=== PATIENT | male | born 1950 | race Two or more races ===

== ENCOUNTER 2017-07-17 19:09 | Inpatient (IN) | payer MEDICARE, OTHER ==
[~2017-07-17] VITALS: Ht 165.1 cm; Wt 68.0 kg
[2017-07-17 19:09] VITALS: BP 195/68
--- NOTE | 2017-07-17 21:09 | Emergency Room Report ---
History of Present Illness General Chief Complaint: Headache Source: Patient, EMS Present Illness HPI Is a 67-year-old homeless patient with a history hypertension. He also uses a walker. Someone called 911. Patient is a poor historian complaint of headache. No focal deficit. He denies any symptom when I spoke with him. He shakes his head yes and now. Denies any pain to me. Allergies: Coded Allergies: No Known Allergies (Unverified , 07/17/17) Patient History Past Medical History: see triage record, old chart reviewed, HTN Past Surgical History: other Pertinent Family History: none Social History: Denies: smoking Immunizations: other Reviewed Nursing Documentation: PMH: Agreed, PSxH: Agreed Nursing Documentation-PMH Hx Hypertension: Yes Review of Systems Eye: Denies: eye pain, blurred vision ENT: Denies: ear pain, nose congestion, throat swelling Respiratory: Denies: cough, shortness of breath Cardiovascular: Denies: chest pain, palpitations Gastrointestinal: Denies: abdominal pain, diarrhea, nausea, vomiting Musculoskeletal: Denies: back pain, joint pain Skin: Denies: rash Neurological: Reports: headache, Denies: numbness Endocrine: Denies: increased thirst, increased urine Hematologic/Lymphatic: Denies: easy bruising All Other Systems: negative except mentioned in HPI Physical Exam Vital Signs Date Time Temp Pulse Resp B/P (MAP) Pulse Ox O2 Delivery O2 Flow Rate FiO2 07/17/17 19:05 98.8 53 18 195/68 98 Room Air vitals with high blood pressure Sp02 EP Interpretation: reviewed, normal General Appearance: well appearing, no apparent distress, alert Head: normocephalic, atraumatic Eyes: bilateral eye PERRL, bilateral eye EOMI ENT: hearing grossly normal, normal pharynx Neck: full range of motion, supple, no meningismus Respiratory: chest non-tender, lungs clear, normal breath sounds Cardiovascular #1: regular rate, rhythm, no murmur Gastrointestinal: normal bowel sounds, non tender, no mass, no organomegaly, no bruit, non-distended Musculoskeletal: back normal, normal range of motion Neurologic: alert, other - Confused Psychiatric: mood/affect normal Skin: warm/dry Medical Decision Making Diagnostic Impression: Primary Impression: Headache Qualified Codes: R51 - Headache Additional Impressions: Encephalopathy acute Hypertension Qualified Codes: I10 - Essential (primary) hypertension Failure to thrive in adult Anemia Qualified Codes: D64.9 - Anemia, unspecified ER Course Patient presents with confusion and headache. Most likely having some type of dementia. The no focal deficit. No evidence of CVA or TIA. No evidence of ACS. No infectious cause or drugs or alcohol. Will admit. Most likely will need long-term placement. Lab Results Impression labs with anemia Rhythm Strip Diag. Results Rhythm Strip Time: 01:14 EP Interpretation: yes Rate: 88 Rhythm: NSR, no PVC's, no ectopy CT/MRI/US Diagnostic Results CT/MRI/US Diagnostic Results : Imaging Test Ordered: CT head Impression negative per radiologist Last Vital Signs Date Time Temp Pulse Resp B/P (MAP) Pulse Ox O2 Delivery O2 Flow Rate FiO2 07/17/17 19:09 98.8 53 18 195/68 98 Room Air Status: improved Disposition: ADMITTED INPATIENT Condition: Serious Referrals: NOT CHOSEN DUDLEY/,REFERRING (PCP) NIGEL CUMMINGS M.D. Jul 17, 2017 21:09
[2017-07-17 22:00] VITALS: BP 204/91
[2017-07-17 22:11] LABS: APPEARANCE,URINE CLEAR; BILIRUBIN, URINE NEGATIVE (NEGATIVE); COLOR,URINE PALE YELLOW; GLUCOSE, URINE (UA) NEGATIVE (NEGATIVE); KETONES,URINE NEGATIVE (NEGATIVE); LEUKOCYTE ESTERASE ,URINE NEGATIVE (NEGATIVE); NITRITE,URINE NEGATIVE (NEGATIVE); PH,URINE 7 (4.5-8.0); PROTEIN,URINE NEGATIVE (NEGATIVE); UROBILINOGEN,URINE NORMAL MG/DL (0.0-1.0)
[2017-07-17 22:17] LABS: BASOPHILS % (AUTO) 1.1 % (0.0-2.0); EOSINOPHILS % (AUTO) 2.6 % (0.0-3.0); HEMATOCRIT 30.5 % (42.0-52.0); HEMOGLOBIN 9.8 G/DL (14.2-18.0); MEAN CORPUSCULAR VOLUME 92 FL (80-99); MONOCYTES % (AUTO) 9.1 % (1.0-10.0); NEUTROPHILS % (AUTO) 74.2 % (45.0-75.0); PLATELET COUNT 428 K/UL (150-450); RED BLOOD COUNT 3.32 M/UL (4.70-6.10); RED CELL DISTRIBUTION WIDTH 13.2 % (11.6-14.8); WHITE BLOOD COUNT 7.3 K/UL (4.8-10.8)
[2017-07-17 22:23] LABS: ANION GAP 8 mmol/L (5-15); BLOOD UREA NITROGEN 15 mg/dL (7-18); CARBON DIOXIDE 25 MMOL/L (21-32); CHLORIDE 104 MMOL/L (98-107); POTASSIUM 3.8 MMOL/L (3.5-5.1); SODIUM 137 MMOL/L (136-145)
[2017-07-18] VITALS (7 sets, daily range): BP systolic 109–178; BP diastolic 69–93
[2017-07-18] MEDS ORDERED: Miralax 17gm pkt ORAL PRN (01:45)
[2017-07-18] MEDS ORDERED: HydrALAZINE 25mg tab ORAL PRN (01:45)
[2017-07-18] MEDS ORDERED: Acetaminophen 650 MG SUPP RECTAL PRN ×2 (01:45)
[2017-07-18 08:14] LABS: CHOLESTEROL 151 MG/DL (< 200); HDL CHOLESTEROL 74 MG/DL (40-60); TRIGLYCERIDES 56 MG/DL (30-150)
[2017-07-18] MEDS ORDERED: Lisinopril 10mg tab ORAL SCH (09:00)
[2017-07-18] MEDS: Docusate 100mg cap ORAL SCH ×2 (09:46→20:47)
[2017-07-18] MEDS: Heparin 5000 units/ml inj SUBQ SCH ×2 (09:50→20:49)
--- NOTE | 2017-07-18 11:13 | Cardiac Electrophysiology PN ---
Subjective Subjective [id number] Objective Last 24 Hour Vital Signs Date Time Temp Pulse Resp B/P (MAP) Pulse Ox O2 Delivery O2 Flow Rate FiO2 07/18/17 09:46 142/88 07/18/17 08:00 96.8 86 20 142/88 97 07/18/17 04:14 96.8 85 20 144/80 92 Room Air 07/18/17 03:45 85 24 157/69 100 07/18/17 03:24 85 144/80 07/18/17 02:20 85 24 157/69 100 Room Air 07/18/17 02:10 166/93 07/18/17 01:20 199/99 07/18/17 01:20 199/99 07/18/17 00:30 91 25 178/93 100 07/17/17 23:22 195/85 07/17/17 22:00 87 27 204/91 100 07/17/17 21:57 201/86 07/17/17 19:09 98.8 53 18 195/68 98 Room Air 07/17/17 19:05 98.8 53 98 Room Air Intake and Output 07/17/17 07/18/17 19:00 07:00 Intake Total 20 ml Balance 20 ml Intake Oral 20 ml # Voids 6 Laboratory Tests Test 07/17/17 21:50 07/18/17 06:05 White Blood Count 7.3 K/UL (4.8-10.8) Red Blood Count 3.32 M/UL (4.70-6.10) L Hemoglobin 9.8 G/DL (14.2-18.0) L Hematocrit 30.5 % (42.0-52.0) L Mean Corpuscular Volume 92 FL (80-99) Mean Corpuscular Hemoglobin 29.5 PG (27.0-31.0) Mean Corpuscular Hemoglobin Concent 32.1 G/DL (32.0-36.0) Red Cell Distribution Width 13.2 % (11.6-14.8) Platelet Count 428 K/UL (150-450) Mean Platelet Volume 5.8 FL (6.5-10.1) L Neutrophils (%) (Auto) 74.2 % (45.0-75.0) Lymphocytes (%) (Auto) 13.0 % (20.0-45.0) L Monocytes (%) (Auto) 9.1 % (1.0-10.0) Eosinophils (%) (Auto) 2.6 % (0.0-3.0) Basophils (%) (Auto) 1.1 % (0.0-2.0) Urine Color Pale yellow Urine Appearance Clear Urine pH 7 (4.5-8.0) Urine Specific Kaycee 1.005 (1.005-1.035) Urine Protein Negative (NEGATIVE) Urine Glucose (UA) Negative (NEGATIVE) Urine Ketones Negative (NEGATIVE) Urine Occult Blood 3+ (NEGATIVE) H Urine Nitrite Negative (NEGATIVE) Urine Bilirubin Negative (NEGATIVE) Urine Urobilinogen Normal MG/DL (0.0-1.0) Urine Leukocyte Esterase Negative (NEGATIVE) Urine RBC 2-4 /HPF (0 - 0) H Urine WBC 0-2 /HPF (0 - 0) Urine Squamous Epithelial Cells None /LPF (NONE/OCC) Urine Bacteria Few /HPF (NONE) Sodium Level 137 MMOL/L (136-145) Potassium Level 3.8 MMOL/L (3.5-5.1) Chloride Level 104 MMOL/L (98-107) Carbon Dioxide Level 25 MMOL/L (21-32) Anion Gap 8 mmol/L (5-15) Blood Urea Nitrogen 15 mg/dL (7-18) Creatinine 1.0 MG/DL (0.55-1.30) Estimat Glomerular Filtration Rate > 60 mL/min (>60) Glucose Level 86 MG/DL (74-106) Calcium Level 9.0 MG/DL (8.5-10.1) Troponin I 0.050 ng/mL (0.000-0.056) Urine Opiates Screen Negative (NEGATIVE) Urine Barbiturates Screen Negative (NEGATIVE) Phencyclidine (PCP) Screen Negative (NEGATIVE) Urine Amphetamines Screen Negative (NEGATIVE) Urine Benzodiazepines Screen Negative (NEGATIVE) Urine Cocaine Screen Negative (NEGATIVE) Urine Marijuana (THC) Screen Negative (NEGATIVE) Serum Alcohol < 3 mg/dL Hemoglobin A1c 5.7 % (4.3-6.0) Triglycerides Level 56 MG/DL (30-150) Cholesterol Level 151 MG/DL (< 200) LDL Cholesterol 72 mg/dL (<100) HDL Cholesterol 74 MG/DL (40-60) H Cholesterol/HDL Ratio 2.0 (3.3-4.4) L Vitamin B12 Level 996 PG/ML (193-986) H Vitamin D 25-Hydroxy Pending 25-Hydroxy Vitamin D2 Pending 25-Hydroxy Vitamin D3 Pending Folate 7.1 NG/ML (8.6-58.9) L Thyroid Stimulating Hormone (TSH) 5.374 uiU/mL (0.358-3.740) Rapid Plasma Reagin Pending NAKUL GARNETT Jul 18, 2017 11:12
[2017-07-18] MEDS ORDERED: COREG25 MG ORAL (11:47)
[2017-07-18] MEDS ORDERED: FLEET ENEMA133 M1 RC (11:47)
[2017-07-18] MEDS ORDERED: NEURONTIN300 MG ORAL (11:47)
[2017-07-18] MEDS ORDERED: FERROUS SULFAT325 M2 ORAL (11:47)
[2017-07-18] MEDS ORDERED: DOCUSATE SODIU100 M2 ORAL (11:47)
[2017-07-18] MEDS ORDERED: HEPARIN2000 UNIT/ (11:47)
[2017-07-18] MEDS ORDERED: HEPARIN 50500 UNIT/5 SQ (11:47)
[2017-07-18] MEDS ORDERED: LOSARTAN POTASS25 M1 PO (11:47)
[2017-07-18] MEDS ORDERED: NORVASC5 MG ORAL (11:47)
[2017-07-18] MEDS ORDERED: DULCOLAX10 MG RC (11:47)
--- NOTE | 2017-07-18 16:11 | Diagnostic Imaging Report ---
Indication: Altered mental status Technique: Continuous helical CT scanning of the head was performed utilizing automated exposure control without intravenous contrast material. Axial and coronal reconstructions were obtained. Comparison: None CT dose: Total DLP 1411.25 mGycm; CTDI vol 70.38 mGy Findings: There is no acute intracranial hemorrhage, mass effect or cortical edema. The ventricles, cisterns and sulci are mildly prominent consistent with atrophy. Confluent subcortical and periventricular hypoattenuation is seen, a nonspecific finding. There is opacification of the bilateral mastoid air cells which may be related to mastoiditis or mastoid effusion. There is mucosal thickening and retention cyst in the bilateral paranasal in the paranasal sinuses with mucous retention cysts versus polyps in the bilateral maxillary sinuses. There are frothy secretions in the nasopharynx. There is slight asymmetric ventricular prominence in the left pharyngeal recess which may be artifactual related to patient positioning. Neoplasm cannot entirely be excluded. IMPRESSION: No evidence of acute intracranial hemorrhage, mass effect or cortical edema. Atrophy and nonspecific periventricular hypoattenuation suggestive of chronic ischemic microvascular changes. Acute on chronic ischemia not entirely excluded. MRI may be obtained for more sensitive evaluation as clinically indicated. Paranasal sinus disease. Bilateral mastoid ossification possibly related to mastoiditis or mastoid effusion. Correlate clinically. Soft tissue prominence in the region of the left pharyngeal recess, possibly artifactual related to patient positioning. Neoplasm in this region is not entirely excluded. Clinical correlation recommended. Consider further evaluation with contrast-enhanced CT of the soft tissues of the neck. This is slightly discrepant from the preliminary report regarding findings in the nasopharynx. Findings and imaging recommendations discussed with treating RN on the floor 07/18/17. The CT scanner at [facility] is accredited by the [employer] and the scans are performed using protocols designed to limit radiation exposure to as low as reasonably achievable to attain images of sufficient resolution adequate for diagnostic evaluation.
--- NOTE | 2017-07-18 16:15 | Consultation ---
DATE OF CONSULTATION: 07/18/2017 CARDIOLOGY CONSULTATION CONSULTING PHYSICIAN: Von Mccormick M.D. REFERRING PHYSICIAN: Kingston Washington M.D. REASON FOR CONSULTATION: Accelerated hypertension. HISTORY OF PRESENT ILLNESS: The patient is a 67-year-old homeless patient with history of hypertension, who does not take any medication, uses a walker, and extremely poor historian. The patient was brought to the emergency room and someone called 911. The patient was found to have accelerated hypertension, blood pressure 194/68 with a pulse of 53. The patient was admitted and Cardiology consultation was obtained for further evaluation. PAST MEDICAL HISTORY: Hypertension. MEDICATIONS AT HOME: None. FAMILY HISTORY: Noncontributory. SOCIAL HISTORY: [place] lives [address] He is homeless. Occasionally smokes and drinks alcohol. REVIEW OF SYSTEMS: Negative other than what is mentioned in the history of present illness. Even though, is limited due to the patient's confusion. PHYSICAL EXAMINATION: VITAL SIGNS: Blood pressure is 142/88, pulse is 86, respirations 18, and temperature 96.8. HEAD AND NECK: Showed no JVD. LUNGS: Decreased breath sounds. CARDIOVASCULAR: Shows regular S1 and S2 with no gallop or murmur. ABDOMEN: Soft. EXTREMITIES: There is 1+ pitting edema. LABORATORY DATA: Labs show white count of 7.2, hemoglobin 9.8, hematocrit of 30, and platelet count of 428,000. Sodium 137, potassium 3.8, BUN of 15, creatinine 1, and glucose of 86. LDL is 72. His urine toxicology is negative. ASSESSMENT AND PLAN: 1. Accelerated hypertension. The patient is started on lisinopril 10 mg daily and Norvasc 10 mg daily. We will add p.r.n. clonidine and hydralazine to his medical regimen. We will also get an echocardiogram to rule out for ejection fraction and wall motion abnormality. 2. Failure to thrive. 3. Homelessness. 4. Anemia. Thank you very much, Dr. Washington for allowing me to participate in the care of this patient. Please do not hesitate to contact me for any questions regarding my evaluation. Von Mccormick M.D. DR: RISHABH JOB#: [id number] CC:
--- NOTE | 2017-07-18 22:33 | History and Physical ---
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 Pt brought in from street after some called 911. Pt is poor historian. He appears to be confused. He is unable to state where is and what brought him in. He did not know the entire date. He denies chest pain, SOB, f/c , n/v, d/c, abd pain. Pt appears to be homeless. In ED, pt noted to have elevated BPs to 200s/90s. CT head showed no acute abnormality but atrophy and chronic ischemic microvascular disease. Pt given hydralazine IV in ED w/ some improvement in BPs. Allergies: Coded Allergies: No Known Allergies (Unverified , 07/17/17) Medication History Scheduled Amlodipine Besylate (Norvasc), 7.5 MG ORAL DAILY, (Reported) Carvedilol (Coreg), 25 MG ORAL EVERY 12 HOURS, (Reported) Docusate Sodium (Docusate Sodium), 250 MG ORAL DAILY, (Reported) Ferrous Sulfate (Ferrous Sulfate), 325 MG ORAL DAILY, (Reported) Heparin Sod,Porcine/0.9 % NaCl (Heparin 500 Unit/500 Ml-Ns), 500 UNIT SQ Q12HR, (Reported) Losartan Potassium (Losartan Potassium), 75 MG PO DAILY, (Reported) Scheduled PRN Gabapentin (Neurontin), 100 MG ORAL BEDTIME PRN for For Pain, (Reported) Na Phos,M-B/Na Phos,Di-Ba (Fleet Enema), 133 ML RC DAILY PRN for Constipation, (Reported) Miscellaneous Medications Bisacodyl (Dulcolax), 10 MG RC, (Reported) Heparin Sodium,Porcine/Ns/Pf (Heparin), 5,000 UNIT, (Reported) Patient History History Provided By: Patient, Medical Record, EMS Healthcare decision maker Resuscitation status Full Code Advanced Directive on File No Past Medical/Surgical History Past Medical/Surgical History: (1) Nasopharyngeal cancer (2) Hypertension Family History Family History: Patient reports no known family medical history. Social History Social History: (1) Possibly homeless Review of Systems Constitutional: Reports: malaise, weakness Eye: Reports: no symptoms ENT: Reports: no symptoms Respiratory: Reports: no symptoms Cardiovascular: Reports: no symptoms Gastrointestinal: Reports: no symptoms Genitourinary: Reports: no symptoms Musculoskeletal: Reports: no symptoms Skin: Reports: no symptoms Psychiatric: Reports: other Neurological: Reports: headache Endocrine: Reports: no symptoms Hematologic/Lymphatic: Reports: no symptoms Physical Exam Physical Exam Narrative General: alert, cooperative, no distress, appears stated age, A&Ox1-2 Head: normocephalic, without obvious abnormality, atraumatic Eyes: conjunctivae/corneas clear. PERRL, EOM's intact Throat: lips, mucosa, and tongue normal. MMM Neck: supple, symmetrical, trachea midline, and no JVD Lungs: clear to auscultation bilaterally Heart: regular rate and rhythm, S1, S2 normal, no murmur, click, rub or gallop Abdomen: soft, non-tender, non-distended, bowel sounds normal; no masses or organomegaly Extremities: extremities normal, atraumatic, no cyanosis or edema Pulses: 2+ and symmetric Skin: skin color, texture, turgor normal; no rashes or lesions Neurologic: grossly normal, no focal deficits Last 24 Hour Vital Signs Date Time Temp Pulse Resp B/P (MAP) Pulse Ox O2 Delivery O2 Flow Rate FiO2 07/18/17 20:50 94 109/88 07/18/17 20:00 97.5 96 18 109/88 94 Room Air 07/18/17 16:00 96.3 82 20 151/88 96 07/18/17 12:00 96.4 94 20 145/80 97 07/18/17 09:46 142/88 07/18/17 08:00 96.8 86 20 142/88 97 07/18/17 04:14 96.8 85 20 144/80 92 Room Air 07/18/17 03:45 85 24 157/69 100 07/18/17 03:24 85 144/80 07/18/17 02:20 85 24 157/69 100 Room Air 07/18/17 02:10 166/93 07/18/17 01:20 199/99 07/18/17 01:20 199/99 07/18/17 00:30 91 25 178/93 100 07/17/17 23:22 195/85 Intake and Output 07/17/17 07/18/17 19:00 07:00 Intake Total 20 ml Balance 20 ml Intake Oral 20 ml # Voids 6 Laboratory Tests Test 07/18/17 06:05 Hemoglobin A1c 5.7 % (4.3-6.0) Triglycerides Level 56 MG/DL (30-150) Cholesterol Level 151 MG/DL (< 200) LDL Cholesterol 72 mg/dL (<100) HDL Cholesterol 74 MG/DL (40-60) H Cholesterol/HDL Ratio 2.0 (3.3-4.4) L Vitamin B12 Level 996 PG/ML (193-986) H Vitamin D 25-Hydroxy Pending 25-Hydroxy Vitamin D2 Pending 25-Hydroxy Vitamin D3 Pending Folate 7.1 NG/ML (8.6-58.9) L Thyroid Stimulating Hormone (TSH) 5.374 uiU/mL (0.358-3.740) Rapid Plasma Reagin Pending Height (Feet): 5 Height (Inches): 5.00 Weight (Pounds): 150 Medications Current Medications Medications (Trade) Dose Ordered Sig/Mehran Route PRN Reason Start Time Stop Time Status Last Admin Dose Admin Acetaminophen (Tylenol) 650 mg Q4H PRN ORAL Mild Pain (Pain Scale 1-3) 07/18/17 01:45 08/17/17 01:44 Acetaminophen (Tylenol) 650 mg Q4H PRN ORAL fever 07/18/17 01:45 08/17/17 01:44 Acetaminophen (Tylenol) 650 mg Q4H PRN RECTAL Mild Pain (Pain Scale 1-3) 07/18/17 01:45 08/17/17 01:44 Acetaminophen (Tylenol) 650 mg Q4H PRN RECTAL fever 07/18/17 01:45 08/17/17 01:44 Amlodipine Besylate (Norvasc) 10 mg QHS ORAL 07/18/17 02:00 08/17/17 08:59 07/18/17 20:50 Bisacodyl (Dulcolax) 10 mg HSPRN PRN RECTAL Constipation 07/18/17 01:45 08/17/17 01:44 Dextrose (Dextrose 50%) STAT PRN IV Hypoglycemia 07/18/17 01:45 08/17/17 01:44 Docusate Sodium (Colace) 100 mg EVERY 12 HOURS ORAL 07/18/17 09:00 08/17/17 08:59 07/18/17 20:47 Heparin Sodium (Porcine) (Heparin 5000 units/ml) 5,000 units EVERY 12 HOURS SUBQ 07/18/17 09:00 08/17/17 08:59 07/18/17 20:49 Hydralazine HCl (Apresoline) 25 mg Q6H PRN ORAL SBP>160 07/18/17 01:45 08/17/17 01:44 Lisinopril (Zestril) 10 mg DAILY ORAL 07/18/17 09:00 08/17/17 08:59 07/18/17 09:46 Ondansetron HCl (Zofran) 4 mg Q6H PRN IVP Nausea & Vomiting 07/18/17 01:45 08/17/17 01:44 Polyethylene Glycol (Miralax) 17 gm HSPRN PRN ORAL Constipation 07/18/17 01:45 08/17/17 01:44 Assessment/Plan Problem List: (1) Hypertensive urgency ICD Codes: I16.0 - Hypertensive urgency SNOMED: 945441921 (2) Acute encephalopathy ICD Codes: G93.40 - Encephalopathy, unspecified SNOMED: 99538080, 104040156 (3) Anemia ICD Codes: D64.9 - Anemia, unspecified SNOMED: 669820686 Qualifiers: (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, unspecified SNOMED: 62555072, 517098180 Status: stable Assessment/Plan Admit inpt Cardiology consulted Losartan 75mg daily started Amlodipine 10mg QHS started Consider beta-louis as additional agent Check lipid panel, A1C TSH Metabolic workup sent to eval for reversible causes of encephalopathy--check B12 /folate, TSH, Vit D, RPR, U/A SW consulted given likely homeless and to locate family CM consulted for likely placement to recup [facility] vs SNF Pain control, bowel regimen Supportive care DVT Prophylaxis: SCD, HSQ Code Status: Full Hospital Classification Declaration: Based on this initial evaluation, and depending on the patient's clinical course, I anticipate that this patient will require hospitalization for 2-3 days for acute encephalopathy, hypertensive urgency, and close respiratory/hemodynamic monitoring. Disposition: Once the patient is stable to leave the hospital, I anticipate the patient will likely be discharged to the following environment: recuperative [facility] vs SNF I spent 68 minutes on this patient's case, and >50% was dedicated to counseling and/or care coordination. Discussed with patient/family, nursing staff, SW/CM, cardiology regarding clinical status, treatment course, and disposition planning. Time of note may not reflect time of encounter. Rosalind Powell M.D. Jul 18, 2017 22:33
[2017-07-19 00:32] VITALS: BP 146/75
[2017-07-19 04:28] VITALS: BP 154/100
--- NOTE | 2017-07-19 06:35 | Cardiology Report ---
APPROVED REPORT EXAM: Two-dimensional and M-mode echocardiogram with Doppler and color Doppler. INDICATION Hypertension/HCVD M-Mode DIMENSIONS IVSd1.6 (0.7-1.1cm)Left Atrium (MM)3.6 (1.6-4.0cm) LVDd4.4 (3.5-5.6cm)Aortic Root3.2 (2.0-3.7cm) PWd1.7 (0.7-1.1cm)Aortic Cusp Exc.2.0 (1.5-2.0cm) LVDs3.1 (2.5-4.0cm) PWs2.3 cm Normal left ventricular chamber size, systolic function and wall motion. Left ventricular ejection fraction estimated to be 55 %. Significant left ventricular hypertrophy. Small pericardial effusion along the free wall of RV. Left and right atrial sizes at upper limits of normal. Right ventricular chamber size is within normal limits. Focal aortic valve sclerosis with adequate cusp excursion. Thickened mitral valve leaflets with normal excursion. Mitral annulus and aortic root calcification. Normal pulmonic valve structure. Normal tricuspid valve structure. IVC at normal size with physiologic collapse. A color flow and spectral Doppler study was performed and revealed: Moderate aortic regurgitation. Mild mitral regurgitation. Mitral diastolic velocities suggest reduced left ventricular relaxation c/w mild LV diastolic dysfunction (Grade I). Mild tricuspid regurgitation. Tricuspid systolic velocities suggests peak right ventricular systolic pressure of 41 mmHg, consistent with mild pulmonary hypertension. Pulmonic regurgitation present.
[2017-07-19 08:00] VITALS: BP 159/88
[2017-07-19] MEDS: Carvedilol 6.25mg Tab ORAL SCH ×3 (08:22→20:40)
[2017-07-19] MEDS: Losartan 25mg tab ORAL SCH (08:23)
[2017-07-19] MEDS: Docusate 100mg cap ORAL SCH ×3 (08:23→20:40)
[2017-07-19] MEDS: Heparin 5000 units/ml inj SUBQ SCH ×2 (08:31→20:38)
[2017-07-19 11:57] LABS: BASOPHILS % (AUTO) 0.6 % (0.0-2.0); EOSINOPHILS % (AUTO) 1.4 % (0.0-3.0); HEMATOCRIT 32.9 % (42.0-52.0); HEMOGLOBIN 10.8 G/DL (14.2-18.0); LYMPHOCYTES % (AUTO) 8.1 % (20.0-45.0); MEAN CORPUSCULAR VOLUME 92 FL (80-99); MONOCYTES % (AUTO) 6.4 % (1.0-10.0); NEUTROPHILS % (AUTO) 83.6 % (45.0-75.0); PLATELET COUNT 434 K/UL (150-450); RED BLOOD COUNT 3.59 M/UL (4.70-6.10); WHITE BLOOD COUNT 9.2 K/UL (4.8-10.8)
[2017-07-19 12:00] VITALS: BP 149/77
--- NOTE | 2017-07-19 12:04 | Cardiac Electrophysiology PN ---
Assessment/Plan Assessment/Plan 1. Accelerated hypertension. On lisinopril 10 mg daily and Norvasc 10 mg daily and p.r.n. clonidine and hydralazine.Echo EF 55% 2. Failure to thrive.Refused swallow eval. 3. Homelessness. 4. Anemia. Subjective Subjective Refused video swallow. No chest pain or SOB. Objective Last 24 Hour Vital Signs Date Time Temp Pulse Resp B/P (MAP) Pulse Ox O2 Delivery O2 Flow Rate FiO2 07/19/17 08:23 159/88 07/19/17 08:22 84 159/88 07/19/17 08:00 97.6 86 21 159/88 97 07/19/17 04:28 97.6 95 18 154/100 96 Room Air 07/19/17 00:32 97.2 92 18 146/75 100 Room Air 07/18/17 20:50 94 109/88 07/18/17 20:00 97.5 96 18 109/88 94 Room Air 07/18/17 16:00 96.3 82 20 151/88 96 Intake and Output 07/18/17 07/19/17 19:00 07:00 Intake Total 180 ml Output Total 600 ml Balance -420 ml Intake Oral 180 ml Output Urine Total 600 ml # Voids 3 Laboratory Tests Test 07/19/17 11:25 White Blood Count 9.2 K/UL (4.8-10.8) Red Blood Count 3.59 M/UL (4.70-6.10) L Hemoglobin 10.8 G/DL (14.2-18.0) L Hematocrit 32.9 % (42.0-52.0) L Mean Corpuscular Volume 92 FL (80-99) Mean Corpuscular Hemoglobin 30.1 PG (27.0-31.0) Mean Corpuscular Hemoglobin Concent 32.9 G/DL (32.0-36.0) Red Cell Distribution Width 13.0 % (11.6-14.8) Platelet Count 434 K/UL (150-450) Mean Platelet Volume 5.7 FL (6.5-10.1) L Neutrophils (%) (Auto) 83.6 % (45.0-75.0) H Lymphocytes (%) (Auto) 8.1 % (20.0-45.0) L Monocytes (%) (Auto) 6.4 % (1.0-10.0) Eosinophils (%) (Auto) 1.4 % (0.0-3.0) Basophils (%) (Auto) 0.6 % (0.0-2.0) Sodium Level Pending Potassium Level Pending Chloride Level Pending Carbon Dioxide Level Pending Blood Urea Nitrogen Pending Creatinine Pending Estimat Glomerular Filtration Rate Pending Glucose Level Pending Calcium Level Pending Magnesium Level Pending Iron Level Pending Unsaturated Iron Binding Pending Ferritin Pending Total Bilirubin Pending Aspartate Amino Transf (AST/SGOT) Pending Alanine Aminotransferase (ALT/SGPT) Pending Alkaline Phosphatase Pending Total Protein Pending Albumin Pending Globulin Pending Free Thyroxine Pending Objective HEAD AND NECK: Showed no JVD. LUNGS: Decreased breath sounds. CARDIOVASCULAR: Shows regular S1 and S2 with no gallop or murmur. ABDOMEN: Soft. EXTREMITIES: There is 1+ pitting edema. NAKUL GARNETT Jul 19, 2017 12:03
[2017-07-19 12:25] LABS: % IRON SATURATION 13 % (15-50); IRON 24 ug/dL (50-175); TOTAL IRON BINDING CAPACITY 189 ug/dL (250-450)
[2017-07-19 12:34] LABS: ALANINE AMINOTRANSFERASE 12 U/L (12-78); ALBUMIN 2.2 G/DL (3.4-5.0); ALBUMIN/GLOBULIN RATIO 0.3 (1.0-2.7); ALKALINE PHOSPHATASE 76 U/L (46-116); ANION GAP 7 mmol/L (5-15); ASPARTATE AMINO TRANSFERASE 13 U/L (15-37); BILIRUBIN,TOTAL 0.3 MG/DL (0.2-1.0); BLOOD UREA NITROGEN 12 mg/dL (7-18); CALCIUM 9.3 MG/DL (8.5-10.1); CARBON DIOXIDE 28 MMOL/L (21-32); CHLORIDE 102 MMOL/L (98-107); POTASSIUM 3.5 MMOL/L (3.5-5.1); SODIUM 137 MMOL/L (136-145)
[2017-07-19 13:14] LABS: FERRITIN 176 NG/ML (8-388)
--- NOTE | 2017-07-19 13:32 | General Progress Note ---
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, unspecified SNOMED: 78062901, 457720149 (5) Anemia Assessment & Plan: Iron deficiency anemia ICD Codes: D64.9 - Anemia, unspecified SNOMED: 801067664 Qualifiers: (6) Folate deficiency ICD Codes: E53.8 - Deficiency of other specified B group vitamins SNOMED: 528947278 Status: stable Assessment/Plan Cardiology consulted Losartan 75mg daily Amlodipine 10mg QHS Coreg 6.25mg BID, uptitrate as tolerated TTE shows EF 55% Metabolic workup sent to eval for reversible causes of encephalopathy--folate level low, started folate 1mg daily Supportive care Nutritional eval SW consulted, appreciate rec's CM consulted for likely placement to recup detention vs SNF. Referrals sent Pain control, bowel regimen Possible d/c to SNF tomorrow DVT Prophylaxis: SCD, HSQ Code Status: Full Hospital Classification Declaration: Based on this initial evaluation, and depending on the patient's clinical course, I anticipate that this patient will require hospitalization for 1-2 days for acute encephalopathy, hypertensive urgency, and close respiratory/hemodynamic monitoring. Disposition: Once the patient is stable to leave the hospital, I anticipate the patient will likely be discharged to the following environment: recuperative detention vs SNF Discussed with patient/family, nursing staff, SW/CM, cardiology regarding clinical status, treatment course, and disposition planning. Time of note may not reflect time of encounter. Subjective Date patient seen: Jul 19, 2017 Time patient seen: 12:00 ROS Limited/Unobtainable: Yes Constitutional: Reports: weakness HEENT: Reports: no symptoms Cardiovascular: Reports: no symptoms Respiratory: Reports: no symptoms Gastrointestinal/Abdominal: Reports: no symptoms Genitourinary: Reports: no symptoms Neurologic/Psychiatric: Reports: no symptoms Endocrine: Reports: no symptoms Hematologic/Lymphatic: Reports: no symptoms Allergies: Coded Allergies: No Known Allergies (Unverified , 07/17/17) Subjective No acute o/n events BPs improved SW found out that pt was a resident at [facility] 06/17/17-07/06/17 and was then d/c'd to [place] room and board. Pt's sister Shayna was also contacted who didnot know pt was in [place]. She is unable to house or care for her brother at this time. Pt more awake, alert today, A&Ox3 (name, place, date but not situation). Does not recall how he got to the hospital. Headache improved. Denies f/c, n/v/d/c, chest pain, SOB Objective Last 24 Hour Vital Signs Date Time Temp Pulse Resp B/P (MAP) Pulse Ox O2 Delivery O2 Flow Rate FiO2 07/19/17 13:05 Room Air 07/19/17 12:00 97.5 69 20 149/77 99 07/19/17 08:23 159/88 07/19/17 08:22 84 159/88 07/19/17 08:15 Room Air 07/19/17 08:00 97.6 86 21 159/88 97 07/19/17 04:28 97.6 95 18 154/100 96 Room Air 07/19/17 00:32 97.2 92 18 146/75 100 Room Air 07/18/17 20:50 94 109/88 07/18/17 20:00 97.5 96 18 109/88 94 Room Air 07/18/17 16:00 96.3 82 20 151/88 96 Intake and Output 07/18/17 07/19/17 19:00 07:00 Intake Total 180 ml Output Total 600 ml Balance -420 ml Intake Oral 180 ml Output Urine Total 600 ml # Voids 3 Laboratory Tests 07/19/17 11:25: White Blood Count 9.2, Red Blood Count 3.59L, Hemoglobin 10.8L, Hematocrit 32.9L , Mean Corpuscular Volume 92, Mean Corpuscular Hemoglobin 30.1, Mean Corpuscular Hemoglobin Concent 32.9, Red Cell Distribution Width 13.0, Platelet Count 434, Mean Platelet Volume 5.7L, Neutrophils (%) (Auto) 83.6H, Lymphocytes (%) (Auto) 8.1L, Monocytes (%) (Auto) 6.4, Eosinophils (%) (Auto) 1.4, Basophils (%) (Auto) 0.6, Sodium Level 137, Potassium Level 3.5, Chloride Level 102, Carbon Dioxide Level 28, Anion Gap 7, Blood Urea Nitrogen 12, Creatinine 1.0, Estimat Glomerular Filtration Rate > 60, Glucose Level 98, Calcium Level 9.3, Magnesium Level 1.8, Iron Level 24L, Total Iron Binding Capacity 189L, Percent Iron Saturation 13L, Unsaturated Iron Binding 165, Ferritin 176, Total Bilirubin 0.3, Aspartate Amino Transf (AST/SGOT) 13L, Alanine Aminotransferase ( ALT/SGPT) 12, Alkaline Phosphatase 76, Total Protein 8.5H, Albumin 2.2L, Globulin 6.3, Albumin/Globulin Ratio 0.3L, Free Thyroxine 1.11 Height (Feet): 5 Height (Inches): 5.00 Weight (Pounds): 150 Objective General: alert, cooperative, no distress, appears stated age, A&Ox3 (name, date , place) Head: normocephalic, without obvious abnormality, atraumatic Eyes: conjunctivae/corneas clear. PERRL, EOM's intact Throat: lips, mucosa, and tongue normal. MMM Neck: supple, symmetrical, trachea midline, and no JVD Lungs: clear to auscultation bilaterally Heart: regular rate and rhythm, S1, S2 normal, no murmur, click, rub or gallop Abdomen: soft, non-tender, non-distended, bowel sounds normal; no masses or organomegaly Extremities: extremities normal, atraumatic, no cyanosis or edema Pulses: 2+ and symmetric Skin: skin color, texture, turgor normal; no rashes or lesions Neurologic: grossly normal, no focal deficits Rosalind Powell M.D. Jul 19, 2017 13:32
[2017-07-19 16:00] VITALS: BP 145/67
--- NOTE | 2017-07-19 16:42 | Cardiology Report ---
APPROVED REPORT EKG Measurement Heart [id number] Normal sinus rhythm Possible Left atrial enlargement Left anterior fascicular block Left ventricular hypertrophy with repolarization abnormality Anteroseptal infarct, age undetermined Prolonged QT Abnormal ECG
[2017-07-19 20:00] VITALS: BP 175/85
[2017-07-19] MEDS: Iron Sucrose 100 MG in NS 55 ML IVPB SCH (20:30)
[2017-07-20] VITALS: BP 166/96
[2017-07-20 04:00] VITALS: BP 154/89
[2017-07-20 08:00] VITALS: BP 143/86
[2017-07-20] MEDS: Docusate 100mg cap ORAL SCH ×2 (08:46→21:26)
[2017-07-20] MEDS: Carvedilol 6.25mg Tab ORAL SCH ×2 (08:47→21:30)
[2017-07-20] MEDS: Losartan 25mg tab ORAL SCH (08:47)
[2017-07-20] MEDS: Heparin 5000 units/ml inj SUBQ SCH ×2 (08:49→21:28)
[2017-07-20 11:57] VITALS: BP 133/69
--- NOTE | 2017-07-20 14:52 | General Progress Note ---
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, unspecified SNOMED: 20881310, 595380545 (7) Hypertensive urgency ICD Codes: I16.0 - Hypertensive urgency SNOMED: 212605673 (8) Failure to thrive SNOMED: 69526718 (9) Folate deficiency ICD Codes: E53.8 - Deficiency of other specified B group vitamins SNOMED: 892435109 Status: stable Assessment/Plan Cardiology consulted Losartan 75mg daily Amlodipine 10mg QHS Coreg 6.25mg BID, uptitrate as tolerated TTE shows EF 55% Metabolic workup sent to eval for reversible causes of encephalopathy--folate level low, started folate 1mg daily Supportive care Nutritional eval SW consulted, appreciate rec's CM consulted for likely placement to recup detention vs SNF. Referrals sent. Placement likely Saturday per trimming caser Pain control, bowel regimen Possible d/c to SNF tomorrow DVT Prophylaxis: SCD, HSQ Code Status: Full Hospital Classification Declaration: Based on this initial evaluation, and depending on the patient's clinical course, I anticipate that this patient will require hospitalization for 1-2 days for acute encephalopathy, hypertensive urgency, and close respiratory/hemodynamic monitoring. Disposition: Once the patient is stable to leave the hospital, I anticipate the patient will likely be discharged to the following environment: recuperative detention vs SNF Discussed with patient/family, nursing staff, SW/CM, cardiology regarding clinical status, treatment course, and disposition planning. Time of note may not reflect time of encounter. Subjective Date patient seen: Jul 20, 2017 Allergies: Coded Allergies: No Known Allergies (Unverified , 2/7/18) Subjective - AF, HDS - patient resting in bed - pending placement, discussed with trimming caser Objective Last 24 Hour Vital Signs Date Time Temp Pulse Resp B/P (MAP) Pulse Ox O2 Delivery O2 Flow Rate FiO2 07/20/17 11:57 98.1 70 18 133/69 92 Room Air 07/20/17 08:47 145/85 07/20/17 08:47 89 145/85 07/20/17 08:00 97.7 98 18 143/86 95 Room Air 07/20/17 04:00 97.8 102 20 154/89 96 Room Air 07/20/17 00:00 98.1 101 20 166/96 95 Room Air 07/19/17 20:41 83 175/85 07/19/17 20:40 83 175/85 07/19/17 20:00 97.9 83 20 175/85 95 Room Air 07/19/17 16:00 98.1 62 20 145/67 98 Intake and Output 07/19/17 07/20/17 19:00 07:00 Intake Total 600 ml Output Total 1500 ml Balance 600 ml -1500 ml Intake Oral 600 ml Output Urine Total 1500 ml # Voids 3 # Bowel Movements 1 Height (Feet): 5 Height (Inches): 5.00 Weight (Pounds): 150 General Appearance: no apparent distress, alert Objective Refused physical exam patient resting in bed with no acute distress Thania Spence N.P. Jul 20, 2017 14:51
[2017-07-20] MEDS ORDERED: Tubing IV Secondary IV ONE (15:07)
[2017-07-20] MEDS ORDERED: NS 500ML ONE (15:07)
[2017-07-20 15:50] VITALS: BP 138/91
--- NOTE | 2017-07-20 17:42 | Cardiac Electrophysiology PN ---
Assessment/Plan Assessment/Plan 1. Accelerated hypertension. On Losartan 75 mg daily, Coreg 6.25 bid and Norvasc 10 mg daily Echo EF 55% 2. Failure to thrive. Eating now. 3. Homelessness. 4. Anemia. 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 No chest pain or SOB.Eating dinner. Objective Last 24 Hour Vital Signs Date Time Temp Pulse Resp B/P (MAP) Pulse Ox O2 Delivery O2 Flow Rate FiO2 07/20/17 15:50 98.4 104 20 138/91 98 07/20/17 11:57 98.1 70 18 133/69 92 Room Air 07/20/17 08:47 145/85 07/20/17 08:47 89 145/85 07/20/17 08:00 97.7 98 18 143/86 95 Room Air 07/20/17 04:00 97.8 102 20 154/89 96 Room Air 07/20/17 00:00 98.1 101 20 166/96 95 Room Air 07/19/17 20:41 83 175/85 07/19/17 20:40 83 175/85 07/19/17 20:00 97.9 83 20 175/85 95 Room Air Intake and Output 07/19/17 07/20/17 19:00 07:00 Intake Total 600 ml Output Total 1500 ml Balance 600 ml -1500 ml Intake Oral 600 ml Output Urine Total 1500 ml # Voids 3 # Bowel Movements 1 Objective HEAD AND NECK: Showed no JVD. LUNGS: Decreased breath sounds. CARDIOVASCULAR: Shows regular S1 and S2 with no gallop or murmur. ABDOMEN: Soft. EXTREMITIES: There is 1+ pitting edema. NAKUL GARNETT Jul 20, 2017 17:42
[2017-07-20 20:50] VITALS: BP 143/71
[2017-07-20] MEDS: Iron Sucrose 100 MG in NS 55 ML IVPB SCH ×2 (21:00→21:25)
[2017-07-21] VITALS (7 sets, daily range): BP systolic 129–165; BP diastolic 51–86
[2017-07-21] MEDS: Docusate 100mg cap ORAL SCH ×2 (08:27→22:34)
[2017-07-21] MEDS: Carvedilol 6.25mg Tab ORAL SCH ×2 (08:28→22:35)
[2017-07-21] MEDS: Losartan 25mg tab ORAL SCH (08:29)
[2017-07-21] MEDS: Heparin 5000 units/ml inj SUBQ SCH ×2 (08:31→22:37)
--- NOTE | 2017-07-21 14:20 | General Progress Note ---
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, unspecified SNOMED: 51049505, 692960997 (7) Hypertensive urgency ICD Codes: I16.0 - Hypertensive urgency SNOMED: 672032806 (8) Failure to thrive SNOMED: 22524444 (9) Folate deficiency ICD Codes: E53.8 - Deficiency of other specified B group vitamins SNOMED: 652686017 Status: doing well Assessment/Plan Cardiology consulted Losartan 75mg daily Amlodipine 10mg QHS Coreg 6.25mg BID, uptitrate as tolerated TTE shows EF 55% Metabolic workup sent to eval for reversible causes of encephalopathy--folate level low, started folate 1mg daily Supportive care Nutritional eval SW consulted, appreciate rec's CM consulted for likely placement to recup jail vs SNF. Referrals sent. Placement likely Saturday per correctional casework specialist Pain control, bowel regimen Possible d/c to SNF tomorrow DVT Prophylaxis: SCD, HSQ Code Status: Full Hospital Classification Declaration: Based on this initial evaluation, and depending on the patient's clinical course, I anticipate that this patient will require hospitalization for 1-2 days for acute encephalopathy, hypertensive urgency, and close respiratory/hemodynamic monitoring. Disposition: Once the patient is stable to leave the hospital, I anticipate the patient will likely be discharged to the following environment: recuperative jail vs SNF Discussed with patient/family, nursing staff, SW/CM, cardiology regarding clinical status, treatment course, and disposition planning. Time of note may not reflect time of encounter. Subjective Date patient seen: Jul 21, 2017 Allergies: Coded Allergies: No Known Allergies (Unverified , 07/17/17) Subjective - AF, HDS - patient eating. no new complaints - pending placement, discussed with correctional casework specialist Objective Last 24 Hour Vital Signs Date Time Temp Pulse Resp B/P (MAP) Pulse Ox O2 Delivery O2 Flow Rate FiO2 07/21/17 12:00 97.5 64 19 141/69 96 07/21/17 08:42 78 129/63 07/21/17 08:29 129/63 07/21/17 08:28 78 129/63 07/21/17 08:00 97.1 90 19 165/86 97 07/21/17 04:05 97.8 64 20 146/72 99 Room Air 07/21/17 00:01 97.8 72 20 149/72 99 07/20/17 21:30 66 143/71 07/20/17 21:26 66 143/71 07/20/17 20:50 97.8 66 20 143/71 99 07/20/17 15:50 98.4 104 20 138/91 98 Intake and Output 07/20/17 07/21/17 19:00 07:00 Intake Total 600 ml Output Total 600 ml Balance 600 ml -600 ml Intake Oral 600 ml Output Urine Total 600 ml # Voids 2 Height (Feet): 5 Height (Inches): 5.00 Weight (Pounds): 150 General Appearance: no apparent distress, alert EENT: PERRL/EOMI, normal ENT inspection Neck: non-tender, normal alignment Cardiovascular: normal peripheral pulses, normal rate, regular rhythm Respiratory/Chest: chest wall non-tender, lungs clear, normal breath sounds, no respiratory distress Abdomen: normal bowel sounds, non tender, soft Neurologic: sanitarian II-XII grossly normal, no motor/sensory deficits, alert, oriented x 3 Skin: normal pigmentation, warm/dry Objective Refused physical exam patient resting in bed with no acute distress Thania Spence N.P. Jul 21, 2017 14:20
[2017-07-21] MEDS ORDERED: D5 1/2NS 1000ml IV ONE (16:14)
[2017-07-21] MEDS ORDERED: Tubing IV Secondary IV ONE (16:14)
[2017-07-21] MEDS: Iron Sucrose 100 MG in NS 55 ML IVPB SCH (22:35)
[2017-07-22 00:34] VITALS: BP 159/80
[2017-07-22 03:35] VITALS: BP 140/72
[2017-07-22 08:00] VITALS: BP 166/86
[2017-07-22] MEDS: Docusate 100mg cap ORAL SCH (08:21)
[2017-07-22] MEDS: Losartan 25mg tab ORAL SCH (08:25)
[2017-07-22] MEDS: Carvedilol 6.25mg Tab ORAL SCH (08:25)
[2017-07-22] MEDS ORDERED: Tubing IV Secondary IV ONE (10:09)
[2017-07-22] MEDS: Heparin 5000 units/ml inj SUBQ SCH (10:57)
[2017-07-22 12:00] VITALS: BP 132/67
[2017-07-22] MEDS ORDERED: NORVASC10 MG ORAL (12:01)
[2017-07-22] MEDS ORDERED: COREG6.25 MG ORAL (12:04)
[2017-07-22] MEDS ORDERED: VITAMIN D250000 UNI1 ORAL (12:05)
--- NOTE | 2017-07-22 12:08 | Cardiac Electrophysiology PN ---
Assessment/Plan Assessment/Plan 1. Accelerated hypertension. On Losartan 75 mg daily, Coreg 6.25 bid and Norvasc 10 mg daily and prn Hydralazine Echo EF 55% 2. Failure to thrive. Eating now. 3. Homelessness. 4. Anemia. CRISTIAN RN Subjective Subjective No chest pain or SOB. Off tele. Objective Last 24 Hour Vital Signs Date Time Temp Pulse Resp B/P (MAP) Pulse Ox O2 Delivery O2 Flow Rate FiO2 07/22/17 08:25 140/72 07/22/17 08:25 80 140/72 07/22/17 08:00 95.5 74 19 166/86 96 07/22/17 03:53 Room Air 07/22/17 03:35 97.7 80 19 140/72 98 Room Air 07/22/17 00:34 98.1 66 19 159/80 97 Room Air 07/21/17 22:35 64 156/78 07/21/17 22:34 64 156/78 07/21/17 19:54 96.6 64 19 156/78 95 Room Air 07/21/17 16:00 97.2 64 19 147/63 98 07/21/17 16:00 Room Air Intake and Output 07/21/17 07/22/17 19:00 07:00 Intake Total 480 ml 60 ml Output Total 600 ml Balance 480 ml -540 ml Intake Oral 480 ml IV Total 60 ml Output Urine Total 600 ml # Voids 1 2 Objective HEAD AND NECK: Showed no JVD. LUNGS: Decreased breath sounds. CARDIOVASCULAR: Shows regular S1 and S2 with no gallop or murmur. ABDOMEN: Soft. EXTREMITIES: 1+ pitting edema. NAKUL GARNETT Jul 22, 2017 12:08
[2017-07-22] MEDS ORDERED: Vitamin D 50,000 units cap ORAL SCH (14:00)
[2017-07-22 15:43] VITALS: BP 141/77
[2017-07-22 17:44] VITALS: BP 161/89
[2017-07-22] MEDS ORDERED: Carvedilol 12.5mg tab ORAL SCH (21:00)
--- NOTE | 2017-07-22 21:00 | Consultation ---
DATE OF CONSULTATION: 07/21/2017 HISTORY OF PRESENT ILLNESS: The patient is a 67-year-old male with past medical history of hypertension, nasopharyngeal cancer, and hypertension who has been admitted to the hospital due to altered mental status. During the evaluation, the patient was able to state his name and he knew the year and place, however, he was illogical. He was unable to have rational conversation. He was unable to understand process, communicate, nor appreciate information was given to him in regards with his medical conditions. He has impairment of memory and is forgetful. The patient is homeless. PAST PSYCHIATRIC HISTORY: Unknown. The patient is on no psychotropic medications. PAST MEDICAL HISTORY: Significant for hypertension and nasopharyngeal cancer. ALLERGIES: No known drug allergies. SUBSTANCE ABUSE HISTORY: No history of illicit drug use or alcohol. Possible alcohol. Toxicology was negative for drugs or alcohol. MENTAL STATUS EXAMINATION: The patient is alert and oriented times self, place, and year. Mood is neutral. Affect is constricted, congruent with mood. Thought process is concrete. Thought content, no suicidal or homicidal ideations. ASSESSMENT: AXIS I Encephalopathy, cognitive impairment. AXIS II Deferred. AXIS III Altered mental status. AXIS IV Moderate. AXIS V Global assessment of functioning is 20. PLAN: 1. The patient lacks capacity to make decisions. 2. The patient may need placement. Edd Horne M.D. DR: CHARLES JOB#: [id number] CC:
--- NOTE | 2017-07-22 23:10 | Discharge Summary ---
Discharge Summary Hospital Course Date of Admission Jul 18, 2017 at 00:05 Date of Discharge Jul 22, 2017 at 17:52 Admitting Diagnosis Failure to thrive Reason for Hospitalization: failure to thrive, hypertensive urgency HPI 67y/o male with pmh of HTN, nasopharyngeal cancer who presents with headache, lethargy. Pt brought in from street after some called 911. Pt is poor historian. He appears to be confused. He is unable to state where is and what brought him in. He did not know the entire date. He denies chest pain, SOB, f/c , n/v, d/c, abd pain. Pt appears to be homeless. In ED, pt noted to have elevated BPs to 200s/90s. CT head showed no acute abnormality but atrophy and chronic ischemic microvascular disease. Pt given hydralazine IV in ED w/ some improvement in BPs. Consultations Cardiology, Psychiatry Hospital Course Pt was admitted and seen by cardiology. BP medications resumed and adjusted. BPs improved. TTE showed EF 55%. Metabolic workup for encephalopathy revealed low folate level. He was started on folate supplementation. Mental status improved. Pt was seen by PT/OT who recommended rehab. Pt ultimately discharged to SNF. Discharge physical exam: General: alert, cooperative, no distress, appears stated age Head: normocephalic, without obvious abnormality, atraumatic Eyes: conjunctivae/corneas clear. PERRL, EOM's intact Throat: lips, mucosa, and tongue normal. MMM Neck: supple, symmetrical, trachea midline, and no JVD Lungs: clear to auscultation bilaterally Heart: regular rate and rhythm, S1, S2 normal, no murmur, click, rub or gallop Abdomen: soft, non-tender, non-distended, bowel sounds normal; no masses or organomegaly Extremities: extremities normal, atraumatic, no cyanosis or edema Pulses: 2+ and symmetric Skin: skin color, texture, turgor normal; no rashes or lesions Neurologic: grossly normal, no focal deficits Discharge diagnoses: (1) Hypertensive urgency ICD Codes: I16.0 - Hypertensive urgency SNOMED: 139823807 (2) Acute encephalopathy ICD Codes: G93.40 - Encephalopathy, unspecified SNOMED: 97935093, 060769320 (3) Failure to thrive SNOMED: 73820652 (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, unspecified SNOMED: 12107823, 234891434 (5) Anemia Assessment & Plan: Iron deficiency anemia ICD Codes: D64.9 - Anemia, unspecified SNOMED: 255115619 (6) Folate deficiency ICD Codes: E53.8 - Deficiency of other specified B group vitamins Discharge Medications New Medications: Ergocalciferol (Vitamin D2)* (Vitamin D*) 50,000 Unit Capsule 81639 UNIT ORAL ONCE A WEEK for 60 Days, #8 CAP take on Mondays Amlodipine Besylate (Norvasc) 10 Mg Tablet 10 MG ORAL QHS for 90 Days, #90 TAB Carvedilol (Coreg) 6.25 Mg Tablet 12.5 MG ORAL EVERY 12 HOURS for 90 Days, #180 TAB Continued Medications: Bisacodyl (Dulcolax) 10 Mg Supp.rect 10 MG RC, SUPP Docusate Sodium (Docusate Sodium) 100 Mg Tablet 250 MG ORAL DAILY, #30 TAB 0 Refills Ferrous Sulfate (Ferrous Sulfate) 325 Mg Tablet.dr 325 MG ORAL DAILY, #30 TAB 0 Refills Gabapentin (Neurontin) 300 Mg Capsule 100 MG ORAL BEDTIME PRN for For Pain, #7 CAP 0 Refills Heparin Sod,Porcine/0.9 % NaCl (Heparin 500 Unit/500 Ml-Ns) 500 Unit/500 Ml Iv.soln 500 UNIT SQ Q12HR Heparin Sodium,Porcine/Ns/Pf (Heparin) 2,000 Unit/1000 Ml Iv.soln 5000 UNIT Losartan Potassium (Losartan Potassium) 25 Mg Tablet 75 MG PO DAILY, TAB Na Phos,M-B/Na Phos,Di-Ba (Fleet Enema) 133 Ml Enema 133 ML RC DAILY PRN for Constipation, EA Discontinued Medications: Amlodipine Besylate (Norvasc) 5 Mg Tablet 7.5 MG ORAL DAILY, TAB Carvedilol (Coreg) 25 Mg Tablet 25 MG ORAL EVERY 12 HOURS, TAB Discharge Condition Upon Discharge: stable Discharge Disposition Patient was discharged to SNF/Subacute Facility(03) Discharge Diagnoses: Rosalind Powell M.D. Jul 22, 2017 23:10
--- NOTE | 2017-07-24 20:51 | General Progress Note ---
Assessment/Plan Status: stable, progressing Subjective Date patient seen: Jul 22, 2017 Neurologic/Psychiatric: Reports: anxiety, depressed, emotional problems Allergies: Coded Allergies: No Known Allergies (Unverified , 07/17/17) Objective Height (Feet): 5 Height (Inches): 5.00 Weight (Pounds): 150 General Appearance: no apparent distress, alert Edd Horne M.D. Jul 24, 2017 20:51
== END 2017-07-22 17:52 | DRG 304 ==
LOC: EDBD 19:09 → EMR 19:42 → 4W 07-18 00:05 → EDBEDREQ 07-18 00:13 → 4W 07-19 14:52
DX: I16.0 Hypertensive urgency (principal); G93.40 Encephalopathy, unspecified; R62.7 Adult failure to thrive; C11.9 Malignant neoplasm of nasopharynx, unspecified; D50.9 Iron deficiency anemia, unspecified; R51 Headache; Z59.0 Homelessness; E53.8 Deficiency of other specified B group vitamins
CPT/HCPCS: 36415; 70450; 80048; 80053; 80061; 80307; 80329; 81001; 82306; 82607; 82728; 82746; 83036; 83540; 83550; 83735; 84439; 84443; 84484; 85025; 86592; 93005; 93306; 99285

== ENCOUNTER 2017-12-23 09:22 | Inpatient (IN) | payer MEDICARE, OTHER ==
[~2017-12-23] VITALS: Ht 177.8 cm; Wt 83.9 kg
[~2017-12-23 09:22] MED LIST: COREG25 MG ORAL; COREG6.25 MG ORAL; DOCUSATE SODIU100 M2 ORAL; DULCOLAX10 MG RC; FERROUS SULFAT325 M2 ORAL; FLEET ENEMA133 M1 RC; HEPARIN 50500 UNIT/5 SQ; HEPARIN2000 UNIT/; LOSARTAN POTASS25 M1 PO; NEURONTIN300 MG ORAL; NORVASC10 MG ORAL; NORVASC5 MG ORAL; VITAMIN D250000 UNI1 ORAL
[2017-12-23 09:48] VITALS: BP 168/88
[2017-12-23 11:37] LABS: APPEARANCE,URINE CLOUDY; BILIRUBIN, URINE NEGATIVE (NEGATIVE); GLUCOSE, URINE (UA) NEGATIVE (NEGATIVE); KETONES,URINE NEGATIVE (NEGATIVE); LEUKOCYTE ESTERASE ,URINE 1+ (NEGATIVE); NITRITE,URINE NEGATIVE (NEGATIVE); PH,URINE 7 (4.5-8.0); PROTEIN,URINE 4+ (NEGATIVE); UROBILINOGEN,URINE NORMAL MG/DL (0.0-1.0)
[2017-12-23 11:39] LABS: COLOR,URINE RED
[2017-12-23 11:41] LABS: HEMATOCRIT 36.4 % (42.0-52.0); HEMOGLOBIN 11.9 G/DL (14.2-18.0); MEAN CORPUSCULAR VOLUME 91 FL (80-99); PLATELET COUNT 337 K/UL (150-450); RED BLOOD COUNT 4.01 M/UL (4.70-6.10); RED CELL DISTRIBUTION WIDTH 13.9 % (11.6-14.8); WHITE BLOOD COUNT 8.2 K/UL (4.8-10.8)
[2017-12-23 11:45] LABS: INR 1.1 (0.9-1.1)
[2017-12-23 11:49] LABS: ANION GAP 5 mmol/L (5-15); BLOOD UREA NITROGEN 17 mg/dL (7-18); CALCIUM 9.4 MG/DL (8.5-10.1); CARBON DIOXIDE 31 MMOL/L (21-32); CHLORIDE 103 MMOL/L (98-107); POTASSIUM 4.2 MMOL/L (3.5-5.1); SODIUM 138 MMOL/L (136-145)
[2017-12-23 11:54] LABS: ALANINE AMINOTRANSFERASE 14 U/L (12-78); ALBUMIN 2.3 G/DL (3.4-5.0); ALBUMIN/GLOBULIN RATIO 0.3 (1.0-2.7); ALKALINE PHOSPHATASE 77 U/L (46-116); ASPARTATE AMINO TRANSFERASE 21 U/L (15-37); BILIRUBIN,TOTAL 0.3 MG/DL (0.2-1.0)
[2017-12-23 12:00] VITALS: BP 148/78
[2017-12-23] MEDS ORDERED: ASPIRIN-LOW81 MG ORAL (14:13)
--- NOTE | 2017-12-23 15:01 | Emergency Room Report ---
History of Present Illness General Chief Complaint: Male Urogenital Problems Source: Patient, Medical Record, EMS Present Illness HPI 67-year-old male presents ED for evaluation. Patient From long term facility. Per nursing staff patient had blood clots coming from his penis. Noticed today. Patient has encephalopathy and is unable to provide any additional history at this time. Patient only states his name. Denies pain. No prior history. No other aggravating relieving factors. No other associated symptoms Allergies: Coded Allergies: No Known Allergies (Unverified , 07/17/17) Patient History Past Medical History: HTN, other - encephalopathy Past Surgical History: none Pertinent Family History: none Social History: Denies: smoking, alcohol use, drug use Immunizations: UTD Reviewed Nursing Documentation: PMH: Agreed; PSxH: Agreed Nursing Documentation-PMH Past Medical History: No History, Except For Hx Cardiac Problems: Yes - anemia Hx Hypertension: Yes Hx Cancer: Yes - nasal-pharnyx Hx Neurological Problems: Yes - encephalopathy Review of Systems All Other Systems: limited Physical Exam Vital Signs Date Time Temp Pulse Resp B/P (MAP) Pulse Ox O2 Delivery O2 Flow Rate FiO2 12/23/17 09:23 98.2 76 18 174/72 97 Room Air 98.2 Sp02 EP Interpretation: reviewed, normal General Appearance: no apparent distress, GCS 15, non-toxic, other - encephalopathy Head: normocephalic, atraumatic Eyes: bilateral eye normal inspection, bilateral eye PERRL ENT: hearing grossly normal, normal pharynx, no angioedema, normal voice Neck: full range of motion, supple/symm/no masses Respiratory: chest non-tender, lungs clear, normal breath sounds, speaking full sentences Cardiovascular #1: regular rate, rhythm, no edema Cardiovascular #2: 2+ carotid (R), 2+ carotid (L), 2+ radial (R), 2+ radial (L) , 2+ dorsalis pedis (R), 2+ dorsalis pedis (L) Gastrointestinal: normal bowel sounds, non tender, soft, non-distended, no guarding, no rebound Rectal: deferred Genitourinary: normal inspection, no CVA tenderness Musculoskeletal: back normal, gait/station normal, normal range of motion, non- tender Neurologic: alert, motor strength/tone normal, sensory intact, other - encephalopathy Psychiatric: other - encephatlopathy Reflexes: 3+ bicep (R), 3+ bicep (L), 3+ tricep (R), 3+ tricep (L), 3+ knee (R) , 3+ knee (L) Skin: normal color, no rash, warm/dry, well hydrated Lymphatic: no adenopathy Medical Decision Making Diagnostic Impression: Primary Impression: Hematuria Qualified Codes: R31.9 - Hematuria, unspecified Additional Impression: Acute encephalopathy ER Course 67-year-old male presents ED with hematuria Differentialcoagulopathy, anemia, BPH Patient placed on stretcher. After initial history and physical I ordered labs , IV fluids, Rodriguez catheter placement Labsno leukocytosis, hemoglobin/hematocrit stable, electrolytes okay, coags normal Nursing staff were unable to place 3-way Rodriguez catheter for bladder irrigation. Coud catheter was placed and gross hematuria noted, despite multiple attempts to flush Patient will be admitted to Dr. Quinn. diagnosis - hematuria, acute encephalopathy admitted to floor in [facility] Labs Test 12/23/17 10:43 White Blood Count 8.2 K/UL (4.8-10.8) Red Blood Count 4.01 M/UL (4.70-6.10) Hemoglobin 11.9 G/DL (14.2-18.0) Hematocrit 36.4 % (42.0-52.0) Mean Corpuscular Volume 91 FL (80-99) Mean Corpuscular Hemoglobin 29.7 PG (27.0-31.0) Mean Corpuscular Hemoglobin Concent 32.7 G/DL (32.0-36.0) Red Cell Distribution Width 13.9 % (11.6-14.8) Platelet Count 337 K/UL (150-450) Mean Platelet Volume 6.7 FL (6.5-10.1) Neutrophils (%) (Auto) % (45.0-75.0) Lymphocytes (%) (Auto) % (20.0-45.0) Monocytes (%) (Auto) % (1.0-10.0) Eosinophils (%) (Auto) % (0.0-3.0) Basophils (%) (Auto) % (0.0-2.0) Differential Total Cells Counted 100 Neutrophils % (Manual) 75 % (45-75) Lymphocytes % (Manual) 13 % (20-45) Monocytes % (Manual) 6 % (1-10) Eosinophils % (Manual) 2 % (0-3) Basophils % (Manual) 0 % (0-2) Band Neutrophils 4 % (0-8) Platelet Estimate Adequate Platelet Morphology Normal Prothrombin Time 12.0 SEC (9.30-11.50) Prothromb Time International Ratio 1.1 (0.9-1.1) Activated Partial Thromboplast Time 33 SEC (23-33) Urine Color Red Urine Appearance Cloudy Urine pH 7 (4.5-8.0) Urine Specific [place] 1.010 (1.005-1.035) Urine Protein 4+ (NEGATIVE) Urine Glucose (UA) Negative (NEGATIVE) Urine Ketones Negative (NEGATIVE) Urine Occult Blood 5+ (NEGATIVE) Urine Nitrite Negative (NEGATIVE) Urine Bilirubin Negative (NEGATIVE) Urine Urobilinogen Normal MG/DL (0.0-1.0) Urine Leukocyte Esterase 1+ (NEGATIVE) Urine RBC Tntc /HPF (0 - 0) Urine WBC 0-2 /HPF (0 - 0) Urine Squamous Epithelial Cells Occasional /LPF Urine Bacteria Occasional /HPF (NONE) Sodium Level 138 MMOL/L (136-145) Potassium Level 4.2 MMOL/L (3.5-5.1) Chloride Level 103 MMOL/L (98-107) Carbon Dioxide Level 31 MMOL/L (21-32) Anion Gap 5 mmol/L (5-15) Blood Urea Nitrogen 17 mg/dL (7-18) Creatinine 1.0 MG/DL (0.55-1.30) Estimat Glomerular Filtration Rate > 60 mL/min (>60) Glucose Level 81 MG/DL (74-106) Calcium Level 9.4 MG/DL (8.5-10.1) Total Bilirubin 0.3 MG/DL (0.2-1.0) Aspartate Amino Transf (AST/SGOT) 21 U/L (15-37) Alanine Aminotransferase (ALT/SGPT) 14 U/L (12-78) Alkaline Phosphatase 77 U/L (46-116) Total Protein 9.1 G/DL (6.4-8.2) Albumin 2.3 G/DL (3.4-5.0) Globulin 6.8 g/dL Albumin/Globulin Ratio 0.3 (1.0-2.7) Last Vital Signs Date Time Temp Pulse Resp B/P (MAP) Pulse Ox O2 Delivery O2 Flow Rate FiO2 12/23/17 12:00 97.5 74 14 148/78 95 Room Air 97.5 Status: improved Disposition: ADMITTED INPATIENT Condition: Serious Referrals: Kingston Washington MD (PCP) Chapin Allen MD Dec 23, 2017 15:01
[2017-12-23 16:00] VITALS: BP 189/85
[2017-12-23 17:00] VITALS: BP 190/90
[2017-12-23 20:00] VITALS: BP 119/70
[2017-12-23] MEDS ORDERED: HydrALAZINE 25mg tab ORAL SCH (20:45)
[2017-12-23] MEDS ORDERED: Vitamin D 50,000 units cap ORAL SCH (20:45)
--- NOTE | 2017-12-23 21:10 | History and Physical ---
History of Present Illness General Reason for Hospitalization: Male Urogenital Problems Present Illness HPI 67 y/o male with a PMH of early dementia/psychosis and HTN presented from [facility] for hematuria x 1 day. At the facility, patient started having hematuria with large blood clots and was sent to [facility] for further evaluation. Patient was given IVF in ER and caude catheter was inserted as hinkle catheter was difficult to place. Patient was further admitted for hematuria and dysuria. At this time, patient admits to dysuria. States that this has never happened to him before. Denies cp, sob, n/v, abdominal pain, f/c. Allergies: Coded Allergies: No Known Allergies (Unverified , 07/17/17) Medication History Scheduled Amlodipine Besylate (Norvasc), 10 MG ORAL QHS Aspirin (Aspirin EC), 81 MG ORAL DAILY, (Reported) Carvedilol (Coreg), 12.5 MG ORAL EVERY 12 HOURS Docusate Sodium (Docusate Sodium), 250 MG ORAL DAILY, (Reported) Ergocalciferol (Vitamin D2)* (Vitamin D*), 50,000 UNIT ORAL ONCE A WEEK Ferrous Sulfate (Ferrous Sulfate), 325 MG ORAL DAILY, (Reported) Heparin Sod,Porcine/0.9 % NaCl (Heparin 500 Unit/500 Ml-Ns), 500 UNIT SQ Q12HR, (Reported) Losartan Potassium (Losartan Potassium), 75 MG PO DAILY, (Reported) Scheduled PRN Gabapentin (Neurontin), 100 MG ORAL BEDTIME PRN for For Pain, (Reported) Na Phos,M-B/Na Phos,Di-Ba (Fleet Enema), 133 ML RC DAILY PRN for Constipation, (Reported) Miscellaneous Medications Bisacodyl (Dulcolax), 10 MG RC, (Reported) Heparin Sodium,Porcine/Ns/Pf (Heparin), 5,000 UNIT, (Reported) Patient History History Provided By: Patient, Medical Record Healthcare decision maker Shayna Carrillo, sister Resuscitation status Advanced Directive on File Family History Family History: Patient reports no known family medical history. Review of Systems All Other Systems: negative except mentioned in HPI Physical Exam General Appearance: no apparent distress, alert, cachetic HEENT: normocephalic, atraumatic Neck: non-tender, normal alignment, supple Respiratory/Chest: chest wall non-tender, lungs clear, normal breath sounds Cardiovascular/Chest: normal peripheral pulses, normal rate, regular rhythm Abdomen: normal bowel sounds, non tender, soft Genitourinary/Rectal: other - caude catheter with gross hematuria Extremities: normal range of motion, non-tender, normal inspection Skin Exam: normal pigmentation, warm/dry Neurologic: manager 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 grossly normal, alert, oriented x 3 Last 24 Hour Vital Signs Date Time Temp Pulse Resp B/P (MAP) Pulse Ox O2 Delivery O2 Flow Rate FiO2 12/23/17 17:00 97.2 74 20 190/90 (123) 95 97.2 12/23/17 16:24 Room Air 12/23/17 16:00 97.3 72 20 189/85 (119) 99 97.3 12/23/17 12:00 97.5 74 14 148/78 95 Room Air 97.5 12/23/17 09:48 97.6 72 14 168/88 94 Room Air 97.6 12/23/17 09:45 97.9 76 12 145/68 94 Room Air 12/23/17 09:23 98.2 76 18 174/72 97 Room Air 98.2 Laboratory Tests Test 12/23/17 10:43 White Blood Count 8.2 K/UL (4.8-10.8) Red Blood Count 4.01 M/UL (4.70-6.10) L Hemoglobin 11.9 G/DL (14.2-18.0) L Hematocrit 36.4 % (42.0-52.0) L Mean Corpuscular Volume 91 FL (80-99) Mean Corpuscular Hemoglobin 29.7 PG (27.0-31.0) Mean Corpuscular Hemoglobin Concent 32.7 G/DL (32.0-36.0) Red Cell Distribution Width 13.9 % (11.6-14.8) Platelet Count 337 K/UL (150-450) Mean Platelet Volume 6.7 FL (6.5-10.1) Neutrophils (%) (Auto) % (45.0-75.0) Lymphocytes (%) (Auto) % (20.0-45.0) Monocytes (%) (Auto) % (1.0-10.0) Eosinophils (%) (Auto) % (0.0-3.0) Basophils (%) (Auto) % (0.0-2.0) Differential Total Cells Counted 100 Neutrophils % (Manual) 75 % (45-75) Lymphocytes % (Manual) 13 % (20-45) L Monocytes % (Manual) 6 % (1-10) Eosinophils % (Manual) 2 % (0-3) Basophils % (Manual) 0 % (0-2) Band Neutrophils 4 % (0-8) Platelet Estimate Adequate Platelet Morphology Normal Prothrombin Time 12.0 SEC (9.30-11.50) H Prothromb Time International Ratio 1.1 (0.9-1.1) Activated Partial Thromboplast Time 33 SEC (23-33) Urine Color Red Urine Appearance Cloudy Urine pH 7 (4.5-8.0) Urine Specific [place] 1.010 (1.005-1.035) Urine Protein 4+ (NEGATIVE) H Urine Glucose (UA) Negative (NEGATIVE) Urine Ketones Negative (NEGATIVE) Urine Occult Blood 5+ (NEGATIVE) H Urine Nitrite Negative (NEGATIVE) Urine Bilirubin Negative (NEGATIVE) Urine Urobilinogen Normal MG/DL (0.0-1.0) Urine Leukocyte Esterase 1+ (NEGATIVE) H Urine RBC Tntc /HPF (0 - 0) H Urine WBC 0-2 /HPF (0 - 0) Urine Squamous Epithelial Cells Occasional /LPF Urine Bacteria Occasional /HPF (NONE) Sodium Level 138 MMOL/L (136-145) Potassium Level 4.2 MMOL/L (3.5-5.1) Chloride Level 103 MMOL/L (98-107) Carbon Dioxide Level 31 MMOL/L (21-32) Anion Gap 5 mmol/L (5-15) Blood Urea Nitrogen 17 mg/dL (7-18) Creatinine 1.0 MG/DL (0.55-1.30) Estimat Glomerular Filtration Rate > 60 mL/min (>60) Glucose Level 81 MG/DL (74-106) Calcium Level 9.4 MG/DL (8.5-10.1) Total Bilirubin 0.3 MG/DL (0.2-1.0) Aspartate Amino Transf (AST/SGOT) 21 U/L (15-37) Alanine Aminotransferase (ALT/SGPT) 14 U/L (12-78) Alkaline Phosphatase 77 U/L (46-116) Total Protein 9.1 G/DL (6.4-8.2) H Albumin 2.3 G/DL (3.4-5.0) L Globulin 6.8 g/dL Albumin/Globulin Ratio 0.3 (1.0-2.7) L Height (Feet): 5 Height (Inches): 10.00 Weight (Pounds): 185 Assessment/Plan Problem List: (1) Resides in assisted facility ICD Codes: Z78.9 - Other specified health status SNOMED: 428496180 (2) Hypertensive urgency ICD Codes: I16.0 - Hypertensive urgency SNOMED: 236348789 (3) Psychosis ICD Codes: F29 - Unspecified psychosis not due to a substance or known physiological condition SNOMED: 91927218 (4) Hematuria ICD Codes: R31.9 - Hematuria, unspecified SNOMED: 91042930 Qualifiers: Qualified Codes: R31.9 - Hematuria, unspecified Status: stable Assessment/Plan - Admit to inpatient - Urology consulted - Monitor H/H - Continue with caude catheter and prn flushing/irrigation - F/u urine culture - Check PSA - Hydralazine prn - Continue home BP meds - Pain control and supportive care DVT Prophylaxis: SCD Code Status: Full Hospital Classification Declaration: Based on this initial evaluation, and depending on the patient's clinical course, I anticipate that this patient will require hospitalization for 3-4 days for hematuria and HTN and close respiratory /hemodynamic monitoring. Disposition: Once the patient is stable to leave the hospital, I anticipate the patient will likely be discharged to the following environment: [facility] I spent 72 minutes on this patient's case, and 38 minutes were dedicated to counseling and/or care coordination. Discussed with patient/family, nursing staff, SW/CM, urology regarding clinical status, treatment course, and disposition planning. Time of note may not reflect time of encounter. Thania Spence NP Dec 23, 2017 21:10
[2017-12-23] MEDS ORDERED: Morphine Sulfate 2mg/ml Inj(IV/IM USE ONLY) IVP PRN (21:14)
[2017-12-23] MEDS ORDERED: Norco 5mg/325mg tab ORAL PRN (21:14)
[2017-12-23] MEDS: Carvedilol 12.5mg tab ORAL SCH (22:54)
[2017-12-24] VITALS: BP 113/76
[2017-12-24 04:00] VITALS: BP 147/79
[2017-12-24] MEDS: Docusate 250mg cap ORAL SCH (08:39)
[2017-12-24] MEDS: Carvedilol 12.5mg tab ORAL SCH ×2 (08:39→20:21)
[2017-12-24] MEDS: Ciprofloxacin 500mg tab ORAL SCH ×2 (08:39→20:21)
[2017-12-24] MEDS: Losartan 25mg tab ORAL SCH (08:40)
[2017-12-24 09:00] VITALS: BP 148/99
[2017-12-24 09:20] LABS: HEMATOCRIT 37.8 % (42.0-52.0); HEMOGLOBIN 11.9 G/DL (14.2-18.0); MEAN CORPUSCULAR VOLUME 91 FL (80-99); PLATELET COUNT 328 K/UL (150-450); RED BLOOD COUNT 4.16 M/UL (4.70-6.10); RED CELL DISTRIBUTION WIDTH 14.2 % (11.6-14.8)
[2017-12-24 09:36] LABS: INR 1.2 (0.9-1.1)
[2017-12-24 09:48] LABS: ALANINE AMINOTRANSFERASE 13 U/L (12-78); ALBUMIN/GLOBULIN RATIO 0.3 (1.0-2.7); ALKALINE PHOSPHATASE 72 U/L (46-116); ANION GAP 5 mmol/L (5-15); ASPARTATE AMINO TRANSFERASE 17 U/L (15-37); BILIRUBIN,TOTAL 0.3 MG/DL (0.2-1.0); CARBON DIOXIDE 29 MMOL/L (21-32); CHLORIDE 105 MMOL/L (98-107); CREATININE 0.8 MG/DL (0.55-1.30); POTASSIUM 4.8 MMOL/L (3.5-5.1); SODIUM 139 MMOL/L (136-145)
[2017-12-24 09:56] LABS: BLOOD UREA NITROGEN 18 mg/dL (7-18); CALCIUM 8.9 MG/DL (8.5-10.1)
--- NOTE | 2017-12-24 11:31 | Diagnostic Imaging Report ---
Indication: Hematuria Technique: Continuous helical transaxial imaging of the abdomen and pelvis was obtained from the lung bases to the pubic symphysis. No intravenous contrast was administered. Coronal 2-D reformats were also obtained. Automatic Exposure Control was utilized. Total Dose length Product (DLP): 453.[address] Dose Index Volume (CTDIvol): 8.83 mGy Comparison: none Findings: Trace right basilar pleural effusion is present. Small to moderate left pleural effusion noted. There is a focus of airspace disease at the left lung base. There is a relative possibility of abdominal fat which limits evaluation. The patient is cachectic. Heart is enlarged. No obvious nephrolithiasis identified. There are bilateral renal cysts present. The ureters are poorly seen but probably not dilated. Urinary bladder notable for Rodriguez catheter which is in good position. There is hematoma that is hyperdense adjacent to the Rodriguez balloon at the base of the urinary bladder. The hematoma has approximate dimensions of 6 cm x 5 cm x 3 cm. There is a partially imaged 2.5 x 2.5 x 6.6 cm lipoma in the left tensor fascia roma muscle. Aortoiliac calcifications are moderate. There is moderate stool within the colon. IMPRESSION: Hematoma within the urinary bladder. Nature of this is not known. Consider cystoscopy for further evaluation. Underlying mass or other bladder pathology not excluded. Rodriguez catheter in good position. No nephrolithiasis or obvious hydronephrosis appreciated. Limited evaluation due to body habitus including absence of abdominal fat and relative cachexia. Left basilar airspace disease. Pneumonia and/or atelectasis. Small left pleural effusion. Trace right pleural effusion. Moderate stool Incidental left tensor fascia roma lipoma. Atherosclerotic vascular disease Bilateral renal cysts The CT scanner at [facility] is accredited by the [employer] and the scans are performed using dose optimization techniques as appropriate to a performed exam including Automatic Exposure control.
[2017-12-24 12:00] VITALS: BP 158/74
--- NOTE | 2017-12-24 15:30 | Consultation ---
DATE OF CONSULTATION: 12/24/2017 CONSULTING PHYSICIAN: Federico Jo M.D. REFERRING PHYSICIAN: Kingston Washington M.D. REASON FOR CONSULTATION: For evaluation of hematuria. HISTORY OF PRESENT ILLNESS: This is a 67-year-old gentleman. He is a resident of a rehabilitation facility. Apparently, he started having gross hematuria yesterday and was brought to the emergency room. An attempt was made to place a 3-way Rodriguez catheter by the ER, but they were not able to and a coud catheter was placed. The catheter has been draining. Urology evaluation has been requested. I am unable to get significant history from the patient. Most of the history was obtained from the chart. Apparently, the patient has a history of hypertension, other medical conditions are unknown. He was on aspirin as an outpatient. PAST SURGICAL HISTORY: Unknown. CURRENT MEDICATIONS: Here in the hospital, the patient is on Colace, Cozaar, Neurontin, [place], morphine, Norvasc, and . Again, he was on aspirin in the rehabilitation facility, this has been held. ALLERGIES: No known drug allergies. SOCIAL HISTORY: Smoking history is unknown. REVIEW OF SYSTEMS: Unable to obtain. FAMILY HISTORY: Unable to obtain. PHYSICAL EXAMINATION: GENERAL: An elderly male, very cachectic. VITAL SIGNS: Temperature is 98.8, blood pressure 147/79, pulse is 70, and respirations 18. HEENT: Normocephalic. NECK: Supple. ABDOMEN: Soft. GENITOURINARY: Revealed 16-[place] Rodriguez catheter in place. Urine is grossly bloody. EXTREMITIES: No clubbing. LABORATORY DATA: His BUN is 17, creatinine 1.0, potassium 4.2. INR is 1.1 and PT 12.0. White count is 8.2, hemoglobin 11.9, and platelets are 337. UA showed 4+ protein, 1+ leukocyte esterase, too numerous to count rbc's, 0 to 2 wbc's, and occasional bacteria. DIAGNOSTIC IMAGING STUDIES: There are no recent imaging. No renal imaging. IMPRESSION: 1. Gross hematuria. 2. Urinary retention. 3. BPH history. 4. Proteinuria. 5. Mild pyuria. 6. Rule out neurogenic bladder. PLAN AND DISCUSSION: Again as noted above, the patient did have a gross hematuria, which was an acute onset. I did personally hand irrigate the Rodriguez catheter. I did not see any clots. The urine did clear a bit. It is difficulty irrigating because he had spasms of his bladder. At this time, I would recommend to monitor clinically with hand irrigation every few hours and also as needed. I will also add Flomax, Proscar, and empiric antibiotics in case this is a prostatitis type picture. He is severely cachectic and I would recommend a CT urogram and at some point, he may need to have cystoscopy to complete the workup. I will follow the patient. Any other recommendations will be forthcoming. Thank you for this consultation. Federico Jo M.D. DR: PADDY JOB#: [id number] CC:
[2017-12-24 16:00] VITALS: BP 169/87
[2017-12-24] MEDS: HydrALAZINE 25mg tab ORAL PRN (16:08)
--- NOTE | 2017-12-24 16:23 | General Progress Note ---
Assessment/Plan Problem List: (1) Resides in long term facility ICD Codes: Z78.9 - Other specified health status SNOMED: 090206113 (2) Hypertensive urgency ICD Codes: I16.0 - Hypertensive urgency SNOMED: 127187872 (3) Psychosis ICD Codes: F29 - Unspecified psychosis not due to a substance or known physiological condition SNOMED: 98623442 (4) Hematuria ICD Codes: R31.9 - Hematuria, unspecified SNOMED: 78188985 Qualifiers: Qualified Codes: R31.9 - Hematuria, unspecified Status: stable, progressing Assessment/Plan - Urology consulted, appreciate rec's - Continue caude catheter. Continue prn irrigation with hand - Continue to monitor for clots - Started on flomax, proscar - IV empiric antibiotics - Check PSA - F/u CT urogram - Consider cystoscopy - Continue home BP meds - Hydralazine prn - Pain control and supportive care DVT Prophylaxis: SCD Code Status: Full Hospital Classification Declaration: Based on this initial evaluation, and depending on the patient's clinical course, I anticipate that this patient will require hospitalization for 2-3 days for gross hematuria and close respiratory/ hemodynamic monitoring. Disposition: Once the patient is stable to leave the hospital, I anticipate the patient will likely be discharged to the following environment: [facility] I spent 71 minutes on this patient's case, and 39 minutes were dedicated to counseling and/or care coordination. Discussed with patient/family, nursing staff, SW/CM, urology regarding clinical status, treatment course, and disposition planning. Time of note may not reflect time of encounter. Subjective Date patient seen: Dec 24, 2017 Allergies: Coded Allergies: No Known Allergies (Unverified , 07/17/17) Subjective - no acute events overnight - continues to drain gross hematuria in hinkle - seen by urology - BP better controlled in the systolic 150s today - denies cp, sob, f/c Objective Last 24 Hour Vital Signs Date Time Temp Pulse Resp B/P (MAP) Pulse Ox O2 Delivery O2 Flow Rate FiO2 12/24/17 16:08 169/87 12/24/17 16:00 98.9 66 18 169/87 (114) 95 98.9 12/24/17 12:00 98.1 67 19 158/74 (102) 97 98.1 12/24/17 09:00 Room Air 12/24/17 09:00 97.6 82 18 148/99 (115) 95 97.6 12/24/17 08:40 152/74 12/24/17 08:39 88 158/74 12/24/17 04:00 98.8 70 18 147/79 (101) 94 98.8 12/24/17 00:00 98.6 89 20 113/76 (88) 94 98.6 12/23/17 22:54 74 190/90 12/23/17 22:54 74 190/90 12/23/17 21:00 Room Air 12/23/17 20:00 98.9 89 18 119/70 (86) 95 98.9 12/23/17 17:00 97.2 74 20 190/90 (123) 95 97.2 12/23/17 16:24 Room Air Intake and Output 12/23/17 12/24/17 19:00 07:00 Intake Total 250 ml 475 ml Output Total 180 ml 500 ml Balance 70 ml -25 ml Intake Oral 250 ml 100 ml IV Total 375 ml Output Urine Total 180 ml 500 ml Laboratory Tests 12/24/17 08:45: White Blood Count 9.0, Red Blood Count 4.16L, Hemoglobin 11.9L, Hematocrit 37.8L , Mean Corpuscular Volume 91, Mean Corpuscular Hemoglobin 28.5, Mean Corpuscular Hemoglobin Concent 31.4L, Red Cell Distribution Width 14.2, Platelet Count 328, Mean Platelet Volume 6.5, Neutrophils (%) (Auto) , Lymphocytes (%) (Auto) , Monocytes (%) (Auto) , Eosinophils (%) (Auto) , Basophils (%) (Auto) , Differential Total Cells Counted 100, Neutrophils % ( Manual) 77H, Lymphocytes % (Manual) 8L, Monocytes % (Manual) 6, Eosinophils % ( Manual) 2, Basophils % (Manual) 0, Band Neutrophils 7, Platelet Estimate Adequate, Platelet Morphology Normal, Hypochromasia 1+, Prothrombin Time 12.1H, Prothromb Time International Ratio 1.2H, Activated Partial Thromboplast Time 32 , Sodium Level 139, Potassium Level 4.8, Chloride Level 105, Carbon Dioxide Level 29, Anion Gap 5, Blood Urea Nitrogen 18, Creatinine 0.8, Estimat Glomerular Filtration Rate > 60, Glucose Level 71L, Calcium Level 8.9, Total Bilirubin 0.3, Aspartate Amino Transf (AST/SGOT) 17, Alanine Aminotransferase ( ALT/SGPT) 13, Alkaline Phosphatase 72, Total Protein 8.3H, Albumin 2.0L, Globulin 6.3, Albumin/Globulin Ratio 0.3L, Prostate Specific Antigen 2.55 12/24/17 10:20: Urine Random Total Protein 228H Height (Feet): 5 Height (Inches): 10.00 Weight (Pounds): 185 General Appearance: no apparent distress, alert EENT: PERRL/EOMI, normal ENT inspection Neck: non-tender, normal alignment, supple Cardiovascular: normal peripheral pulses, normal rate, regular rhythm Respiratory/Chest: chest wall non-tender, lungs clear, normal breath sounds Abdomen: normal bowel sounds, non tender, soft Genitourinary/Rectal: other - +hinkle with hematuria 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
[2017-12-24 20:00] VITALS: BP 158/80
[2017-12-24] MEDS: Tamsulosin 0.4mg cap ORAL SCH (20:18)
--- NOTE | 2017-12-24 23:23 | Consultation ---
History of Present Illness General Date patient seen: Dec 24, 2017 Chief Complaint: Male Urogenital Problems Present Illness HPI 67-year-old gentleman with mmp including dementia and psychosis. the pt has cognitive impairment Allergies: Coded Allergies: No Known Allergies (Unverified , 07/17/17) Medication History Scheduled Amlodipine Besylate (Norvasc), 10 MG ORAL QHS Aspirin (Aspirin EC), 81 MG ORAL DAILY, (Reported) Carvedilol (Coreg), 12.5 MG ORAL EVERY 12 HOURS Docusate Sodium (Docusate Sodium), 250 MG ORAL DAILY, (Reported) Ergocalciferol (Vitamin D2)* (Vitamin D*), 50,000 UNIT ORAL ONCE A WEEK Ferrous Sulfate (Ferrous Sulfate), 325 MG ORAL DAILY, (Reported) Heparin Sod,Porcine/0.9 % NaCl (Heparin 500 Unit/500 Ml-Ns), 500 UNIT SQ Q12HR, (Reported) Losartan Potassium (Losartan Potassium), 75 MG PO DAILY, (Reported) Scheduled PRN Gabapentin (Neurontin), 100 MG ORAL BEDTIME PRN for For Pain, (Reported) Na Phos,M-B/Na Phos,Di-Ba (Fleet Enema), 133 ML RC DAILY PRN for Constipation, (Reported) Miscellaneous Medications Bisacodyl (Dulcolax), 10 MG RC, (Reported) Heparin Sodium,Porcine/Ns/Pf (Heparin), 5,000 UNIT, (Reported) Patient History Limited by: medical condition History Provided By: Patient, Medical Record, PMD Healthcare decision maker Shayna Carrillo, Resuscitation status Advanced Directive on File Past Medical/Surgical History Past Medical/Surgical History: (1) Nasopharyngeal cancer (2) Possibly homeless (3) Hypertensive urgency (4) Failure to thrive (5) Folate deficiency (6) Acute encephalopathy (7) Hematuria (8) Psychosis (9) Hypertensive urgency Review of Systems Psychiatric: Reports: prior hx, anxiety, depressed feelings, emotional problems Physical Exam General Appearance: no apparent distress, alert Last 24 Hour Vital Signs Date Time Temp Pulse Resp B/P (MAP) Pulse Ox O2 Delivery O2 Flow Rate FiO2 12/24/17 21:00 Room Air 12/24/17 20:22 61 158/80 12/24/17 20:21 61 158/80 12/24/17 20:00 98.4 61 19 158/80 (106) 96 98.4 12/24/17 16:08 169/87 12/24/17 16:00 98.9 66 18 169/87 (114) 95 98.9 12/24/17 12:00 98.1 67 19 158/74 (102) 97 98.1 12/24/17 09:00 Room Air 12/24/17 09:00 97.6 82 18 148/99 (115) 95 97.6 12/24/17 08:40 152/74 12/24/17 08:39 88 158/74 12/24/17 04:00 98.8 70 18 147/79 (101) 94 98.8 12/24/17 00:00 98.6 89 20 113/76 (88) 94 98.6 Intake and Output 12/23/17 12/24/17 19:00 07:00 Intake Total 250 ml 475 ml Output Total 180 ml 500 ml Balance 70 ml -25 ml Intake Oral 250 ml 100 ml IV Total 375 ml Output Urine Total 180 ml 500 ml Laboratory Tests Test 12/24/17 08:45 12/24/17 10:20 White Blood Count 9.0 K/UL (4.8-10.8) Red Blood Count 4.16 M/UL (4.70-6.10) L Hemoglobin 11.9 G/DL (14.2-18.0) L Hematocrit 37.8 % (42.0-52.0) L Mean Corpuscular Volume 91 FL (80-99) Mean Corpuscular Hemoglobin 28.5 PG (27.0-31.0) Mean Corpuscular Hemoglobin Concent 31.4 G/DL (32.0-36.0) L Red Cell Distribution Width 14.2 % (11.6-14.8) Platelet Count 328 K/UL (150-450) Mean Platelet Volume 6.5 FL (6.5-10.1) Neutrophils (%) (Auto) % (45.0-75.0) Lymphocytes (%) (Auto) % (20.0-45.0) Monocytes (%) (Auto) % (1.0-10.0) Eosinophils (%) (Auto) % (0.0-3.0) Basophils (%) (Auto) % (0.0-2.0) Differential Total Cells Counted 100 Neutrophils % (Manual) 77 % (45-75) H Lymphocytes % (Manual) 8 % (20-45) L Monocytes % (Manual) 6 % (1-10) Eosinophils % (Manual) 2 % (0-3) Basophils % (Manual) 0 % (0-2) Band Neutrophils 7 % (0-8) Platelet Estimate Adequate Platelet Morphology Normal Hypochromasia 1+ Prothrombin Time 12.1 SEC (9.30-11.50) H Prothromb Time International Ratio 1.2 (0.9-1.1) H Activated Partial Thromboplast Time 32 SEC (23-33) Sodium Level 139 MMOL/L (136-145) Potassium Level 4.8 MMOL/L (3.5-5.1) Chloride Level 105 MMOL/L (98-107) Carbon Dioxide Level 29 MMOL/L (21-32) Anion Gap 5 mmol/L (5-15) Blood Urea Nitrogen 18 mg/dL (7-18) Creatinine 0.8 MG/DL (0.55-1.30) Estimat Glomerular Filtration Rate > 60 mL/min (>60) Glucose Level 71 MG/DL (74-106) L Calcium Level 8.9 MG/DL (8.5-10.1) Total Bilirubin 0.3 MG/DL (0.2-1.0) Aspartate Amino Transf (AST/SGOT) 17 U/L (15-37) Alanine Aminotransferase (ALT/SGPT) 13 U/L (12-78) Alkaline Phosphatase 72 U/L (46-116) Total Protein 8.3 G/DL (6.4-8.2) H Albumin 2.0 G/DL (3.4-5.0) L Globulin 6.3 g/dL Albumin/Globulin Ratio 0.3 (1.0-2.7) L Prostate Specific Antigen 2.55 ng/mL (0.13-4.0) Urine Random Total Protein 228 MG/DL (< 11.9) H Height (Feet): 5 Height (Inches): 10.00 Weight (Pounds): 185 Medications Current Medications Medications (Trade) Dose Ordered Sig/Mehran Route PRN Reason Start Time Stop Time Status Last Admin Dose Admin Acetaminophen (Tylenol) 650 mg Q6H PRN ORAL Mild Pain/Temp > 100.5 12/23/17 21:14 01/22/18 21:13 Acetaminophen/ Hydrocodone Bitart ([place] 5/325) 1 tab Q4H PRN ORAL Moderate Pain (Pain Scale 4-6) 12/23/17 21:14 12/30/17 21:13 Amlodipine Besylate (Norvasc) 10 mg QHS ORAL 12/23/17 21:00 01/22/18 20:59 12/24/17 20:22 Carvedilol (Coreg) 12.5 mg EVERY 12 HOURS ORAL 12/23/17 21:00 01/22/18 20:59 12/24/17 20:21 Ciprofloxacin (Cipro 500mg tab) 500 mg EVERY 12 HOURS ORAL 12/24/17 09:00 12/31/17 08:59 12/24/17 20:21 Docusate Sodium (Colace) 250 mg DAILY ORAL 12/24/17 09:00 01/23/18 08:59 12/24/17 08:39 Finasteride (Proscar) 5 mg DAILY ORAL 12/24/17 09:00 01/23/18 08:59 12/24/17 08:40 Gabapentin (Neurontin) 100 mg BEDTIME PRN ORAL Moderate Pain (Pain Scale 4-6) 12/23/17 21:45 01/22/18 21:44 Hydralazine HCl (Apresoline) 25 mg EVERY 6 HOURS PRN ORAL For High Blood Pressure 12/23/17 21:45 01/22/18 21:44 12/24/17 16:08 Losartan Potassium (Cozaar) 75 mg DAILY ORAL 12/24/17 09:00 01/23/18 08:59 12/24/17 08:40 Morphine Sulfate (Morphine Sulfate) 1 mg Q4H PRN IVP Severe Pain (Pain Scale 7-10) 12/23/17 21:14 12/30/17 21:13 Sodium Chloride 1,000 ml @ 75 mls/hr [id number] IV 12/23/17 22:00 01/22/18 21:59 12/24/17 11:25 Tamsulosin HCl (Flomax) 0.4 mg BEDTIME ORAL 12/24/17 21:00 01/23/18 20:59 12/24/17 20:18 Assessment/Plan Assessment/Plan dementia with bd encephalopathy -Seroquel prEdd Limon MD Dec 24, 2017 23:23
[2017-12-25] VITALS (7 sets, daily range): BP systolic 144–166; BP diastolic 71–84
--- NOTE | 2017-12-25 00:15 | Consultation ---
DATE OF CONSULTATION: 12/24/2017 NOTE: POOR AUDIO HEMATOLOGY/ONCOLOGY CONSULTATION CONSULTING PHYSICIAN: Shane Oropeza M.D. REQUESTING PHYSICIAN: 1. Thania Spence NP. 2. Kingston Washington M.D. REASON FOR CONSULTATION: Evaluation of paraproteinemia. IDENTIFICATION DATA: Dear Dr. Washington and Dear Jordy, The patient is a pleasant 67-year-old male, who I have seen in the past with medical history, which is significant for history of anemia, prior admission here for failure to thrive, history of nasopharyngeal carcinoma, homelessness, hypertension, history of headache, and lethargy, presents from the street, noted to have and an elevated blood pressure. Seen here in the ER by . The patient is from nursing home facility. Per nursing staff, had blood clots coming from his penis noticed today. The patient had encephalopathy and elevated . PAST MEDICAL HISTORY: Hypertension, encephalopathy, and nasopharyngeal carcinoma. PAST SURGICAL HISTORY: None known. ALLERGIES: No known drug allergies. FAMILY HISTORY: Noncontributory. SOCIAL HISTORY: No alcohol, tobacco, or illicit drug use. REVIEW OF SYSTEMS: Difficult to obtain given encephalopathy. PHYSICAL EXAMINATION: VITAL SIGNS: Reviewed. GENERAL: No distress. PULMONARY: Decreased breath sounds. CARDIOVASCULAR: Regular rate. No S3 or S4. ABDOMEN: Soft, nontender, and nondistended. EXTREMITIES: No cyanosis, swelling, or edema. GENITOURINARY: Rodriguez catheter in place. ASSESSMENT AND RECOMMENDATIONS: 1. Anemia due to hematuria. Obtain PSA level. Rodriguez catheter in place. Irrigation as needed. Urology Service evaluation. 2. Coagulopathy, likely due to decreased p.o. intake. 3. Paraproteinemia. Obtain urine protein electrophoresis and serum protein electrophoresis. 4. Nasopharyngeal carcinoma, currently in remission. 5. Failure to thrive history, likely secondary to decreased p.o. intake. 6. Hypertension. Systolic blood pressure goal is less than 140. I appreciate the consultation. Shane Oropeza M.D. DR: BERTA JOB#: [id number] CC:
[2017-12-25] MEDS: HydrALAZINE 25mg tab ORAL PRN (05:10)
[2017-12-25 08:11] LABS: HEMATOCRIT 36.4 % (42.0-52.0); HEMOGLOBIN 11.7 G/DL (14.2-18.0); MEAN CORPUSCULAR VOLUME 91 FL (80-99); PLATELET COUNT 359 K/UL (150-450); RED BLOOD COUNT 4.02 M/UL (4.70-6.10); RED CELL DISTRIBUTION WIDTH 14.1 % (11.6-14.8); WHITE BLOOD COUNT 8.9 K/UL (4.8-10.8)
[2017-12-25 08:23] LABS: ALANINE AMINOTRANSFERASE 10 U/L (12-78); ALBUMIN 1.9 G/DL (3.4-5.0); ALBUMIN/GLOBULIN RATIO 0.3 (1.0-2.7); ALKALINE PHOSPHATASE 68 U/L (46-116); ANION GAP 7 mmol/L (5-15); ASPARTATE AMINO TRANSFERASE 16 U/L (15-37); BILIRUBIN,TOTAL 0.3 MG/DL (0.2-1.0); BLOOD UREA NITROGEN 19 mg/dL (7-18); CALCIUM 8.2 MG/DL (8.5-10.1); CARBON DIOXIDE 25 MMOL/L (21-32); CHLORIDE 106 MMOL/L (98-107); POTASSIUM 3.7 MMOL/L (3.5-5.1); SODIUM 138 MMOL/L (136-145)
--- NOTE | 2017-12-25 09:37 | General Progress Note ---
Assessment/Plan Status: unchanged Assessment/Plan 1. Anemia due to hematuria. PSA level of 2.[address] Irrigation as needed. Urology Service evaluation. --> Continue to closely monitor --> Anemia w/u has been reviewed, will trend daily. --> Hgb goal >8 --> appreciate urology recommendations --> imaging has been reviewed 2. Coagulopathy, likely due to decreased p.o. intake. --> INR of 1.2 --> hepatitis panel is pending 3. Paraproteinemia. --> Obtain urine protein electrophoresis and serum protein electrophoresis. 4. Nasopharyngeal carcinoma, currently in remission. 5. Failure to thrive history, likely secondary to decreased p.o. intake. 6. Hypertension. Systolic blood pressure goal is less than 140. The time the note was entered does not necessarily correspond to the time the patient was seen. Subjective Date patient seen: Dec 25, 2017 ROS Limited/Unobtainable: Yes Genitourinary: Reports: hematuria Hematologic/Lymphatic: Reports: anemia Allergies: Coded Allergies: No Known Allergies (Unverified , 07/17/17) All Systems: reviewed and negative except above Subjective No acute events. Pt refused blood draw this morning. No resp distress. Objective Last 24 Hour Vital Signs Date Time Temp Pulse Resp B/P (MAP) Pulse Ox O2 Delivery O2 Flow Rate FiO2 12/25/17 05:10 163/84 12/25/17 04:00 97.8 69 19 163/84 (110) 97 97.8 12/25/17 00:00 97.9 72 19 151/80 (103) 100 97.9 12/24/17 21:00 Room Air 12/24/17 20:22 61 158/80 12/24/17 20:21 61 158/80 12/24/17 20:00 98.4 61 19 158/80 (106) 96 98.4 12/24/17 16:08 169/87 12/24/17 16:00 98.9 66 18 169/87 (114) 95 98.9 12/24/17 12:00 98.1 67 19 158/74 (102) 97 98.1 Intake and Output 12/24/17 12/25/17 19:00 07:00 Intake Total 975 ml 450 ml Output Total 350 ml 800 ml Balance 625 ml -350 ml Intake Oral 150 ml IV Total 825 ml 450 ml Output Urine Total 350 ml 800 ml # Bowel Movements 1 Laboratory Tests 12/24/17 10:20: Urine Random Total Protein 228H 12/25/17 07:50: White Blood Count 8.9, Red Blood Count 4.02L, Hemoglobin 11.7L, Hematocrit 36.4L , Mean Corpuscular Volume 91, Mean Corpuscular Hemoglobin 29.2, Mean Corpuscular Hemoglobin Concent 32.2, Red Cell Distribution Width 14.1, Platelet Count 359, Mean Platelet Volume 6.4L, Neutrophils (%) (Auto) , Lymphocytes (%) ( Auto) , Monocytes (%) (Auto) , Eosinophils (%) (Auto) , Basophils (%) (Auto) , Neutrophils % (Manual) [Pending], Lymphocytes % (Manual) [Pending], Platelet Estimate [Pending], Platelet Morphology [Pending], Sodium Level 138, Potassium Level 3.7, Chloride Level 106, Carbon Dioxide Level 25, Anion Gap 7, Blood Urea Nitrogen 19H, Creatinine 1.0, Estimat Glomerular Filtration Rate > 60, Glucose Level 88, Calcium Level 8.2L, Total Bilirubin 0.3, Aspartate Amino Transf (AST/ SGOT) 16, Alanine Aminotransferase (ALT/SGPT) 10L, Alkaline Phosphatase 68, Total Protein 7.7, Total Protein (PEP) [Pending], Albumin 1.9L, Albumin (PEP) [ Pending], Globulin 5.8, Globulin (PEP) [Pending], Albumin/Globulin Ratio 0.3L, Syvih-7-Gxjnysrbx [Pending], Qfbzr-9-Cphggbgay [Pending], Beta Globulins [ Pending], Beta Gamma Globulin [Pending], PEP Abnormal Protein Bands [Pending], Protein Electrophoresis Interpret [Pending] Height (Feet): 5 Height (Inches): 10.00 Weight (Pounds): 185 General Appearance: no apparent distress EENT: PERRL/EOMI Neck: normal alignment Cardiovascular: normal peripheral pulses Respiratory/Chest: no respiratory distress Abdomen: normal bowel sounds, soft Shane Oropeza MD Dec 25, 2017 09:37
[2017-12-25] MEDS: Ciprofloxacin 500mg tab ORAL SCH ×2 (09:56→20:07)
[2017-12-25] MEDS: Docusate 250mg cap ORAL SCH (09:56)
[2017-12-25] MEDS: Losartan 25mg tab ORAL SCH (09:57)
[2017-12-25] MEDS: Carvedilol 12.5mg tab ORAL SCH ×2 (09:57→20:06)
--- NOTE | 2017-12-25 11:46 | Consultation ---
History of Present Illness General Date patient seen: Dec 25, 2017 Time patient seen: 11:41 Chief Complaint: Male Urogenital Problems Present Illness HPI 67 y/o male with a PMH of early dementia/psychosis, failure to thrive, cachexia , uncontrolled HTN presented from [facility] for hematuria x 1 day. Patient to have cystoscopy. Cardiology consulted for clearance. Currently no chest pain. BP elevated 180s. Allergies: Coded Allergies: No Known Allergies (Unverified , 07/17/17) Medication History Scheduled Amlodipine Besylate (Norvasc), 10 MG ORAL QHS Aspirin (Aspirin EC), 81 MG ORAL DAILY, (Reported) Carvedilol (Coreg), 12.5 MG ORAL EVERY 12 HOURS Docusate Sodium (Docusate Sodium), 250 MG ORAL DAILY, (Reported) Ergocalciferol (Vitamin D2)* (Vitamin D*), 50,000 UNIT ORAL ONCE A WEEK Ferrous Sulfate (Ferrous Sulfate), 325 MG ORAL DAILY, (Reported) Heparin Sod,Porcine/0.9 % NaCl (Heparin 500 Unit/500 Ml-Ns), 500 UNIT SQ Q12HR, (Reported) Losartan Potassium (Losartan Potassium), 75 MG PO DAILY, (Reported) Scheduled PRN Gabapentin (Neurontin), 100 MG ORAL BEDTIME PRN for For Pain, (Reported) Na Phos,M-B/Na Phos,Di-Ba (Fleet Enema), 133 ML RC DAILY PRN for Constipation, (Reported) Miscellaneous Medications Bisacodyl (Dulcolax), 10 MG RC, (Reported) Heparin Sodium,Porcine/Ns/Pf (Heparin), 5,000 UNIT, (Reported) Patient History Healthcare decision maker Shayna Carrillo, sister Resuscitation status Advanced Directive on File Review of Systems Constitutional: Reports: no symptoms Eye: Reports: no symptoms ENT: Reports: no symptoms Respiratory: Reports: no symptoms Cardiovascular: Reports: no symptoms Gastrointestinal: Reports: no symptoms Genitourinary: Reports: hematuria Musculoskeletal: Reports: no symptoms Skin: Reports: no symptoms Psychiatric: Reports: no symptoms Neurological: Reports: no symptoms Endocrine: Reports: no symptoms Hematologic/Lymphatic: Reports: no symptoms Physical Exam General Appearance: no apparent distress, cachetic Lines, tubes and drains: peripheral HEENT: normocephalic Neck: non-tender Respiratory/Chest: chest wall non-tender Cardiovascular/Chest: normal peripheral pulses Abdomen: normal bowel sounds Genitourinary/Rectal: hinkle Extremities: normal range of motion Skin Exam: normal pigmentation 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 Last 24 Hour Vital Signs Date Time Temp Pulse Resp B/P (MAP) Pulse Ox O2 Delivery O2 Flow Rate FiO2 12/25/17 09:57 163/84 12/25/17 09:57 69 163/84 12/25/17 09:00 Room Air 12/25/17 08:00 97.0 64 20 146/75 (98) 100 97.0 12/25/17 05:10 163/84 12/25/17 04:00 97.8 69 19 163/84 (110) 97 97.8 12/25/17 00:00 97.9 72 19 151/80 (103) 100 97.9 12/24/17 21:00 Room Air 12/24/17 20:22 61 158/80 12/24/17 20:21 61 158/80 12/24/17 20:00 98.4 61 19 158/80 (106) 96 98.4 12/24/17 16:08 169/87 12/24/17 16:00 98.9 66 18 169/87 (114) 95 98.9 12/24/17 12:00 98.1 67 19 158/74 (102) 97 98.1 Intake and Output 12/24/17 12/25/17 19:00 07:00 Intake Total 975 ml 450 ml Output Total 350 ml 800 ml Balance 625 ml -350 ml Intake Oral 150 ml IV Total 825 ml 450 ml Output Urine Total 350 ml 800 ml # Bowel Movements 1 Laboratory Tests Test 12/25/17 07:50 White Blood Count 8.9 K/UL (4.8-10.8) Red Blood Count 4.02 M/UL (4.70-6.10) L Hemoglobin 11.7 G/DL (14.2-18.0) L Hematocrit 36.4 % (42.0-52.0) L Mean Corpuscular Volume 91 FL (80-99) Mean Corpuscular Hemoglobin 29.2 PG (27.0-31.0) Mean Corpuscular Hemoglobin Concent 32.2 G/DL (32.0-36.0) Red Cell Distribution Width 14.1 % (11.6-14.8) Platelet Count 359 K/UL (150-450) Mean Platelet Volume 6.4 FL (6.5-10.1) L Neutrophils (%) (Auto) % (45.0-75.0) Lymphocytes (%) (Auto) % (20.0-45.0) Monocytes (%) (Auto) % (1.0-10.0) Eosinophils (%) (Auto) % (0.0-3.0) Basophils (%) (Auto) % (0.0-2.0) Differential Total Cells Counted 100 Neutrophils % (Manual) 89 % (45-75) H Lymphocytes % (Manual) 7 % (20-45) L Monocytes % (Manual) 2 % (1-10) Eosinophils % (Manual) 0 % (0-3) Basophils % (Manual) 0 % (0-2) Band Neutrophils 2 % (0-8) Platelet Estimate Adequate Platelet Morphology Normal Red Blood Cell Morphology Normal Sodium Level 138 MMOL/L (136-145) Potassium Level 3.7 MMOL/L (3.5-5.1) Chloride Level 106 MMOL/L (98-107) Carbon Dioxide Level 25 MMOL/L (21-32) Anion Gap 7 mmol/L (5-15) Blood Urea Nitrogen 19 mg/dL (7-18) H Creatinine 1.0 MG/DL (0.55-1.30) Estimat Glomerular Filtration Rate > 60 mL/min (>60) Glucose Level 88 MG/DL (74-106) Calcium Level 8.2 MG/DL (8.5-10.1) L Total Bilirubin 0.3 MG/DL (0.2-1.0) Aspartate Amino Transf (AST/SGOT) 16 U/L (15-37) Alanine Aminotransferase (ALT/SGPT) 10 U/L (12-78) L Alkaline Phosphatase 68 U/L (46-116) Total Protein 7.7 G/DL (6.4-8.2) Total Protein (PEP) Pending Albumin 1.9 G/DL (3.4-5.0) L Albumin (PEP) Pending Globulin 5.8 g/dL Globulin (PEP) Pending Albumin/Globulin Ratio 0.3 (1.0-2.7) L Uxfze-8-Lpqkvelmr Pending Qlvxp-9-Emjldphwg Pending Beta Globulins Pending Beta Gamma Globulin Pending PEP Abnormal Protein Bands Pending Protein Electrophoresis Interpret Pending Height (Feet): 5 Height (Inches): 10.00 Weight (Pounds): 185 Medications Current Medications Medications (Trade) Dose Ordered Sig/Mehran Route PRN Reason Start Time Stop Time Status Last Admin Dose Admin Acetaminophen (Tylenol) 650 mg Q6H PRN ORAL Mild Pain/Temp > 100.5 12/23/17 21:14 01/22/18 21:13 Acetaminophen/ Hydrocodone Bitart ([place] 5/325) 1 tab Q4H PRN ORAL Moderate Pain (Pain Scale 4-6) 12/23/17 21:14 12/30/17 21:13 Amlodipine Besylate (Norvasc) 10 mg QHS ORAL 12/23/17 21:00 01/22/18 20:59 12/24/17 20:22 Carvedilol (Coreg) 12.5 mg EVERY 12 HOURS ORAL 12/23/17 21:00 01/22/18 20:59 12/25/17 09:57 Ciprofloxacin (Cipro 500mg tab) 500 mg EVERY 12 HOURS ORAL 12/24/17 09:00 12/31/17 08:59 12/25/17 09:56 Docusate Sodium (Colace) 250 mg DAILY ORAL 12/24/17 09:00 01/23/18 08:59 12/25/17 09:56 Finasteride (Proscar) 5 mg DAILY ORAL 12/24/17 09:00 01/23/18 08:59 12/25/17 09:57 Gabapentin (Neurontin) 100 mg BEDTIME PRN ORAL Moderate Pain (Pain Scale 4-6) 12/23/17 21:45 01/22/18 21:44 Hydralazine HCl (Apresoline) 25 mg EVERY 6 HOURS PRN ORAL For High Blood Pressure 12/23/17 21:45 01/22/18 21:44 12/25/17 05:10 Losartan Potassium (Cozaar) 75 mg DAILY ORAL 12/24/17 09:00 01/23/18 08:59 12/25/17 09:57 Morphine Sulfate (Morphine Sulfate) 1 mg Q4H PRN IVP Severe Pain (Pain Scale 7-10) 12/23/17 21:14 12/30/17 21:13 Quetiapine Fumarate (SEROquel) 12.5 mg EVERY 4 HOURS PRN ORAL Agitation 12/24/17 23:30 01/23/18 23:29 Sodium Chloride 1,000 ml @ 75 mls/hr [id number] IV 12/23/17 22:00 01/22/18 21:59 12/25/17 00:43 Tamsulosin HCl (Flomax) 0.4 mg BEDTIME ORAL 12/24/17 21:00 01/23/18 20:59 12/24/17 20:18 Assessment/Plan Status: stable Assessment/Plan Assessment (1) Nasopharyngeal cancer (2) Possibly homeless (3) Hypertensive urgency (4) Failure to thrive (5) Folate deficiency (6) Acute encephalopathy (7) Hematuria (8) Psychosis (9) Hypertensive urgency Plan Patient can proceed with low risk cystoscopy pending control of blood pressure to prevent further bleeding Goal BP <140/85 Will escalate BP medications No indication for cardiac catheterization at this point, can defer stress test to outpatient setting depending on prognosis and urological findings Patrick Krishnan M.D. Dec 25, 2017 11:46
--- NOTE | 2017-12-25 12:48 | General Progress Note ---
Assessment/Plan Status: stable Assessment/Plan dementia with bd encephalopathy -Seroquel prn -the pt lacks capacity to make decisions Subjective Date patient seen: Dec 25, 2017 Neurologic/Psychiatric: Reports: anxiety, depressed, emotional problems Allergies: Coded Allergies: No Known Allergies (Unverified , 07/17/17) Subjective the pt refused the blood draws reluctant to PT not logical and unable to understand the info given to him Objective Last 24 Hour Vital Signs Date Time Temp Pulse Resp B/P (MAP) Pulse Ox O2 Delivery O2 Flow Rate FiO2 12/25/17 09:57 163/84 12/25/17 09:57 69 163/84 12/25/17 09:00 Room Air 12/25/17 08:00 97.0 64 20 146/75 (98) 100 97.0 12/25/17 05:10 163/84 12/25/17 04:00 97.8 69 19 163/84 (110) 97 97.8 12/25/17 00:00 97.9 72 19 151/80 (103) 100 97.9 12/24/17 21:00 Room Air 12/24/17 20:22 61 158/80 12/24/17 20:21 61 158/80 12/24/17 20:00 98.4 61 19 158/80 (106) 96 98.4 12/24/17 16:08 169/87 12/24/17 16:00 98.9 66 18 169/87 (114) 95 98.9 Intake and Output 12/24/17 12/25/17 19:00 07:00 Intake Total 975 ml 450 ml Output Total 350 ml 800 ml Balance 625 ml -350 ml Intake Oral 150 ml IV Total 825 ml 450 ml Output Urine Total 350 ml 800 ml # Bowel Movements 1 Laboratory Tests 12/25/17 07:50: White Blood Count 8.9, Red Blood Count 4.02L, Hemoglobin 11.7L, Hematocrit 36.4L , Mean Corpuscular Volume 91, Mean Corpuscular Hemoglobin 29.2, Mean Corpuscular Hemoglobin Concent 32.2, Red Cell Distribution Width 14.1, Platelet Count 359, Mean Platelet Volume 6.4L, Neutrophils (%) (Auto) , Lymphocytes (%) ( Auto) , Monocytes (%) (Auto) , Eosinophils (%) (Auto) , Basophils (%) (Auto) , Differential Total Cells Counted 100, Neutrophils % (Manual) 89H, Lymphocytes % (Manual) 7L, Monocytes % (Manual) 2, Eosinophils % (Manual) 0, Basophils % ( Manual) 0, Band Neutrophils 2, Platelet Estimate Adequate, Platelet Morphology Normal, Red Blood Cell Morphology Normal, Sodium Level 138, Potassium Level 3.7 , Chloride Level 106, Carbon Dioxide Level 25, Anion Gap 7, Blood Urea Nitrogen 19H, Creatinine 1.0, Estimat Glomerular Filtration Rate > 60, Glucose Level 88, Calcium Level 8.2L, Total Bilirubin 0.3, Aspartate Amino Transf (AST/SGOT) 16, Alanine Aminotransferase (ALT/SGPT) 10L, Alkaline Phosphatase 68, Total Protein 7.7, Total Protein (PEP) [Pending], Albumin 1.9L, Albumin (PEP) [Pending], Globulin 5.8, Globulin (PEP) [Pending], Albumin/Globulin Ratio 0.3L, Alpha-1- Globulins [Pending], Iwlzx-1-Nuctysfzx [Pending], Beta Globulins [Pending], Beta Gamma Globulin [Pending], PEP Abnormal Protein Bands [Pending], Protein Electrophoresis Interpret [Pending] Height (Feet): 5 Height (Inches): 10.00 Weight (Pounds): 185 General Appearance: no apparent distress, alert Edd Horne MD Dec 25, 2017 12:48
--- NOTE | 2017-12-25 13:36 | Urology Progress Note ---
Assessment/Plan Assessment/Plan 1. Gross hematuria. 2. Urinary retention. 3. BPH history. 4. Proteinuria. 5. Mild pyuria. 6. Rule out neurogenic bladder. I personally hand irrigated hinkle blood tinged urine, minimal clots nursing staff to hand irrigate hinkle q 3-4 hours and PRN cont with abx proscar monitor h/h, stable so far plan for cysto d/w primary service Subjective Allergies: Coded Allergies: No Known Allergies (Unverified , 07/17/17) Subjective looks comfortable, a bit confused Objective Last 24 Hour Vital Signs Date Time Temp Pulse Resp B/P (MAP) Pulse Ox O2 Delivery O2 Flow Rate FiO2 12/25/17 12:00 97.4 58 20 144/77 (99) 99 97.4 12/25/17 09:57 163/84 12/25/17 09:57 69 163/84 12/25/17 09:00 Room Air 12/25/17 08:00 97.0 64 20 146/75 (98) 100 97.0 12/25/17 05:10 163/84 12/25/17 04:00 97.8 69 19 163/84 (110) 97 97.8 12/25/17 00:00 97.9 72 19 151/80 (103) 100 97.9 12/24/17 21:00 Room Air 12/24/17 20:22 61 158/80 12/24/17 20:21 61 158/80 12/24/17 20:00 98.4 61 19 158/80 (106) 96 98.4 12/24/17 16:08 169/87 12/24/17 16:00 98.9 66 18 169/87 (114) 95 98.9 Intake and Output 12/24/17 12/25/17 19:00 07:00 Intake Total 975 ml 450 ml Output Total 350 ml 800 ml Balance 625 ml -350 ml Intake Oral 150 ml IV Total 825 ml 450 ml Output Urine Total 350 ml 800 ml # Bowel Movements 1 Microbiology Date/Time Source Procedure Growth Status 12/23/17 19:40 Nasal Nares MRSA Culture - Final Staphylococcus Aureus - Mrsa Complete Current Medications Medications (Trade) Dose Ordered Sig/Mehran Route PRN Reason Start Time Stop Time Status Last Admin Dose Admin Acetaminophen (Tylenol) 650 mg Q6H PRN ORAL Mild Pain/Temp > 100.5 12/23/17 21:14 01/22/18 21:13 Acetaminophen/ Hydrocodone Bitart ([place] 5/325) 1 tab Q4H PRN ORAL Moderate Pain (Pain Scale 4-6) 12/23/17 21:14 12/30/17 21:13 Amlodipine Besylate (Norvasc) 10 mg QHS ORAL 12/23/17 21:00 01/22/18 20:59 12/24/17 20:22 Carvedilol (Coreg) 12.5 mg EVERY 12 HOURS ORAL 12/23/17 21:00 01/22/18 20:59 12/25/17 09:57 Ciprofloxacin (Cipro 500mg tab) 500 mg EVERY 12 HOURS ORAL 12/24/17 09:00 12/31/17 08:59 12/25/17 09:56 Docusate Sodium (Colace) 250 mg DAILY ORAL 12/24/17 09:00 01/23/18 08:59 12/25/17 09:56 Finasteride (Proscar) 5 mg DAILY ORAL 12/24/17 09:00 01/23/18 08:59 12/25/17 09:57 Gabapentin (Neurontin) 100 mg BEDTIME PRN ORAL Moderate Pain (Pain Scale 4-6) 12/23/17 21:45 01/22/18 21:44 Hydralazine HCl (Apresoline) 50 mg Q8H PRN ORAL For High Blood Pressure 12/25/17 12:00 01/24/18 11:59 Losartan Potassium (Cozaar) 100 mg DAILY ORAL 12/26/17 09:00 01/23/18 08:59 Morphine Sulfate (Morphine Sulfate) 1 mg Q4H PRN IVP Severe Pain (Pain Scale 7-10) 12/23/17 21:14 12/30/17 21:13 Quetiapine Fumarate (SEROquel) 12.5 mg EVERY 4 HOURS PRN ORAL Agitation 12/24/17 23:30 01/23/18 23:29 Sodium Chloride 1,000 ml @ 75 mls/hr [id number] IV 12/23/17 22:00 01/22/18 21:59 12/25/17 00:43 Tamsulosin HCl (Flomax) 0.4 mg BEDTIME ORAL 12/24/17 21:00 01/23/18 20:59 12/24/17 20:18 Laboratory Tests 12/25/17 07:50: White Blood Count 8.9, Red Blood Count 4.02L, Hemoglobin 11.7L, Hematocrit 36.4L , Mean Corpuscular Volume 91, Mean Corpuscular Hemoglobin 29.2, Mean Corpuscular Hemoglobin Concent 32.2, Red Cell Distribution Width 14.1, Platelet Count 359, Mean Platelet Volume 6.4L, Neutrophils (%) (Auto) , Lymphocytes (%) ( Auto) , Monocytes (%) (Auto) , Eosinophils (%) (Auto) , Basophils (%) (Auto) , Differential Total Cells Counted 100, Neutrophils % (Manual) 89H, Lymphocytes % (Manual) 7L, Monocytes % (Manual) 2, Eosinophils % (Manual) 0, Basophils % ( Manual) 0, Band Neutrophils 2, Platelet Estimate Adequate, Platelet Morphology Normal, Red Blood Cell Morphology Normal, Sodium Level 138, Potassium Level 3.7 , Chloride Level 106, Carbon Dioxide Level 25, Anion Gap 7, Blood Urea Nitrogen 19H, Creatinine 1.0, Estimat Glomerular Filtration Rate > 60, Glucose Level 88, Calcium Level 8.2L, Total Bilirubin 0.3, Aspartate Amino Transf (AST/SGOT) 16, Alanine Aminotransferase (ALT/SGPT) 10L, Alkaline Phosphatase 68, Total Protein 7.7, Total Protein (PEP) [Pending], Albumin 1.9L, Albumin (PEP) [Pending], Globulin 5.8, Globulin (PEP) [Pending], Albumin/Globulin Ratio 0.3L, Alpha-1- Globulins [Pending], Qisze-5-Lutqycnwd [Pending], Beta Globulins [Pending], Beta Gamma Globulin [Pending], PEP Abnormal Protein Bands [Pending], Protein Electrophoresis Interpret [Pending] Height (Feet): 5 Height (Inches): 10.00 Weight (Pounds): 185 Objective exam stable, urine still grossly bloody CT noted LIVIER ALVAREZ Dec 25, 2017 13:36
--- NOTE | 2017-12-25 17:19 | General Progress Note ---
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 Continue prn irrigation with hand - Continue to monitor for clots - Started on flomax, proscar - IV empiric antibiotics, cipro - Check PSA -- 2.55 - F/u CT urogram -- showing bladder hematoma vs. mass - Continue home BP meds -- increased per cards - Venous duplex negative - Hydralazine prn - Pain control and supportive care Patient is cleared per cardiology for cystoscopy procedure on Saturday. Consent to be obtained by family. Will consult psychiatry to assess capacity to make judgements. DVT Prophylaxis: SCD. NO HSQ GIVEN HEMATOMA/HEMATURIA Code Status: Full Hospital Classification Declaration: Based on this initial evaluation, and depending on the patient's clinical course, I anticipate that this patient will require hospitalization for 2-3 days for gross hematuria and close respiratory/ hemodynamic monitoring. Disposition: Once the patient is stable to leave the hospital, I anticipate the patient will likely be discharged to the following environment: Merged with [facility] I spent 71 minutes on this patient's case, and 39 minutes were dedicated to counseling and/or care coordination. Discussed with patient/family, nursing staff, SW/CM, and all consultants involved regarding clinical status, treatment course, and disposition planning. Time of note may not reflect time of encounter. Subjective Date patient seen: Dec 25, 2017 Allergies: Coded Allergies: No Known Allergies (Unverified , 07/17/17) Subjective - CT cystogram showed hematoma vs. mass in bladder - increased BP meds. BP better in the 140s. Cleared per cards to proceed for cystoscopy on Sat - denies cp, sob Objective Last 24 Hour Vital Signs Date Time Temp Pulse Resp B/P (MAP) Pulse Ox O2 Delivery O2 Flow Rate FiO2 12/25/17 12:00 97.4 58 20 144/77 (99) 99 97.4 12/25/17 09:57 163/84 12/25/17 09:57 69 163/84 12/25/17 09:00 Room Air 12/25/17 08:00 97.0 64 20 146/75 (98) 100 97.0 12/25/17 05:10 163/84 12/25/17 04:00 97.8 69 19 163/84 (110) 97 97.8 12/25/17 00:00 97.9 72 19 151/80 (103) 100 97.9 12/24/17 21:00 Room Air 12/24/17 20:22 61 158/80 12/24/17 20:21 61 158/80 12/24/17 20:00 98.4 61 19 158/80 (106) 96 98.4 Intake and Output 12/24/17 12/25/17 19:00 07:00 Intake Total 975 ml 450 ml Output Total 350 ml 800 ml Balance 625 ml -350 ml Intake Oral 150 ml IV Total 825 ml 450 ml Output Urine Total 350 ml 800 ml # Bowel Movements 1 Laboratory Tests 12/25/17 07:50: White Blood Count 8.9, Red Blood Count 4.02L, Hemoglobin 11.7L, Hematocrit 36.4L , Mean Corpuscular Volume 91, Mean Corpuscular Hemoglobin 29.2, Mean Corpuscular Hemoglobin Concent 32.2, Red Cell Distribution Width 14.1, Platelet Count 359, Mean Platelet Volume 6.4L, Neutrophils (%) (Auto) , Lymphocytes (%) ( Auto) , Monocytes (%) (Auto) , Eosinophils (%) (Auto) , Basophils (%) (Auto) , Differential Total Cells Counted 100, Neutrophils % (Manual) 89H, Lymphocytes % (Manual) 7L, Monocytes % (Manual) 2, Eosinophils % (Manual) 0, Basophils % ( Manual) 0, Band Neutrophils 2, Platelet Estimate Adequate, Platelet Morphology Normal, Red Blood Cell Morphology Normal, Sodium Level 138, Potassium Level 3.7 , Chloride Level 106, Carbon Dioxide Level 25, Anion Gap 7, Blood Urea Nitrogen 19H, Creatinine 1.0, Estimat Glomerular Filtration Rate > 60, Glucose Level 88, Calcium Level 8.2L, Total Bilirubin 0.3, Aspartate Amino Transf (AST/SGOT) 16, Alanine Aminotransferase (ALT/SGPT) 10L, Alkaline Phosphatase 68, Total Protein 7.7, Total Protein (PEP) [Pending], Albumin 1.9L, Albumin (PEP) [Pending], Globulin 5.8, Globulin (PEP) [Pending], Albumin/Globulin Ratio 0.3L, Alpha-1- Globulins [Pending], Hqacx-9-Womwplqro [Pending], Beta Globulins [Pending], Beta Gamma Globulin [Pending], PEP Abnormal Protein Bands [Pending], Protein Electrophoresis Interpret [Pending] Height (Feet): 5 Height (Inches): 10.00 Weight (Pounds): 185 General Appearance: no apparent distress, alert, cachetic EENT: PERRL/EOMI, normal ENT inspection Neck: non-tender, normal alignment, supple Cardiovascular: normal peripheral pulses, normal rate, regular rhythm Respiratory/Chest: chest wall non-tender, lungs clear, normal breath sounds Abdomen: normal bowel sounds, non tender, soft Extremities: normal range of motion, non-tender 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
[2017-12-25] MEDS: Tamsulosin 0.4mg cap ORAL SCH (23:03)
[2017-12-26] VITALS: BP 148/77
[2017-12-26 04:00] VITALS: BP 155/81
[2017-12-26 08:00] VITALS: BP 155/69
[2017-12-26 08:30] LABS: HEMATOCRIT 35.2 % (42.0-52.0); HEMOGLOBIN 11.3 G/DL (14.2-18.0); MEAN CORPUSCULAR VOLUME 90 FL (80-99); PLATELET COUNT 308 K/UL (150-450); RED CELL DISTRIBUTION WIDTH 14.1 % (11.6-14.8); WHITE BLOOD COUNT 9.7 K/UL (4.8-10.8)
[2017-12-26 08:53] LABS: ALANINE AMINOTRANSFERASE 13 U/L (12-78); ALBUMIN 2.1 G/DL (3.4-5.0); ALBUMIN/GLOBULIN RATIO 0.4 (1.0-2.7); ALKALINE PHOSPHATASE 71 U/L (46-116); ANION GAP 6 mmol/L (5-15); ASPARTATE AMINO TRANSFERASE 16 U/L (15-37); BILIRUBIN,TOTAL 0.4 MG/DL (0.2-1.0); BLOOD UREA NITROGEN 19 mg/dL (7-18); CALCIUM 8.6 MG/DL (8.5-10.1); CARBON DIOXIDE 27 MMOL/L (21-32); CHLORIDE 105 MMOL/L (98-107); POTASSIUM 4.1 MMOL/L (3.5-5.1); SODIUM 138 MMOL/L (136-145)
--- NOTE | 2017-12-26 09:37 | Urology Progress Note ---
Assessment/Plan Assessment/Plan 1. Gross hematuria. 2. Urinary retention. 3. BPH history. 4. Proteinuria. 5. Mild pyuria. 6. Rule out neurogenic bladder. I personally hand irrigated hinkle blood tinged urine, some clots still can not evacuate all clots nursing staff to hand irrigate hinkle q 3-4 hours and PRN cont with abx proscar monitor h/h, stable so far plan for cysto tomorrow on urgent basis to evacuate clots and fulgurate bleeding source obtain consent, either from family or two physician consent d/w primary service Subjective Allergies: Coded Allergies: No Known Allergies (Unverified , 07/17/17) Subjective looks comfortable, a bit confused Objective Last 24 Hour Vital Signs Date Time Temp Pulse Resp B/P (MAP) Pulse Ox O2 Delivery O2 Flow Rate FiO2 12/26/17 04:00 97.4 58 20 155/81 (105) 95 97.4 12/26/17 00:00 97.2 69 20 148/77 (100) 98 97.2 12/25/17 21:00 Room Air 12/25/17 21:00 98.2 64 20 146/78 (100) 98 98.2 12/25/17 20:11 97.0 60 20 166/79 (108) 97 97.0 12/25/17 20:07 60 166/79 12/25/17 20:06 60 166/79 12/25/17 16:00 98.1 59 20 149/71 (97) 100 98.1 12/25/17 12:00 97.4 58 20 144/77 (99) 99 97.4 12/25/17 09:57 163/84 12/25/17 09:57 69 163/84 Intake and Output 12/25/17 12/26/17 19:00 07:00 Intake Total 775 ml 1230 ml Output Total 500 ml Balance 275 ml 1230 ml Intake Oral 700 ml 480 ml IV Total 75 ml 750 ml Output Urine Total 500 ml Microbiology Date/Time Source Procedure Growth Status 12/23/17 19:40 Nasal Nares 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 Complete Current Medications Medications (Trade) Dose Ordered Sig/Mehran Route PRN Reason Start Time Stop Time Status Last Admin Dose Admin Acetaminophen (Tylenol) 650 mg Q6H PRN ORAL Mild Pain/Temp > 100.5 12/23/17 21:14 01/22/18 21:13 Acetaminophen/ Hydrocodone Bitart ([place] 5/325) 1 tab Q4H PRN ORAL Moderate Pain (Pain Scale 4-6) 12/23/17 21:14 12/30/17 21:13 Amlodipine Besylate (Norvasc) 10 mg QHS ORAL 12/23/17 21:00 01/22/18 20:59 12/25/17 20:07 Carvedilol (Coreg) 12.5 mg EVERY 12 HOURS ORAL 12/23/17 21:00 01/22/18 20:59 12/25/17 20:06 Ciprofloxacin (Cipro 500mg tab) 500 mg EVERY 12 HOURS ORAL 12/24/17 09:00 12/31/17 08:59 12/25/17 20:07 Docusate Sodium (Colace) 250 mg DAILY ORAL 12/24/17 09:00 01/23/18 08:59 12/25/17 09:56 Finasteride (Proscar) 5 mg DAILY ORAL 12/24/17 09:00 01/23/18 08:59 12/25/17 09:57 Gabapentin (Neurontin) 100 mg BEDTIME PRN ORAL Moderate Pain (Pain Scale 4-6) 12/23/17 21:45 01/22/18 21:44 Hydralazine HCl (Apresoline) 50 mg Q8H PRN ORAL For High Blood Pressure 12/25/17 12:00 01/24/18 11:59 Losartan Potassium (Cozaar) 100 mg DAILY ORAL 12/26/17 09:00 01/23/18 08:59 Morphine Sulfate (Morphine Sulfate) 1 mg Q4H PRN IVP Severe Pain (Pain Scale 7-10) 12/23/17 21:14 12/30/17 21:13 Quetiapine Fumarate (SEROquel) 12.5 mg EVERY 4 HOURS PRN ORAL Agitation 12/24/17 23:30 01/23/18 23:29 Sodium Chloride 1,000 ml @ 75 mls/hr [id number] IV 12/23/17 22:00 01/22/18 21:59 12/26/17 03:00 Tamsulosin HCl (Flomax) 0.4 mg BEDTIME ORAL 12/24/17 21:00 01/23/18 20:59 12/25/17 23:03 Laboratory Tests 12/26/17 08:00: White Blood Count 9.7, Red Blood Count 3.90L, Hemoglobin 11.3L, Hematocrit 35.2L , Mean Corpuscular Volume 90, Mean Corpuscular Hemoglobin 28.9, Mean Corpuscular Hemoglobin Concent 32.1, Red Cell Distribution Width 14.1, Platelet Count 308, Mean Platelet Volume 6.4L, Neutrophils (%) (Auto) , Lymphocytes (%) ( Auto) , Monocytes (%) (Auto) , Eosinophils (%) (Auto) , Basophils (%) (Auto) , Neutrophils % (Manual) [Pending], Lymphocytes % (Manual) [Pending], Platelet Estimate [Pending], Platelet Morphology [Pending], Sodium Level 138, Potassium Level 4.1, Chloride Level 105, Carbon Dioxide Level 27, Anion Gap 6, Blood Urea Nitrogen 19H, Creatinine 1.0, Estimat Glomerular Filtration Rate > 60, Glucose Level 78, Calcium Level 8.6, Total Bilirubin 0.4, Aspartate Amino Transf (AST/ SGOT) 16, Alanine Aminotransferase (ALT/SGPT) 13, Alkaline Phosphatase 71, Total Protein 7.6, Albumin 2.1L, Globulin 5.5, Albumin/Globulin Ratio 0.4L Height (Feet): 5 Height (Inches): 10.00 Weight (Pounds): 185 Objective exam stable, urine still grossly bloody CT noted LIVIER ALVAREZ Dec 26, 2017 09:37
[2017-12-26] MEDS: Docusate 250mg cap ORAL SCH (09:52)
[2017-12-26] MEDS: Carvedilol 12.5mg tab ORAL SCH (09:52)
[2017-12-26] MEDS: Ciprofloxacin 500mg tab ORAL SCH ×2 (09:53→20:35)
[2017-12-26] MEDS: Losartan 50mg tab ORAL SCH (09:53)
[2017-12-26 12:00] VITALS: BP 161/72
[2017-12-26] MEDS: HydrALAZINE 50mg tab ORAL PRN (12:16)
--- NOTE | 2017-12-26 12:36 | General Progress Note ---
Assessment/Plan Assessment/Plan dementia with bd encephalopathy -Seroquel prn -the pt lacks capacity to make decisions -the pt unable to give consent for surgery Subjective Date patient seen: Dec 26, 2017 Neurologic/Psychiatric: Reports: anxiety, depressed, emotional problems Allergies: Coded Allergies: No Known Allergies (Unverified , 07/17/17) Subjective the pt agreed with blood draws and unable to understand the info given to him Objective Last 24 Hour Vital Signs Date Time Temp Pulse Resp B/P (MAP) Pulse Ox O2 Delivery O2 Flow Rate FiO2 12/26/17 12:16 161/72 12/26/17 09:53 155/69 12/26/17 09:52 62 155/69 12/26/17 09:00 Room Air 12/26/17 08:00 97.3 62 18 155/69 (97) 93 97.3 12/26/17 04:00 97.4 58 20 155/81 (105) 95 97.4 12/26/17 00:00 97.2 69 20 148/77 (100) 98 97.2 12/25/17 21:00 Room Air 12/25/17 21:00 98.2 64 20 146/78 (100) 98 98.2 12/25/17 20:11 97.0 60 20 166/79 (108) 97 97.0 12/25/17 20:07 60 166/79 12/25/17 20:06 60 166/79 12/25/17 16:00 98.1 59 20 149/71 (97) 100 98.1 Intake and Output 12/25/17 12/26/17 19:00 07:00 Intake Total 775 ml 1230 ml Output Total 500 ml Balance 275 ml 1230 ml Intake Oral 700 ml 480 ml IV Total 75 ml 750 ml Output Urine Total 500 ml Laboratory Tests 12/26/17 08:00: White Blood Count 9.7, Red Blood Count 3.90L, Hemoglobin 11.3L, Hematocrit 35.2L , Mean Corpuscular Volume 90, Mean Corpuscular Hemoglobin 28.9, Mean Corpuscular Hemoglobin Concent 32.1, Red Cell Distribution Width 14.1, Platelet Count 308, Mean Platelet Volume 6.4L, Neutrophils (%) (Auto) , Lymphocytes (%) ( Auto) , Monocytes (%) (Auto) , Eosinophils (%) (Auto) , Basophils (%) (Auto) , Differential Total Cells Counted 100, Neutrophils % (Manual) 90H, Lymphocytes % (Manual) 6L, Monocytes % (Manual) 4, Eosinophils % (Manual) 0, Basophils % ( Manual) 0, Band Neutrophils 0, Platelet Estimate Adequate, Platelet Morphology Normal, Sodium Level 138, Potassium Level 4.1, Chloride Level 105, Carbon Dioxide Level 27, Anion Gap 6, Blood Urea Nitrogen 19H, Creatinine 1.0, Estimat Glomerular Filtration Rate > 60, Glucose Level 78, Calcium Level 8.6, Total Bilirubin 0.4, Aspartate Amino Transf (AST/SGOT) 16, Alanine Aminotransferase ( ALT/SGPT) 13, Alkaline Phosphatase 71, Total Protein 7.6, Albumin 2.1L, Globulin 5.5, Albumin/Globulin Ratio 0.4L Height (Feet): 5 Height (Inches): 10.00 Weight (Pounds): 185 General Appearance: no apparent distress, alert, confused Edd Horne MD Dec 26, 2017 12:36
--- NOTE | 2017-12-26 13:17 | Cardiology Progress Note ---
Assessment/Plan Status: stable Assessment/Plan Assessment (1) Nasopharyngeal cancer (2) Possibly homeless (3) Hypertensive urgency (4) Failure to thrive (5) Folate deficiency (6) Acute encephalopathy (7) Hematuria (8) Psychosis (9) Hypertensive urgency Plan Patient can proceed with low risk cystoscopy pending control of blood pressure to prevent further bleeding Goal BP <140/85 Will escalate BP medications - coreg 25 BID, Norvac 10 daily No indication for cardiac catheterization at this point, can defer stress test to outpatient setting depending on prognosis and urological findings Subjective Cardiovascular: Reports: no symptoms Respiratory: Reports: no symptoms Gastrointestinal/Abdominal: Reports: no symptoms Genitourinary: Reports: no symptoms Subjective No acute events, BP 150s, no complaints, planning for cystoscopy Objective Last 24 Hour Vital Signs Date Time Temp Pulse Resp B/P (MAP) Pulse Ox O2 Delivery O2 Flow Rate FiO2 12/26/17 12:16 161/72 12/26/17 12:00 97.4 60 18 161/72 (101) 90 97.4 12/26/17 09:53 155/69 12/26/17 09:52 62 155/69 12/26/17 09:00 Room Air 12/26/17 08:00 97.3 62 18 155/69 (97) 93 97.3 12/26/17 04:00 97.4 58 20 155/81 (105) 95 97.4 12/26/17 00:00 97.2 69 20 148/77 (100) 98 97.2 12/25/17 21:00 Room Air 12/25/17 21:00 98.2 64 20 146/78 (100) 98 98.2 12/25/17 20:11 97.0 60 20 166/79 (108) 97 97.0 12/25/17 20:07 60 166/79 12/25/17 20:06 60 166/79 12/25/17 16:00 98.1 59 20 149/71 (97) 100 98.1 General Appearance: cachetic, thin EENT: PERRL/EOMI Neck: normal alignment Rhythm: NSR Cardiovascular: normal peripheral pulses Respiratory/Chest: chest wall non-tender Abdomen: non tender Extremities: normal range of motion 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 Intake and Output 12/25/17 12/26/17 19:00 07:00 Intake Total 775 ml 1230 ml Output Total 500 ml Balance 275 ml 1230 ml Intake Oral 700 ml 480 ml IV Total 75 ml 750 ml Output Urine Total 500 ml Laboratory Tests Test 12/26/17 08:00 White Blood Count 9.7 K/UL (4.8-10.8) Red Blood Count 3.90 M/UL (4.70-6.10) L Hemoglobin 11.3 G/DL (14.2-18.0) L Hematocrit 35.2 % (42.0-52.0) L Mean Corpuscular Volume 90 FL (80-99) Mean Corpuscular Hemoglobin 28.9 PG (27.0-31.0) Mean Corpuscular Hemoglobin Concent 32.1 G/DL (32.0-36.0) Red Cell Distribution Width 14.1 % (11.6-14.8) Platelet Count 308 K/UL (150-450) Mean Platelet Volume 6.4 FL (6.5-10.1) L Neutrophils (%) (Auto) % (45.0-75.0) Lymphocytes (%) (Auto) % (20.0-45.0) Monocytes (%) (Auto) % (1.0-10.0) Eosinophils (%) (Auto) % (0.0-3.0) Basophils (%) (Auto) % (0.0-2.0) Differential Total Cells Counted 100 Neutrophils % (Manual) 90 % (45-75) H Lymphocytes % (Manual) 6 % (20-45) L Monocytes % (Manual) 4 % (1-10) Eosinophils % (Manual) 0 % (0-3) Basophils % (Manual) 0 % (0-2) Band Neutrophils 0 % (0-8) Platelet Estimate Adequate Platelet Morphology Normal Sodium Level 138 MMOL/L (136-145) Potassium Level 4.1 MMOL/L (3.5-5.1) Chloride Level 105 MMOL/L (98-107) Carbon Dioxide Level 27 MMOL/L (21-32) Anion Gap 6 mmol/L (5-15) Blood Urea Nitrogen 19 mg/dL (7-18) H Creatinine 1.0 MG/DL (0.55-1.30) Estimat Glomerular Filtration Rate > 60 mL/min (>60) Glucose Level 78 MG/DL (74-106) Calcium Level 8.6 MG/DL (8.5-10.1) Total Bilirubin 0.4 MG/DL (0.2-1.0) Aspartate Amino Transf (AST/SGOT) 16 U/L (15-37) Alanine Aminotransferase (ALT/SGPT) 13 U/L (12-78) Alkaline Phosphatase 71 U/L (46-116) Total Protein 7.6 G/DL (6.4-8.2) Albumin 2.1 G/DL (3.4-5.0) L Globulin 5.5 g/dL Albumin/Globulin Ratio 0.4 (1.0-2.7) L Microbiology Date/Time Source Procedure Growth Status 12/23/17 19:40 Nasal Nares 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 Complete Patrick Krishnan M.D. Dec 26, 2017 13:17
--- NOTE | 2017-12-26 15:10 | Anethesia Preoperative Eval ---
Anesthesia Pre-op PMH/ROS General Date of Evaluation: Dec 26, 2017 Time of Evaluation: 20:26 Anesthesiologist: Carolyn ASA Score: ASA 4 Mallampati Score Class I : Soft palate, uvula, fauces, pillars visible Class II: Soft palate, uvula, fauces visible Class III: Soft palate, base of uvula visible Class IV: Only hard plate visible Mallampati Classification: Class II Surgeon: Sandro Diagnosis: Hematuria Surgical Procedure: Cystoscopy Anesthesia History: none Family History: no anesthesia problems Allergies: Coded Allergies: No Known Allergies (Unverified , 07/17/17) Medications: see eMAR Past Medical History Cardiovascular: Reports: HTN Neurologic/Psychiatric: Reports: dementia - Psychosis Hematology/Immune: Reports: anemia, other - Cancer Naso Pharnyx Anesthesia Pre-op Phys. Exam Physician Exam Last Vital Signs Date Time Temp Pulse Resp B/P (MAP) Pulse Ox O2 Delivery O2 Flow Rate FiO2 12/26/17 12:16 161/72 12/26/17 12:00 97.4 60 18 90 97.4 12/26/17 09:00 Room Air Constitutional: NAD, other - Demented, Psychotic Airway Exam Mallampati Score: Class II MO: limited ROM: limited Teeth: missing Anesthesia Pre-op A/P Labs Hematology Test 12/26/17 08:00 White Blood Count 9.7 K/UL (4.8-10.8) Red Blood Count 3.90 M/UL (4.70-6.10) L Hemoglobin 11.3 G/DL (14.2-18.0) L Hematocrit 35.2 % (42.0-52.0) L Mean Corpuscular Volume 90 FL (80-99) Mean Corpuscular Hemoglobin 28.9 PG (27.0-31.0) Mean Corpuscular Hemoglobin Concent 32.1 G/DL (32.0-36.0) Red Cell Distribution Width 14.1 % (11.6-14.8) Platelet Count 308 K/UL (150-450) Mean Platelet Volume 6.4 FL (6.5-10.1) L Neutrophils (%) (Auto) % (45.0-75.0) Lymphocytes (%) (Auto) % (20.0-45.0) Monocytes (%) (Auto) % (1.0-10.0) Eosinophils (%) (Auto) % (0.0-3.0) Basophils (%) (Auto) % (0.0-2.0) Differential Total Cells Counted 100 Neutrophils % (Manual) 90 % (45-75) H Lymphocytes % (Manual) 6 % (20-45) L Monocytes % (Manual) 4 % (1-10) Eosinophils % (Manual) 0 % (0-3) Basophils % (Manual) 0 % (0-2) Band Neutrophils 0 % (0-8) Platelet Estimate Adequate Platelet Morphology Normal Chemistry Test 12/26/17 08:00 Sodium Level 138 MMOL/L (136-145) Potassium Level 4.1 MMOL/L (3.5-5.1) Chloride Level 105 MMOL/L (98-107) Carbon Dioxide Level 27 MMOL/L (21-32) Anion Gap 6 mmol/L (5-15) Blood Urea Nitrogen 19 mg/dL (7-18) H Creatinine 1.0 MG/DL (0.55-1.30) Estimat Glomerular Filtration Rate > 60 mL/min (>60) Glucose Level 78 MG/DL (74-106) Calcium Level 8.6 MG/DL (8.5-10.1) Total Bilirubin 0.4 MG/DL (0.2-1.0) Aspartate Amino Transf (AST/SGOT) 16 U/L (15-37) Alanine Aminotransferase (ALT/SGPT) 13 U/L (12-78) Alkaline Phosphatase 71 U/L (46-116) Total Protein 7.6 G/DL (6.4-8.2) Albumin 2.1 G/DL (3.4-5.0) L Globulin 5.5 g/dL Albumin/Globulin Ratio 0.4 (1.0-2.7) L Risk Assessment & Plan Assessment: ASA 4 Plan: GA Status Change Before Surgery: No Pre-Antibiotics Drug: Adebayo aBca MD Dec 26, 2017 15:10
[2017-12-26 16:00] VITALS: BP 165/70
--- NOTE | 2017-12-26 16:27 | General Progress Note ---
Assessment/Plan Status: unchanged Assessment/Plan 1. Anemia due to hematuria. PSA level of 2.[address] Irrigation as needed. Urology Service evaluation. --> Continue to closely monitor --> Anemia w/u has been reviewed, will trend daily. --> Hgb goal >8 --> appreciate urology recommendations --> imaging has been reviewed 2. Coagulopathy, likely due to decreased p.o. intake. --> INR of 1.2 --> hepatitis panel is pending 3. Paraproteinemia. --> Obtain urine protein electrophoresis and serum protein electrophoresis. 4. Nasopharyngeal carcinoma, currently in remission. 5. Failure to thrive history, likely secondary to decreased p.o. intake. 6. Hypertension. Systolic blood pressure goal is less than 140. The time the note was entered does not necessarily correspond to the time the patient was seen. Subjective Date patient seen: Dec 26, 2017 ROS Limited/Unobtainable: Yes Genitourinary: Reports: hematuria Hematologic/Lymphatic: Reports: anemia Allergies: Coded Allergies: No Known Allergies (Unverified , 07/17/17) All Systems: reviewed and negative except above Subjective No acute events. Cystoscopy and bladder biopsy pending. Objective Last 24 Hour Vital Signs Date Time Temp Pulse Resp B/P (MAP) Pulse Ox O2 Delivery O2 Flow Rate FiO2 12/26/17 12:16 161/72 12/26/17 12:00 97.4 60 18 161/72 (101) 90 97.4 12/26/17 09:53 155/69 12/26/17 09:52 62 155/69 12/26/17 09:00 Room Air 12/26/17 08:00 97.3 62 18 155/69 (97) 93 97.3 12/26/17 04:00 97.4 58 20 155/81 (105) 95 97.4 12/26/17 00:00 97.2 69 20 148/77 (100) 98 97.2 12/25/17 21:00 Room Air 12/25/17 21:00 98.2 64 20 146/78 (100) 98 98.2 12/25/17 20:11 97.0 60 20 166/79 (108) 97 97.0 12/25/17 20:07 60 166/79 12/25/17 20:06 60 166/79 Intake and Output 12/25/17 12/26/17 19:00 07:00 Intake Total 775 ml 1230 ml Output Total 500 ml Balance 275 ml 1230 ml Intake Oral 700 ml 480 ml IV Total 75 ml 750 ml Output Urine Total 500 ml Laboratory Tests 12/26/17 08:00: White Blood Count 9.7, Red Blood Count 3.90L, Hemoglobin 11.3L, Hematocrit 35.2L , Mean Corpuscular Volume 90, Mean Corpuscular Hemoglobin 28.9, Mean Corpuscular Hemoglobin Concent 32.1, Red Cell Distribution Width 14.1, Platelet Count 308, Mean Platelet Volume 6.4L, Neutrophils (%) (Auto) , Lymphocytes (%) ( Auto) , Monocytes (%) (Auto) , Eosinophils (%) (Auto) , Basophils (%) (Auto) , Differential Total Cells Counted 100, Neutrophils % (Manual) 90H, Lymphocytes % (Manual) 6L, Monocytes % (Manual) 4, Eosinophils % (Manual) 0, Basophils % ( Manual) 0, Band Neutrophils 0, Platelet Estimate Adequate, Platelet Morphology Normal, Sodium Level 138, Potassium Level 4.1, Chloride Level 105, Carbon Dioxide Level 27, Anion Gap 6, Blood Urea Nitrogen 19H, Creatinine 1.0, Estimat Glomerular Filtration Rate > 60, Glucose Level 78, Calcium Level 8.6, Total Bilirubin 0.4, Aspartate Amino Transf (AST/SGOT) 16, Alanine Aminotransferase ( ALT/SGPT) 13, Alkaline Phosphatase 71, Total Protein 7.6, Albumin 2.1L, Globulin 5.5, Albumin/Globulin Ratio 0.4L Height (Feet): 5 Height (Inches): 10.00 Weight (Pounds): 185 General Appearance: no apparent distress EENT: PERRL/EOMI Neck: normal alignment Cardiovascular: regularly irregular Respiratory/Chest: no respiratory distress Abdomen: soft, no organomegaly Shane Oropeza MD Dec 26, 2017 16:27
--- NOTE | 2017-12-26 17:46 | General Progress Note ---
Assessment/Plan Problem List: (1) Resides in senior living facility ICD Codes: Z78.9 - Other specified health status SNOMED: 363257049 (2) Hypertensive urgency ICD Codes: I16.0 - Hypertensive urgency SNOMED: 701469110 (3) Psychosis ICD Codes: F29 - Unspecified psychosis not due to a substance or known physiological condition SNOMED: 41479198 (4) Hematuria ICD Codes: R31.9 - Hematuria, unspecified SNOMED: 03889499 Qualifiers: Qualified Codes: R31.9 - Hematuria, unspecified (5) Hematoma of bladder wall ICD Codes: S37.22XA - Contusion of bladder, initial encounter SNOMED: 956689504 (6) 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, unspecified SNOMED: 24929444, 986380363 (7) Dysphagia ICD Codes: R13.10 - Dysphagia, unspecified SNOMED: 71912312, 500330890 Status: stable, progressing Assessment/Plan - Urology consulted, appreciate rec's - Cardiology consulted, appreciate rec's - Oncology consulted, appreciate rec's - Psychiatry consulted, appreciate rec's - GI consulted, appreciate rec's - reinforcing steel worker consulted for bioethics for G-tube - Continue caude catheter. Continue prn irrigation with hand - Continue to monitor for clots - Started on flomax, proscar - IV empiric antibiotics, cipro - Check PSA -- 2.55 - F/u CT urogram -- showing bladder hematoma vs. mass - Continue home BP meds -- increased per cards - Venous duplex negative - Hydralazine prn - Pain control and supportive care Patient is cleared per cardiology for cystoscopy procedure on Saturday. Patient lacks capacity to make his own decisions/judgement per psychiatry. Unable to reach family for consent. 2 physician consent obtained as this is an emergent procedure given blood clots in bladder unable to be irrigated. DVT Prophylaxis: SCD. NO HSQ GIVEN HEMATOMA/HEMATURIA Code Status: Full Hospital Classification Declaration: Based on this initial evaluation, and depending on the patient's clinical course, I anticipate that this patient will require hospitalization for 2-3 days for gross hematuria and close respiratory/ hemodynamic monitoring. Disposition: Once the patient is stable to leave the hospital, I anticipate the patient will likely be discharged to the following environment: [facility] I spent 71 minutes on this patient's case, and 39 minutes were dedicated to counseling and/or care coordination. Discussed with patient/family, nursing staff, SW/BANDAR, and all consultants involved regarding clinical status, treatment course, and disposition planning. Time of note may not reflect time of encounter. Subjective Allergies: Coded Allergies: No Known Allergies (Unverified , 07/17/17) Subjective - unable to get a hold of family - will proceed with 2 physician consent - AF. BP elevated to systolic 160s today - failed video swallow study test. started NG tube Objective Last 24 Hour Vital Signs Date Time Temp Pulse Resp B/P (MAP) Pulse Ox O2 Delivery O2 Flow Rate FiO2 12/26/17 16:00 98.1 73 18 165/70 (101) 95 98.1 12/26/17 12:16 161/72 12/26/17 12:00 97.4 60 18 161/72 (101) 90 97.4 12/26/17 09:53 155/69 12/26/17 09:52 62 155/69 12/26/17 09:00 Room Air 12/26/17 08:00 97.3 62 18 155/69 (97) 93 97.3 12/26/17 04:00 97.4 58 20 155/81 (105) 95 97.4 12/26/17 00:00 97.2 69 20 148/77 (100) 98 97.2 12/25/17 21:00 Room Air 12/25/17 21:00 98.2 64 20 146/78 (100) 98 98.2 12/25/17 20:11 97.0 60 20 166/79 (108) 97 97.0 12/25/17 20:07 60 166/79 12/25/17 20:06 60 166/79 Intake and Output 12/25/17 12/26/17 19:00 07:00 Intake Total 775 ml 1230 ml Output Total 500 ml Balance 275 ml 1230 ml Intake Oral 700 ml 480 ml IV Total 75 ml 750 ml Output Urine Total 500 ml Laboratory Tests 12/26/17 08:00: White Blood Count 9.7, Red Blood Count 3.90L, Hemoglobin 11.3L, Hematocrit 35.2L , Mean Corpuscular Volume 90, Mean Corpuscular Hemoglobin 28.9, Mean Corpuscular Hemoglobin Concent 32.1, Red Cell Distribution Width 14.1, Platelet Count 308, Mean Platelet Volume 6.4L, Neutrophils (%) (Auto) , Lymphocytes (%) ( Auto) , Monocytes (%) (Auto) , Eosinophils (%) (Auto) , Basophils (%) (Auto) , Differential Total Cells Counted 100, Neutrophils % (Manual) 90H, Lymphocytes % (Manual) 6L, Monocytes % (Manual) 4, Eosinophils % (Manual) 0, Basophils % ( Manual) 0, Band Neutrophils 0, Platelet Estimate Adequate, Platelet Morphology Normal, Sodium Level 138, Potassium Level 4.1, Chloride Level 105, Carbon Dioxide Level 27, Anion Gap 6, Blood Urea Nitrogen 19H, Creatinine 1.0, Estimat Glomerular Filtration Rate > 60, Glucose Level 78, Calcium Level 8.6, Total Bilirubin 0.4, Aspartate Amino Transf (AST/SGOT) 16, Alanine Aminotransferase ( ALT/SGPT) 13, Alkaline Phosphatase 71, Total Protein 7.6, Albumin 2.1L, Globulin 5.5, Albumin/Globulin Ratio 0.4L Height (Feet): 5 Height (Inches): 10.00 Weight (Pounds): 185 General Appearance: no apparent distress, alert EENT: PERRL/EOMI, normal ENT inspection Neck: non-tender, normal alignment, supple Cardiovascular: normal peripheral pulses, normal rate, regular rhythm Respiratory/Chest: chest wall non-tender, lungs clear, normal breath sounds Abdomen: normal bowel sounds, non tender, soft Genitourinary/Rectal: other - hinkle with gross hematuria Neurologic: personal injury law specialist II-XII grossly normal, no motor/sensory deficits, alert Skin: normal pigmentation, warm/dry Thania Spence NP Dec 26, 2017 17:45
[2017-12-26 20:00] VITALS: BP 175/82
[2017-12-26] MEDS: Tamsulosin 0.4mg cap ORAL SCH (20:34)
[2017-12-26] MEDS: Carvedilol 25mg Tab ORAL SCH (20:35)
--- NOTE | 2017-12-26 20:56 | Consultation ---
History of Present Illness General Date patient seen: Dec 26, 2017 Chief Complaint: Male Urogenital Problems Reason for Consultation: hematuria Present Illness HPI 67M multiple medical comorbidities as noted below presented from half-way with hematuria and blood clots in urine. upon admission had CT scan which demonstrated hematoma in urinary bladder. patient seen by urology who recommended cystoscopy. surgery called to evaluate as well to see if other possible methods of evacuation possible. patient seen, chart reviewed, patient examined. Allergies: Coded Allergies: No Known Allergies (Unverified , 07/17/17) Medication History Scheduled Amlodipine Besylate (Norvasc), 10 MG ORAL QHS Aspirin (Aspirin EC), 81 MG ORAL DAILY, (Reported) Carvedilol (Coreg), 12.5 MG ORAL EVERY 12 HOURS Docusate Sodium (Docusate Sodium), 250 MG ORAL DAILY, (Reported) Ergocalciferol (Vitamin D2)* (Vitamin D*), 50,000 UNIT ORAL ONCE A WEEK Ferrous Sulfate (Ferrous Sulfate), 325 MG ORAL DAILY, (Reported) Heparin Sod,Porcine/0.9 % NaCl (Heparin 500 Unit/500 Ml-Ns), 500 UNIT SQ Q12HR, (Reported) Losartan Potassium (Losartan Potassium), 75 MG PO DAILY, (Reported) Scheduled PRN Gabapentin (Neurontin), 100 MG ORAL BEDTIME PRN for For Pain, (Reported) Na Phos,M-B/Na Phos,Di-Ba (Fleet Enema), 133 ML RC DAILY PRN for Constipation, (Reported) Miscellaneous Medications Bisacodyl (Dulcolax), 10 MG RC, (Reported) Heparin Sodium,Porcine/Ns/Pf (Heparin), 5,000 UNIT, (Reported) Patient History Limited by: medical condition History Provided By: Medical Record, PMD Healthcare decision maker Shayna Carrillo, sister Resuscitation status Advanced Directive on File Past Medical/Surgical History Past Medical/Surgical History: (1) Acute encephalopathy (2) Hematuria (3) Psychosis (4) Hypertensive urgency (5) Failure to thrive (6) Folate deficiency (7) Nasopharyngeal cancer (8) Hypertensive urgency (9) Possibly homeless (10) Hematoma of bladder wall (11) Dysphagia Review of Systems All Other Systems: negative except mentioned in HPI Physical Exam General Appearance: no apparent distress, alert HEENT: atraumatic, mucous membranes moist Neck: normal inspection Respiratory/Chest: normal breath sounds, no respiratory distress, no accessory muscle use Cardiovascular/Chest: normal rate Abdomen: soft, no organomegaly, no mass Extremities: other - wasting Skin Exam: warm/dry Neurologic: alert, responsive Last 24 Hour Vital Signs Date Time Temp Pulse Resp B/P (MAP) Pulse Ox O2 Delivery O2 Flow Rate FiO2 12/26/17 20:35 73 165/70 12/26/17 20:35 73 165/70 12/26/17 16:00 98.1 73 18 165/70 (101) 95 98.1 12/26/17 12:16 161/72 12/26/17 12:00 97.4 60 18 161/72 (101) 90 97.4 12/26/17 09:53 155/69 12/26/17 09:52 62 155/69 12/26/17 09:00 Room Air 12/26/17 08:00 97.3 62 18 155/69 (97) 93 97.3 12/26/17 04:00 97.4 58 20 155/81 (105) 95 97.4 12/26/17 00:00 97.2 69 20 148/77 (100) 98 97.2 12/25/17 21:00 Room Air 12/25/17 21:00 98.2 64 20 146/78 (100) 98 98.2 Intake and Output 12/25/17 12/26/17 19:00 07:00 Intake Total 775 ml 1230 ml Output Total 500 ml Balance 275 ml 1230 ml Intake Oral 700 ml 480 ml IV Total 75 ml 750 ml Output Urine Total 500 ml Laboratory Tests Test 12/26/17 08:00 White Blood Count 9.7 K/UL (4.8-10.8) Red Blood Count 3.90 M/UL (4.70-6.10) L Hemoglobin 11.3 G/DL (14.2-18.0) L Hematocrit 35.2 % (42.0-52.0) L Mean Corpuscular Volume 90 FL (80-99) Mean Corpuscular Hemoglobin 28.9 PG (27.0-31.0) Mean Corpuscular Hemoglobin Concent 32.1 G/DL (32.0-36.0) Red Cell Distribution Width 14.1 % (11.6-14.8) Platelet Count 308 K/UL (150-450) Mean Platelet Volume 6.4 FL (6.5-10.1) L Neutrophils (%) (Auto) % (45.0-75.0) Lymphocytes (%) (Auto) % (20.0-45.0) Monocytes (%) (Auto) % (1.0-10.0) Eosinophils (%) (Auto) % (0.0-3.0) Basophils (%) (Auto) % (0.0-2.0) Differential Total Cells Counted 100 Neutrophils % (Manual) 90 % (45-75) H Lymphocytes % (Manual) 6 % (20-45) L Monocytes % (Manual) 4 % (1-10) Eosinophils % (Manual) 0 % (0-3) Basophils % (Manual) 0 % (0-2) Band Neutrophils 0 % (0-8) Platelet Estimate Adequate Platelet Morphology Normal Sodium Level 138 MMOL/L (136-145) Potassium Level 4.1 MMOL/L (3.5-5.1) Chloride Level 105 MMOL/L (98-107) Carbon Dioxide Level 27 MMOL/L (21-32) Anion Gap 6 mmol/L (5-15) Blood Urea Nitrogen 19 mg/dL (7-18) H Creatinine 1.0 MG/DL (0.55-1.30) Estimat Glomerular Filtration Rate > 60 mL/min (>60) Glucose Level 78 MG/DL (74-106) Calcium Level 8.6 MG/DL (8.5-10.1) Total Bilirubin 0.4 MG/DL (0.2-1.0) Aspartate Amino Transf (AST/SGOT) 16 U/L (15-37) Alanine Aminotransferase (ALT/SGPT) 13 U/L (12-78) Alkaline Phosphatase 71 U/L (46-116) Total Protein 7.6 G/DL (6.4-8.2) Albumin 2.1 G/DL (3.4-5.0) L Globulin 5.5 g/dL Albumin/Globulin Ratio 0.4 (1.0-2.7) L Height (Feet): 5 Height (Inches): 10.00 Weight (Pounds): 185 Medications Current Medications Medications (Trade) Dose Ordered Sig/Mehran Route PRN Reason Start Time Stop Time Status Last Admin Dose Admin Acetaminophen (Tylenol) 650 mg Q6H PRN ORAL Mild Pain/Temp > 100.5 12/23/17 21:14 01/22/18 21:13 Acetaminophen/ Hydrocodone Bitart ([place] 5/325) 1 tab Q4H PRN ORAL Moderate Pain (Pain Scale 4-6) 12/23/17 21:14 12/30/17 21:13 Amlodipine Besylate (Norvasc) 10 mg QHS ORAL 12/23/17 21:00 01/22/18 20:59 12/26/17 20:35 Carvedilol (Coreg) 25 mg EVERY 12 HOURS ORAL 12/26/17 21:00 01/22/18 20:59 12/26/17 20:35 Ciprofloxacin (Cipro 500mg tab) 500 mg EVERY 12 HOURS ORAL 12/24/17 09:00 12/31/17 08:59 12/26/17 20:35 Docusate Sodium (Colace) 250 mg DAILY ORAL 12/24/17 09:00 01/23/18 08:59 12/26/17 09:52 Finasteride (Proscar) 5 mg DAILY ORAL 12/24/17 09:00 01/23/18 08:59 12/26/17 09:52 Gabapentin (Neurontin) 100 mg BEDTIME PRN ORAL Moderate Pain (Pain Scale 4-6) 12/23/17 21:45 01/22/18 21:44 Hydralazine HCl (Apresoline) 50 mg Q8H PRN ORAL For High Blood Pressure 12/25/17 12:00 01/24/18 11:59 12/26/17 12:16 Hydrochlorothiazide (Hydrodiuril) 25 mg DAILY ORAL 12/27/17 09:00 01/26/18 08:59 Losartan Potassium (Cozaar) 100 mg DAILY ORAL 12/26/17 09:00 01/23/18 08:59 12/26/17 09:53 Morphine Sulfate (Morphine Sulfate) 1 mg Q4H PRN IVP Severe Pain (Pain Scale 7-10) 12/23/17 21:14 12/30/17 21:13 Quetiapine Fumarate (SEROquel) 12.5 mg EVERY 4 HOURS PRN ORAL Agitation 12/24/17 23:30 01/23/18 23:29 Sodium Chloride 1,000 ml @ 75 mls/hr [id number] IV 12/23/17 22:00 01/22/18 21:59 12/26/17 03:00 Tamsulosin HCl (Flomax) 0.4 mg BEDTIME ORAL 12/24/17 21:00 01/23/18 20:59 12/26/17 20:34 Assessment/Plan Problem List: (1) Hematoma of bladder wall ICD Codes: S37.22XA - Contusion of bladder, initial encounter SNOMED: 024237846 (2) Hematuria Assessment & Plan: CT findings: Hematoma within the urinary bladder. Nature of this is not known. Consider cystoscopy for further evaluation. Underlying mass or other bladder pathology not excluded. Hinkle catheter in good position. still with hematuria. patient awake but not oriented unfortunately looking at CT scan and patient it will not be possible to evacuate without cystoscopy. attempts at larger hinkle or pushed irrigation not safe for this patient. agree with urology and recommend cystoscopy. patient cannot consent and unable to contact next of kin or POA for consent ICD Codes: R31.9 - Hematuria, unspecified SNOMED: 95418743 Qualifiers: Qualified Codes: R31.9 - Hematuria, unspecified Status: unchanged Marlon Doherty Dec 26, 2017 20:56
[2017-12-27] VITALS (10 sets, daily range): BP systolic 95–175; BP diastolic 55–89
[2017-12-27] MEDS ORDERED: Zemuron 50mg/5ml Inj IV ONE ×2 (06:57→07:00)
[2017-12-27] MEDS ORDERED: Iothalamate Meglumine 60% 30ML INJ ONE (07:00)
[2017-12-27] MEDS ORDERED: Sterile Water Irrig 1000ml IRRIG ONE (07:00)
[2017-12-27] MEDS ORDERED: Dexamethasone 4mg/ml vial ONE (07:00)
[2017-12-27] MEDS ORDERED: Sterile Water For Irrig 2000ml IRRIG ONE (07:00)
[2017-12-27] MEDS ORDERED: NS Irrig 4000ml IRRIG ONE ×2 (07:00→07:53)
[2017-12-27] MEDS ORDERED: NS Irrig 1000ml ONE ×2 (07:00→17:11)
--- NOTE | 2017-12-27 07:11 | Urology Progress Note ---
Assessment/Plan Assessment/Plan 1. Gross hematuria. 2. Urinary retention. 3. BPH history. 4. Proteinuria. 5. Mild pyuria. 6. Rule out neurogenic bladder. I personally hand irrigated hinkle blood tinged urine, some clots still can not evacuate all clots nursing staff to hand irrigated hinkle q 3-4 hours and PRN cont with abx proscar monitor h/h, stable so far plan for cysto today on urgent basis to evacuate clots and fulgurate bleeding source unable to obtain consent from pt and not able to locate any family member or POA because of persistent bleeding and clots in bladder, will need to proceed with cysto as such, two physician consent obtained d/w primary service Subjective Allergies: Coded Allergies: No Known Allergies (Unverified , 07/17/17) Subjective still confused Objective Last 24 Hour Vital Signs Date Time Temp Pulse Resp B/P (MAP) Pulse Ox O2 Delivery O2 Flow Rate FiO2 12/27/17 04:00 96.6 55 18 164/79 (107) 98 96.6 12/27/17 00:00 98.1 74 18 165/78 (107) 93 98.1 12/26/17 21:00 Room Air 12/26/17 20:35 73 165/70 12/26/17 20:35 73 165/70 12/26/17 20:00 97.4 70 18 175/82 (113) 94 97.4 12/26/17 16:00 98.1 73 18 165/70 (101) 95 98.1 12/26/17 12:16 161/72 12/26/17 12:00 97.4 60 18 161/72 (101) 90 97.4 12/26/17 09:53 155/69 12/26/17 09:52 62 155/69 12/26/17 09:00 Room Air 12/26/17 08:00 97.3 62 18 155/69 (97) 93 97.3 Intake and Output 12/26/17 12/27/17 19:00 07:00 Intake Total 750 ml 75 ml Output Total 950 ml Balance -200 ml 75 ml IV Total 750 ml 75 ml Output Urine Total 950 ml # Bowel Movements 2 Microbiology Date/Time Source Procedure Growth Status 12/23/17 19:40 Nasal Nares 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 Complete Current Medications Medications (Trade) Dose Ordered Sig/Mehran Route PRN Reason Start Time Stop Time Status Last Admin Dose Admin Acetaminophen (Tylenol) 650 mg Q6H PRN ORAL Mild Pain/Temp > 100.5 12/23/17 21:14 01/22/18 21:13 Acetaminophen/ Hydrocodone Bitart ([place] 5/325) 1 tab Q4H PRN ORAL Moderate Pain (Pain Scale 4-6) 12/23/17 21:14 12/30/17 21:13 Amlodipine Besylate (Norvasc) 10 mg QHS ORAL 12/23/17 21:00 01/22/18 20:59 12/26/17 20:35 Carvedilol (Coreg) 25 mg EVERY 12 HOURS ORAL 12/26/17 21:00 01/22/18 20:59 12/26/17 20:35 Ciprofloxacin (Cipro 500mg tab) 500 mg EVERY 12 HOURS ORAL 12/24/17 09:00 12/31/17 08:59 12/26/17 20:35 Docusate Sodium (Colace) 250 mg DAILY ORAL 12/24/17 09:00 01/23/18 08:59 12/26/17 09:52 Finasteride (Proscar) 5 mg DAILY ORAL 12/24/17 09:00 01/23/18 08:59 12/26/17 09:52 Gabapentin (Neurontin) 100 mg BEDTIME PRN ORAL Moderate Pain (Pain Scale 4-6) 12/23/17 21:45 01/22/18 21:44 Hydralazine HCl (Apresoline) 50 mg Q8H PRN ORAL For High Blood Pressure 12/25/17 12:00 01/24/18 11:59 12/26/17 12:16 Hydrochlorothiazide (Hydrodiuril) 25 mg DAILY ORAL 12/27/17 09:00 01/26/18 08:59 Losartan Potassium (Cozaar) 100 mg DAILY ORAL 12/26/17 09:00 01/23/18 08:59 12/26/17 09:53 Morphine Sulfate (Morphine Sulfate) 1 mg Q4H PRN IVP Severe Pain (Pain Scale 7-10) 12/23/17 21:14 12/30/17 21:13 Quetiapine Fumarate (SEROquel) 12.5 mg EVERY 4 HOURS PRN ORAL Agitation 12/24/17 23:30 01/23/18 23:29 Sodium Chloride 1,000 ml @ 75 mls/hr [id number] IV 12/23/17 22:00 01/22/18 21:59 12/27/17 06:31 Tamsulosin HCl (Flomax) 0.4 mg BEDTIME ORAL 12/24/17 21:00 01/23/18 20:59 12/26/17 20:34 Laboratory Tests 12/26/17 08:00: White Blood Count 9.7, Red Blood Count 3.90L, Hemoglobin 11.3L, Hematocrit 35.2L , Mean Corpuscular Volume 90, Mean Corpuscular Hemoglobin 28.9, Mean Corpuscular Hemoglobin Concent 32.1, Red Cell Distribution Width 14.1, Platelet Count 308, Mean Platelet Volume 6.4L, Neutrophils (%) (Auto) , Lymphocytes (%) ( Auto) , Monocytes (%) (Auto) , Eosinophils (%) (Auto) , Basophils (%) (Auto) , Differential Total Cells Counted 100, Neutrophils % (Manual) 90H, Lymphocytes % (Manual) 6L, Monocytes % (Manual) 4, Eosinophils % (Manual) 0, Basophils % ( Manual) 0, Band Neutrophils 0, Platelet Estimate Adequate, Platelet Morphology Normal, Sodium Level 138, Potassium Level 4.1, Chloride Level 105, Carbon Dioxide Level 27, Anion Gap 6, Blood Urea Nitrogen 19H, Creatinine 1.0, Estimat Glomerular Filtration Rate > 60, Glucose Level 78, Calcium Level 8.6, Total Bilirubin 0.4, Aspartate Amino Transf (AST/SGOT) 16, Alanine Aminotransferase ( ALT/SGPT) 13, Alkaline Phosphatase 71, Total Protein 7.6, Albumin 2.1L, Globulin 5.5, Albumin/Globulin Ratio 0.4L Height (Feet): 5 Height (Inches): 10.00 Weight (Pounds): 185 Objective exam stable, urine still grossly bloody CT noted LIVIER ALVAREZ Dec 27, 2017 07:11
--- NOTE | 2017-12-27 07:12 | Pre-Procedure Note/Attestation ---
Pre-Procedure Note/Attestation Complete Prior to Procedure Planned Procedure: bilateral Procedure Narrative: cysto, clot evacuation, fulguration, possible biopsy or TURBT, retrograde pyelogram Indications for Procedure Pre-Operative Diagnosis: gross hematuria Attestation I attest that I discussed the nature of the procedure; its benefits; risks and complications; and alternatives (and the risks and benefits of such alternatives ), prior to the procedure, with the patient (or the patient's legal representative phlebotomy services). I attest that, if there was a reasonable possibility of needing a blood transfusion, the patient (or the patient's legal representative phlebotomy services) was given the [facility] standardized written summary, pursuant to the Jean-Pierre Nalini Blood Safety Act ([place] Health and Safety Code # 1645, as amended). I attest that I re-evaluated the patient just prior to the surgery and that there has been no change in the patient's H&P, except as documented below: unable to locate family member or POA, two physician consent LIVIER ALVAREZ Dec 27, 2017 07:12
[2017-12-27] MEDS ORDERED: Lidocaine 1% MPF 10mg/ml 5ml ONE (07:55)
[2017-12-27] MEDS ORDERED: Propofol 200mg/20ml IV ONE (07:55)
[2017-12-27] MEDS ORDERED: Labetalol 5mg/ml 20ml vial IV PRN (08:30)
[2017-12-27] MEDS ORDERED: fentaNYL 100 mcg/2 mL IV PRN (08:30)
[2017-12-27] MEDS ORDERED: DiphenhydrAMINE 50mg/ml Inj IVP PRN (08:30)
[2017-12-27] MEDS ORDERED: Sugammadex Sodium 200mg/2ml vial IV ONE (08:49)
--- NOTE | 2017-12-27 08:50 | Brief Operative Note ---
Immediate Post Operative Note Operative Note Pre-op Diagnosis: gross hematuria Procedure: cysto, TURBT with extensive fulguration Post-op Diagnosis: same as pre-op plus - large bladder tumor involving the left side of bladder Findings: other - large bladder tumor, unable to see ureteral orifices Surgeon: rebeca Anesthesiologist: Anesthesia: general Specimen: yes Complications: none Condition: stable Fluids: NS Estimated Blood Loss: minimal Drains: none Implant(s) used?: No LIVIER ALVAREZ Dec 27, 2017 08:50
[2017-12-27] MEDS: Ciprofloxacin 500mg tab ORAL SCH ×2 (09:00→21:55)
[2017-12-27] MEDS: Losartan 50mg tab ORAL SCH ×2 (09:00→17:59)
[2017-12-27] MEDS: Carvedilol 25mg Tab ORAL SCH ×2 (09:00→21:00)
[2017-12-27] MEDS: Docusate 250mg cap ORAL SCH ×2 (09:00→17:58)
--- NOTE | 2017-12-27 09:22 | Immediate Post-Op Evaluation ---
Immediate Post-Op Evalulation Immediate Post-Op Evalulation Procedure: cystoscopy, turbt Date of Evaluation: Dec 27, 2017 Time of Evaluation: 09:05 IV Fluids: NS 700ml Blood Products: 0 Estimated Blood Loss: 5ml Urinary Output: 50ml Blood Pressure Systolic: 154 Blood Pressure Diastolic: 70 Pulse Rate: 49 Respiratory Rate: 15 O2 Sat by Pulse Oximetry: 100 Temperature (Fahrenheit): 97.4 Pain Score (1-10): 0 Nausea: No Vomiting: No Complications none Patient Status: awake, patent, none Hydration Status: adequate Drug: ancef 1 gram Given Within 1 Hr of Incision: Yes Time Given: 07:55 Roxanne Duval M.D. Dec 27, 2017 09:22
[2017-12-27] MEDS ORDERED: LORazepam Inj 2mg/ml 1ml IM PRN (12:15)
[2017-12-27] MEDS: Haloperidol 5mg/ml Inj IM PRN (12:35)
--- NOTE | 2017-12-27 12:56 | General Progress Note ---
Assessment/Plan Status: unchanged Assessment/Plan dementia with bd encephalopathy -seroquel standing -Seroquel prn -the pt lacks capacity to make decisions -the pt unable to give consent for surgery Subjective Date patient seen: Dec 27, 2017 Neurologic/Psychiatric: Reports: anxiety, depressed, emotional problems Allergies: Coded Allergies: No Known Allergies (Unverified , 07/17/17) Subjective the pt agitated and pulled out his g-tube Objective Last 24 Hour Vital Signs Date Time Temp Pulse Resp B/P (MAP) Pulse Ox O2 Delivery O2 Flow Rate FiO2 12/27/17 09:40 51 18 164/75 100 Nasal Cannula 3 12/27/17 09:22 207.3 49 15 100 12/27/17 09:15 49 18 175/89 100 Nasal Cannula 3 12/27/17 09:10 49 15 154/70 100 Simple Mask 8 12/27/17 09:05 97.4 49 15 154/70 100 Simple Mask 8 97.4 12/27/17 04:00 96.6 55 18 164/79 (107) 98 96.6 12/27/17 00:00 98.1 74 18 165/78 (107) 93 98.1 12/26/17 21:00 Room Air 12/26/17 20:35 73 165/70 12/26/17 20:35 73 165/70 12/26/17 20:00 97.4 70 18 175/82 (113) 94 97.4 12/26/17 16:00 98.1 73 18 165/70 (101) 95 98.1 Intake and Output 12/26/17 12/27/17 19:00 07:00 Intake Total 750 ml 75 ml Output Total 950 ml 600 ml Balance -200 ml -525 ml IV Total 750 ml 75 ml Output Urine Total 950 ml 600 ml # Bowel Movements 2 Height (Feet): 5 Height (Inches): 10.00 Weight (Pounds): 185 General Appearance: no apparent distress, alert, confused, agitated Edd Horne MD Dec 27, 2017 12:56
[2017-12-27 13:23] LABS: HEMATOCRIT 39.1 % (42.0-52.0); HEMOGLOBIN 12.3 G/DL (14.2-18.0); MEAN CORPUSCULAR VOLUME 91 FL (80-99); PLATELET COUNT 335 K/UL (150-450); WHITE BLOOD COUNT 7.9 K/UL (4.8-10.8)
[2017-12-27 13:43] LABS: ALANINE AMINOTRANSFERASE 10 U/L (12-78); ALBUMIN 1.9 G/DL (3.4-5.0); ALBUMIN/GLOBULIN RATIO 0.3 (1.0-2.7); ALKALINE PHOSPHATASE 69 U/L (46-116); ANION GAP 11 mmol/L (5-15); ASPARTATE AMINO TRANSFERASE 26 U/L (15-37); BILIRUBIN,TOTAL 0.4 MG/DL (0.2-1.0); BLOOD UREA NITROGEN 21 mg/dL (7-18); CALCIUM 8.4 MG/DL (8.5-10.1); CARBON DIOXIDE 19 MMOL/L (21-32); CHLORIDE 106 MMOL/L (98-107); CREATININE 0.9 MG/DL (0.55-1.30); POTASSIUM 4.5 MMOL/L (3.5-5.1); SODIUM 136 MMOL/L (136-145)
[2017-12-27 14:19] LABS: INR 1.2 (0.9-1.1)
--- NOTE | 2017-12-27 14:40 | Diagnostic Imaging Report ---
Indication: Post nasogastric tube placement Technique: One view of the upper abdomen Comparison: none Findings: There is a nasogastric tube in place, tip projecting at the level of the distal esophagus. There is a large left pleural effusion. The visualized bowel gas is unremarkable. Some contrast from recent video swallowing study is seen within the colon Impression: High position of nasogastric tube, tip in the distal esophagus, advancement recommended Critical value finding phoned to patient's nurse at the time of interpretation
--- NOTE | 2017-12-27 15:35 | General Progress Note ---
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 large bladder tumor removed on 12/27 - keep hinkle in 3-5 days - f/u pathology - Continue to monitor for clots - Started on flomax, proscar - IV empiric antibiotics, cipro - Check PSA -- 2.55 - F/u CT urogram -- showing bladder hematoma vs. mass - Continue home BP meds -- increased per cards - Venous duplex negative - Hydralazine prn - Pain control and supportive care F/u bioethics recommendations regarding G-tube given significant risk for aspiration. Patient lacks capacity to make his own judgement and there is no family available. Patient is not conserved at this time. DVT Prophylaxis: SCD. NO HSQ GIVEN HEMATOMA/HEMATURIA Code Status: Full Hospital Classification Declaration: Based on this initial evaluation, and depending on the patient's clinical course, I anticipate that this patient will require hospitalization for 2-3 days for gross hematuria and close respiratory/ hemodynamic monitoring. Disposition: Once the patient is stable to leave the hospital, I anticipate the patient will likely be discharged to the following environment: [facility] I spent 31 minutes on this patient's case, and 19 minutes were dedicated to counseling and/or care coordination. Discussed with patient/family, nursing staff, SW/CM, and all consultants involved regarding clinical status, treatment course, and disposition planning. Time of note may not reflect time of encounter. Subjective Date patient seen: Dec 27, 2017 Allergies: Coded Allergies: No Known Allergies (Unverified , 07/17/17) Subjective - s/p cystoscopy, TURBT with extensive fulguration and large bladder tumor removed - BP elevated in the systolic 160s - states feeling better after the cystoscopy procedure Objective Last 24 Hour Vital Signs Date Time Temp Pulse Resp B/P (MAP) Pulse Ox O2 Delivery O2 Flow Rate FiO2 12/27/17 12:00 95.9 53 18 171/75 (107) 95 95.9 12/27/17 10:35 Room Air 5.0 Nasal Cannula 12/27/17 09:40 51 18 164/75 100 Nasal Cannula 3 12/27/17 09:22 207.3 49 15 100 12/27/17 09:15 49 18 175/89 100 Nasal Cannula 3 12/27/17 09:10 49 15 154/70 100 Simple Mask 8 12/27/17 09:05 97.4 49 15 154/70 100 Simple Mask 8 97.4 12/27/17 04:00 96.6 55 18 164/79 (107) 98 96.6 12/27/17 00:00 98.1 74 18 165/78 (107) 93 98.1 12/26/17 21:00 Room Air 12/26/17 20:35 73 165/70 12/26/17 20:35 73 165/70 12/26/17 20:00 97.4 70 18 175/82 (113) 94 97.4 12/26/17 16:00 98.1 73 18 165/70 (101) 95 98.1 Intake and Output 12/26/17 12/27/17 19:00 07:00 Intake Total 750 ml 75 ml Output Total 950 ml 600 ml Balance -200 ml -525 ml IV Total 750 ml 75 ml Output Urine Total 950 ml 600 ml # Bowel Movements 2 Laboratory Tests 12/27/17 12:52: White Blood Count 7.9, Red Blood Count 4.30L, Hemoglobin 12.3L, Hematocrit 39.1L , Mean Corpuscular Volume 91, Mean Corpuscular Hemoglobin 28.6, Mean Corpuscular Hemoglobin Concent 31.5L, Red Cell Distribution Width 14.0, Platelet Count 335, Mean Platelet Volume 6.4L, Neutrophils (%) (Auto) , Lymphocytes (%) (Auto) , Monocytes (%) (Auto) , Eosinophils (%) (Auto) , Basophils (%) (Auto) , Differential Total Cells Counted 100, Neutrophils % ( Manual) 94H, Lymphocytes % (Manual) 3L, Monocytes % (Manual) 1, Eosinophils % ( Manual) 0, Basophils % (Manual) 0, Band Neutrophils 2, Platelet Estimate Adequate, Platelet Morphology Normal, Hypochromasia 1+, Sodium Level 136, Potassium Level 4.5, Chloride Level 106, Carbon Dioxide Level 19L, Anion Gap 11 , Blood Urea Nitrogen 21H, Creatinine 0.9, Estimat Glomerular Filtration Rate > 60, Glucose Level 70L, Calcium Level 8.4L, Total Bilirubin 0.4, Aspartate Amino Transf (AST/SGOT) 26, Alanine Aminotransferase (ALT/SGPT) 10L, Alkaline Phosphatase 69, Total Protein 8.3H, Albumin 1.9L, Globulin 6.4, Albumin/ Globulin Ratio 0.3L 12/27/17 13:48: Prothrombin Time 12.7H, Prothromb Time International Ratio 1.2H, Activated Partial Thromboplast Time 32 Height (Feet): 5 Height (Inches): 10.00 Weight (Pounds): 185 General Appearance: no apparent distress, alert EENT: PERRL/EOMI, normal ENT inspection, other - NG tube in place Neck: non-tender, normal alignment Cardiovascular: normal peripheral pulses, normal rate Respiratory/Chest: chest wall non-tender, lungs clear, normal breath sounds Abdomen: normal bowel sounds, non tender, soft Pelvis: normal external exam, normal rectal exam Genitourinary/Rectal: normal genital exam, other - +hinkle Neurologic: label coder II-XII grossly normal, no motor/sensory deficits, alert Skin: normal pigmentation, warm/dry Thania Spence NP Dec 27, 2017 15:35
--- NOTE | 2017-12-27 16:23 | General Surgery Progress Note ---
General Surgery-Progress Note Subjective Additional Comments bladder tumor removed. Objective Last 24 Hour Vital Signs Date Time Temp Pulse Resp B/P (MAP) Pulse Ox O2 Delivery O2 Flow Rate FiO2 12/27/17 12:00 95.9 53 18 171/75 (107) 95 95.9 12/27/17 10:35 Room Air 5.0 Nasal Cannula 12/27/17 09:40 51 18 164/75 100 Nasal Cannula 3 12/27/17 09:22 207.3 49 15 100 12/27/17 09:15 49 18 175/89 100 Nasal Cannula 3 12/27/17 09:10 49 15 154/70 100 Simple Mask 8 12/27/17 09:05 97.4 49 15 154/70 100 Simple Mask 8 97.4 12/27/17 04:00 96.6 55 18 164/79 (107) 98 96.6 12/27/17 00:00 98.1 74 18 165/78 (107) 93 98.1 12/26/17 21:00 Room Air 12/26/17 20:35 73 165/70 12/26/17 20:35 73 165/70 12/26/17 20:00 97.4 70 18 175/82 (113) 94 97.4 I&O Intake and Output 12/26/17 12/27/17 19:00 07:00 Intake Total 750 ml 75 ml Output Total 950 ml 600 ml Balance -200 ml -525 ml IV Total 750 ml 75 ml Output Urine Total 950 ml 600 ml # Bowel Movements 2 Wound: clean Drains: none Cardiovascular: RSR Respiratory: clear Abdomen: soft, non-tender, present bowel sounds Laboratory Tests Test 12/27/17 12:52 12/27/17 13:48 White Blood Count 7.9 K/UL (4.8-10.8) Red Blood Count 4.30 M/UL (4.70-6.10) L Hemoglobin 12.3 G/DL (14.2-18.0) L Hematocrit 39.1 % (42.0-52.0) L Mean Corpuscular Volume 91 FL (80-99) Mean Corpuscular Hemoglobin 28.6 PG (27.0-31.0) Mean Corpuscular Hemoglobin Concent 31.5 G/DL (32.0-36.0) L Red Cell Distribution Width 14.0 % (11.6-14.8) Platelet Count 335 K/UL (150-450) Mean Platelet Volume 6.4 FL (6.5-10.1) L Neutrophils (%) (Auto) % (45.0-75.0) Lymphocytes (%) (Auto) % (20.0-45.0) Monocytes (%) (Auto) % (1.0-10.0) Eosinophils (%) (Auto) % (0.0-3.0) Basophils (%) (Auto) % (0.0-2.0) Differential Total Cells Counted 100 Neutrophils % (Manual) 94 % (45-75) H Lymphocytes % (Manual) 3 % (20-45) L Monocytes % (Manual) 1 % (1-10) Eosinophils % (Manual) 0 % (0-3) Basophils % (Manual) 0 % (0-2) Band Neutrophils 2 % (0-8) Platelet Estimate Adequate Platelet Morphology Normal Hypochromasia 1+ Sodium Level 136 MMOL/L (136-145) Potassium Level 4.5 MMOL/L (3.5-5.1) Chloride Level 106 MMOL/L (98-107) Carbon Dioxide Level 19 MMOL/L (21-32) L Anion Gap 11 mmol/L (5-15) Blood Urea Nitrogen 21 mg/dL (7-18) H Creatinine 0.9 MG/DL (0.55-1.30) Estimat Glomerular Filtration Rate > 60 mL/min (>60) Glucose Level 70 MG/DL (74-106) L Calcium Level 8.4 MG/DL (8.5-10.1) L Total Bilirubin 0.4 MG/DL (0.2-1.0) Aspartate Amino Transf (AST/SGOT) 26 U/L (15-37) Alanine Aminotransferase (ALT/SGPT) 10 U/L (12-78) L Alkaline Phosphatase 69 U/L (46-116) Total Protein 8.3 G/DL (6.4-8.2) H Albumin 1.9 G/DL (3.4-5.0) L Globulin 6.4 g/dL Albumin/Globulin Ratio 0.3 (1.0-2.7) L Prothrombin Time 12.7 SEC (9.30-11.50) H Prothromb Time International Ratio 1.2 (0.9-1.1) H Activated Partial Thromboplast Time 32 SEC (23-33) Plan Problems: (1) Hematoma of bladder wall (2) Hematuria Assessment & Plan: CT findings: Hematoma within the urinary bladder. Nature of this is not known. Consider cystoscopy for further evaluation. Underlying mass or other bladder pathology not excluded. Hinkle catheter in good position. large bladder tumor removed pending path [address] way hinkle as per urology thank you Marlon Doherty Dec 27, 2017 16:23
--- NOTE | 2017-12-27 16:30 | General Progress Note ---
Assessment/Plan Status: stable Assessment/Plan 1. Anemia due to hematuria. PSA level of 2.[address] Irrigation as needed. Urology Service evaluation. --> Continue to closely monitor --> Anemia w/u has been reviewed, will trend daily. --> Hgb goal >8 --> appreciate urology recommendations --> imaging has been reviewed --> 12/27: S/P cystoscopy and bladder biopsy. 2. Coagulopathy, likely due to decreased p.o. intake. --> INR of 1.2 --> hepatitis panel is pending 3. Paraproteinemia. --> Obtain urine protein electrophoresis and serum protein electrophoresis. 4. Nasopharyngeal carcinoma, currently in remission. 5. Failure to thrive history, likely secondary to decreased p.o. intake. 6. Hypertension. Systolic blood pressure goal is less than 140. The time the note was entered does not necessarily correspond to the time the patient was seen. Subjective Date patient seen: Dec 27, 2017 ROS Limited/Unobtainable: Yes Genitourinary: Reports: hematuria Hematologic/Lymphatic: Reports: anemia Allergies: Coded Allergies: No Known Allergies (Unverified , 07/17/17) All Systems: reviewed and negative except above Subjective Pt agitated and pulled out g tube. S/P cystoscopy and bladder biopsy. Currently stable. Objective Last 24 Hour Vital Signs Date Time Temp Pulse Resp B/P (MAP) Pulse Ox O2 Delivery O2 Flow Rate FiO2 12/27/17 12:00 95.9 53 18 171/75 (107) 95 95.9 12/27/17 10:35 Room Air 5.0 Nasal Cannula 12/27/17 09:40 51 18 164/75 100 Nasal Cannula 3 12/27/17 09:22 207.3 49 15 100 12/27/17 09:15 49 18 175/89 100 Nasal Cannula 3 12/27/17 09:10 49 15 154/70 100 Simple Mask 8 12/27/17 09:05 97.4 49 15 154/70 100 Simple Mask 8 97.4 12/27/17 04:00 96.6 55 18 164/79 (107) 98 96.6 12/27/17 00:00 98.1 74 18 165/78 (107) 93 98.1 12/26/17 21:00 Room Air 12/26/17 20:35 73 165/70 12/26/17 20:35 73 165/70 12/26/17 20:00 97.4 70 18 175/82 (113) 94 97.4 Intake and Output 12/26/17 12/27/17 19:00 07:00 Intake Total 750 ml 75 ml Output Total 950 ml 600 ml Balance -200 ml -525 ml IV Total 750 ml 75 ml Output Urine Total 950 ml 600 ml # Bowel Movements 2 Laboratory Tests 12/27/17 12:52: White Blood Count 7.9, Red Blood Count 4.30L, Hemoglobin 12.3L, Hematocrit 39.1L , Mean Corpuscular Volume 91, Mean Corpuscular Hemoglobin 28.6, Mean Corpuscular Hemoglobin Concent 31.5L, Red Cell Distribution Width 14.0, Platelet Count 335, Mean Platelet Volume 6.4L, Neutrophils (%) (Auto) , Lymphocytes (%) (Auto) , Monocytes (%) (Auto) , Eosinophils (%) (Auto) , Basophils (%) (Auto) , Differential Total Cells Counted 100, Neutrophils % ( Manual) 94H, Lymphocytes % (Manual) 3L, Monocytes % (Manual) 1, Eosinophils % ( Manual) 0, Basophils % (Manual) 0, Band Neutrophils 2, Platelet Estimate Adequate, Platelet Morphology Normal, Hypochromasia 1+, Sodium Level 136, Potassium Level 4.5, Chloride Level 106, Carbon Dioxide Level 19L, Anion Gap 11 , Blood Urea Nitrogen 21H, Creatinine 0.9, Estimat Glomerular Filtration Rate > 60, Glucose Level 70L, Calcium Level 8.4L, Total Bilirubin 0.4, Aspartate Amino Transf (AST/SGOT) 26, Alanine Aminotransferase (ALT/SGPT) 10L, Alkaline Phosphatase 69, Total Protein 8.3H, Albumin 1.9L, Globulin 6.4, Albumin/ Globulin Ratio 0.3L 12/27/17 13:48: Prothrombin Time 12.7H, Prothromb Time International Ratio 1.2H, Activated Partial Thromboplast Time 32 Height (Feet): 5 Height (Inches): 10.00 Weight (Pounds): 185 General Appearance: no apparent distress, agitated EENT: PERRL/EOMI Neck: normal alignment Cardiovascular: normal peripheral pulses Respiratory/Chest: no respiratory distress Abdomen: no mass Shane Oropeza MD Dec 27, 2017 16:30
--- NOTE | 2017-12-27 16:33 | GI Initial Consult Note ---
History of Present Illness General Date patient seen: Dec 27, 2017 Time patient seen: 10:00 Reason for Hospitalization: Male Urogenital Problems Referring physician: DAFNE FINNEGAN Reason for Consultation: PEG EVALUATION Present Illness HPI 67-year-old male presents ED for evaluation. Patient From [facility] facility. Per nursing staff patient had blood clots coming from his penis. Noticed today. Patient has encephalopathy and is unable to provide any additional history at this time. Patient only states his name. Denies pain. No prior history. No other aggravating relieving factors. No other associated symptoms The patient is now s/p cystoscopy with removal of bladder tumor. GI consulted for PEG evaluation after video swallow was performed noted that the patient had high risk for chronic aspiration with all types of consistencies. The patient currently had NGT, in which he self removed. No family noted, and no consent could be obtained. All notes, labs, and imaging studies reviewed. Bioethics already ordered by primary team for PEG. Home Meds Active Scripts Ergocalciferol (Vitamin D2)* (VITAMIN D*) 50,000 Unit Capsule, 65940 UNIT ORAL ONCE A WEEK for 60 Days, #8 CAP take on Mondays Prov:Rosalind Powell M.D. 07/22/17 Carvedilol (Coreg) 6.25 Mg Tablet, 12.5 MG ORAL EVERY 12 HOURS for 90 Days, # 180 TAB Prov:Rosalind Powell M.D. 07/22/17 Amlodipine Besylate (Norvasc) 10 Mg Tablet, 10 MG ORAL QHS for 90 Days, #90 TAB Prov:Rosalind Powell M.D. 07/22/17 Reported Medications Aspirin (Aspirin EC) 81 Mg Tablet.dr, 81 MG ORAL DAILY, TAB 12/23/17 Losartan Potassium (Losartan Potassium) 25 Mg Tablet, 75 MG PO DAILY, TAB 07/18/17 Heparin Sod,Porcine/0.9 % NaCl (HEPARIN 500 UNIT/500 ML-NS) 500 Unit/500 Ml Iv.soln, 500 UNIT SQ Q12HR 07/18/17 Heparin Sodium,Porcine/Ns/Pf (Heparin) 2,000 Unit/1000 Ml Iv.soln, 5000 UNIT 07/18/17 Gabapentin (Neurontin) 300 Mg Capsule, 100 MG ORAL BEDTIME PRN for For Pain, #7 CAP 0 Refills 07/18/17 Na Phos,M-B/Na Phos,Di-Ba (Fleet Enema) 133 Ml Enema, 133 ML RC DAILY PRN for Constipation, EA 07/18/17 Ferrous Sulfate (FERROUS SULFATE) 325 Mg Tablet.dr, 325 MG ORAL DAILY, #30 TAB 0 Refills 07/18/17 Bisacodyl (DULCOLAX) 10 Mg Supp.rect, 10 MG RC, SUPP 07/18/17 Docusate Sodium (DOCUSATE SODIUM) 100 Mg Tablet, 250 MG ORAL DAILY, #30 TAB 0 Refills 07/18/17 Med list reviewed/reconciled: Yes Allergies: Coded Allergies: No Known Allergies (Unverified , 07/17/17) Patient History Limited by: medical condition History Provided By: Medical Record PM Narrative Past Medical History: HTN, other - encephalopathy Past Surgical History: none Pertinent Family History: none Social History: Denies: smoking, alcohol use, drug use Immunizations: UTD Reviewed Nursing Documentation: PMH: Agreed; PSxH: Agreed Nursing Documentation-PM Past Medical History: No History, Except For Hx Cardiac Problems: Yes - anemia Hx Hypertension: Yes Hx Cancer: Yes - nasal-pharnyx Hx Neurological Problems: Yes - encephalopathy Social History: Denies: smoking, alcohol use, drug use, other Review of Systems All Other Systems: limited Physical Exam Vital Signs Date Time Temp Pulse Resp B/P (MAP) Pulse Ox O2 Delivery O2 Flow Rate FiO2 12/23/17 09:23 98.2 76 18 174/72 97 Room Air 98.2 12/27/17 09:05 8 Sp02 EP Interpretation: reviewed, normal Labs Laboratory Tests Test 12/27/17 12:52 12/27/17 13:48 White Blood Count 7.9 K/UL (4.8-10.8) Red Blood Count 4.30 M/UL (4.70-6.10) L Hemoglobin 12.3 G/DL (14.2-18.0) L Hematocrit 39.1 % (42.0-52.0) L Mean Corpuscular Volume 91 FL (80-99) Mean Corpuscular Hemoglobin 28.6 PG (27.0-31.0) Mean Corpuscular Hemoglobin Concent 31.5 G/DL (32.0-36.0) L Red Cell Distribution Width 14.0 % (11.6-14.8) Platelet Count 335 K/UL (150-450) Mean Platelet Volume 6.4 FL (6.5-10.1) L Neutrophils (%) (Auto) % (45.0-75.0) Lymphocytes (%) (Auto) % (20.0-45.0) Monocytes (%) (Auto) % (1.0-10.0) Eosinophils (%) (Auto) % (0.0-3.0) Basophils (%) (Auto) % (0.0-2.0) Differential Total Cells Counted 100 Neutrophils % (Manual) 94 % (45-75) H Lymphocytes % (Manual) 3 % (20-45) L Monocytes % (Manual) 1 % (1-10) Eosinophils % (Manual) 0 % (0-3) Basophils % (Manual) 0 % (0-2) Band Neutrophils 2 % (0-8) Platelet Estimate Adequate Platelet Morphology Normal Hypochromasia 1+ Sodium Level 136 MMOL/L (136-145) Potassium Level 4.5 MMOL/L (3.5-5.1) Chloride Level 106 MMOL/L (98-107) Carbon Dioxide Level 19 MMOL/L (21-32) L Anion Gap 11 mmol/L (5-15) Blood Urea Nitrogen 21 mg/dL (7-18) H Creatinine 0.9 MG/DL (0.55-1.30) Estimat Glomerular Filtration Rate > 60 mL/min (>60) Glucose Level 70 MG/DL (74-106) L Calcium Level 8.4 MG/DL (8.5-10.1) L Total Bilirubin 0.4 MG/DL (0.2-1.0) Aspartate Amino Transf (AST/SGOT) 26 U/L (15-37) Alanine Aminotransferase (ALT/SGPT) 10 U/L (12-78) L Alkaline Phosphatase 69 U/L (46-116) Total Protein 8.3 G/DL (6.4-8.2) H Albumin 1.9 G/DL (3.4-5.0) L Globulin 6.4 g/dL Albumin/Globulin Ratio 0.3 (1.0-2.7) L Prothrombin Time 12.7 SEC (9.30-11.50) H Prothromb Time International Ratio 1.2 (0.9-1.1) H Activated Partial Thromboplast Time 32 SEC (23-33) General Appearance: well appearing, no apparent distress, alert, thin Head: normocephalic EENT: PERRL/EOMI, normal ENT inspection Neck: supple Respiratory: normal breath sounds, no respiratory distress Cardiovascular: normal rate Gastrointestinal: normal inspection, non tender, soft, normal bowel sounds, non -distended Rectal: deferred Genitourinary: deferred Musculoskeletal: normal inspection, back normal Neurologic: alert, responsive Skin: normal inspection, normal color, no rash, warm/dry, palpation normal, well hydrated Lymphatic: normal inspection, no adenopathy Current Medications Current Medications Medications (Trade) Dose Ordered Sig/Mehran Route PRN Reason Start Time Stop Time Status Last Admin Dose Admin Acetaminophen (Tylenol) 650 mg Q6H PRN ORAL Mild Pain/Temp > 100.5 12/23/17 21:14 01/22/18 21:13 Acetaminophen/ Hydrocodone Bitart (Sterling 5/325) 1 tab Q4H PRN ORAL Moderate Pain (Pain Scale 4-6) 12/23/17 21:14 12/30/17 21:13 Amlodipine Besylate (Norvasc) 10 mg QHS ORAL 12/23/17 21:00 01/22/18 20:59 12/26/17 20:35 Carvedilol (Coreg) 25 mg EVERY 12 HOURS ORAL 12/26/17 21:00 01/22/18 20:59 12/26/17 20:35 Ciprofloxacin (Cipro 500mg tab) 500 mg EVERY 12 HOURS ORAL 12/24/17 09:00 12/31/17 08:59 12/26/17 20:35 Diphenhydramine HCl (Benadryl) 25 mg Q15M PRN IVP Itching 12/27/17 08:30 12/27/17 18:00 Docusate Sodium (Colace) 250 mg DAILY ORAL 12/24/17 09:00 01/23/18 08:59 12/26/17 09:52 Fentanyl Citrate (Sublimaze 100 mcg/2 mL) 25 mcg Q10M PRN IV Moderate Pain (Pain Scale 4-6) 12/27/17 08:30 12/27/17 18:00 Finasteride (Proscar) 5 mg DAILY ORAL 12/24/17 09:00 01/23/18 08:59 12/26/17 09:52 Gabapentin (Neurontin) 100 mg BEDTIME PRN ORAL Moderate Pain (Pain Scale 4-6) 12/23/17 21:45 01/22/18 21:44 Haloperidol Lactate (Haldol) 5 mg Q6H PRN IM Agitation 12/27/17 12:15 01/26/18 12:14 12/27/17 12:35 Hydralazine HCl (Apresoline) 50 mg Q8H PRN ORAL For High Blood Pressure 12/25/17 12:00 01/24/18 11:59 12/26/17 12:16 Hydrochlorothiazide (Hydrodiuril) 25 mg DAILY ORAL 12/27/17 09:00 01/26/18 08:59 Labetalol HCl (Normodyne) 5 mg Q10M PRN IV SBP>160 or____/ DBP>90 or 12/27/17 08:30 12/27/17 18:00 Lorazepam (Ativan 2mg/ml 1ml) 1 mg Q4H PRN IM For Anxiety 12/27/17 12:15 01/03/18 12:14 12/27/17 15:16 Losartan Potassium (Cozaar) 100 mg DAILY ORAL 12/26/17 09:00 01/23/18 08:59 12/26/17 09:53 Morphine Sulfate (Morphine Sulfate) 1 mg Q4H PRN IVP Severe Pain (Pain Scale 7-10) 12/23/17 21:14 12/30/17 21:13 Ondansetron HCl (Zofran) 4 mg Q1H PRN IVP Nausea & Vomiting 12/27/17 08:30 12/27/17 18:00 Quetiapine Fumarate (SEROquel) 12.5 mg EVERY 4 HOURS PRN ORAL Agitation 12/24/17 23:30 01/23/18 23:29 Quetiapine Fumarate (SEROquel) 25 mg TID ORAL 12/27/17 13:15 01/26/18 13:14 Sodium Chloride 1,000 ml @ 75 mls/hr [id number] IV 12/23/17 22:00 01/22/18 21:59 12/27/17 06:31 Tamsulosin HCl (Flomax) 0.4 mg BEDTIME ORAL 12/24/17 21:00 01/23/18 20:59 12/26/17 20:34 GI: Plan Problems: (1) Encounter for PEG (percutaneous endoscopic gastrostomy) (2) Severe malnutrition (3) Dehydration (4) Dysphagia (5) Folate deficiency (6) Failure to thrive (7) Hematuria (8) Acute encephalopathy (9) Resides in prison facility Plan PEG to be scheduled pending bioethics consultation. insert NGT, resume feedings per RD prn transfusions ppi electrolyte correction fu labs fu urology recs, s/p cystoscopy today. Discussed with Dr. Montes. Thank you for this patient referral, we will follow. The patient was seen and examined at bedside and all new and available data was reviewed in the patients chart. I agree with the above findings, impression and plan. (Patient seen earlier today. Signature stamp does not reflect patient encounter time.). - MD Asuncion Jiménez,[facility] Ironwood Medical CenterMichael ENGINEERING DRAWINGS CHECKER Dec 27, 2017 16:33
[2017-12-27] MEDS: Tamsulosin 0.4mg cap ORAL SCH (17:59)
--- NOTE | 2017-12-27 18:14 | Diagnostic Imaging Report ---
EXAM: XR Chest, 1 View CLINICAL HISTORY: NGT TECHNIQUE: Frontal view of the chest. COMPARISON: No relevant prior studies available. FINDINGS: Lungs: Left lower lobe atelectasis/consolidation, cannot exclude underlying pulmonary lesion. Pleural space: [id number] left pleural effusion. No pneumothorax. Heart: Unremarkable. No cardiomegaly. Mediastinum: Unremarkable. Bones/joints: Unremarkable. Tubes, lines and devices: NG tube in the stomach. IMPRESSION: 1. NG tube in the stomach. 2. [id number] left pleural effusion. 3. Left lower lobe atelectasis/consolidation, cannot exclude underlying pulmonary lesion.
--- NOTE | 2017-12-27 19:27 | 48 Hour Post Anesthesia Eval ---
Post Anesthesia Evaluation Procedure: cystoscopy, turbt Date of Evaluation: Dec 27, 2017 Time of Evaluation: 16:00 Blood Pressure Systolic: 166 0: 76 Pulse Rate: 93 Respiratory Rate: 18 Temperature (Fahrenheit): 98.0 O2 Sat by Pulse Oximetry: 97 Airway: patent Nausea: No Vomiting: No Pain Intensity: 0 Hydration Status: adequate Mental Status/LOC: patient returned to baseline Post-Anesthesia Complications: none Follow-up care needed: N/A Roxanne Duval M.D. Dec 27, 2017 19:27
--- NOTE | 2017-12-27 22:30 | Operative Note - Dictated ---
DATE OF OPERATION: 12/27/2017 PREOPERATIVE DIAGNOSIS: Gross hematuria. POSTOPERATIVE DIAGNOSIS: Gross hematuria and also large bladder tumor. PROCEDURE PERFORMED: Cystoscopy with urethral calibration and transurethral resection of bladder tumor and extensive fulguration. OPERATIVE SURGEON: Federico Jo M.D. ANESTHESIOLOGIST: Dr. Duval. ANESTHESIA: General. INDICATIONS FOR PROCEDURE: This is a pleasant 67-year-old gentleman. He is a resident of a shelter. He was admitted to the hospital because of acute onset of gross hematuria. There was initially some difficulty to place him on a Rodriguez catheter, however, coude catheter was placed. This was hand irrigated. He did have a copious amount of clots in his bladder, which could not be adequately drained through the small Rodriguez. He had a CT scan, which showed clots in the bladder. Normal upper tract. The patient had persistent hematuria with some difficulty in the irrigation of the catheter and as such, a decision was made for him to have a cystoscopy on a semi-urgent basis to clear the clots from his bladder and stop the source of bleeding. The patient is confused and is not able to give consent. Attempts were made to locate the patient's family members or power of privacy attorney, which was unsuccessful and because we felt that we needed to proceed with the above procedure to stop the bleeding, decision was made to obtain a two-physician consent. As such, the patient was brought to the operating room for the above procedure and I did talk to the patient about the procedure including risks and complications. FINDINGS: The patient had old clots in the bladder. These were organized clots that were evacuated. He had a large bladder tumors papillary that involved the left side of the bladder, left lateral, involving a trigone. This was the source of his bleeding. The tumor was resected. All bleeding sites were controlled with electrocautery. PROCEDURE IN DETAIL: Informed consent was attempted to be obtained from the patient. The patient was brought to the operating room and then he was placed in the supine position. Successful general anesthesia was induced. The patient was placed in a modified dorsal lithotomy position and his genitalia was then prepped and draped in usual sterile fashion. Preoperative intravenous antibiotics were administered. Time-out was performed. The urethra was gently dilated. Cystoscopy was performed. Prostate was moderately obstructive with some prominence of the medial lobe. The bladder was entered. There was a lot of old organized clots, which were evacuated and I was able to do a cystoscopy. Bladder was trabeculated. On the left side, he had a large papillary tumor that involved most of the lateral wall, which involved the trigone. The bladder was severely trabeculated neither ureteral orifice I was able to identify either one. At this point, the resectoscope sheath was inserted with the visual obturator using the bipolar system. The tumor on left lateral side was taken down to the base. Any visible tumor was resected. This was again a large tumor at least 5 cm satellite lesion. All the visible tumor was resected and fulgurated. Again, I was not able to identify the ureteral orifice and I tried to minimize his resection and fulguration and location in trigone. At the end of procedure, any visible tumor was resected and fulgurated. Good hemostasis was obtained. The specimen was drained. A Rodriguez catheter was placed, which is a 22-[place]. This irrigated well with no obvious bleeding. The patient was awakened and was taken to recovery in stable condition. Blood loss is minimal. No complication. Federico Jo M.D. DR: ANDRE JOB#: [id number] CC: [place] Washington M.D.; Fax#: [phone]
[2017-12-28] VITALS: BP 149/74
[2017-12-28 04:00] VITALS: BP 145/78
[2017-12-28 06:25] LABS: HEMATOCRIT 35.3 % (42.0-52.0); HEMOGLOBIN 11.4 G/DL (14.2-18.0); MEAN CORPUSCULAR VOLUME 91 FL (80-99); PLATELET COUNT 318 K/UL (150-450); RED BLOOD COUNT 3.89 M/UL (4.70-6.10); RED CELL DISTRIBUTION WIDTH 14.1 % (11.6-14.8); WHITE BLOOD COUNT 12.5 K/UL (4.8-10.8)
[2017-12-28 06:32] LABS: ANION GAP 9 mmol/L (5-15); BLOOD UREA NITROGEN 33 mg/dL (7-18); CALCIUM 8.4 MG/DL (8.5-10.1); CARBON DIOXIDE 24 MMOL/L (21-32); CHLORIDE 105 MMOL/L (98-107); CREATININE 1.3 MG/DL (0.55-1.30); POTASSIUM 4.1 MMOL/L (3.5-5.1); SODIUM 138 MMOL/L (136-145)
[2017-12-28 08:00] VITALS: BP 143/69
--- NOTE | 2017-12-28 08:16 | General Progress Note ---
Assessment/Plan Problem List: (1) Hematuria ICD Codes: R31.9 - Hematuria, unspecified SNOMED: 17632000 Qualifiers: Qualified Codes: R31.9 - Hematuria, unspecified (2) Failure to thrive SNOMED: 71641478 (3) Bladder tumor ICD Codes: D49.4 - Neoplasm of unspecified behavior of bladder SNOMED: 984174677 (4) Severe malnutrition ICD Codes: E43 - Unspecified severe protein-calorie malnutrition SNOMED: 10996518 (5) Encounter for PEG (percutaneous endoscopic gastrostomy) ICD Codes: Z43.1 - Encounter for attention to gastrostomy SNOMED: 807748750, 742916958 Assessment/Plan NGTF pending consent for PEG bladder tumor fu per urology Subjective ROS Limited/Unobtainable: No Allergies: Coded Allergies: No Known Allergies (Unverified , 07/17/17) Objective Last 24 Hour Vital Signs Date Time Temp Pulse Resp B/P (MAP) Pulse Ox O2 Delivery O2 Flow Rate FiO2 12/28/17 04:00 97.2 63 20 145/78 (100) 100 97.2 12/28/17 00:00 96.0 96 20 149/74 (99) 93 96.0 12/27/17 21:55 53 158/80 12/27/17 21:00 53 158/80 12/27/17 21:00 Nasal Cannula 5.0 Nasal Cannula 5.0 12/27/17 20:50 96.4 53 18 158/80 (106) 97 96.4 12/27/17 20:00 96.4 44 20 95/55 (68) 10 96.4 12/27/17 19:27 208.4 93 18 97 12/27/17 17:59 166/76 12/27/17 16:00 98.0 93 18 166/76 (106) 97 98.0 12/27/17 12:00 95.9 53 18 171/75 (107) 95 95.9 12/27/17 10:35 Room Air 5.0 Nasal Cannula 12/27/17 09:40 51 18 164/75 100 Nasal Cannula 3 12/27/17 09:22 207.3 49 15 100 12/27/17 09:15 49 18 175/89 100 Nasal Cannula 3 12/27/17 09:10 49 15 154/70 100 Simple Mask 8 12/27/17 09:05 97.4 49 15 154/70 100 Simple Mask 8 97.4 Intake and Output 12/27/17 12/28/17 19:00 07:00 Intake Total 1242 ml 1635 ml Output Total 505 ml 650 ml Balance 737 ml 985 ml Free Water 150 ml IV Total 1187 ml 825 ml Tube Feeding 55 ml 660 ml Output Urine Total 500 ml 650 ml Estimated Blood Loss 5 ml # Bowel Movements 1 2 Laboratory Tests 12/27/17 12:52: White Blood Count 7.9, Red Blood Count 4.30L, Hemoglobin 12.3L, Hematocrit 39.1L , Mean Corpuscular Volume 91, Mean Corpuscular Hemoglobin 28.6, Mean Corpuscular Hemoglobin Concent 31.5L, Red Cell Distribution Width 14.0, Platelet Count 335, Mean Platelet Volume 6.4L, Neutrophils (%) (Auto) , Lymphocytes (%) (Auto) , Monocytes (%) (Auto) , Eosinophils (%) (Auto) , Basophils (%) (Auto) , Differential Total Cells Counted 100, Neutrophils % ( Manual) 94H, Lymphocytes % (Manual) 3L, Monocytes % (Manual) 1, Eosinophils % ( Manual) 0, Basophils % (Manual) 0, Band Neutrophils 2, Platelet Estimate Adequate, Platelet Morphology Normal, Hypochromasia 1+, Sodium Level 136, Potassium Level 4.5, Chloride Level 106, Carbon Dioxide Level 19L, Anion Gap 11 , Blood Urea Nitrogen 21H, Creatinine 0.9, Estimat Glomerular Filtration Rate > 60, Glucose Level 70L, Calcium Level 8.4L, Total Bilirubin 0.4, Aspartate Amino Transf (AST/SGOT) 26, Alanine Aminotransferase (ALT/SGPT) 10L, Alkaline Phosphatase 69, Total Protein 8.3H, Albumin 1.9L, Globulin 6.4, Albumin/ Globulin Ratio 0.3L 12/27/17 13:48: Prothrombin Time 12.7H, Prothromb Time International Ratio 1.2H, Activated Partial Thromboplast Time 32 12/28/17 01:54: White Blood Count 12.5#H, Red Blood Count 3.89L, Hemoglobin 11.4L, Hematocrit 35.3L, Mean Corpuscular Volume 91, Mean Corpuscular Hemoglobin 29.4, Mean Corpuscular Hemoglobin Concent 32.4, Red Cell Distribution Width 14.1, Platelet Count 318, Mean Platelet Volume 6.6, Neutrophils (%) (Auto) , Lymphocytes (%) ( Auto) , Monocytes (%) (Auto) , Eosinophils (%) (Auto) , Basophils (%) (Auto) , Neutrophils % (Manual) [Pending], Lymphocytes % (Manual) [Pending], Platelet Estimate [Pending], Platelet Morphology [Pending], Sodium Level 138, Potassium Level 4.1, Chloride Level 105, Carbon Dioxide Level 24, Anion Gap 9, Blood Urea Nitrogen 33H, Creatinine 1.3, Estimat Glomerular Filtration Rate 55.2, Glucose Level 176#H, Calcium Level 8.4L Height (Feet): 5 Height (Inches): 10.00 Weight (Pounds): 185 General Appearance: lethargic EENT: normal ENT inspection Neck: supple Cardiovascular: normal rate Respiratory/Chest: decreased breath sounds Abdomen: normal bowel sounds, non tender, soft Extremities: non-tender Tylor Montes MD Dec 28, 2017 08:16
[2017-12-28] MEDS: Docusate 250mg cap ORAL SCH (09:17)
[2017-12-28] MEDS: Losartan 50mg tab ORAL SCH (09:17)
[2017-12-28] MEDS: Ciprofloxacin 500mg tab ORAL SCH ×2 (09:17→21:16)
[2017-12-28] MEDS: Carvedilol 25mg Tab ORAL SCH ×2 (09:17→21:16)
--- NOTE | 2017-12-28 10:05 | Urology Progress Note ---
Assessment/Plan Assessment/Plan 1. Gross hematuria. 2. Urinary retention. 3. BPH history. 4. Proteinuria. 5. Mild pyuria. 6. Rule out neurogenic bladder. 7. Bladder tumor. 8, POD # 1, TURBT. I personally hand irrigated hinkle, no clots keep hinkle indwelling for now nursing staff to hand irrigated hinkle PRN cont with abx proscar, flomax monitor h/h, renal fxn f/u on path Subjective Allergies: Coded Allergies: No Known Allergies (Unverified , 07/17/17) Subjective all noted, feeding tube placed, no abdominal or flank pain Objective Last 24 Hour Vital Signs Date Time Temp Pulse Resp B/P (MAP) Pulse Ox O2 Delivery O2 Flow Rate FiO2 12/28/17 09:17 56 143/69 12/28/17 09:17 143/69 12/28/17 08:00 97.3 56 18 143/69 (93) 92 97.3 12/28/17 04:00 97.2 63 20 145/78 (100) 100 97.2 12/28/17 00:00 96.0 96 20 149/74 (99) 93 96.0 12/27/17 21:55 53 158/80 12/27/17 21:00 53 158/80 12/27/17 21:00 Nasal Cannula 5.0 Nasal Cannula 5.0 12/27/17 20:50 96.4 53 18 158/80 (106) 97 96.4 12/27/17 20:00 96.4 44 20 95/55 (68) 10 96.4 12/27/17 19:27 208.4 93 18 97 12/27/17 17:59 166/76 12/27/17 16:00 98.0 93 18 166/76 (106) 97 98.0 12/27/17 12:00 95.9 53 18 171/75 (107) 95 95.9 12/27/17 10:35 Room Air 5.0 Nasal Cannula Intake and Output 12/27/17 12/28/17 19:00 07:00 Intake Total 1242 ml 1635 ml Output Total 505 ml 650 ml Balance 737 ml 985 ml Free Water 150 ml IV Total 1187 ml 825 ml Tube Feeding 55 ml 660 ml Output Urine Total 500 ml 650 ml Estimated Blood Loss 5 ml # Bowel Movements 1 2 Microbiology Date/Time Source Procedure Growth Status 12/23/17 19:40 Nasal Nares 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 Complete Current Medications Medications (Trade) Dose Ordered Sig/Mehran Route PRN Reason Start Time Stop Time Status Last Admin Dose Admin Acetaminophen (Tylenol) 650 mg Q6H PRN ORAL Mild Pain/Temp > 100.5 12/23/17 21:14 01/22/18 21:13 Acetaminophen/ Hydrocodone Bitart ([place] 5/325) 1 tab Q4H PRN ORAL Moderate Pain (Pain Scale 4-6) 12/23/17 21:14 12/30/17 21:13 Amlodipine Besylate (Norvasc) 10 mg QHS ORAL 12/23/17 21:00 01/22/18 20:59 12/27/17 21:55 Carvedilol (Coreg) 25 mg EVERY 12 HOURS ORAL 12/26/17 21:00 01/22/18 20:59 12/28/17 09:17 Ciprofloxacin (Cipro 500mg tab) 500 mg EVERY 12 HOURS ORAL 12/24/17 09:00 12/31/17 08:59 12/28/17 09:17 Docusate Sodium (Colace) 250 mg DAILY ORAL 12/24/17 09:00 01/23/18 08:59 12/28/17 09:17 Finasteride (Proscar) 5 mg DAILY ORAL 12/24/17 09:00 01/23/18 08:59 12/28/17 09:17 Gabapentin (Neurontin) 100 mg BEDTIME PRN ORAL Moderate Pain (Pain Scale 4-6) 12/23/17 21:45 01/22/18 21:44 Haloperidol Lactate (Haldol) 5 mg Q6H PRN IM Agitation 12/27/17 12:15 01/26/18 12:14 12/27/17 12:35 Hydralazine HCl (Apresoline) 50 mg Q8H PRN ORAL For High Blood Pressure 12/25/17 12:00 01/24/18 11:59 12/26/17 12:16 Hydrochlorothiazide (Hydrodiuril) 25 mg DAILY ORAL 12/27/17 09:00 01/26/18 08:59 7/21/18 09:17 Lorazepam (Ativan 2mg/ml 1ml) 1 mg Q4H PRN IM For Anxiety 12/27/17 12:15 01/03/18 12:14 12/27/17 15:16 Losartan Potassium (Cozaar) 100 mg DAILY ORAL 12/26/17 09:00 01/23/18 08:59 12/28/17 09:17 Morphine Sulfate (Morphine Sulfate) 1 mg Q4H PRN IVP Severe Pain (Pain Scale 7-10) 12/23/17 21:14 12/30/17 21:13 Quetiapine Fumarate (SEROquel) 12.5 mg EVERY 4 HOURS PRN ORAL Agitation 12/24/17 23:30 01/23/18 23:29 Quetiapine Fumarate (SEROquel) 25 mg TID ORAL 12/27/17 13:15 01/26/18 13:14 12/28/17 09:17 Sodium Chloride 1,000 ml @ 75 mls/hr [id number] IV 12/23/17 22:00 01/22/18 21:59 12/28/17 09:12 Tamsulosin HCl (Flomax) 0.4 mg BEDTIME ORAL 12/24/17 21:00 01/23/18 20:59 12/27/17 17:59 Laboratory Tests 12/27/17 12:52: White Blood Count 7.9, Red Blood Count 4.30L, Hemoglobin 12.3L, Hematocrit 39.1L , Mean Corpuscular Volume 91, Mean Corpuscular Hemoglobin 28.6, Mean Corpuscular Hemoglobin Concent 31.5L, Red Cell Distribution Width 14.0, Platelet Count 335, Mean Platelet Volume 6.4L, Neutrophils (%) (Auto) , Lymphocytes (%) (Auto) , Monocytes (%) (Auto) , Eosinophils (%) (Auto) , Basophils (%) (Auto) , Differential Total Cells Counted 100, Neutrophils % ( Manual) 94H, Lymphocytes % (Manual) 3L, Monocytes % (Manual) 1, Eosinophils % ( Manual) 0, Basophils % (Manual) 0, Band Neutrophils 2, Platelet Estimate Adequate, Platelet Morphology Normal, Hypochromasia 1+, Sodium Level 136, Potassium Level 4.5, Chloride Level 106, Carbon Dioxide Level 19L, Anion Gap 11 , Blood Urea Nitrogen 21H, Creatinine 0.9, Estimat Glomerular Filtration Rate > 60, Glucose Level 70L, Calcium Level 8.4L, Total Bilirubin 0.4, Aspartate Amino Transf (AST/SGOT) 26, Alanine Aminotransferase (ALT/SGPT) 10L, Alkaline Phosphatase 69, Total Protein 8.3H, Albumin 1.9L, Globulin 6.4, Albumin/ Globulin Ratio 0.3L 12/27/17 13:48: Prothrombin Time 12.7H, Prothromb Time International Ratio 1.2H, Activated Partial Thromboplast Time 32 12/28/17 01:54: White Blood Count 12.5#H, Red Blood Count 3.89L, Hemoglobin 11.4L, Hematocrit 35.3L, Mean Corpuscular Volume 91, Mean Corpuscular Hemoglobin 29.4, Mean Corpuscular Hemoglobin Concent 32.4, Red Cell Distribution Width 14.1, Platelet Count 318, Mean Platelet Volume 6.6, Neutrophils (%) (Auto) , Lymphocytes (%) ( Auto) , Monocytes (%) (Auto) , Eosinophils (%) (Auto) , Basophils (%) (Auto) , Differential Total Cells Counted 100, Neutrophils % (Manual) 93H, Lymphocytes % (Manual) 4L, Monocytes % (Manual) 3, Eosinophils % (Manual) 0, Basophils % ( Manual) 0, Band Neutrophils 0, Platelet Estimate Adequate, Platelet Morphology Normal, Sodium Level 138, Potassium Level 4.1, Chloride Level 105, Carbon Dioxide Level 24, Anion Gap 9, Blood Urea Nitrogen 33H, Creatinine 1.3, Estimat Glomerular Filtration Rate 55.2, Glucose Level 176#H, Calcium Level 8.4L, Red Blood Cell Morphology Normal Height (Feet): 5 Height (Inches): 10.00 Weight (Pounds): 185 Objective exam stable, hinkle indwelling, urine clearing CT noted LIVIER ALVAREZ Dec 28, 2017 10:05
--- NOTE | 2017-12-28 10:31 | General Progress Note ---
Assessment/Plan Status: stable Assessment/Plan 1. Anemia due to hematuria. PSA level of 2.[address] Irrigation as needed. Urology Service evaluation. --> Continue to closely monitor --> Anemia w/u has been reviewed, will trend daily. --> Hgb goal >8 --> appreciate urology recommendations --> imaging has been reviewed --> 12/27: S/P cystoscopy and bladder biopsy. 2. Coagulopathy, likely due to decreased p.o. intake. --> INR of 1.2 --> hepatitis panel is pending 3. Paraproteinemia. --> Obtain urine protein electrophoresis and serum protein electrophoresis. 4. Nasopharyngeal carcinoma, currently in remission. 5. Failure to thrive history, likely secondary to decreased p.o. intake. 6. Hypertension. Systolic blood pressure goal is less than 140. The time the note was entered does not necessarily correspond to the time the patient was seen. Subjective Date patient seen: Dec 28, 2017 ROS Limited/Unobtainable: Yes Allergies: Coded Allergies: No Known Allergies (Unverified , 07/17/17) All Systems: reviewed and negative except above Subjective Pt awake and confused. No acute events. WBC elevated. Objective Last 24 Hour Vital Signs Date Time Temp Pulse Resp B/P (MAP) Pulse Ox O2 Delivery O2 Flow Rate FiO2 12/28/17 09:17 56 143/69 12/28/17 09:17 143/69 12/28/17 08:00 97.3 56 18 143/69 (93) 92 97.3 12/28/17 04:00 97.2 63 20 145/78 (100) 100 97.2 12/28/17 00:00 96.0 96 20 149/74 (99) 93 96.0 12/27/17 21:55 53 158/80 12/27/17 21:00 53 158/80 12/27/17 21:00 Nasal Cannula 5.0 Nasal Cannula 5.0 12/27/17 20:50 96.4 53 18 158/80 (106) 97 96.4 12/27/17 20:00 96.4 44 20 95/55 (68) 10 96.4 12/27/17 19:27 208.4 93 18 97 12/27/17 17:59 166/76 12/27/17 16:00 98.0 93 18 166/76 (106) 97 98.0 12/27/17 12:00 95.9 53 18 171/75 (107) 95 95.9 12/27/17 10:35 Room Air 5.0 Nasal Cannula Intake and Output 12/27/17 12/28/17 19:00 07:00 Intake Total 1242 ml 1635 ml Output Total 505 ml 650 ml Balance 737 ml 985 ml Free Water 150 ml IV Total 1187 ml 825 ml Tube Feeding 55 ml 660 ml Output Urine Total 500 ml 650 ml Estimated Blood Loss 5 ml # Bowel Movements 1 2 Laboratory Tests 12/27/17 12:52: White Blood Count 7.9, Red Blood Count 4.30L, Hemoglobin 12.3L, Hematocrit 39.1L , Mean Corpuscular Volume 91, Mean Corpuscular Hemoglobin 28.6, Mean Corpuscular Hemoglobin Concent 31.5L, Red Cell Distribution Width 14.0, Platelet Count 335, Mean Platelet Volume 6.4L, Neutrophils (%) (Auto) , Lymphocytes (%) (Auto) , Monocytes (%) (Auto) , Eosinophils (%) (Auto) , Basophils (%) (Auto) , Differential Total Cells Counted 100, Neutrophils % ( Manual) 94H, Lymphocytes % (Manual) 3L, Monocytes % (Manual) 1, Eosinophils % ( Manual) 0, Basophils % (Manual) 0, Band Neutrophils 2, Platelet Estimate Adequate, Platelet Morphology Normal, Hypochromasia 1+, Sodium Level 136, Potassium Level 4.5, Chloride Level 106, Carbon Dioxide Level 19L, Anion Gap 11 , Blood Urea Nitrogen 21H, Creatinine 0.9, Estimat Glomerular Filtration Rate > 60, Glucose Level 70L, Calcium Level 8.4L, Total Bilirubin 0.4, Aspartate Amino Transf (AST/SGOT) 26, Alanine Aminotransferase (ALT/SGPT) 10L, Alkaline Phosphatase 69, Total Protein 8.3H, Albumin 1.9L, Globulin 6.4, Albumin/ Globulin Ratio 0.3L 12/27/17 13:48: Prothrombin Time 12.7H, Prothromb Time International Ratio 1.2H, Activated Partial Thromboplast Time 32 12/28/17 01:54: White Blood Count 12.5#H, Red Blood Count 3.89L, Hemoglobin 11.4L, Hematocrit 35.3L, Mean Corpuscular Volume 91, Mean Corpuscular Hemoglobin 29.4, Mean Corpuscular Hemoglobin Concent 32.4, Red Cell Distribution Width 14.1, Platelet Count 318, Mean Platelet Volume 6.6, Neutrophils (%) (Auto) , Lymphocytes (%) ( Auto) , Monocytes (%) (Auto) , Eosinophils (%) (Auto) , Basophils (%) (Auto) , Differential Total Cells Counted 100, Neutrophils % (Manual) 93H, Lymphocytes % (Manual) 4L, Monocytes % (Manual) 3, Eosinophils % (Manual) 0, Basophils % ( Manual) 0, Band Neutrophils 0, Platelet Estimate Adequate, Platelet Morphology Normal, Sodium Level 138, Potassium Level 4.1, Chloride Level 105, Carbon Dioxide Level 24, Anion Gap 9, Blood Urea Nitrogen 33H, Creatinine 1.3, Estimat Glomerular Filtration Rate 55.2, Glucose Level 176#H, Calcium Level 8.4L, Red Blood Cell Morphology Normal Height (Feet): 5 Height (Inches): 10.00 Weight (Pounds): 185 General Appearance: no apparent distress, confused EENT: PERRL/EOMI Neck: normal alignment Cardiovascular: normal peripheral pulses Respiratory/Chest: no respiratory distress Abdomen: no organomegaly, no mass Shane Oropeza MD Dec 28, 2017 10:31
--- NOTE | 2017-12-28 11:20 | General Surgery Progress Note ---
General Surgery-Progress Note Subjective Additional Comments no acute events. urine clearing up Objective Last 24 Hour Vital Signs Date Time Temp Pulse Resp B/P (MAP) Pulse Ox O2 Delivery O2 Flow Rate FiO2 12/28/17 09:17 56 143/69 12/28/17 09:17 143/69 12/28/17 08:00 97.3 56 18 143/69 (93) 92 97.3 12/28/17 04:00 97.2 63 20 145/78 (100) 100 97.2 12/28/17 00:00 96.0 96 20 149/74 (99) 93 96.0 12/27/17 21:55 53 158/80 12/27/17 21:00 53 158/80 12/27/17 21:00 Nasal Cannula 5.0 Nasal Cannula 5.0 12/27/17 20:50 96.4 53 18 158/80 (106) 97 96.4 12/27/17 20:00 96.4 44 20 95/55 (68) 10 96.4 12/27/17 19:27 208.4 93 18 97 12/27/17 17:59 166/76 12/27/17 16:00 98.0 93 18 166/76 (106) 97 98.0 12/27/17 12:00 95.9 53 18 171/75 (107) 95 95.9 I&O Intake and Output 12/27/17 12/28/17 19:00 07:00 Intake Total 1242 ml 1635 ml Output Total 505 ml 650 ml Balance 737 ml 985 ml Free Water 150 ml IV Total 1187 ml 825 ml Tube Feeding 55 ml 660 ml Output Urine Total 500 ml 650 ml Estimated Blood Loss 5 ml # Bowel Movements 1 2 Cardiovascular: RSR Respiratory: clear Abdomen: soft, distended, present bowel sounds Extremities: no edema Laboratory Tests Test 12/27/17 12:52 12/27/17 13:48 12/28/17 01:54 White Blood Count 7.9 K/UL (4.8-10.8) 12.5 K/UL (4.8-10.8) #H Red Blood Count 4.30 M/UL (4.70-6.10) L 3.89 M/UL (4.70-6.10) L Hemoglobin 12.3 G/DL (14.2-18.0) L 11.4 G/DL (14.2-18.0) L Hematocrit 39.1 % (42.0-52.0) L 35.3 % (42.0-52.0) L Mean Corpuscular Volume 91 FL (80-99) 91 FL (80-99) Mean Corpuscular Hemoglobin 28.6 PG (27.0-31.0) 29.4 PG (27.0-31.0) Mean Corpuscular Hemoglobin Concent 31.5 G/DL (32.0-36.0) L 32.4 G/DL (32.0-36.0) Red Cell Distribution Width 14.0 % (11.6-14.8) 14.1 % (11.6-14.8) Platelet Count 335 K/UL (150-450) 318 K/UL (150-450) Mean Platelet Volume 6.4 FL (6.5-10.1) L 6.6 FL (6.5-10.1) Neutrophils (%) (Auto) % (45.0-75.0) % (45.0-75.0) Lymphocytes (%) (Auto) % (20.0-45.0) % (20.0-45.0) Monocytes (%) (Auto) % (1.0-10.0) % (1.0-10.0) Eosinophils (%) (Auto) % (0.0-3.0) % (0.0-3.0) Basophils (%) (Auto) % (0.0-2.0) % (0.0-2.0) Differential Total Cells Counted 100 100 Neutrophils % (Manual) 94 % (45-75) H 93 % (45-75) H Lymphocytes % (Manual) 3 % (20-45) L 4 % (20-45) L Monocytes % (Manual) 1 % (1-10) 3 % (1-10) Eosinophils % (Manual) 0 % (0-3) 0 % (0-3) Basophils % (Manual) 0 % (0-2) 0 % (0-2) Band Neutrophils 2 % (0-8) 0 % (0-8) Platelet Estimate Adequate Adequate Platelet Morphology Normal Normal Hypochromasia 1+ Sodium Level 136 MMOL/L (136-145) 138 MMOL/L (136-145) Potassium Level 4.5 MMOL/L (3.5-5.1) 4.1 MMOL/L (3.5-5.1) Chloride Level 106 MMOL/L (98-107) 105 MMOL/L (98-107) Carbon Dioxide Level 19 MMOL/L (21-32) L 24 MMOL/L (21-32) Anion Gap 11 mmol/L (5-15) 9 mmol/L (5-15) Blood Urea Nitrogen 21 mg/dL (7-18) H 33 mg/dL (7-18) H Creatinine 0.9 MG/DL (0.55-1.30) 1.3 MG/DL (0.55-1.30) Estimat Glomerular Filtration Rate > 60 mL/min (>60) 55.2 mL/min (>60) Glucose Level 70 MG/DL (74-106) L 176 MG/DL (74-106) #H Calcium Level 8.4 MG/DL (8.5-10.1) L 8.4 MG/DL (8.5-10.1) L Total Bilirubin 0.4 MG/DL (0.2-1.0) Aspartate Amino Transf (AST/SGOT) 26 U/L (15-37) Alanine Aminotransferase (ALT/SGPT) 10 U/L (12-78) L Alkaline Phosphatase 69 U/L (46-116) Total Protein 8.3 G/DL (6.4-8.2) H Albumin 1.9 G/DL (3.4-5.0) L Globulin 6.4 g/dL Albumin/Globulin Ratio 0.3 (1.0-2.7) L Prothrombin Time 12.7 SEC (9.30-11.50) H Prothromb Time International Ratio 1.2 (0.9-1.1) H Activated Partial Thromboplast Time 32 SEC (23-33) Red Blood Cell Morphology Normal Plan Problems: (1) Hematoma of bladder wall (2) Hematuria Assessment & Plan: CT findings: Hematoma within the urinary bladder. Nature of this is not known. Consider cystoscopy for further evaluation. Underlying mass or other bladder pathology not excluded. Hinkle catheter in good position. large bladder tumor removed pending path [address] way hinkle as per urology thank you Marlon Doherty Dec 28, 2017 11:20
[2017-12-28 12:00] VITALS: BP 129/64
--- NOTE | 2017-12-28 13:15 | General Progress Note ---
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 large bladder tumor removed on 12/27 - keep hinkle in 3-5 days - f/u pathology - Continue to monitor for clots - Started on flomax, proscar - IV empiric antibiotics, cipro - Check PSA -- 2.55 - F/u CT urogram -- showing bladder hematoma vs. mass - Continue home BP meds -- increased per cards - Venous duplex negative - Hydralazine prn - Pain control and supportive care - F/u bioethics recommendations regarding G-tube given significant risk for aspiration. Patient lacks capacity to make his own judgement and there is no family available. Patient is not conserved at this time. DVT Prophylaxis: SCD. NO HSQ GIVEN HEMATOMA/HEMATURIA Code Status: Full Hospital Classification Declaration: Based on this initial evaluation, and depending on the patient's clinical course, I anticipate that this patient will require hospitalization for 2-3 days for gross hematuria and close respiratory/ hemodynamic monitoring. Disposition: Once the patient is stable to leave the hospital, I anticipate the patient will likely be discharged to the following environment: [facility] I spent 35 minutes on this patient's case, and 25 minutes were dedicated to counseling and/or care coordination. Discussed with patient/family, nursing staff, SW/CM, and all consultants involved regarding clinical status, treatment course, and disposition planning. Time of note may not reflect time of encounter. Subjective Date patient seen: Dec 28, 2017 ROS Limited/Unobtainable: Yes Allergies: Coded Allergies: No Known Allergies (Unverified , 07/17/17) Objective Last 24 Hour Vital Signs Date Time Temp Pulse Resp B/P (MAP) Pulse Ox O2 Delivery O2 Flow Rate FiO2 12/28/17 12:00 98.9 60 21 129/64 (85) 96 98.9 12/28/17 09:17 56 143/69 12/28/17 09:17 143/69 12/28/17 09:00 Room Air 5.0 Nasal Cannula 5.0 12/28/17 08:00 97.3 56 18 143/69 (93) 92 97.3 12/28/17 04:00 97.2 63 20 145/78 (100) 100 97.2 12/28/17 00:00 96.0 96 20 149/74 (99) 93 96.0 12/27/17 21:55 53 158/80 12/27/17 21:00 53 158/80 12/27/17 21:00 Nasal Cannula 5.0 Nasal Cannula 5.0 12/27/17 20:50 96.4 53 18 158/80 (106) 97 96.4 12/27/17 20:00 96.4 44 20 95/55 (68) 10 96.4 12/27/17 19:27 208.4 93 18 97 12/27/17 17:59 166/76 12/27/17 16:00 98.0 93 18 166/76 (106) 97 98.0 Intake and Output 12/27/17 12/28/17 19:00 07:00 Intake Total 1242 ml 1635 ml Output Total 505 ml 650 ml Balance 737 ml 985 ml Free Water 150 ml IV Total 1187 ml 825 ml Tube Feeding 55 ml 660 ml Output Urine Total 500 ml 650 ml Estimated Blood Loss 5 ml # Bowel Movements 1 2 Laboratory Tests 12/27/17 13:48: Prothrombin Time 12.7H, Prothromb Time International Ratio 1.2H, Activated Partial Thromboplast Time 32 12/28/17 01:54: White Blood Count 12.5#H, Red Blood Count 3.89L, Hemoglobin 11.4L, Hematocrit 35.3L, Mean Corpuscular Volume 91, Mean Corpuscular Hemoglobin 29.4, Mean Corpuscular Hemoglobin Concent 32.4, Red Cell Distribution Width 14.1, Platelet Count 318, Mean Platelet Volume 6.6, Neutrophils (%) (Auto) , Lymphocytes (%) ( Auto) , Monocytes (%) (Auto) , Eosinophils (%) (Auto) , Basophils (%) (Auto) , Differential Total Cells Counted 100, Neutrophils % (Manual) 93H, Lymphocytes % (Manual) 4L, Monocytes % (Manual) 3, Eosinophils % (Manual) 0, Basophils % ( Manual) 0, Band Neutrophils 0, Platelet Estimate Adequate, Platelet Morphology Normal, Red Blood Cell Morphology Normal, Sodium Level 138, Potassium Level 4.1 , Chloride Level 105, Carbon Dioxide Level 24, Anion Gap 9, Blood Urea Nitrogen 33H, Creatinine 1.3, Estimat Glomerular Filtration Rate 55.2, Glucose Level 176# H, Calcium Level 8.4L Height (Feet): 5 Height (Inches): 10.00 Weight (Pounds): 185 Kamran Rashid MD Dec 28, 2017 13:15
[2017-12-28 16:00] VITALS: BP 115/63
[2017-12-28] MEDS ORDERED: NS Irrig 1000ml ONE (17:35)
--- NOTE | 2017-12-28 17:47 | Cardiology Progress Note ---
Assessment/Plan Status: progressing Assessment/Plan Assessment (1) Nasopharyngeal cancer (2) Possibly homeless (3) Hypertensive urgency (4) Failure to thrive (5) Folate deficiency (6) Acute encephalopathy (7) Hematuria (8) Psychosis (9) Hypertensive urgency Plan Continue BP medications - coreg 25 BID, Norvac 10 daily No indication for cardiac catheterization at this point, can defer stress test to outpatient setting depending on prognosis and urological findings Recommend G tube placement due to cachexia, poor PO intake, and risk of aspiration Follow up final pathology Continue proscar and flomax Will sign off at this juncture Subjective Cardiovascular: Reports: no symptoms Respiratory: Reports: no symptoms Gastrointestinal/Abdominal: Reports: no symptoms Genitourinary: Reports: no symptoms Subjective No acute events, BP stable and controlled - s/p cystoscopy and TURBT with extensive fulgration. large bladder tumor removed on 12/27 Objective Last 24 Hour Vital Signs Date Time Temp Pulse Resp B/P (MAP) Pulse Ox O2 Delivery O2 Flow Rate FiO2 12/28/17 16:00 97.9 63 20 115/63 (80) 97 97.9 12/28/17 12:00 98.9 60 21 129/64 (85) 96 98.9 12/28/17 09:17 56 143/69 12/28/17 09:17 143/69 12/28/17 09:00 Room Air 5.0 Nasal Cannula 5.0 12/28/17 08:00 97.3 56 18 143/69 (93) 92 97.3 12/28/17 04:00 97.2 63 20 145/78 (100) 100 97.2 12/28/17 00:00 96.0 96 20 149/74 (99) 93 96.0 12/27/17 21:55 53 158/80 12/27/17 21:00 53 158/80 12/27/17 21:00 Nasal Cannula 5.0 Nasal Cannula 5.0 12/27/17 20:50 96.4 53 18 158/80 (106) 97 96.4 12/27/17 20:00 96.4 44 20 95/55 (68) 10 96.4 12/27/17 19:27 208.4 93 18 97 12/27/17 17:59 166/76 General Appearance: no apparent distress, cachetic, thin EENT: PERRL/EOMI Neck: normal alignment Rhythm: NSR Cardiovascular: normal peripheral pulses Respiratory/Chest: chest wall non-tender Abdomen: normal bowel sounds Extremities: normal range of motion Neurologic: it solutions sales consultant II-XII grossly normal Intake and Output 12/27/17 12/28/17 19:00 07:00 Intake Total 1242 ml 1635 ml Output Total 505 ml 650 ml Balance 737 ml 985 ml Free Water 150 ml IV Total 1187 ml 825 ml Tube Feeding 55 ml 660 ml Output Urine Total 500 ml 650 ml Estimated Blood Loss 5 ml # Bowel Movements 1 2 Laboratory Tests Test 12/28/17 01:54 White Blood Count 12.5 K/UL (4.8-10.8) #H Red Blood Count 3.89 M/UL (4.70-6.10) L Hemoglobin 11.4 G/DL (14.2-18.0) L Hematocrit 35.3 % (42.0-52.0) L Mean Corpuscular Volume 91 FL (80-99) Mean Corpuscular Hemoglobin 29.4 PG (27.0-31.0) Mean Corpuscular Hemoglobin Concent 32.4 G/DL (32.0-36.0) Red Cell Distribution Width 14.1 % (11.6-14.8) Platelet Count 318 K/UL (150-450) Mean Platelet Volume 6.6 FL (6.5-10.1) Neutrophils (%) (Auto) % (45.0-75.0) Lymphocytes (%) (Auto) % (20.0-45.0) Monocytes (%) (Auto) % (1.0-10.0) Eosinophils (%) (Auto) % (0.0-3.0) Basophils (%) (Auto) % (0.0-2.0) Differential Total Cells Counted 100 Neutrophils % (Manual) 93 % (45-75) H Lymphocytes % (Manual) 4 % (20-45) L Monocytes % (Manual) 3 % (1-10) Eosinophils % (Manual) 0 % (0-3) Basophils % (Manual) 0 % (0-2) Band Neutrophils 0 % (0-8) Platelet Estimate Adequate Platelet Morphology Normal Red Blood Cell Morphology Normal Sodium Level 138 MMOL/L (136-145) Potassium Level 4.1 MMOL/L (3.5-5.1) Chloride Level 105 MMOL/L (98-107) Carbon Dioxide Level 24 MMOL/L (21-32) Anion Gap 9 mmol/L (5-15) Blood Urea Nitrogen 33 mg/dL (7-18) H Creatinine 1.3 MG/DL (0.55-1.30) Estimat Glomerular Filtration Rate 55.2 mL/min (>60) Glucose Level 176 MG/DL (74-106) #H Calcium Level 8.4 MG/DL (8.5-10.1) L Patrick Krishnan M.D. Dec 28, 2017 17:47
[2017-12-28 20:00] VITALS: BP 158/75
[2017-12-28] MEDS: Tamsulosin 0.4mg cap ORAL SCH (21:16)
[2017-12-29] VITALS: BP 159/74
[2017-12-29 04:00] VITALS: BP 150/75
[2017-12-29 08:00] VITALS: BP 161/73
--- NOTE | 2017-12-29 08:39 | General Progress Note ---
Assessment/Plan Problem List: (1) Hematuria ICD Codes: R31.9 - Hematuria, unspecified SNOMED: 19742814 Qualifiers: Qualified Codes: R31.9 - Hematuria, unspecified (2) Failure to thrive SNOMED: 71544328 (3) Bladder tumor ICD Codes: D49.4 - Neoplasm of unspecified behavior of bladder SNOMED: 983701759 (4) Severe malnutrition ICD Codes: E43 - Unspecified severe protein-calorie malnutrition SNOMED: 69937302 (5) Encounter for PEG (percutaneous endoscopic gastrostomy) ICD Codes: Z43.1 - Encounter for attention to gastrostomy SNOMED: 413711936, 003533629 Assessment/Plan NGTF pending consent for PEG bladder tumor fu per urology Subjective ROS Limited/Unobtainable: No Allergies: Coded Allergies: No Known Allergies (Unverified , 07/17/17) Objective Last 24 Hour Vital Signs Date Time Temp Pulse Resp B/P (MAP) Pulse Ox O2 Delivery O2 Flow Rate FiO2 12/29/17 04:00 97.2 68 20 150/75 (100) 100 97.2 12/29/17 00:00 97.4 92 20 159/74 (102) 92 97.4 12/28/17 21:16 63 115/63 12/28/17 21:16 63 115/63 12/28/17 21:00 Room Air 5.0 Nasal Cannula 5.0 12/28/17 20:00 97.4 74 20 158/75 (102) 96 97.4 12/28/17 16:00 97.9 63 20 115/63 (80) 97 97.9 12/28/17 12:00 98.9 60 21 129/64 (85) 96 98.9 12/28/17 09:17 56 143/69 12/28/17 09:17 143/69 12/28/17 09:00 Room Air 5.0 Nasal Cannula 5.0 Intake and Output 12/28/17 12/29/17 19:00 07:00 Intake Total 2160 ml 1530 ml Output Total 800 ml 1900 ml Balance 1360 ml -370 ml Free Water 600 ml 100 ml IV Total 900 ml 825 ml Tube Feeding 660 ml 605 ml Output Urine Total 800 ml 1900 ml # Bowel Movements 1 1 Height (Feet): 5 Height (Inches): 10.00 Weight (Pounds): 185 General Appearance: no apparent distress EENT: normal ENT inspection Neck: supple Cardiovascular: normal rate Respiratory/Chest: decreased breath sounds Abdomen: normal bowel sounds, non tender, soft Extremities: non-tender Tylor Montes MD Dec 29, 2017 08:39
--- NOTE | 2017-12-29 09:22 | Urology Progress Note ---
Assessment/Plan Assessment/Plan 1. Gross hematuria. 2. Urinary retention. 3. BPH history. 4. Proteinuria. 5. Mild pyuria. 6. Rule out neurogenic bladder. 7. Bladder tumor. 8, POD # 2, TURBT. I personally hand irrigated hinkle, no clots keep hinkle indwelling for now nursing staff to hand irrigated hinkle PRN cont with abx proscar, flomax monitor h/h, renal fxn f/u on path Subjective Allergies: Coded Allergies: No Known Allergies (Unverified , 07/17/17) Subjective all noted, feeding tube, no abdominal or flank pain Objective Last 24 Hour Vital Signs Date Time Temp Pulse Resp B/P (MAP) Pulse Ox O2 Delivery O2 Flow Rate FiO2 12/29/17 08:00 98.1 65 18 161/73 (102) 97 98.1 12/29/17 04:00 97.2 68 20 150/75 (100) 100 97.2 12/29/17 00:00 97.4 92 20 159/74 (102) 92 97.4 12/28/17 21:16 63 115/63 12/28/17 21:16 63 115/63 12/28/17 21:00 Room Air 5.0 Nasal Cannula 5.0 12/28/17 20:00 97.4 74 20 158/75 (102) 96 97.4 12/28/17 16:00 97.9 63 20 115/63 (80) 97 97.9 12/28/17 12:00 98.9 60 21 129/64 (85) 96 98.9 Intake and Output 12/28/17 12/29/17 19:00 07:00 Intake Total 2160 ml 1530 ml Output Total 800 ml 1900 ml Balance 1360 ml -370 ml Free Water 600 ml 100 ml IV Total 900 ml 825 ml Tube Feeding 660 ml 605 ml Output Urine Total 800 ml 1900 ml # Bowel Movements 1 1 Microbiology Date/Time Source Procedure Growth Status 12/23/17 19:40 Nasal Nares 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 Complete Current Medications Medications (Trade) Dose Ordered Sig/Mehran Route PRN Reason Start Time Stop Time Status Last Admin Dose Admin Acetaminophen (Tylenol) 650 mg Q6H PRN ORAL Mild Pain/Temp > 100.5 12/23/17 21:14 01/22/18 21:13 Acetaminophen/ Hydrocodone Bitart (Keller 5/325) 1 tab Q4H PRN ORAL Moderate Pain (Pain Scale 4-6) 12/23/17 21:14 12/30/17 21:13 Amlodipine Besylate (Norvasc) 10 mg QHS ORAL 12/23/17 21:00 01/22/18 20:59 12/29/17 21:57 Carvedilol (Coreg) 25 mg EVERY 12 HOURS ORAL 12/26/17 21:00 01/22/18 20:59 12/30/17 08:43 Ciprofloxacin (Cipro 500mg tab) 500 mg EVERY 12 HOURS ORAL 12/24/17 09:00 12/31/17 08:59 12/30/17 08:43 Docusate Sodium (Colace) 250 mg DAILY ORAL 12/24/17 09:00 01/23/18 08:59 12/30/17 08:49 Finasteride (Proscar) 5 mg DAILY ORAL 12/24/17 09:00 01/23/18 08:59 12/30/17 08:43 Gabapentin (Neurontin) 100 mg BEDTIME PRN ORAL Moderate Pain (Pain Scale 4-6) 12/23/17 21:45 01/22/18 21:44 Haloperidol Lactate (Haldol) 5 mg Q6H PRN IM Agitation 12/27/17 12:15 01/26/18 12:14 12/27/17 12:35 Hydralazine HCl (Apresoline) 50 mg Q8H PRN ORAL For High Blood Pressure 12/25/17 12:00 01/24/18 11:59 12/29/17 16:22 Hydrochlorothiazide (Hydrodiuril) 25 mg DAILY ORAL 12/27/17 09:00 01/26/18 08:59 12/30/17 08:43 Lorazepam (Ativan 2mg/ml 1ml) 1 mg Q4H PRN IM For Anxiety 12/27/17 12:15 01/03/18 12:14 12/27/17 15:16 Losartan Potassium (Cozaar) 100 mg DAILY ORAL 12/26/17 09:00 01/23/18 08:59 12/30/17 08:50 Morphine Sulfate (Morphine Sulfate) 1 mg Q4H PRN IVP Severe Pain (Pain Scale 7-10) 12/23/17 21:14 12/30/17 21:13 Quetiapine Fumarate (SEROquel) 12.5 mg EVERY 4 HOURS PRN ORAL Agitation 12/24/17 23:30 01/23/18 23:29 Quetiapine Fumarate (SEROquel) 25 mg TID ORAL 12/27/17 13:15 01/26/18 13:14 12/30/17 08:50 Sodium Chloride 1,000 ml @ 75 mls/hr [id number] IV 12/23/17 22:00 01/22/18 21:59 12/29/17 21:57 Tamsulosin HCl (Flomax) 0.4 mg BEDTIME ORAL 12/24/17 21:00 01/23/18 20:59 12/29/17 21:55 Microbiology Date/Time Source Procedure Growth Status 12/23/17 19:40 Nasal Nares 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 Complete Current Medications Medications (Trade) Dose Ordered Sig/Mehran Route PRN Reason Start Time Stop Time Status Last Admin Dose Admin Acetaminophen (Tylenol) 650 mg Q6H PRN ORAL Mild Pain/Temp > 100.5 12/23/17 21:14 01/22/18 21:13 Acetaminophen/ Hydrocodone Bitart (Keller 5/325) 1 tab Q4H PRN ORAL Moderate Pain (Pain Scale 4-6) 12/23/17 21:14 12/30/17 21:13 Amlodipine Besylate (Norvasc) 10 mg QHS ORAL 12/23/17 21:00 01/22/18 20:59 12/28/17 21:16 Carvedilol (Coreg) 25 mg EVERY 12 HOURS ORAL 12/26/17 21:00 01/22/18 20:59 12/28/17 21:16 Ciprofloxacin (Cipro 500mg tab) 500 mg EVERY 12 HOURS ORAL 12/24/17 09:00 12/31/17 08:59 12/28/17 21:16 Docusate Sodium (Colace) 250 mg DAILY ORAL 12/24/17 09:00 01/23/18 08:59 12/28/17 09:17 Finasteride (Proscar) 5 mg DAILY ORAL 12/24/17 09:00 01/23/18 08:59 12/28/17 09:17 Gabapentin (Neurontin) 100 mg BEDTIME PRN ORAL Moderate Pain (Pain Scale 4-6) 12/23/17 21:45 01/22/18 21:44 Haloperidol Lactate (Haldol) 5 mg Q6H PRN IM Agitation 12/27/17 12:15 01/26/18 12:14 12/27/17 12:35 Hydralazine HCl (Apresoline) 50 mg Q8H PRN ORAL For High Blood Pressure 12/25/17 12:00 01/24/18 11:59 12/26/17 12:16 Hydrochlorothiazide (Hydrodiuril) 25 mg DAILY ORAL 12/27/17 09:00 01/26/18 08:59 12/28/17 09:17 Lorazepam (Ativan 2mg/ml 1ml) 1 mg Q4H PRN IM For Anxiety 12/27/17 12:15 01/03/18 12:14 12/27/17 15:16 Losartan Potassium (Cozaar) 100 mg DAILY ORAL 12/26/17 09:00 01/23/18 08:59 12/28/17 09:17 Morphine Sulfate (Morphine Sulfate) 1 mg Q4H PRN IVP Severe Pain (Pain Scale 7-10) 12/23/17 21:14 12/30/17 21:13 Quetiapine Fumarate (SEROquel) 12.5 mg EVERY 4 HOURS PRN ORAL Agitation 12/24/17 23:30 01/23/18 23:29 Quetiapine Fumarate (SEROquel) 25 mg TID ORAL 12/27/17 13:15 01/26/18 13:14 12/28/17 17:54 Sodium Chloride 1,000 ml @ 75 mls/hr [id number] IV 12/23/17 22:00 01/22/18 21:59 12/28/17 21:16 Tamsulosin HCl (Flomax) 0.4 mg BEDTIME ORAL 12/24/17 21:00 01/23/18 20:59 12/28/17 21:16 Height (Feet): 5 Height (Inches): 10.00 Weight (Pounds): 185 Objective exam stable, hinkle indwelling, urine clearing CT noted LIVIER ALVAREZ Dec 29, 2017 09:22
[2017-12-29] MEDS ORDERED: Sterile Water Irrig 1000ml IRRIG ONE (09:27)
[2017-12-29] MEDS: Docusate 250mg cap ORAL SCH (09:45)
[2017-12-29] MEDS: Ciprofloxacin 500mg tab ORAL SCH ×2 (09:46→21:56)
[2017-12-29] MEDS: Losartan 50mg tab ORAL SCH (09:46)
[2017-12-29] MEDS: Carvedilol 25mg Tab ORAL SCH ×2 (09:47→21:56)
--- NOTE | 2017-12-29 11:40 | General Surgery Progress Note ---
General Surgery-Progress Note Subjective Additional Comments urine clear now. Objective Last 24 Hour Vital Signs Date Time Temp Pulse Resp B/P (MAP) Pulse Ox O2 Delivery O2 Flow Rate FiO2 12/29/17 09:47 65 161/73 12/29/17 09:46 161/73 12/29/17 09:00 Room Air 5.0 Nasal Cannula 5.0 12/29/17 08:00 98.1 65 18 161/73 (102) 97 98.1 12/29/17 04:00 97.2 68 20 150/75 (100) 100 97.2 12/29/17 00:00 97.4 92 20 159/74 (102) 92 97.4 12/28/17 21:16 63 115/63 12/28/17 21:16 63 115/63 12/28/17 21:00 Room Air 5.0 Nasal Cannula 5.0 12/28/17 20:00 97.4 74 20 158/75 (102) 96 97.4 12/28/17 16:00 97.9 63 20 115/63 (80) 97 97.9 12/28/17 12:00 98.9 60 21 129/64 (85) 96 98.9 I&O Intake and Output 12/28/17 12/29/17 19:00 07:00 Intake Total 2160 ml 1530 ml Output Total 800 ml 1900 ml Balance 1360 ml -370 ml Free Water 600 ml 100 ml IV Total 900 ml 825 ml Tube Feeding 660 ml 605 ml Output Urine Total 800 ml 1900 ml # Bowel Movements 1 1 Wound: clean Drains: none Cardiovascular: RSR Respiratory: clear Abdomen: soft, non-tender, present bowel sounds Extremities: no cyanosis Plan Problems: (1) Hematoma of bladder wall (2) Hematuria Assessment & Plan: CT findings: Hematoma within the urinary bladder. Nature of this is not known. Consider cystoscopy for further evaluation. Underlying mass or other bladder pathology not excluded. Hinkle catheter in good position. large bladder tumor removed pending path [address] way hinkle as per urology thank you Marlon Doherty Dec 29, 2017 11:40
[2017-12-29 12:00] VITALS: BP 152/81
--- NOTE | 2017-12-29 12:28 | General Progress Note ---
Assessment/Plan Status: stable Assessment/Plan #. Anemia due to hematuria. PSA level of 2.[address] Irrigation as needed. Urology Service evaluation. --> Continue to closely monitor --> Anemia w/u has been reviewed, will trend daily. --> Hgb goal >8 --> appreciate urology recommendations --> imaging has been reviewed --> 12/27: S/P cystoscopy and bladder biopsy. #. Bladder tumor s/p TURBT --> final pathology report is pending #. Coagulopathy, likely due to decreased p.o. intake. --> INR of 1.2 --> hepatitis panel is pending #. Paraproteinemia. --> spep and upep are prelim negative for monoclonal band #. Nasopharyngeal carcinoma, currently in remission. #. Failure to thrive history, likely secondary to decreased p.o. intake. #. Hypertension. Systolic blood pressure goal is less than 140. The time the note was entered does not necessarily correspond to the time the patient was seen. Subjective Date patient seen: Dec 29, 2017 ROS Limited/Unobtainable: Yes Hematologic/Lymphatic: Reports: anemia Allergies: Coded Allergies: No Known Allergies (Unverified , 07/17/17) All Systems: reviewed and negative except above Subjective Pt awake and confused. No acute events. WBC elevated. Urine now clear. Objective Last 24 Hour Vital Signs Date Time Temp Pulse Resp B/P (MAP) Pulse Ox O2 Delivery O2 Flow Rate FiO2 12/29/17 09:47 65 161/73 12/29/17 09:46 161/73 12/29/17 09:00 Room Air 5.0 Nasal Cannula 5.0 12/29/17 08:00 98.1 65 18 161/73 (102) 97 98.1 12/29/17 04:00 97.2 68 20 150/75 (100) 100 97.2 12/29/17 00:00 97.4 92 20 159/74 (102) 92 97.4 12/28/17 21:16 63 115/63 12/28/17 21:16 63 115/63 12/28/17 21:00 Room Air 5.0 Nasal Cannula 5.0 12/28/17 20:00 97.4 74 20 158/75 (102) 96 97.4 12/28/17 16:00 97.9 63 20 115/63 (80) 97 97.9 Intake and Output 12/28/17 12/29/17 19:00 07:00 Intake Total 2160 ml 1530 ml Output Total 800 ml 1900 ml Balance 1360 ml -370 ml Free Water 600 ml 100 ml IV Total 900 ml 825 ml Tube Feeding 660 ml 605 ml Output Urine Total 800 ml 1900 ml # Bowel Movements 1 1 Height (Feet): 5 Height (Inches): 10.00 Weight (Pounds): 185 General Appearance: no apparent distress EENT: PERRL/EOMI Neck: normal alignment Cardiovascular: normal peripheral pulses Respiratory/Chest: no respiratory distress Abdomen: tender Shane Oropeza MD Dec 29, 2017 12:27
[2017-12-29 16:00] VITALS: BP 190/96
--- NOTE | 2017-12-29 16:07 | General Progress Note ---
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, unspecified SNOMED: 79907615, 509481878 (7) Dysphagia ICD Codes: R13.10 - Dysphagia, unspecified SNOMED: 30632547, 157546927 (8) Bladder tumor ICD Codes: D49.4 - Neoplasm of unspecified behavior of bladder SNOMED: 289064461 Assessment/Plan - Urology consulted, appreciate rec's - Cardiology consulted, appreciate rec's - Oncology consulted, appreciate rec's - Psychiatry consulted, appreciate rec's - GI consulted, appreciate rec's - bench worker helper consulted for bioethics for G-tube - check cbc, chem in am - s/p cystoscopy and TURBT with extensive fulgration. large bladder tumor removed on 12/27 - keep hinkle in 3-5 days - f/u pathology - flomax, proscar - IV empiric antibiotics as above - PSA -- 2.55 - CT urogram -- showing bladder hematoma vs. mass - Continue home BP meds -- increased per cards - Venous duplex negative - Hydralazine prn - Pain control and supportive care - F/u bioethics recommendations regarding G-tube given significant risk for aspiration. Patient lacks capacity to make his own judgement and there is no family available. Patient is not conserved at this time. DVT Prophylaxis: SCD. NO HSQ GIVEN HEMATOMA/HEMATURIA Code Status: Full Hospital Classification Declaration: Based on this initial evaluation, and depending on the patient's clinical course, I anticipate that this patient will require hospitalization for 2-3 days for gross hematuria and close respiratory/ hemodynamic monitoring. Disposition: Once the patient is stable to leave the hospital, I anticipate the patient will likely be discharged to the following environment: [facility] I spent 35 minutes on this patient's case, and 25 minutes were dedicated to counseling and/or care coordination. Discussed with patient/family, nursing staff, SW/BANDAR, and all consultants involved regarding clinical status, treatment course, and disposition planning. Time of note may not reflect time of encounter. Subjective Date patient seen: Dec 29, 2017 Allergies: Coded Allergies: No Known Allergies (Unverified , 07/17/17) Subjective Urine clear Afebrile SBP 150s Objective Last 24 Hour Vital Signs Date Time Temp Pulse Resp B/P (MAP) Pulse Ox O2 Delivery O2 Flow Rate FiO2 12/29/17 12:00 97.9 72 18 152/81 (104) 96 97.9 12/29/17 09:47 65 161/73 12/29/17 09:46 161/73 12/29/17 09:00 Room Air 5.0 Nasal Cannula 5.0 12/29/17 08:00 98.1 65 18 161/73 (102) 97 98.1 12/29/17 04:00 97.2 68 20 150/75 (100) 100 97.2 12/29/17 00:00 97.4 92 20 159/74 (102) 92 97.4 12/28/17 21:16 63 115/63 12/28/17 21:16 63 115/63 12/28/17 21:00 Room Air 5.0 Nasal Cannula 5.0 12/28/17 20:00 97.4 74 20 158/75 (102) 96 97.4 Intake and Output 12/28/17 12/29/17 19:00 07:00 Intake Total 2160 ml 1530 ml Output Total 800 ml 1900 ml Balance 1360 ml -370 ml Free Water 600 ml 100 ml IV Total 900 ml 825 ml Tube Feeding 660 ml 605 ml Output Urine Total 800 ml 1900 ml # Bowel Movements 1 1 Height (Feet): 5 Height (Inches): 10.00 Weight (Pounds): 185 Kamran Rashid MD Dec 29, 2017 16:07
[2017-12-29] MEDS: HydrALAZINE 50mg tab ORAL PRN (16:22)
[2017-12-29 20:00] VITALS: BP 146/84
[2017-12-29] MEDS: Tamsulosin 0.4mg cap ORAL SCH (21:55)
[2017-12-30] VITALS: BP 134/79
[2017-12-30 04:00] VITALS: BP 152/78
[2017-12-30 08:00] VITALS: BP 169/78
[2017-12-30 08:05] LABS: HEMATOCRIT 35.7 % (42.0-52.0); HEMOGLOBIN 11.4 G/DL (14.2-18.0); MEAN CORPUSCULAR VOLUME 90 FL (80-99); PLATELET COUNT 358 K/UL (150-450); RED BLOOD COUNT 3.97 M/UL (4.70-6.10); WHITE BLOOD COUNT 9.5 K/UL (4.8-10.8)
[2017-12-30] MEDS: Carvedilol 25mg Tab ORAL SCH ×2 (08:43→20:28)
[2017-12-30] MEDS: Ciprofloxacin 500mg tab ORAL SCH ×2 (08:43→20:27)
[2017-12-30] MEDS: Docusate 250mg cap ORAL SCH (08:49)
[2017-12-30] MEDS: Losartan 50mg tab ORAL SCH (08:50)
[2017-12-30 09:07] LABS: ANION GAP 5 mmol/L (5-15); BLOOD UREA NITROGEN 22 mg/dL (7-18); CARBON DIOXIDE 30 MMOL/L (21-32); CHLORIDE 105 MMOL/L (98-107); CREATININE 0.9 MG/DL (0.55-1.30); SODIUM 140 MMOL/L (136-145)
--- NOTE | 2017-12-30 09:47 | Urology Progress Note ---
Assessment/Plan Assessment/Plan 1. Gross hematuria. 2. Urinary retention. 3. BPH history. 4. Proteinuria. 5. Mild pyuria. 6. Rule out neurogenic bladder. 7. Bladder tumor. 8, POD # 3, TURBT. keep hinkle indwelling for now nursing staff to hand irrigate hinkle PRN cont with abx proscar, flomax monitor h/h, renal fxn f/u on path Subjective Allergies: Coded Allergies: No Known Allergies (Unverified , 07/17/17) Subjective all noted, feeding tube, no abdominal or flank pain Objective Last 24 Hour Vital Signs Date Time Temp Pulse Resp B/P (MAP) Pulse Ox O2 Delivery O2 Flow Rate FiO2 12/30/17 08:50 169/78 12/30/17 08:43 86 169/78 12/30/17 08:00 98.0 86 18 169/78 (108) 97 98.0 12/30/17 04:00 97.2 67 18 152/78 (102) 96 97.2 12/30/17 00:00 97.6 68 18 134/79 (97) 97 97.6 12/29/17 21:57 89 146/84 12/29/17 21:56 89 146/84 12/29/17 21:00 Room Air 5.0 Nasal Cannula 5.0 12/29/17 20:00 98.8 89 18 146/84 (104) 98 98.8 12/29/17 16:22 190/96 12/29/17 16:00 98.8 72 18 190/96 (127) 95 98.8 12/29/17 12:00 97.9 72 18 152/81 (104) 96 97.9 Intake and Output 12/29/17 12/30/17 19:00 07:00 Intake Total 325 ml 920 ml Output Total 1300 ml Balance -975 ml 920 ml Free Water 100 ml IV Total 325 ml 600 ml Tube Feeding 220 ml Output Urine Total 1300 ml Microbiology Date/Time Source Procedure Growth Status 12/23/17 19:40 Nasal Nares 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 Complete Current Medications Medications (Trade) Dose Ordered Sig/Mehran Route PRN Reason Start Time Stop Time Status Last Admin Dose Admin Acetaminophen (Tylenol) 650 mg Q6H PRN ORAL Mild Pain/Temp > 100.5 12/23/17 21:14 01/22/18 21:13 Acetaminophen/ Hydrocodone Bitart (David 5/325) 1 tab Q4H PRN ORAL Moderate Pain (Pain Scale 4-6) 12/23/17 21:14 12/30/17 21:13 Amlodipine Besylate (Norvasc) 10 mg QHS ORAL 12/23/17 21:00 01/22/18 20:59 12/29/17 21:57 Carvedilol (Coreg) 25 mg EVERY 12 HOURS ORAL 12/26/17 21:00 01/22/18 20:59 12/30/17 08:43 Ciprofloxacin (Cipro 500mg tab) 500 mg EVERY 12 HOURS ORAL 12/24/17 09:00 12/31/17 08:59 12/30/17 08:43 Docusate Sodium (Colace) 250 mg DAILY ORAL 12/24/17 09:00 01/23/18 08:59 12/30/17 08:49 Finasteride (Proscar) 5 mg DAILY ORAL 12/24/17 09:00 01/23/18 08:59 12/30/17 08:43 Gabapentin (Neurontin) 100 mg BEDTIME PRN ORAL Moderate Pain (Pain Scale 4-6) 12/23/17 21:45 01/22/18 21:44 Haloperidol Lactate (Haldol) 5 mg Q6H PRN IM Agitation 12/27/17 12:15 01/26/18 12:14 12/27/17 12:35 Hydralazine HCl (Apresoline) 50 mg Q8H PRN ORAL For High Blood Pressure 12/25/17 12:00 01/24/18 11:59 12/29/17 16:22 Hydrochlorothiazide (Hydrodiuril) 25 mg DAILY ORAL 12/27/17 09:00 01/26/18 08:59 12/30/17 08:43 Lorazepam (Ativan 2mg/ml 1ml) 1 mg Q4H PRN IM For Anxiety 12/27/17 12:15 01/03/18 12:14 12/27/17 15:16 Losartan Potassium (Cozaar) 100 mg DAILY ORAL 12/26/17 09:00 01/23/18 08:59 12/30/17 08:50 Morphine Sulfate (Morphine Sulfate) 1 mg Q4H PRN IVP Severe Pain (Pain Scale 7-10) 12/23/17 21:14 12/30/17 21:13 Quetiapine Fumarate (SEROquel) 12.5 mg EVERY 4 HOURS PRN ORAL Agitation 12/24/17 23:30 01/23/18 23:29 Quetiapine Fumarate (SEROquel) 25 mg TID ORAL 12/27/17 13:15 01/26/18 13:14 12/30/17 08:50 Sodium Chloride 1,000 ml @ 75 mls/hr [id number] IV 12/23/17 22:00 01/22/18 21:59 12/29/17 21:57 Tamsulosin HCl (Flomax) 0.4 mg BEDTIME ORAL 12/24/17 21:00 01/23/18 20:59 12/29/17 21:55 Laboratory Tests 12/30/17 07:45: White Blood Count 9.5, Red Blood Count 3.97L, Hemoglobin 11.4L, Hematocrit 35.7L , Mean Corpuscular Volume 90, Mean Corpuscular Hemoglobin 28.6, Mean Corpuscular Hemoglobin Concent 31.9L, Red Cell Distribution Width 14.0, Platelet Count 358, Mean Platelet Volume 6.9, Neutrophils (%) (Auto) , Lymphocytes (%) (Auto) , Monocytes (%) (Auto) , Eosinophils (%) (Auto) , Basophils (%) (Auto) , Neutrophils % (Manual) [Pending], Lymphocytes % (Manual) [Pending], Platelet Estimate [Pending], Platelet Morphology [Pending], Sodium Level 140, Potassium Level 4.0, Chloride Level 105, Carbon Dioxide Level 30, Anion Gap 5, Blood Urea Nitrogen 22H, Creatinine 0.9, Estimat Glomerular Filtration Rate > 60, Glucose Level 83, Calcium Level 9.0 Height (Feet): 5 Height (Inches): 10.00 Weight (Pounds): 185 Objective exam stable, hinkle indwelling, urine clearing CT noted LIVIER ALVAREZ Dec 30, 2017 09:47
--- NOTE | 2017-12-30 11:26 | GI Progress Note ---
Assessment/Plan Problems: (1) Encounter for PEG (percutaneous endoscopic gastrostomy) ICD Codes: Z43.1 - Encounter for attention to gastrostomy SNOMED: 140518192, 489153272 (2) Severe malnutrition ICD Codes: E43 - Unspecified severe protein-calorie malnutrition SNOMED: 45755119 (3) Dehydration ICD Codes: E86.0 - Dehydration SNOMED: 07547895 (4) Bladder tumor ICD Codes: D49.4 - Neoplasm of unspecified behavior of bladder SNOMED: 786969049 (5) Dysphagia ICD Codes: R13.10 - Dysphagia, unspecified SNOMED: 89652618, 554546640 Status: unchanged Status Narrative Discussed with Dr. Montes. Assessment/Plan NGTFs per RD pending consent for PEG, bioethics consulted bladder tumor fu per urology fu labs Subjective Gastrointestinal/Abdominal: Reports: no symptoms Objective Last 24 Hour Vital Signs Date Time Temp Pulse Resp B/P (MAP) Pulse Ox O2 Delivery O2 Flow Rate FiO2 12/30/17 09:00 Room Air 5.0 Nasal Cannula 5.0 12/30/17 08:50 169/78 12/30/17 08:43 86 169/78 12/30/17 08:00 98.0 86 18 169/78 (108) 97 98.0 12/30/17 04:00 97.2 67 18 152/78 (102) 96 97.2 12/30/17 00:00 97.6 68 18 134/79 (97) 97 97.6 12/29/17 21:57 89 146/84 12/29/17 21:56 89 146/84 12/29/17 21:00 Room Air 5.0 Nasal Cannula 5.0 12/29/17 20:00 98.8 89 18 146/84 (104) 98 98.8 12/29/17 16:22 190/96 12/29/17 16:00 98.8 72 18 190/96 (127) 95 98.8 12/29/17 12:00 97.9 72 18 152/81 (104) 96 97.9 Intake and Output 12/29/17 12/30/17 19:00 07:00 Intake Total 325 ml 920 ml Output Total 1300 ml Balance -975 ml 920 ml Free Water 100 ml IV Total 325 ml 600 ml Tube Feeding 220 ml Output Urine Total 1300 ml Laboratory Tests Test 12/30/17 07:45 White Blood Count 9.5 K/UL (4.8-10.8) Red Blood Count 3.97 M/UL (4.70-6.10) L Hemoglobin 11.4 G/DL (14.2-18.0) L Hematocrit 35.7 % (42.0-52.0) L Mean Corpuscular Volume 90 FL (80-99) Mean Corpuscular Hemoglobin 28.6 PG (27.0-31.0) Mean Corpuscular Hemoglobin Concent 31.9 G/DL (32.0-36.0) L Red Cell Distribution Width 14.0 % (11.6-14.8) Platelet Count 358 K/UL (150-450) Mean Platelet Volume 6.9 FL (6.5-10.1) Neutrophils (%) (Auto) % (45.0-75.0) Lymphocytes (%) (Auto) % (20.0-45.0) Monocytes (%) (Auto) % (1.0-10.0) Eosinophils (%) (Auto) % (0.0-3.0) Basophils (%) (Auto) % (0.0-2.0) Differential Total Cells Counted 100 Neutrophils % (Manual) 88 % (45-75) H Lymphocytes % (Manual) 5 % (20-45) L Monocytes % (Manual) 6 % (1-10) Eosinophils % (Manual) 1 % (0-3) Basophils % (Manual) 0 % (0-2) Band Neutrophils 0 % (0-8) Platelet Estimate Adequate Platelet Morphology Normal Anisocytosis 1+ Sodium Level 140 MMOL/L (136-145) Potassium Level 4.0 MMOL/L (3.5-5.1) Chloride Level 105 MMOL/L (98-107) Carbon Dioxide Level 30 MMOL/L (21-32) Anion Gap 5 mmol/L (5-15) Blood Urea Nitrogen 22 mg/dL (7-18) H Creatinine 0.9 MG/DL (0.55-1.30) Estimat Glomerular Filtration Rate > 60 mL/min (>60) Glucose Level 83 MG/DL (74-106) Calcium Level 9.0 MG/DL (8.5-10.1) Height (Feet): 5 Height (Inches): 10.00 Weight (Pounds): 185 General Appearance: WD/WN, no apparent distress, alert Cardiovascular: normal rate Respiratory/Chest: normal breath sounds, no respiratory distress Abdominal Exam: normal bowel sounds, non tender, soft Extremities: non-tender Lisha Roland NP Dec 30, 2017 11:26
[2017-12-30 11:59] VITALS: BP 144/75
--- NOTE | 2017-12-30 14:00 | General Surgery Progress Note ---
General Surgery-Progress Note Subjective Additional Comments labs improved. overall improved. no n/v/f/c. urine clear Objective Last 24 Hour Vital Signs Date Time Temp Pulse Resp B/P (MAP) Pulse Ox O2 Delivery O2 Flow Rate FiO2 12/30/17 11:59 98.6 59 18 144/75 (98) 100 98.6 12/30/17 09:00 Room Air 5.0 Nasal Cannula 5.0 12/30/17 08:50 169/78 12/30/17 08:43 86 169/78 12/30/17 08:00 98.0 86 18 169/78 (108) 97 98.0 12/30/17 04:00 97.2 67 18 152/78 (102) 96 97.2 12/30/17 00:00 97.6 68 18 134/79 (97) 97 97.6 12/29/17 21:57 89 146/84 12/29/17 21:56 89 146/84 12/29/17 21:00 Room Air 5.0 Nasal Cannula 5.0 12/29/17 20:00 98.8 89 18 146/84 (104) 98 98.8 12/29/17 16:22 190/96 12/29/17 16:00 98.8 72 18 190/96 (127) 95 98.8 I&O Intake and Output 12/29/17 12/30/17 19:00 07:00 Intake Total 325 ml 920 ml Output Total 1300 ml Balance -975 ml 920 ml Free Water 100 ml IV Total 325 ml 600 ml Tube Feeding 220 ml Output Urine Total 1300 ml Wound: clean Drains: none Cardiovascular: RSR Respiratory: clear Abdomen: soft, non-tender, present bowel sounds Extremities: no cyanosis Laboratory Tests Test 12/30/17 07:45 White Blood Count 9.5 K/UL (4.8-10.8) Red Blood Count 3.97 M/UL (4.70-6.10) L Hemoglobin 11.4 G/DL (14.2-18.0) L Hematocrit 35.7 % (42.0-52.0) L Mean Corpuscular Volume 90 FL (80-99) Mean Corpuscular Hemoglobin 28.6 PG (27.0-31.0) Mean Corpuscular Hemoglobin Concent 31.9 G/DL (32.0-36.0) L Red Cell Distribution Width 14.0 % (11.6-14.8) Platelet Count 358 K/UL (150-450) Mean Platelet Volume 6.9 FL (6.5-10.1) Neutrophils (%) (Auto) % (45.0-75.0) Lymphocytes (%) (Auto) % (20.0-45.0) Monocytes (%) (Auto) % (1.0-10.0) Eosinophils (%) (Auto) % (0.0-3.0) Basophils (%) (Auto) % (0.0-2.0) Differential Total Cells Counted 100 Neutrophils % (Manual) 88 % (45-75) H Lymphocytes % (Manual) 5 % (20-45) L Monocytes % (Manual) 6 % (1-10) Eosinophils % (Manual) 1 % (0-3) Basophils % (Manual) 0 % (0-2) Band Neutrophils 0 % (0-8) Platelet Estimate Adequate Platelet Morphology Normal Anisocytosis 1+ Sodium Level 140 MMOL/L (136-145) Potassium Level 4.0 MMOL/L (3.5-5.1) Chloride Level 105 MMOL/L (98-107) Carbon Dioxide Level 30 MMOL/L (21-32) Anion Gap 5 mmol/L (5-15) Blood Urea Nitrogen 22 mg/dL (7-18) H Creatinine 0.9 MG/DL (0.55-1.30) Estimat Glomerular Filtration Rate > 60 mL/min (>60) Glucose Level 83 MG/DL (74-106) Calcium Level 9.0 MG/DL (8.5-10.1) Plan Problems: (1) Hematoma of bladder wall (2) Hematuria Assessment & Plan: CT findings: Hematoma within the urinary bladder. Nature of this is not known. Consider cystoscopy for further evaluation. Underlying mass or other bladder pathology not excluded. Hinkle catheter in good position. labs improved overall improved large bladder tumor removed pending path [address] way hinkle as per urology thank you Marlon Doherty Dec 30, 2017 14:00
--- NOTE | 2017-12-30 14:57 | Diagnostic Imaging Report ---
Indication: NG tube placement Technique: XRAY Abdomen 1v Comparison: 12/27/2017 FINDINGS-IMPRESSION: Interval advancement of nasogastric tube, tip and side-port in the expected region of the stomach. Bowel gas pattern is nonspecific. There is left-sided pleural effusion and left basilar atelectasis/consolidation with air bronchograms. This corresponds with the [facility] preliminary report.
--- NOTE | 2017-12-30 15:09 | General Progress Note ---
Assessment/Plan Status: stable Assessment/Plan #. Anemia due to hematuria. PSA level of 2.[address] Irrigation as needed. Urology Service evaluation. --> Continue to closely monitor --> Anemia w/u has been reviewed, will trend daily. --> Hgb goal >8 --> appreciate urology recommendations --> imaging has been reviewed --> 12/27: S/P cystoscopy and bladder biopsy. #. Bladder tumor s/p TURBT --> final pathology report is pending #. Coagulopathy, likely due to decreased p.o. intake. --> INR of 1.2 --> hepatitis panel is pending #. Paraproteinemia. --> spep and upep are prelim negative for monoclonal band #. Nasopharyngeal carcinoma, currently in remission. #. Failure to thrive history, likely secondary to decreased p.o. intake. #. Hypertension. Systolic blood pressure goal is less than 140. The time the note was entered does not necessarily correspond to the time the patient was seen. Subjective ROS Limited/Unobtainable: Yes Hematologic/Lymphatic: Reports: anemia Allergies: Coded Allergies: No Known Allergies (Unverified , 07/17/17) All Systems: reviewed and negative except above Subjective PT is s/p NGT placement. Pt awake and alert. No acute events. DC planning. Objective Last 24 Hour Vital Signs Date Time Temp Pulse Resp B/P (MAP) Pulse Ox O2 Delivery O2 Flow Rate FiO2 12/30/17 11:59 98.6 59 18 144/75 (98) 100 98.6 12/30/17 09:00 Room Air 5.0 Nasal Cannula 5.0 12/30/17 08:50 169/78 12/30/17 08:43 86 169/78 12/30/17 08:00 98.0 86 18 169/78 (108) 97 98.0 12/30/17 04:00 97.2 67 18 152/78 (102) 96 97.2 12/30/17 00:00 97.6 68 18 134/79 (97) 97 97.6 12/29/17 21:57 89 146/84 12/29/17 21:56 89 146/84 12/29/17 21:00 Room Air 5.0 Nasal Cannula 5.0 12/29/17 20:00 98.8 89 18 146/84 (104) 98 98.8 12/29/17 16:22 190/96 12/29/17 16:00 98.8 72 18 190/96 (127) 95 98.8 Intake and Output 12/29/17 12/30/17 19:00 07:00 Intake Total 325 ml 920 ml Output Total 1300 ml Balance -975 ml 920 ml Free Water 100 ml IV Total 325 ml 600 ml Tube Feeding 220 ml Output Urine Total 1300 ml Laboratory Tests 12/30/17 07:45: White Blood Count 9.5, Red Blood Count 3.97L, Hemoglobin 11.4L, Hematocrit 35.7L , Mean Corpuscular Volume 90, Mean Corpuscular Hemoglobin 28.6, Mean Corpuscular Hemoglobin Concent 31.9L, Red Cell Distribution Width 14.0, Platelet Count 358, Mean Platelet Volume 6.9, Neutrophils (%) (Auto) , Lymphocytes (%) (Auto) , Monocytes (%) (Auto) , Eosinophils (%) (Auto) , Basophils (%) (Auto) , Differential Total Cells Counted 100, Neutrophils % ( Manual) 88H, Lymphocytes % (Manual) 5L, Monocytes % (Manual) 6, Eosinophils % ( Manual) 1, Basophils % (Manual) 0, Band Neutrophils 0, Platelet Estimate Adequate, Platelet Morphology Normal, Anisocytosis 1+, Sodium Level 140, Potassium Level 4.0, Chloride Level 105, Carbon Dioxide Level 30, Anion Gap 5, Blood Urea Nitrogen 22H, Creatinine 0.9, Estimat Glomerular Filtration Rate > 60 , Glucose Level 83, Calcium Level 9.0 Height (Feet): 5 Height (Inches): 10.00 Weight (Pounds): 185 General Appearance: no apparent distress, alert EENT: PERRL/EOMI Neck: normal alignment Cardiovascular: irregularly irregular Respiratory/Chest: normal breath sounds, no respiratory distress Abdomen: tender Shane Oropeza MD Dec 30, 2017 15:09
--- NOTE | 2017-12-30 15:46 | General Progress Note ---
Assessment/Plan Problem List: (1) Resides in penitentiary facility ICD Codes: Z78.9 - Other specified health status SNOMED: 505062897 (2) Hypertensive urgency ICD Codes: I16.0 - Hypertensive urgency SNOMED: 964731548 (3) Psychosis ICD Codes: F29 - Unspecified psychosis not due to a substance or known physiological condition SNOMED: 52410601 (4) Hematuria ICD Codes: R31.9 - Hematuria, unspecified SNOMED: 78280342 Qualifiers: Qualified Codes: R31.9 - Hematuria, unspecified (5) Hematoma of bladder wall ICD Codes: S37.22XA - Contusion of bladder, initial encounter SNOMED: 096723843 (6) 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, unspecified SNOMED: 65622694, 595937581 (7) Dysphagia ICD Codes: R13.10 - Dysphagia, unspecified SNOMED: 23635435, 915953732 (8) Bladder tumor ICD Codes: D49.4 - Neoplasm of unspecified behavior of bladder SNOMED: 924564612 Status: stable, progressing Assessment/Plan - Urology consulted, appreciate rec's - Cardiology consulted, appreciate rec's - Oncology consulted, appreciate rec's - Psychiatry consulted, appreciate rec's - GI consulted, appreciate rec's - cone worker consulted for bioethics for G-tube --> able to locate family now and family agreeable to give consent for PEG placement - s/p cystoscopy and TURBT with extensive fulgration. large bladder tumor removed on 12/27 - keep hinkle in 3-5 days - f/u pathology - Continue to monitor for clots - Started on flomax, proscar - IV empiric antibiotics, cipro - Check PSA -- 2.55 - F/u CT urogram -- showing bladder hematoma vs. mass - Continue home BP meds -- increased per cards - Venous duplex negative - Hydralazine prn - Pain control and supportive care F/u bioethics recommendations regarding G-tube given significant risk for aspiration. Patient lacks capacity to make his own judgement and there is no family available. Patient is not conserved at this time. DVT Prophylaxis: SCD. NO HSQ GIVEN HEMATOMA/HEMATURIA Code Status: Full Hospital Classification Declaration: Based on this initial evaluation, and depending on the patient's clinical course, I anticipate that this patient will require hospitalization for 2-3 days for gross hematuria and close respiratory/ hemodynamic monitoring. Disposition: Once the patient is stable to leave the hospital, I anticipate the patient will likely be discharged to the following environment: [facility] I spent 31 minutes on this patient's case, and 19 minutes were dedicated to counseling and/or care coordination. Discussed with patient/family, nursing staff, SW/CM, and all consultants involved regarding clinical status, treatment course, and disposition planning. Time of note may not reflect time of encounter. Subjective Date patient seen: Dec 30, 2017 Allergies: Coded Allergies: No Known Allergies (Unverified , 07/17/17) Subjective - BP in the systolic 160s - able to locate sister who is agreeable for PEG for patient - urine cleared, no gross hematuria noted Objective Last 24 Hour Vital Signs Date Time Temp Pulse Resp B/P (MAP) Pulse Ox O2 Delivery O2 Flow Rate FiO2 12/30/17 11:59 98.6 59 18 144/75 (98) 100 98.6 12/30/17 09:00 Room Air 5.0 Nasal Cannula 5.0 12/30/17 08:50 169/78 12/30/17 08:43 86 169/78 12/30/17 08:00 98.0 86 18 169/78 (108) 97 98.0 12/30/17 04:00 97.2 67 18 152/78 (102) 96 97.2 12/30/17 00:00 97.6 68 18 134/79 (97) 97 97.6 12/29/17 21:57 89 146/84 12/29/17 21:56 89 146/84 12/29/17 21:00 Room Air 5.0 Nasal Cannula 5.0 12/29/17 20:00 98.8 89 18 146/84 (104) 98 98.8 12/29/17 16:22 190/96 12/29/17 16:00 98.8 72 18 190/96 (127) 95 98.8 Intake and Output 12/29/17 12/30/17 19:00 07:00 Intake Total 325 ml 920 ml Output Total 1300 ml Balance -975 ml 920 ml Free Water 100 ml IV Total 325 ml 600 ml Tube Feeding 220 ml Output Urine Total 1300 ml Laboratory Tests 12/30/17 07:45: White Blood Count 9.5, Red Blood Count 3.97L, Hemoglobin 11.4L, Hematocrit 35.7L , Mean Corpuscular Volume 90, Mean Corpuscular Hemoglobin 28.6, Mean Corpuscular Hemoglobin Concent 31.9L, Red Cell Distribution Width 14.0, Platelet Count 358, Mean Platelet Volume 6.9, Neutrophils (%) (Auto) , Lymphocytes (%) (Auto) , Monocytes (%) (Auto) , Eosinophils (%) (Auto) , Basophils (%) (Auto) , Differential Total Cells Counted 100, Neutrophils % ( Manual) 88H, Lymphocytes % (Manual) 5L, Monocytes % (Manual) 6, Eosinophils % ( Manual) 1, Basophils % (Manual) 0, Band Neutrophils 0, Platelet Estimate Adequate, Platelet Morphology Normal, Anisocytosis 1+, Sodium Level 140, Potassium Level 4.0, Chloride Level 105, Carbon Dioxide Level 30, Anion Gap 5, Blood Urea Nitrogen 22H, Creatinine 0.9, Estimat Glomerular Filtration Rate > 60 , Glucose Level 83, Calcium Level 9.0 Height (Feet): 5 Height (Inches): 10.00 Weight (Pounds): 185 General Appearance: no apparent distress, alert EENT: PERRL/EOMI, normal ENT inspection, other - +NG tube Neck: non-tender, normal alignment, supple Cardiovascular: normal peripheral pulses, normal rate, regular rhythm Respiratory/Chest: chest wall non-tender, lungs clear, normal breath sounds Abdomen: normal bowel sounds, non tender, soft Extremities: normal range of motion, non-tender Neurologic: closed circuit screen watcher II-XII grossly normal, no motor/sensory deficits, alert Skin: normal pigmentation, warm/dry Thania Spence NP Dec 30, 2017 15:46
--- NOTE | 2017-12-30 15:59 | General Progress Note ---
Assessment/Plan Assessment/Plan dementia with bd encephalopathy -seroquel standing -Seroquel prn -the pt lacks capacity to make decisions -the pt unable to give consent for surgery Subjective Date patient seen: Dec 30, 2017 Neurologic/Psychiatric: Reports: anxiety, depressed Allergies: Coded Allergies: No Known Allergies (Unverified , 07/17/17) Subjective the pt less agitated Objective Last 24 Hour Vital Signs Date Time Temp Pulse Resp B/P (MAP) Pulse Ox O2 Delivery O2 Flow Rate FiO2 12/30/17 11:59 98.6 59 18 144/75 (98) 100 98.6 12/30/17 09:00 Room Air 5.0 Nasal Cannula 5.0 12/30/17 08:50 169/78 12/30/17 08:43 86 169/78 12/30/17 08:00 98.0 86 18 169/78 (108) 97 98.0 12/30/17 04:00 97.2 67 18 152/78 (102) 96 97.2 12/30/17 00:00 97.6 68 18 134/79 (97) 97 97.6 12/29/17 21:57 89 146/84 12/29/17 21:56 89 146/84 12/29/17 21:00 Room Air 5.0 Nasal Cannula 5.0 12/29/17 20:00 98.8 89 18 146/84 (104) 98 98.8 12/29/17 16:22 190/96 12/29/17 16:00 98.8 72 18 190/96 (127) 95 98.8 Intake and Output 12/29/17 12/30/17 19:00 07:00 Intake Total 325 ml 920 ml Output Total 1300 ml Balance -975 ml 920 ml Free Water 100 ml IV Total 325 ml 600 ml Tube Feeding 220 ml Output Urine Total 1300 ml Laboratory Tests 12/30/17 07:45: White Blood Count 9.5, Red Blood Count 3.97L, Hemoglobin 11.4L, Hematocrit 35.7L , Mean Corpuscular Volume 90, Mean Corpuscular Hemoglobin 28.6, Mean Corpuscular Hemoglobin Concent 31.9L, Red Cell Distribution Width 14.0, Platelet Count 358, Mean Platelet Volume 6.9, Neutrophils (%) (Auto) , Lymphocytes (%) (Auto) , Monocytes (%) (Auto) , Eosinophils (%) (Auto) , Basophils (%) (Auto) , Differential Total Cells Counted 100, Neutrophils % ( Manual) 88H, Lymphocytes % (Manual) 5L, Monocytes % (Manual) 6, Eosinophils % ( Manual) 1, Basophils % (Manual) 0, Band Neutrophils 0, Platelet Estimate Adequate, Platelet Morphology Normal, Anisocytosis 1+, Sodium Level 140, Potassium Level 4.0, Chloride Level 105, Carbon Dioxide Level 30, Anion Gap 5, Blood Urea Nitrogen 22H, Creatinine 0.9, Estimat Glomerular Filtration Rate > 60 , Glucose Level 83, Calcium Level 9.0 Height (Feet): 5 Height (Inches): 10.00 Weight (Pounds): 185 Edd Horne MD Dec 30, 2017 15:59
[2017-12-30 16:00] VITALS: BP 153/74
[2017-12-30 20:00] VITALS: BP 149/72
[2017-12-30] MEDS: Tamsulosin 0.4mg cap ORAL SCH (20:28)
[2017-12-31] VITALS (12 sets, daily range): BP systolic 125–166; BP diastolic 66–80
[2017-12-31 07:46] LABS: HEMATOCRIT 32.6 % (42.0-52.0); HEMOGLOBIN 10.5 G/DL (14.2-18.0); MEAN CORPUSCULAR VOLUME 90 FL (80-99); PLATELET COUNT 342 K/UL (150-450); RED BLOOD COUNT 3.61 M/UL (4.70-6.10); WHITE BLOOD COUNT 14.2 K/UL (4.8-10.8)
[2017-12-31 07:57] LABS: INR 1.1 (0.9-1.1)
[2017-12-31 07:59] LABS: ANION GAP 5 mmol/L (5-15); BLOOD UREA NITROGEN 20 mg/dL (7-18); CALCIUM 8.7 MG/DL (8.5-10.1); CARBON DIOXIDE 31 MMOL/L (21-32); CHLORIDE 102 MMOL/L (98-107); CREATININE 0.8 MG/DL (0.55-1.30); POTASSIUM 3.5 MMOL/L (3.5-5.1); SODIUM 138 MMOL/L (136-145)
[2017-12-31] MEDS: Carvedilol 25mg Tab ORAL SCH ×2 (09:00→22:26)
[2017-12-31] MEDS: Docusate 250mg cap ORAL SCH (09:00)
[2017-12-31] MEDS: Ciprofloxacin 500mg tab ORAL SCH ×2 (09:00→22:28)
[2017-12-31] MEDS: Losartan 50mg tab ORAL SCH (09:00)
--- NOTE | 2017-12-31 09:18 | General Progress Note ---
Assessment/Plan Status: stable Assessment/Plan #. Anemia due to hematuria. PSA level of 2.[address] Irrigation as needed. Urology Service evaluation. --> Continue to closely monitor --> Anemia w/u has been reviewed, will trend daily. --> Hgb goal >8 --> appreciate urology recommendations --> imaging has been reviewed --> 12/27: S/P cystoscopy and bladder biopsy. #. Bladder tumor s/p TURBT --> final pathology report is pending #. Coagulopathy, likely due to decreased p.o. intake. --> INR of 1.2 --> hepatitis panel is pending #. Paraproteinemia. --> spep and upep are prelim negative for monoclonal band #. Nasopharyngeal carcinoma, currently in remission. #. Failure to thrive history, likely secondary to decreased p.o. intake. #. Hypertension. Systolic blood pressure goal is less than 140. The time the note was entered does not necessarily correspond to the time the patient was seen. Subjective Date patient seen: Dec 31, 2017 ROS Limited/Unobtainable: Yes Hematologic/Lymphatic: Reports: anemia Allergies: Coded Allergies: No Known Allergies (Unverified , 07/17/17) All Systems: reviewed and negative except above Subjective PT pulled out NGT overnight. EGD with possible PEG placement scheduled. Objective Last 24 Hour Vital Signs Date Time Temp Pulse Resp B/P (MAP) Pulse Ox O2 Delivery O2 Flow Rate FiO2 12/31/17 08:00 97.8 70 20 166/80 (108) 96 97.8 12/31/17 04:00 97.9 69 20 165/78 (107) 96 97.9 12/31/17 00:00 98.2 66 20 140/68 (92) 96 98.2 12/30/17 21:00 Room Air 5.0 Nasal Cannula 5.0 12/30/17 20:28 65 149/72 12/30/17 20:28 65 149/72 12/30/17 20:00 98.6 65 20 149/72 (97) 100 98.6 12/30/17 16:00 97.8 59 18 153/74 (100) 95 97.8 12/30/17 11:59 98.6 59 18 144/75 (98) 100 98.6 Intake and Output 12/30/17 12/31/17 18:59 06:59 Intake Total 1610 ml 885 ml Output Total 1100 ml 1800 ml Balance 510 ml -915 ml Free Water 180 ml IV Total 825 ml 830 ml Tube Feeding 605 ml 55 ml Output Urine Total 1100 ml 1800 ml Laboratory Tests 12/31/17 06:00: Sodium Level 138, Potassium Level 3.5, Chloride Level 102, Carbon Dioxide Level 31, Anion Gap 5, Blood Urea Nitrogen 20H, Creatinine 0.8, Estimat Glomerular Filtration Rate > 60, Glucose Level 81, Calcium Level 8.7 12/31/17 07:25: White Blood Count 14.2H, Red Blood Count 3.61L, Hemoglobin 10.5L, Hematocrit 32.6L, Mean Corpuscular Volume 90, Mean Corpuscular Hemoglobin 29.0, Mean Corpuscular Hemoglobin Concent 32.0, Red Cell Distribution Width 14.0, Platelet Count 342, Mean Platelet Volume 6.9, Neutrophils (%) (Auto) , Lymphocytes (%) ( Auto) , Monocytes (%) (Auto) , Eosinophils (%) (Auto) , Basophils (%) (Auto) , Neutrophils % (Manual) [Pending], Lymphocytes % (Manual) [Pending], Platelet Estimate [Pending], Platelet Morphology [Pending], Prothrombin Time 11.5, Prothromb Time International Ratio 1.1, Activated Partial Thromboplast Time 32 Height (Feet): 5 Height (Inches): 10.00 Weight (Pounds): 185 General Appearance: no apparent distress, alert EENT: PERRL/EOMI Neck: normal alignment Cardiovascular: normal peripheral pulses Respiratory/Chest: normal breath sounds, no respiratory distress Abdomen: soft, no organomegaly Shane Oropeza MD Dec 31, 2017 09:18
--- NOTE | 2017-12-31 11:05 | Urology Progress Note ---
Assessment/Plan Assessment/Plan 1. Gross hematuria hx, resolving. 2. Urinary retention. 3. BPH history. 4. Proteinuria. 5. Mild pyuria. 6. Rule out neurogenic bladder. 7. Bladder tumor. 8, POD # 4, TURBT. keep hinkle indwelling for now nursing staff to hand irrigate hinkle PRN cont with abx proscar, flomax monitor h/h, renal fxn f/u on path Subjective Allergies: Coded Allergies: No Known Allergies (Unverified , 07/17/17) Subjective all noted, for GT today Objective Last 24 Hour Vital Signs Date Time Temp Pulse Resp B/P (MAP) Pulse Ox O2 Delivery O2 Flow Rate FiO2 12/31/17 09:00 Room Air 5.0 Nasal Cannula 5.0 12/31/17 09:00 70 166/80 12/31/17 09:00 166/80 12/31/17 08:00 97.8 70 20 166/80 (108) 96 97.8 12/31/17 04:00 97.9 69 20 165/78 (107) 96 97.9 12/31/17 00:00 98.2 66 20 140/68 (92) 96 98.2 12/30/17 21:00 Room Air 5.0 Nasal Cannula 5.0 12/30/17 20:28 65 149/72 12/30/17 20:28 65 149/72 12/30/17 20:00 98.6 65 20 149/72 (97) 100 98.6 12/30/17 16:00 97.8 59 18 153/74 (100) 95 97.8 12/30/17 11:59 98.6 59 18 144/75 (98) 100 98.6 Intake and Output 12/30/17 12/31/17 19:00 07:00 Intake Total 1670 ml 825 ml Output Total 1100 ml 1800 ml Balance 570 ml -975 ml Free Water 180 ml IV Total 830 ml 825 ml Tube Feeding 660 ml Output Urine Total 1100 ml 1800 ml Microbiology Date/Time Source Procedure Growth Status 12/23/17 19:40 Nasal Nares 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 Complete Current Medications Medications (Trade) Dose Ordered Sig/Mehran Route PRN Reason Start Time Stop Time Status Last Admin Dose Admin Acetaminophen (Tylenol) 650 mg Q6H PRN ORAL Mild Pain/Temp > 100.5 12/23/17 21:14 01/22/18 21:13 Amlodipine Besylate (Norvasc) 10 mg QHS ORAL 12/23/17 21:00 01/22/18 20:59 12/30/17 20:28 Carvedilol (Coreg) 25 mg EVERY 12 HOURS ORAL 12/26/17 21:00 01/22/18 20:59 12/30/17 20:28 Ciprofloxacin (Cipro 500mg tab) 500 mg EVERY 12 HOURS ORAL 12/24/17 09:00 01/01/18 23:59 12/30/17 20:27 Docusate Sodium (Colace) 250 mg DAILY ORAL 12/24/17 09:00 01/23/18 08:59 12/30/17 08:49 Finasteride (Proscar) 5 mg DAILY ORAL 12/24/17 09:00 01/23/18 08:59 12/30/17 08:43 Gabapentin (Neurontin) 100 mg BEDTIME PRN ORAL Moderate Pain (Pain Scale 4-6) 12/23/17 21:45 01/22/18 21:44 Haloperidol Lactate (Haldol) 5 mg Q6H PRN IM Agitation 12/27/17 12:15 01/26/18 12:14 12/27/17 12:35 Hydralazine HCl (Apresoline) 50 mg Q8H PRN ORAL For High Blood Pressure 12/25/17 12:00 01/24/18 11:59 12/29/17 16:22 Hydrochlorothiazide (Hydrodiuril) 25 mg DAILY ORAL 12/27/17 09:00 01/26/18 08:59 12/30/17 08:43 Lorazepam (Ativan 2mg/ml 1ml) 1 mg Q4H PRN IM For Anxiety 12/27/17 12:15 01/03/18 12:14 12/27/17 15:16 Losartan Potassium (Cozaar) 100 mg DAILY ORAL 12/26/17 09:00 01/23/18 08:59 12/30/17 08:50 Quetiapine Fumarate (SEROquel) 12.5 mg EVERY 4 HOURS PRN ORAL Agitation 12/24/17 23:30 01/23/18 23:29 Quetiapine Fumarate (SEROquel) 25 mg TID ORAL 12/27/17 13:15 01/26/18 13:14 12/30/17 18:32 Sodium Chloride 1,000 ml @ 75 mls/hr [id number] IV 12/23/17 22:00 01/22/18 21:59 12/31/17 02:12 Tamsulosin HCl (Flomax) 0.4 mg BEDTIME ORAL 12/24/17 21:00 01/23/18 20:59 12/30/17 20:28 Laboratory Tests 12/31/17 06:00: Sodium Level 138, Potassium Level 3.5, Chloride Level 102, Carbon Dioxide Level 31, Anion Gap 5, Blood Urea Nitrogen 20H, Creatinine 0.8, Estimat Glomerular Filtration Rate > 60, Glucose Level 81, Calcium Level 8.7 12/31/17 07:25: White Blood Count 14.2H, Red Blood Count 3.61L, Hemoglobin 10.5L, Hematocrit 32.6L, Mean Corpuscular Volume 90, Mean Corpuscular Hemoglobin 29.0, Mean Corpuscular Hemoglobin Concent 32.0, Red Cell Distribution Width 14.0, Platelet Count 342, Mean Platelet Volume 6.9, Neutrophils (%) (Auto) , Lymphocytes (%) ( Auto) , Monocytes (%) (Auto) , Eosinophils (%) (Auto) , Basophils (%) (Auto) , Differential Total Cells Counted 100, Neutrophils % (Manual) 88H, Lymphocytes % (Manual) 8L, Monocytes % (Manual) 3, Eosinophils % (Manual) 0, Basophils % ( Manual) 0, Band Neutrophils 1, Platelet Estimate Adequate, Platelet Morphology Normal, Anisocytosis 1+, Prothrombin Time 11.5, Prothromb Time International Ratio 1.1, Activated Partial Thromboplast Time 32 Height (Feet): 5 Height (Inches): 10.00 Weight (Pounds): 185 Objective exam stable, hinkle indwelling, urine clearing CT noted LIVIER ALVAREZ Dec 31, 2017 11:05
--- NOTE | 2017-12-31 11:59 | Anethesia Preoperative Eval ---
Anesthesia Pre-op PMH/ROS General Date of Evaluation: Dec 31, 2017 Time of Evaluation: 11:56 Anesthesiologist: Yessenia ASA Score: ASA 4 Mallampati Score Class I : Soft palate, uvula, fauces, pillars visible Class II: Soft palate, uvula, fauces visible Class III: Soft palate, base of uvula visible Class IV: Only hard plate visible Mallampati Classification: Class III Surgeon: Simon Diagnosis: Dysphagia Surgical Procedure: Peg tube placement Anesthesia History: none Family History: no anesthesia problems Allergies: Coded Allergies: No Known Allergies (Unverified , 07/17/17) Medications: see eMAR Past Medical History Cardiovascular: Reports: HTN; Denies: CAD, ND, valve dz, arrhythmia, other Pulmonary: Denies: asthma, COPD, PRABHU, other Gastrointestinal/Genitourinary: Reports: GERD, other - Hematuria; Denies: CRI, ESRD Neurologic/Psychiatric: Reports: dementia; Denies: CVA, depression/anxiety, TIA, other Endocrine: Denies: DM, hypothyroidism, steroids, other HEENT: Denies: cataract (L), cataract (R), glaucoma, [place] (L[place] (R), other Hematology/Immune: Reports: anemia; Denies: DVT, bleeding disorder, other Musculoskeletal/Integumentary: Reports: DJD; Denies: OA, RA, DDD, edema, other Other: other - malnourished PMH Narrative: as above PSxH Narrative: See chart Anesthesia Pre-op Phys. Exam Physician Exam Last Vital Signs Date Time Temp Pulse Resp B/P (MAP) Pulse Ox O2 Delivery O2 Flow Rate FiO2 12/31/17 09:00 Room Air 5.0 Nasal Cannula 5.0 12/31/17 09:00 70 166/80 12/31/17 08:00 97.8 20 96 97.8 Constitutional: NAD Neurologic: other - unable to obtaine Cardiovascular: RRR, no M/R/G Respiratory: CTA Gastrointestinal: S/NT/ND Airway Exam Mallampati Score: Class II MO: limited Neck: stiff ROM: limited Teeth: missing Dentures: no upper, no lower Anesthesia Pre-op A/P Labs Hematology Test 12/31/17 07:25 White Blood Count 14.2 K/UL (4.8-10.8) H Red Blood Count 3.61 M/UL (4.70-6.10) L Hemoglobin 10.5 G/DL (14.2-18.0) L Hematocrit 32.6 % (42.0-52.0) L Mean Corpuscular Volume 90 FL (80-99) Mean Corpuscular Hemoglobin 29.0 PG (27.0-31.0) Mean Corpuscular Hemoglobin Concent 32.0 G/DL (32.0-36.0) Red Cell Distribution Width 14.0 % (11.6-14.8) Platelet Count 342 K/UL (150-450) Mean Platelet Volume 6.9 FL (6.5-10.1) Neutrophils (%) (Auto) % (45.0-75.0) Lymphocytes (%) (Auto) % (20.0-45.0) Monocytes (%) (Auto) % (1.0-10.0) Eosinophils (%) (Auto) % (0.0-3.0) Basophils (%) (Auto) % (0.0-2.0) Differential Total Cells Counted 100 Neutrophils % (Manual) 88 % (45-75) H Lymphocytes % (Manual) 8 % (20-45) L Monocytes % (Manual) 3 % (1-10) Eosinophils % (Manual) 0 % (0-3) Basophils % (Manual) 0 % (0-2) Band Neutrophils 1 % (0-8) Platelet Estimate Adequate Platelet Morphology Normal Anisocytosis 1+ Coagulation Test 12/31/17 07:25 Prothrombin Time 11.5 SEC (9.30-11.50) Prothromb Time International Ratio 1.1 (0.9-1.1) Activated Partial Thromboplast Time 32 SEC (23-33) Chemistry Test 12/31/17 06:00 Sodium Level 138 MMOL/L (136-145) Potassium Level 3.5 MMOL/L (3.5-5.1) Chloride Level 102 MMOL/L (98-107) Carbon Dioxide Level 31 MMOL/L (21-32) Anion Gap 5 mmol/L (5-15) Blood Urea Nitrogen 20 mg/dL (7-18) H Creatinine 0.8 MG/DL (0.55-1.30) Estimat Glomerular Filtration Rate > 60 mL/min (>60) Glucose Level 81 MG/DL (74-106) Calcium Level 8.7 MG/DL (8.5-10.1) Risk Assessment & Plan Assessment: ASA 4 Plan: MAC Status Change Before Surgery: Robert Lopez MD Dec 31, 2017 11:59
[2017-12-31] MEDS ORDERED: fentaNYL 100 mcg/2 mL IV PRN (12:00)
--- NOTE | 2017-12-31 13:16 | General Surgery Progress Note ---
General Surgery-Progress Note Subjective Additional Comments no acute events. looks comfortable. leukocytosis Objective Last 24 Hour Vital Signs Date Time Temp Pulse Resp B/P (MAP) Pulse Ox O2 Delivery O2 Flow Rate FiO2 12/31/17 12:00 97.2 63 18 162/69 (100) 96 97.2 12/31/17 09:00 Room Air 5.0 Nasal Cannula 5.0 12/31/17 09:00 70 166/80 12/31/17 09:00 166/80 12/31/17 08:00 97.8 70 20 166/80 (108) 96 97.8 12/31/17 04:00 97.9 69 20 165/78 (107) 96 97.9 12/31/17 00:00 98.2 66 20 140/68 (92) 96 98.2 12/30/17 21:00 Room Air 5.0 Nasal Cannula 5.0 12/30/17 20:28 65 149/72 12/30/17 20:28 65 149/72 12/30/17 20:00 98.6 65 20 149/72 (97) 100 98.6 12/30/17 16:00 97.8 59 18 153/74 (100) 95 97.8 I&O Intake and Output 12/30/17 12/31/17 19:00 07:00 Intake Total 1670 ml 825 ml Output Total 1100 ml 1800 ml Balance 570 ml -975 ml Free Water 180 ml IV Total 830 ml 825 ml Tube Feeding 660 ml Output Urine Total 1100 ml 1800 ml Wound: clean Drains: none Cardiovascular: RSR Respiratory: clear Abdomen: soft, non-tender Laboratory Tests Test 12/31/17 06:00 12/31/17 07:25 Sodium Level 138 MMOL/L (136-145) Potassium Level 3.5 MMOL/L (3.5-5.1) Chloride Level 102 MMOL/L (98-107) Carbon Dioxide Level 31 MMOL/L (21-32) Anion Gap 5 mmol/L (5-15) Blood Urea Nitrogen 20 mg/dL (7-18) H Creatinine 0.8 MG/DL (0.55-1.30) Estimat Glomerular Filtration Rate > 60 mL/min (>60) Glucose Level 81 MG/DL (74-106) Calcium Level 8.7 MG/DL (8.5-10.1) White Blood Count 14.2 K/UL (4.8-10.8) H Red Blood Count 3.61 M/UL (4.70-6.10) L Hemoglobin 10.5 G/DL (14.2-18.0) L Hematocrit 32.6 % (42.0-52.0) L Mean Corpuscular Volume 90 FL (80-99) Mean Corpuscular Hemoglobin 29.0 PG (27.0-31.0) Mean Corpuscular Hemoglobin Concent 32.0 G/DL (32.0-36.0) Red Cell Distribution Width 14.0 % (11.6-14.8) Platelet Count 342 K/UL (150-450) Mean Platelet Volume 6.9 FL (6.5-10.1) Neutrophils (%) (Auto) % (45.0-75.0) Lymphocytes (%) (Auto) % (20.0-45.0) Monocytes (%) (Auto) % (1.0-10.0) Eosinophils (%) (Auto) % (0.0-3.0) Basophils (%) (Auto) % (0.0-2.0) Differential Total Cells Counted 100 Neutrophils % (Manual) 88 % (45-75) H Lymphocytes % (Manual) 8 % (20-45) L Monocytes % (Manual) 3 % (1-10) Eosinophils % (Manual) 0 % (0-3) Basophils % (Manual) 0 % (0-2) Band Neutrophils 1 % (0-8) Platelet Estimate Adequate Platelet Morphology Normal Anisocytosis 1+ Prothrombin Time 11.5 SEC (9.30-11.50) Prothromb Time International Ratio 1.1 (0.9-1.1) Activated Partial Thromboplast Time 32 SEC (23-33) Plan Problems: (1) Hematoma of bladder wall (2) Hematuria Assessment & Plan: CT findings: Hematoma within the urinary bladder. Nature of this is not known. Consider cystoscopy for further evaluation. Underlying mass or other bladder pathology not excluded. Hinkle catheter in good position. labs improved overall improved large bladder tumor removed pending path [address] way hinkle as per urology thank you Marlon Doherty Dec 31, 2017 13:16
--- NOTE | 2017-12-31 13:29 | Pre-Procedure Note/Attestation ---
Pre-Procedure Note/Attestation Complete Prior to Procedure Planned Procedure: not applicable Procedure Narrative: egd/peg Indications for Procedure Pre-Operative Diagnosis: dysphagia Attestation I attest that I discussed the nature of the procedure; its benefits; risks and complications; and alternatives (and the risks and benefits of such alternatives ), prior to the procedure, with the patient (or the patient's legal health and safety representative). I attest that, if there was a reasonable possibility of needing a blood transfusion, the patient (or the patient's legal health and safety representative) was given the [facility] standardized written summary, pursuant to the Jean-Pierre Nalini Blood Safety Act ([place] Health and Safety Code # 1645, as amended). I attest that I re-evaluated the patient just prior to the surgery and that there has been no change in the patient's H&P, except as documented below: Tylor Montes MD Dec 31, 2017 13:29
[2017-12-31] MEDS ORDERED: Propofol 200mg/20ml IV ONE (13:30)
[2017-12-31] MEDS ORDERED: Midazolam 2mg/2ml Inj ONE (13:30)
[2017-12-31] MEDS ORDERED: fentaNYL 100 mcg/2 mL IV ONE (13:30)
[2017-12-31] MEDS ORDERED: NS 500ML IVPB ONE (13:30)
--- NOTE | 2017-12-31 13:35 | Endoscopy Procedure Note ---
Endoscopy Procedure Note General Indication for Procedure: dysphagia, FTT Procedures Performed: EGD, PEG Operative Findings/Diagnosis: same Specimen: yes Pt Tolerated Procedure Well: Yes Estimated Blood Loss: none Anesthesia Anesthesiologist: lakeisha Anesthesia: MAC Inserted Devices Implant(s) used?: No GI Core Measures 50 yrs or older w/o bx or poly: Not Applicable 10yrs. F/U not recommended: Not Applicable Tylor Montes MD Dec 31, 2017 13:35
--- NOTE | 2017-12-31 14:08 | Immediate Post-Op Evaluation ---
Immediate Post-Op Evalulation Immediate Post-Op Evalulation Procedure: EGD PEG tube placement Date of Evaluation: Dec 31, 2017 Time of Evaluation: 13:55 IV Fluids: 250 Blood Products: none Estimated Blood Loss: min Urinary Output: none Blood Pressure Systolic: 116 Blood Pressure Diastolic: 76 Pulse Rate: 68 Respiratory Rate: 20 O2 Sat by Pulse Oximetry: 98 Temperature (Fahrenheit): 97.3 Pain Score (1-10): 1 Nausea: No Vomiting: No Complications none Patient Status: reacts, patent, none Hydration Status: adequate Drug: Ancef 1 gr. Given Within 1 Hr of Incision: Yes Robert Casas MD Dec 31, 2017 14:08
--- NOTE | 2017-12-31 14:10 | 48 Hour Post Anesthesia Eval ---
Post Anesthesia Evaluation Procedure: EGD PEG tube placement Date of Evaluation: Dec 31, 2017 Time of Evaluation: 14:08 Blood Pressure Systolic: 116 0: 54 Pulse Rate: 68 Respiratory Rate: 20 Temperature (Fahrenheit): 97.4 O2 Sat by Pulse Oximetry: 98 Airway: patent Nausea: No Vomiting: No Pain Intensity: 1 Hydration Status: adequate Cardiopulmonary Status: stable Mental Status/LOC: patient returned to baseline Follow-up Care/Observations: n/a Post-Anesthesia Complications: none Follow-up care needed: N/A Robert Casas MD Dec 31, 2017 14:10
--- NOTE | 2017-12-31 15:15 | Procedure Note ---
DATE OF PROCEDURE: 12/31/2017 SURGEON: Tylor Montes M.D. ANESTHESIOLOGIST: Dr. Casas. PROCEDURE: Upper endoscopy with biopsy and PEG placement. ANESTHESIA: Per Dr. Casas. INSTRUMENT: Olympus adult flexible upper endoscope. INDICATION: Failure to thrive and dysphagia. The procedure, risks, benefits, and possible consequences, including hemorrhage, aspiration, perforation and infection, and alternative treatments, were explained to the patient/legal guardian by Dr. Tylor Montes and the patient/legal guardian understood and accepted these risks. DESCRIPTION OF PROCEDURE: After informed consent was obtained and the patient was adequately sedated, the Olympus upper endoscope was advanced from the mouth to the second portion of duodenum and retroflexion was performed in the stomach. The patient had diffuse gastritis. Random biopsy from antrum of the stomach was obtained to rule out H. pylori infection. At this time under endoscopic guidance and under sterile condition, a 20-Haitian pull type of G-tube was successfully placed in the epigastric area. The distance from the tip of the tube to skin was about 2.5 cm in size. The patient tolerated the procedure very well without complication. SUMMARY OF FINDINGS: 1. Status post successful PEG placement. 2. Gastritis, status post biopsy. RECOMMENDATIONS: Abdominal binder. Elevate the head of bed at all times. G-tube flush. G-tube care. Start tube feeding later today. The patient received a dose of antibiotics prior to this procedure. Tylor Montes M.D. DR: Wale JOB#: [id number] CC:
--- NOTE | 2017-12-31 15:22 | Diagnostic Imaging Report ---
Indications: Dysphagia Technique: Patient ingested multiple substances under the supervision of speech pathology. Video fluoroscopic recording performed. Total fluoroscopy time 110 seconds. Total dose area product 0.87969 mGycm2 Comparison: none Findings: With ingestion of thin and nectar thick liquid barium, there is anita aspiration of contrast. There is also escape of contrast into the nasopharynx. Impression: Positive for aspiration of thin and nectar thick liquid barium Please refer to speech pathology report for more detailed analysis
--- NOTE | 2017-12-31 16:04 | General Progress Note ---
Assessment/Plan Assessment/Plan dementia with bd encephalopathy -seroquel standing -Seroquel prn -the pt lacks capacity to make decisions -the pt unable to give consent for surgery Subjective Date patient seen: Dec 31, 2017 Neurologic/Psychiatric: Reports: anxiety Allergies: Coded Allergies: No Known Allergies (Unverified , 07/17/17) Subjective the pt is confuse the same episodes of agitation Objective Last 24 Hour Vital Signs Date Time Temp Pulse Resp B/P (MAP) Pulse Ox O2 Delivery O2 Flow Rate FiO2 12/31/17 14:47 96.8 57 19 163/72 (102) 94 96.8 12/31/17 14:30 97.2 53 14 148/72 98 Nasal Cannula 3 97.2 12/31/17 14:15 54 15 144/74 98 Nasal Cannula 3 12/31/17 14:10 207.3 68 20 98 12/31/17 14:08 207.1 68 20 98 12/31/17 14:00 52 13 151/73 99 Nasal Cannula 3 12/31/17 13:55 53 14 139/73 99 Nasal Cannula 3 12/31/17 13:50 97.8 54 20 125/66 99 Nasal Cannula 3 97.8 12/31/17 12:00 97.2 63 18 162/69 (100) 96 97.2 12/31/17 09:00 Room Air 5.0 Nasal Cannula 5.0 12/31/17 09:00 70 166/80 12/31/17 09:00 166/80 12/31/17 08:00 97.8 70 20 166/80 (108) 96 97.8 12/31/17 04:00 97.9 69 20 165/78 (107) 96 97.9 12/31/17 00:00 98.2 66 20 140/68 (92) 96 98.2 12/30/17 21:00 Room Air 5.0 Nasal Cannula 5.0 12/30/17 20:28 65 149/72 12/30/17 20:28 65 149/72 12/30/17 20:00 98.6 65 20 149/72 (97) 100 98.6 Intake and Output 12/30/17 12/31/17 19:00 07:00 Intake Total 1670 ml 825 ml Output Total 1100 ml 1800 ml Balance 570 ml -975 ml Free Water 180 ml IV Total 830 ml 825 ml Tube Feeding 660 ml Output Urine Total 1100 ml 1800 ml Laboratory Tests 12/31/17 06:00: Sodium Level 138, Potassium Level 3.5, Chloride Level 102, Carbon Dioxide Level 31, Anion Gap 5, Blood Urea Nitrogen 20H, Creatinine 0.8, Estimat Glomerular Filtration Rate > 60, Glucose Level 81, Calcium Level 8.7 12/31/17 07:25: White Blood Count 14.2H, Red Blood Count 3.61L, Hemoglobin 10.5L, Hematocrit 32.6L, Mean Corpuscular Volume 90, Mean Corpuscular Hemoglobin 29.0, Mean Corpuscular Hemoglobin Concent 32.0, Red Cell Distribution Width 14.0, Platelet Count 342, Mean Platelet Volume 6.9, Neutrophils (%) (Auto) , Lymphocytes (%) ( Auto) , Monocytes (%) (Auto) , Eosinophils (%) (Auto) , Basophils (%) (Auto) , Differential Total Cells Counted 100, Neutrophils % (Manual) 88H, Lymphocytes % (Manual) 8L, Monocytes % (Manual) 3, Eosinophils % (Manual) 0, Basophils % ( Manual) 0, Band Neutrophils 1, Platelet Estimate Adequate, Platelet Morphology Normal, Anisocytosis 1+, Prothrombin Time 11.5, Prothromb Time International Ratio 1.1, Activated Partial Thromboplast Time 32 Height (Feet): 5 Height (Inches): 10.00 Weight (Pounds): 185 Edd Horne MD Dec 31, 2017 16:04
[2017-12-31] MEDS: Tamsulosin 0.4mg cap ORAL SCH (22:26)
--- NOTE | 2017-12-31 22:40 | General Progress Note ---
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, unspecified SNOMED: 04216177, 931412966 (7) Dysphagia ICD Codes: R13.10 - Dysphagia, unspecified SNOMED: 30878500, 015140354 (8) Bladder tumor ICD Codes: D49.4 - Neoplasm of unspecified behavior of bladder SNOMED: 549352379 Status: stable, progressing Assessment/Plan - Urology consulted, appreciate rec's - Cardiology consulted, appreciate rec's - Oncology consulted, appreciate rec's - Psychiatry consulted, appreciate rec's - GI consulted, appreciate rec's - explosives worker consulted for bioethics for G-tube --> able to locate family now and family agreeable to give consent for PEG placement - s/p cystoscopy and TURBT with extensive fulgration. large bladder tumor removed on 12/27 - keep hinkle in 3-5 days - f/u pathology - Continue to monitor for clots - Started on flomax, proscar - IV empiric antibiotics, cipro - Check PSA -- 2.55 - F/u CT urogram -- showing bladder hematoma vs. mass - Continue home BP meds -- increased per cards - Venous duplex negative - Hydralazine prn - Pain control and supportive care PEG today DVT Prophylaxis: SCD. NO HSQ GIVEN HEMATOMA/HEMATURIA Code Status: Full Hospital Classification Declaration: Based on this initial evaluation, and depending on the patient's clinical course, I anticipate that this patient will require hospitalization for 2-3 days for gross hematuria and close respiratory/ hemodynamic monitoring. Disposition: Once the patient is stable to leave the hospital, I anticipate the patient will likely be discharged to the following environment: [facility] I spent 31 minutes on this patient's case, and 19 minutes were dedicated to counseling and/or care coordination. Discussed with patient/family, nursing staff, SW/CM, and all consultants involved regarding clinical status, treatment course, and disposition planning. Time of note may not reflect time of encounter. Subjective Date patient seen: Dec 31, 2017 Allergies: Coded Allergies: No Known Allergies (Unverified , 07/17/17) Subjective - awaiting PEG - HDS, AF - pulled out NG tube overnight Objective Last 24 Hour Vital Signs Date Time Temp Pulse Resp B/P (MAP) Pulse Ox O2 Delivery O2 Flow Rate FiO2 12/31/17 22:26 65 151/80 12/31/17 22:26 65 151/80 12/31/17 20:00 98.1 65 18 151/80 (103) 96 98.1 12/31/17 16:00 96.8 57 16 163/72 (102) 94 96.8 12/31/17 14:47 96.8 57 19 163/72 (102) 94 96.8 12/31/17 14:30 97.2 53 14 148/72 98 Nasal Cannula 3 97.2 12/31/17 14:15 54 15 144/74 98 Nasal Cannula 3 12/31/17 14:10 207.3 68 20 98 12/31/17 14:08 207.1 68 20 98 12/31/17 14:00 52 13 151/73 99 Nasal Cannula 3 12/31/17 13:55 53 14 139/73 99 Nasal Cannula 3 12/31/17 13:50 97.8 54 20 125/66 99 Nasal Cannula 3 97.8 12/31/17 12:00 97.2 63 18 162/69 (100) 96 97.2 12/31/17 09:00 Room Air 5.0 Nasal Cannula 5.0 12/31/17 09:00 70 166/80 12/31/17 09:00 166/80 12/31/17 08:00 97.8 70 20 166/80 (108) 96 97.8 12/31/17 04:00 97.9 69 20 165/78 (107) 96 97.9 12/31/17 00:00 98.2 66 20 140/68 (92) 96 98.2 Intake and Output 12/30/17 12/31/17 19:00 07:00 Intake Total 1670 ml 825 ml Output Total 1100 ml 1800 ml Balance 570 ml -975 ml Free Water 180 ml IV Total 830 ml 825 ml Tube Feeding 660 ml Output Urine Total 1100 ml 1800 ml Laboratory Tests 12/31/17 06:00: Sodium Level 138, Potassium Level 3.5, Chloride Level 102, Carbon Dioxide Level 31, Anion Gap 5, Blood Urea Nitrogen 20H, Creatinine 0.8, Estimat Glomerular Filtration Rate > 60, Glucose Level 81, Calcium Level 8.7 12/31/17 07:25: White Blood Count 14.2H, Red Blood Count 3.61L, Hemoglobin 10.5L, Hematocrit 32.6L, Mean Corpuscular Volume 90, Mean Corpuscular Hemoglobin 29.0, Mean Corpuscular Hemoglobin Concent 32.0, Red Cell Distribution Width 14.0, Platelet Count 342, Mean Platelet Volume 6.9, Neutrophils (%) (Auto) , Lymphocytes (%) ( Auto) , Monocytes (%) (Auto) , Eosinophils (%) (Auto) , Basophils (%) (Auto) , Differential Total Cells Counted 100, Neutrophils % (Manual) 88H, Lymphocytes % (Manual) 8L, Monocytes % (Manual) 3, Eosinophils % (Manual) 0, Basophils % ( Manual) 0, Band Neutrophils 1, Platelet Estimate Adequate, Platelet Morphology Normal, Anisocytosis 1+, Prothrombin Time 11.5, Prothromb Time International Ratio 1.1, Activated Partial Thromboplast Time 32 Height (Feet): 5 Height (Inches): 10.00 Weight (Pounds): 185 General Appearance: no apparent distress, alert EENT: PERRL/EOMI, normal ENT inspection Neck: non-tender, normal alignment, supple Cardiovascular: normal peripheral pulses, normal rate, regular rhythm Respiratory/Chest: chest wall non-tender, lungs clear, normal breath sounds Abdomen: normal bowel sounds, non tender, soft Genitourinary/Rectal: other - +hinkle Extremities: normal range of motion, non-tender Neurologic: desktop architect II-XII grossly normal, no motor/sensory deficits, alert Thania Spence NP Dec 31, 2017 22:40
[2018-01-01] VITALS: BP 129/66
[2018-01-01 04:00] VITALS: BP 124/61
[2018-01-01 07:28] LABS: HEMATOCRIT 28.4 % (42.0-52.0); MEAN CORPUSCULAR VOLUME 91 FL (80-99); PLATELET COUNT 326 K/UL (150-450); RED BLOOD COUNT 3.14 M/UL (4.70-6.10); RED CELL DISTRIBUTION WIDTH 13.7 % (11.6-14.8); WHITE BLOOD COUNT 11.4 K/UL (4.8-10.8)
[2018-01-01 07:43] LABS: ANION GAP 4 mmol/L (5-15); BLOOD UREA NITROGEN 22 mg/dL (7-18); CALCIUM 8.4 MG/DL (8.5-10.1); CARBON DIOXIDE 30 MMOL/L (21-32); CHLORIDE 108 MMOL/L (98-107); CREATININE 0.9 MG/DL (0.55-1.30); SODIUM 142 MMOL/L (136-145)
--- NOTE | 2018-01-01 07:43 | Diagnostic Imaging Report ---
APPROVED REPORT CPT Code: 81454 Present Symptoms Comments: R/O DVT BILATERAL: Imaging reveals a patent deep venous system bilaterally. There is no evidence of thrombus within the femoral, popliteal or tibial segments. The greater saphenous veins are also within normal limits. Doppler indicates normal spontaneous flow within these segments. Incidental finding: Cystic fluid collection noted in both knee area, possible a johnson's cyst.
[2018-01-01 08:00] VITALS: BP 134/73
[2018-01-01] MEDS: Losartan 50mg tab ORAL SCH (09:00)
[2018-01-01] MEDS: Carvedilol 25mg Tab ORAL SCH ×2 (09:00→22:56)
[2018-01-01] MEDS: Ciprofloxacin 500mg tab ORAL SCH ×2 (09:19→22:55)
[2018-01-01] MEDS: Docusate 100mg/10ml Liq NG SCH (09:20)
--- NOTE | 2018-01-01 09:37 | Urology Progress Note ---
Assessment/Plan Assessment/Plan 1. Gross hematuria hx, resolving. 2. Urinary retention. 3. BPH history. 4. Proteinuria. 5. Mild pyuria. 6. Rule out neurogenic bladder. 7. Bladder tumor. 8, POD # 5, TURBT. keep hinkle indwelling for now nursing staff to hand irrigate hinkle PRN cont with abx proscar, flomax monitor h/h, renal fxn f/u on path Subjective Allergies: Coded Allergies: No Known Allergies (Unverified , 07/17/17) Subjective all noted, a bit more alert Objective Last 24 Hour Vital Signs Date Time Temp Pulse Resp B/P (MAP) Pulse Ox O2 Delivery O2 Flow Rate FiO2 01/01/18 09:00 56 134/73 01/01/18 08:00 97.5 56 19 134/73 (93) 97 97.5 01/01/18 04:00 97.6 60 18 124/61 (82) 100 97.6 01/01/18 00:00 97.9 61 18 129/66 (87) 96 97.9 12/31/17 22:26 65 151/80 12/31/17 22:26 65 151/80 12/31/17 21:00 Room Air 5.0 Nasal Cannula 5.0 12/31/17 20:00 98.1 65 18 151/80 (103) 96 98.1 12/31/17 16:00 96.8 57 16 163/72 (102) 94 96.8 12/31/17 14:47 96.8 57 19 163/72 (102) 94 96.8 12/31/17 14:30 97.2 53 14 148/72 98 Nasal Cannula 3 97.2 12/31/17 14:15 54 15 144/74 98 Nasal Cannula 3 12/31/17 14:10 207.3 68 20 98 12/31/17 14:08 207.1 68 20 98 12/31/17 14:00 52 13 151/73 99 Nasal Cannula 3 12/31/17 13:55 53 14 139/73 99 Nasal Cannula 3 12/31/17 13:50 97.8 54 20 125/66 99 Nasal Cannula 3 97.8 12/31/17 12:00 97.2 63 18 162/69 (100) 96 97.2 Intake and Output 12/31/17 01/01/18 19:00 07:00 Intake Total 1405 ml 1380 ml Output Total 800 ml 750 ml Balance 605 ml 630 ml Free Water 60 ml 300 ml IV Total 1325 ml 750 ml Tube Feeding 20 ml 330 ml Output Urine Total 800 ml 750 ml Estimated Blood Loss 0 ml Microbiology Date/Time Source Procedure Growth Status 12/23/17 19:40 Nasal Nares 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 Complete Current Medications Medications (Trade) Dose Ordered Sig/Mehran Route PRN Reason Start Time Stop Time Status Last Admin Dose Admin Acetaminophen (Tylenol) 650 mg Q6H PRN ORAL Mild Pain/Temp > 100.5 12/23/17 21:14 01/22/18 21:13 Amlodipine Besylate (Norvasc) 10 mg QHS ORAL 12/23/17 21:00 01/22/18 20:59 12/31/17 22:26 Carvedilol (Coreg) 25 mg EVERY 12 HOURS ORAL 12/26/17 21:00 01/22/18 20:59 12/31/17 22:26 Ciprofloxacin (Cipro 500mg tab) 500 mg EVERY 12 HOURS ORAL 12/24/17 09:00 01/01/18 23:59 01/01/18 09:19 Docusate Sodium (Colace) 250 mg DAILY NG 01/01/18 09:00 01/31/18 08:59 01/01/18 09:20 Finasteride (Proscar) 5 mg DAILY ORAL 12/24/17 09:00 01/23/18 08:59 01/01/18 09:19 Gabapentin (Neurontin) 100 mg BEDTIME PRN ORAL Moderate Pain (Pain Scale 4-6) 12/23/17 21:45 01/22/18 21:44 Haloperidol Lactate (Haldol) 5 mg Q6H PRN IM Agitation 12/27/17 12:15 01/26/18 12:14 12/27/17 12:35 Hydralazine HCl (Apresoline) 50 mg Q8H PRN ORAL For High Blood Pressure 12/25/17 12:00 01/24/18 11:59 12/29/17 16:22 Hydrochlorothiazide (Hydrodiuril) 25 mg DAILY ORAL 12/27/17 09:00 01/26/18 08:59 01/01/18 09:24 Lorazepam (Ativan 2mg/ml 1ml) 1 mg Q4H PRN IM For Anxiety 12/27/17 12:15 01/03/18 12:14 12/27/17 15:16 Losartan Potassium (Cozaar) 100 mg DAILY ORAL 12/26/17 09:00 01/23/18 08:59 12/30/17 08:50 Quetiapine Fumarate (SEROquel) 12.5 mg EVERY 4 HOURS PRN ORAL Agitation 12/24/17 23:30 01/23/18 23:29 Quetiapine Fumarate (SEROquel) 25 mg TID ORAL 12/27/17 13:15 01/26/18 13:14 01/01/18 09:19 Sodium Chloride 1,000 ml @ 75 mls/hr [id number] IV 12/23/17 22:00 01/22/18 21:59 01/01/18 05:37 Tamsulosin HCl (Flomax) 0.4 mg BEDTIME ORAL 12/24/17 21:00 01/23/18 20:59 12/31/17 22:26 Laboratory Tests 01/01/18 07:00: White Blood Count 11.4H, Red Blood Count 3.14L, Hemoglobin 9.0L, Hematocrit 28.4L, Mean Corpuscular Volume 91, Mean Corpuscular Hemoglobin 28.7, Mean Corpuscular Hemoglobin Concent 31.7L, Red Cell Distribution Width 13.7, Platelet Count 326, Mean Platelet Volume 7.3, Neutrophils (%) (Auto) , Lymphocytes (%) (Auto) , Monocytes (%) (Auto) , Eosinophils (%) (Auto) , Basophils (%) (Auto) , Differential Total Cells Counted 100, Neutrophils % ( Manual) 90H, Lymphocytes % (Manual) 7L, Monocytes % (Manual) 3, Eosinophils % ( Manual) 0, Basophils % (Manual) 0, Band Neutrophils 0, Platelet Estimate Adequate, Platelet Morphology Normal, Sodium Level 142, Potassium Level 4.0, Chloride Level 108H, Carbon Dioxide Level 30, Anion Gap 4L, Blood Urea Nitrogen 22H, Creatinine 0.9, Estimat Glomerular Filtration Rate > 60, Glucose Level 100 , Calcium Level 8.4L Height (Feet): 5 Height (Inches): 10.00 Weight (Pounds): 185 Objective exam stable, hinkle indwelling, urine clearing CT noted LIVIER ALVAREZ Jan 01, 2018 09:37
[2018-01-01 12:00] VITALS: BP 119/71
--- NOTE | 2018-01-01 12:14 | Diagnostic Imaging Report ---
Indication: Cough Technique: One view of the chest Comparison: 12/27/2017 Findings: There is increased opacification of the left hemithorax. Only a small amount of residual aerated lung is now present There is shift of the mediastinum to the left as well as hyperinflation of the left lung projecting to the midline. There is suggestion of abrupt cut off of the left mainstem bronchus. There is also suggestion of increasing pleural fluid on the left. There is developing infiltrate in the right lung base. Previously demonstrated nasogastric tube is no longer evident Impression: Evidence of increasing left lung atelectasis as well as increasing left pleural fluid, with only minimal residual aerated left lung, over 5 days. There is evidence of endobronchial occlusion at the level of the left mainstem bronchus Interim development of infiltrate at the right lung base Findings were previously discussed by phone with Laura, the nurse practitioner taking care of the patient
--- NOTE | 2018-01-01 13:25 | GI Progress Note ---
Assessment/Plan Problems: (1) Encounter for PEG (percutaneous endoscopic gastrostomy) ICD Codes: Z43.1 - Encounter for attention to gastrostomy SNOMED: 301530954, 804902252 (2) Severe malnutrition ICD Codes: E43 - Unspecified severe protein-calorie malnutrition SNOMED: 15116221 (3) Dehydration ICD Codes: E86.0 - Dehydration SNOMED: 57275113 (4) Bladder tumor ICD Codes: D49.4 - Neoplasm of unspecified behavior of bladder SNOMED: 958666073 (5) Dysphagia ICD Codes: R13.10 - Dysphagia, unspecified SNOMED: 84132286, 840720217 Status: stable Status Narrative Discussed with Dr. Montes. Assessment/Plan SUMMARY OF FINDINGS: 1. Status post successful PEG placement. 2. Gastritis, status post biopsy. RECOMMENDATIONS: okay for DC per GI standpoint Abdominal binder. Elevate the head of bed at all times. G-tube flush. G-tube care. Start tube feeding later today per RD fu labs The patient was seen and examined at bedside and all new and available data was reviewed in the patients chart. I agree with the above findings, impression and plan. (Patient seen earlier today. Signature stamp does not reflect patient encounter time.). - Tylor Montes MD Subjective Subjective limited Objective Last 24 Hour Vital Signs Date Time Temp Pulse Resp B/P (MAP) Pulse Ox O2 Delivery O2 Flow Rate FiO2 01/01/18 12:00 99.1 65 19 119/71 (87) 100 99.1 01/01/18 09:00 Nasal Cannula 5.0 Nasal Cannula 5.0 01/01/18 09:00 56 134/73 01/01/18 08:00 97.5 56 19 134/73 (93) 97 97.5 01/01/18 04:00 97.6 60 18 124/61 (82) 100 97.6 01/01/18 00:00 97.9 61 18 129/66 (87) 96 97.9 12/31/17 22:26 65 151/80 12/31/17 22:26 65 151/80 12/31/17 21:00 Room Air 5.0 Nasal Cannula 5.0 12/31/17 20:00 98.1 65 18 151/80 (103) 96 98.1 7/24/18 16:00 96.8 57 16 163/72 (102) 94 96.8 12/31/17 14:47 96.8 57 19 163/72 (102) 94 96.8 12/31/17 14:30 97.2 53 14 148/72 98 Nasal Cannula 3 97.2 12/31/17 14:15 54 15 144/74 98 Nasal Cannula 3 12/31/17 14:10 207.3 68 20 98 12/31/17 14:08 207.1 68 20 98 12/31/17 14:00 52 13 151/73 99 Nasal Cannula 3 12/31/17 13:55 53 14 139/73 99 Nasal Cannula 3 12/31/17 13:50 97.8 54 20 125/66 99 Nasal Cannula 3 97.8 Intake and Output 12/31/17 01/01/18 19:00 07:00 Intake Total 1405 ml 1380 ml Output Total 800 ml 750 ml Balance 605 ml 630 ml Free Water 60 ml 300 ml IV Total 1325 ml 750 ml Tube Feeding 20 ml 330 ml Output Urine Total 800 ml 750 ml Estimated Blood Loss 0 ml Laboratory Tests Test 01/01/18 07:00 White Blood Count 11.4 K/UL (4.8-10.8) H Red Blood Count 3.14 M/UL (4.70-6.10) L Hemoglobin 9.0 G/DL (14.2-18.0) L Hematocrit 28.4 % (42.0-52.0) L Mean Corpuscular Volume 91 FL (80-99) Mean Corpuscular Hemoglobin 28.7 PG (27.0-31.0) Mean Corpuscular Hemoglobin Concent 31.7 G/DL (32.0-36.0) L Red Cell Distribution Width 13.7 % (11.6-14.8) Platelet Count 326 K/UL (150-450) Mean Platelet Volume 7.3 FL (6.5-10.1) Neutrophils (%) (Auto) % (45.0-75.0) Lymphocytes (%) (Auto) % (20.0-45.0) Monocytes (%) (Auto) % (1.0-10.0) Eosinophils (%) (Auto) % (0.0-3.0) Basophils (%) (Auto) % (0.0-2.0) Differential Total Cells Counted 100 Neutrophils % (Manual) 90 % (45-75) H Lymphocytes % (Manual) 7 % (20-45) L Monocytes % (Manual) 3 % (1-10) Eosinophils % (Manual) 0 % (0-3) Basophils % (Manual) 0 % (0-2) Band Neutrophils 0 % (0-8) Platelet Estimate Adequate Platelet Morphology Normal Sodium Level 142 MMOL/L (136-145) Potassium Level 4.0 MMOL/L (3.5-5.1) Chloride Level 108 MMOL/L (98-107) H Carbon Dioxide Level 30 MMOL/L (21-32) Anion Gap 4 mmol/L (5-15) L Blood Urea Nitrogen 22 mg/dL (7-18) H Creatinine 0.9 MG/DL (0.55-1.30) Estimat Glomerular Filtration Rate > 60 mL/min (>60) Glucose Level 100 MG/DL (74-106) Calcium Level 8.4 MG/DL (8.5-10.1) L Height (Feet): 5 Height (Inches): 10.00 Weight (Pounds): 185 General Appearance: WD/WN, no apparent distress, alert Cardiovascular: normal rate Respiratory/Chest: normal breath sounds, no respiratory distress Abdominal Exam: normal bowel sounds, non tender, soft, GT site - c/d/i Extremities: normal range of motion, non-tender Lisha Roland NP Jan 01, 2018 13:25
--- NOTE | 2018-01-01 13:28 | General Surgery Progress Note ---
General Surgery-Progress Note Subjective Additional Comments no acute events. stable. Objective Last 24 Hour Vital Signs Date Time Temp Pulse Resp B/P (MAP) Pulse Ox O2 Delivery O2 Flow Rate FiO2 01/01/18 12:00 99.1 65 19 119/71 (87) 100 99.1 01/01/18 09:00 Nasal Cannula 5.0 Nasal Cannula 5.0 01/01/18 09:00 56 134/73 01/01/18 08:00 97.5 56 19 134/73 (93) 97 97.5 01/01/18 04:00 97.6 60 18 124/61 (82) 100 97.6 01/01/18 00:00 97.9 61 18 129/66 (87) 96 97.9 12/31/17 22:26 65 151/80 12/31/17 22:26 65 151/80 12/31/17 21:00 Room Air 5.0 Nasal Cannula 5.0 12/31/17 20:00 98.1 65 18 151/80 (103) 96 98.1 12/31/17 16:00 96.8 57 16 163/72 (102) 94 96.8 12/31/17 14:47 96.8 57 19 163/72 (102) 94 96.8 12/31/17 14:30 97.2 53 14 148/72 98 Nasal Cannula 3 97.2 12/31/17 14:15 54 15 144/74 98 Nasal Cannula 3 12/31/17 14:10 207.3 68 20 98 12/31/17 14:08 207.1 68 20 98 12/31/17 14:00 52 13 151/73 99 Nasal Cannula 3 12/31/17 13:55 53 14 139/73 99 Nasal Cannula 3 12/31/17 13:50 97.8 54 20 125/66 99 Nasal Cannula 3 97.8 I&O Intake and Output 12/31/17 01/01/18 19:00 07:00 Intake Total 1405 ml 1380 ml Output Total 800 ml 750 ml Balance 605 ml 630 ml Free Water 60 ml 300 ml IV Total 1325 ml 750 ml Tube Feeding 20 ml 330 ml Output Urine Total 800 ml 750 ml Estimated Blood Loss 0 ml Wound: clean Drains: none Cardiovascular: RSR Respiratory: clear Abdomen: soft, flat Extremities: no cyanosis Laboratory Tests Test 01/01/18 07:00 White Blood Count 11.4 K/UL (4.8-10.8) H Red Blood Count 3.14 M/UL (4.70-6.10) L Hemoglobin 9.0 G/DL (14.2-18.0) L Hematocrit 28.4 % (42.0-52.0) L Mean Corpuscular Volume 91 FL (80-99) Mean Corpuscular Hemoglobin 28.7 PG (27.0-31.0) Mean Corpuscular Hemoglobin Concent 31.7 G/DL (32.0-36.0) L Red Cell Distribution Width 13.7 % (11.6-14.8) Platelet Count 326 K/UL (150-450) Mean Platelet Volume 7.3 FL (6.5-10.1) Neutrophils (%) (Auto) % (45.0-75.0) Lymphocytes (%) (Auto) % (20.0-45.0) Monocytes (%) (Auto) % (1.0-10.0) Eosinophils (%) (Auto) % (0.0-3.0) Basophils (%) (Auto) % (0.0-2.0) Differential Total Cells Counted 100 Neutrophils % (Manual) 90 % (45-75) H Lymphocytes % (Manual) 7 % (20-45) L Monocytes % (Manual) 3 % (1-10) Eosinophils % (Manual) 0 % (0-3) Basophils % (Manual) 0 % (0-2) Band Neutrophils 0 % (0-8) Platelet Estimate Adequate Platelet Morphology Normal Sodium Level 142 MMOL/L (136-145) Potassium Level 4.0 MMOL/L (3.5-5.1) Chloride Level 108 MMOL/L (98-107) H Carbon Dioxide Level 30 MMOL/L (21-32) Anion Gap 4 mmol/L (5-15) L Blood Urea Nitrogen 22 mg/dL (7-18) H Creatinine 0.9 MG/DL (0.55-1.30) Estimat Glomerular Filtration Rate > 60 mL/min (>60) Glucose Level 100 MG/DL (74-106) Calcium Level 8.4 MG/DL (8.5-10.1) L Plan Problems: (1) Hematoma of bladder wall (2) Hematuria Assessment & Plan: CT findings: Hematoma within the urinary bladder. Nature of this is not known. Consider cystoscopy for further evaluation. Underlying mass or other bladder pathology not excluded. Hinkle catheter in good position. labs improved overall improved large bladder tumor removed pending path [address] way hinkle as per urology thank you Marlon Doherty Jan 01, 2018 13:28
[2018-01-01] MEDS: Piperacillin/Tazobactam 3.375 GM in D5W 110 ML IVPB SCH ×2 (14:20→22:57)
--- NOTE | 2018-01-01 15:02 | General Progress Note ---
Assessment/Plan Assessment/Plan dementia with bd encephalopathy -seroquel standing -Seroquel prn -the pt lacks capacity to make decisions -the pt unable to give consent for surgery Subjective Date patient seen: Jan 01, 2018 Neurologic/Psychiatric: Reports: anxiety, depressed, emotional problems Allergies: Coded Allergies: No Known Allergies (Unverified , 07/17/17) Subjective the pt is confuse the same episodes of agitation Objective Last 24 Hour Vital Signs Date Time Temp Pulse Resp B/P (MAP) Pulse Ox O2 Delivery O2 Flow Rate FiO2 01/01/18 12:00 99.1 65 19 119/71 (87) 100 99.1 01/01/18 09:00 Nasal Cannula 5.0 Nasal Cannula 5.0 01/01/18 09:00 56 134/73 01/01/18 08:00 97.5 56 19 134/73 (93) 97 97.5 01/01/18 04:00 97.6 60 18 124/61 (82) 100 97.6 01/01/18 00:00 97.9 61 18 129/66 (87) 96 97.9 12/31/17 22:26 65 151/80 12/31/17 22:26 65 151/80 12/31/17 21:00 Room Air 5.0 Nasal Cannula 5.0 12/31/17 20:00 98.1 65 18 151/80 (103) 96 98.1 12/31/17 16:00 96.8 57 16 163/72 (102) 94 96.8 Intake and Output 12/31/17 01/01/18 19:00 07:00 Intake Total 1405 ml 1380 ml Output Total 800 ml 750 ml Balance 605 ml 630 ml Free Water 60 ml 300 ml IV Total 1325 ml 750 ml Tube Feeding 20 ml 330 ml Output Urine Total 800 ml 750 ml Estimated Blood Loss 0 ml Laboratory Tests 01/01/18 07:00: White Blood Count 11.4H, Red Blood Count 3.14L, Hemoglobin 9.0L, Hematocrit 28.4L, Mean Corpuscular Volume 91, Mean Corpuscular Hemoglobin 28.7, Mean Corpuscular Hemoglobin Concent 31.7L, Red Cell Distribution Width 13.7, Platelet Count 326, Mean Platelet Volume 7.3, Neutrophils (%) (Auto) , Lymphocytes (%) (Auto) , Monocytes (%) (Auto) , Eosinophils (%) (Auto) , Basophils (%) (Auto) , Differential Total Cells Counted 100, Neutrophils % ( Manual) 90H, Lymphocytes % (Manual) 7L, Monocytes % (Manual) 3, Eosinophils % ( Manual) 0, Basophils % (Manual) 0, Band Neutrophils 0, Platelet Estimate Adequate, Platelet Morphology Normal, Sodium Level 142, Potassium Level 4.0, Chloride Level 108H, Carbon Dioxide Level 30, Anion Gap 4L, Blood Urea Nitrogen 22H, Creatinine 0.9, Estimat Glomerular Filtration Rate > 60, Glucose Level 100 , Calcium Level 8.4L Height (Feet): 5 Height (Inches): 10.00 Weight (Pounds): 185 General Appearance: no apparent distress, alert, confused Edd Horne MD Jan 01, 2018 15:02
[2018-01-01 16:00] VITALS: BP 110/67
--- NOTE | 2018-01-01 16:12 | General Progress Note ---
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, unspecified SNOMED: 41654878, 829734904 (7) Dysphagia ICD Codes: R13.10 - Dysphagia, unspecified SNOMED: 89256805, 190090271 (8) Bladder tumor ICD Codes: D49.4 - Neoplasm of unspecified behavior of bladder SNOMED: 647442853 (9) Sepsis ICD Codes: A41.9 - Sepsis, unspecified organism SNOMED: 37678210 (10) PNA (pneumonia) Assessment & Plan: with endobronchial occlusion and atelectasis ICD Codes: J18.9 - Pneumonia, unspecified organism SNOMED: 731865381 (11) Encounter for PEG (percutaneous endoscopic gastrostomy) ICD Codes: Z43.1 - Encounter for attention to gastrostomy SNOMED: 413877530, 433769857 (12) Severe malnutrition ICD Codes: E43 - Unspecified severe protein-calorie malnutrition SNOMED: 47601759 Status: stable, progressing Assessment/Plan - Urology consulted, appreciate rec's - Cardiology consulted, appreciate rec's - Oncology consulted, appreciate rec's - Psychiatry consulted, appreciate rec's - GI consulted, appreciate rec's - Pulmonology consulted, awaiting eval - CXR showing infiltrate with increased atelectasis and endobronchial occlusion - Empiric abx with IV vancomycin and zosyn (D1) - F/u blood cx, urine cx, serial CXR - O2 prn to maintain O2sat > 92% - s/p Gtube, tolerating feeds. Monitor for residuals - s/p cystoscopy and TURBT with extensive fulgration. large bladder tumor removed on 12/27 - keep hinkle in 3-5 days - f/u pathology - Continue to monitor for clots - Started on flomax, proscar - Check PSA -- 2.55 - F/u CT urogram -- showing bladder hematoma vs. mass - Continue home BP meds -- increased per cards - Venous duplex negative - Hydralazine prn - Pain control and supportive care DVT Prophylaxis: SCD. NO HSQ GIVEN HEMATOMA/HEMATURIA Code Status: Full Hospital Classification Declaration: Based on this initial evaluation, and depending on the patient's clinical course, I anticipate that this patient will require hospitalization for 2-3 days for gross hematuria and close respiratory/ hemodynamic monitoring. Disposition: Once the patient is stable to leave the hospital, I anticipate the patient will likely be discharged to the following environment: [facility] I spent 31 minutes on this patient's case, and 19 minutes were dedicated to counseling and/or care coordination. Discussed with patient/family, nursing staff, SW/CM, and all consultants involved regarding clinical status, treatment course, and disposition planning. Time of note may not reflect time of encounter. Subjective Date patient seen: Jan 01, 2018 Allergies: Coded Allergies: No Known Allergies (Unverified , 07/17/17) Subjective - s/p PEG yesterday - tolerating feeds - CXR showing endobronchial occlusion with increased atelectasis and infiltrates - WBC downtrended from 14-->11 - AF, HDS Objective Last 24 Hour Vital Signs Date Time Temp Pulse Resp B/P (MAP) Pulse Ox O2 Delivery O2 Flow Rate FiO2 01/01/18 12:00 99.1 65 19 119/71 (87) 100 99.1 01/01/18 09:00 Nasal Cannula 5.0 Nasal Cannula 5.0 01/01/18 09:00 56 134/73 01/01/18 08:00 97.5 56 19 134/73 (93) 97 97.5 01/01/18 04:00 97.6 60 18 124/61 (82) 100 97.6 01/01/18 00:00 97.9 61 18 129/66 (87) 96 97.9 12/31/17 22:26 65 151/80 12/31/17 22:26 65 151/80 12/31/17 21:00 Room Air 5.0 Nasal Cannula 5.0 12/31/17 20:00 98.1 65 18 151/80 (103) 96 98.1 Intake and Output 12/31/17 01/01/18 19:00 07:00 Intake Total 1405 ml 1380 ml Output Total 800 ml 750 ml Balance 605 ml 630 ml Free Water 60 ml 300 ml IV Total 1325 ml 750 ml Tube Feeding 20 ml 330 ml Output Urine Total 800 ml 750 ml Estimated Blood Loss 0 ml Laboratory Tests 01/01/18 07:00: White Blood Count 11.4H, Red Blood Count 3.14L, Hemoglobin 9.0L, Hematocrit 28.4L, Mean Corpuscular Volume 91, Mean Corpuscular Hemoglobin 28.7, Mean Corpuscular Hemoglobin Concent 31.7L, Red Cell Distribution Width 13.7, Platelet Count 326, Mean Platelet Volume 7.3, Neutrophils (%) (Auto) , Lymphocytes (%) (Auto) , Monocytes (%) (Auto) , Eosinophils (%) (Auto) , Basophils (%) (Auto) , Differential Total Cells Counted 100, Neutrophils % ( Manual) 90H, Lymphocytes % (Manual) 7L, Monocytes % (Manual) 3, Eosinophils % ( Manual) 0, Basophils % (Manual) 0, Band Neutrophils 0, Platelet Estimate Adequate, Platelet Morphology Normal, Sodium Level 142, Potassium Level 4.0, Chloride Level 108H, Carbon Dioxide Level 30, Anion Gap 4L, Blood Urea Nitrogen 22H, Creatinine 0.9, Estimat Glomerular Filtration Rate > 60, Glucose Level 100 , Calcium Level 8.4L Height (Feet): 5 Height (Inches): 10.00 Weight (Pounds): 185 General Appearance: no apparent distress, alert EENT: PERRL/EOMI, normal ENT inspection Neck: non-tender, normal alignment, supple Cardiovascular: normal peripheral pulses, normal rate, regular rhythm Abdomen: normal bowel sounds, non tender, soft, other - PEG. 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
--- NOTE | 2018-01-01 18:48 | General Progress Note ---
Assessment/Plan Status: unchanged Assessment/Plan #. Anemia due to hematuria. PSA level of 2.[address] Irrigation as needed. Urology Service evaluation. --> Continue to closely monitor --> Anemia w/u has been reviewed, will trend daily. --> Hgb goal >8 --> appreciate urology recommendations --> imaging has been reviewed --> 12/27: S/P cystoscopy and bladder biopsy. #. Bladder tumor s/p TURBT --> final pathology report is pending #. Coagulopathy, likely due to decreased p.o. intake. --> INR of 1.2 --> hepatitis panel is pending #. Paraproteinemia. --> spep and upep are prelim negative for monoclonal band #. Nasopharyngeal carcinoma, currently in remission. #. Failure to thrive history, likely secondary to decreased p.o. intake. #. Hypertension. Systolic blood pressure goal is less than 140. The time the note was entered does not necessarily correspond to the time the patient was seen. Subjective Date patient seen: Jan 01, 2018 ROS Limited/Unobtainable: Yes Allergies: Coded Allergies: No Known Allergies (Unverified , 07/17/17) All Systems: reviewed and negative except above Subjective Pt s/p PEG placement. CXR: evidence of increasing left lung atelectasis. Objective Last 24 Hour Vital Signs Date Time Temp Pulse Resp B/P (MAP) Pulse Ox O2 Delivery O2 Flow Rate FiO2 01/01/18 16:00 99.9 97 22 110/67 (81) 100 99.9 01/01/18 12:00 99.1 65 19 119/71 (87) 100 99.1 01/01/18 09:00 Nasal Cannula 5.0 Nasal Cannula 5.0 01/01/18 09:00 56 134/73 01/01/18 08:00 97.5 56 19 134/73 (93) 97 97.5 01/01/18 04:00 97.6 60 18 124/61 (82) 100 97.6 01/01/18 00:00 97.9 61 18 129/66 (87) 96 97.9 12/31/17 22:26 65 151/80 12/31/17 22:26 65 151/80 12/31/17 21:00 Room Air 5.0 Nasal Cannula 5.0 12/31/17 20:00 98.1 65 18 151/80 (103) 96 98.1 Intake and Output 12/31/17 01/01/18 19:00 07:00 Intake Total 1405 ml 1380 ml Output Total 800 ml 750 ml Balance 605 ml 630 ml Free Water 60 ml 300 ml IV Total 1325 ml 750 ml Tube Feeding 20 ml 330 ml Output Urine Total 800 ml 750 ml Estimated Blood Loss 0 ml Laboratory Tests 01/01/18 07:00: White Blood Count 11.4H, Red Blood Count 3.14L, Hemoglobin 9.0L, Hematocrit 28.4L, Mean Corpuscular Volume 91, Mean Corpuscular Hemoglobin 28.7, Mean Corpuscular Hemoglobin Concent 31.7L, Red Cell Distribution Width 13.7, Platelet Count 326, Mean Platelet Volume 7.3, Neutrophils (%) (Auto) , Lymphocytes (%) (Auto) , Monocytes (%) (Auto) , Eosinophils (%) (Auto) , Basophils (%) (Auto) , Differential Total Cells Counted 100, Neutrophils % ( Manual) 90H, Lymphocytes % (Manual) 7L, Monocytes % (Manual) 3, Eosinophils % ( Manual) 0, Basophils % (Manual) 0, Band Neutrophils 0, Platelet Estimate Adequate, Platelet Morphology Normal, Sodium Level 142, Potassium Level 4.0, Chloride Level 108H, Carbon Dioxide Level 30, Anion Gap 4L, Blood Urea Nitrogen 22H, Creatinine 0.9, Estimat Glomerular Filtration Rate > 60, Glucose Level 100 , Calcium Level 8.4L Height (Feet): 5 Height (Inches): 10.00 Weight (Pounds): 185 General Appearance: no apparent distress EENT: PERRL/EOMI Neck: normal alignment Cardiovascular: normal peripheral pulses Respiratory/Chest: no respiratory distress Abdomen: normal bowel sounds Shane Oropeza MD Jan 01, 2018 18:48
[2018-01-01 20:00] VITALS: BP 139/74
[2018-01-01] MEDS: Tamsulosin 0.4mg cap ORAL SCH (22:56)
[2018-01-01] MEDS: Albuterol/Ipratropium 3ml neb HHN SCH (23:44)
[2018-01-01] MEDS: Acetylcysteine 20% Soln 4ml HHN SCH (23:45)
[2018-01-02] VITALS: BP 149/64
[2018-01-02] MEDS: Albuterol/Ipratropium 3ml neb HHN SCH ×6 (03:28→22:58)
[2018-01-02] MEDS: Acetylcysteine 20% Soln 4ml HHN SCH ×6 (03:29→23:01)
[2018-01-02 04:00] VITALS: BP 117/56
[2018-01-02] MEDS: Piperacillin/Tazobactam 3.375 GM in D5W 110 ML IVPB SCH ×3 (06:26→21:15)
[2018-01-02 06:41] LABS: HEMATOCRIT 28.2 % (42.0-52.0); HEMOGLOBIN 9.1 G/DL (14.2-18.0); MEAN CORPUSCULAR VOLUME 91 FL (80-99); PLATELET COUNT 306 K/UL (150-450); RED BLOOD COUNT 3.11 M/UL (4.70-6.10); RED CELL DISTRIBUTION WIDTH 14.1 % (11.6-14.8); WHITE BLOOD COUNT 11.2 K/UL (4.8-10.8)
[2018-01-02 06:45] LABS: ANION GAP 5 mmol/L (5-15); BLOOD UREA NITROGEN 20 mg/dL (7-18); CALCIUM 8.3 MG/DL (8.5-10.1); CARBON DIOXIDE 29 MMOL/L (21-32); CHLORIDE 106 MMOL/L (98-107); POTASSIUM 3.1 MMOL/L (3.5-5.1); SODIUM 140 MMOL/L (136-145)
[2018-01-02 08:00] VITALS: BP 160/70
--- NOTE | 2018-01-02 08:09 | Consultation ---
Consult Note Assessment/Plan [facility] # [id number] L HT opacification, likely combination of PNA with mucous plugging, atx and pleural effusion -Optimize pulmonary hygiene/mobilize as tolerated -q4H DUOnebs -q4H MUCOMYST -q4H CPT -Frequent suctioning -O2 -Thoracentesis -CT CHEST -Zosyn D2 -Cautious TF's -Monitor volumes -DVT Px: SCD's -F/U path -FC, discuss GOC Daniel Stone MD Jan 02, 2018 08:09
--- NOTE | 2018-01-02 09:25 | General Surgery Progress Note ---
General Surgery-Progress Note Subjective Additional Comments no acute events. leukocytosis improving. doing well. urine clear. Objective Last 24 Hour Vital Signs Date Time Temp Pulse Resp B/P (MAP) Pulse Ox O2 Delivery O2 Flow Rate FiO2 01/02/18 08:25 74 18 98 Nasal Cannula 4.0 36 01/02/18 08:15 Nasal Cannula 4.0 36 01/02/18 08:15 96 Nasal Cannula 4.0 36 01/02/18 08:15 72 18 96 Nasal Cannula 4.0 36 01/02/18 08:00 98.2 77 20 160/70 (100) 94 98.2 01/02/18 04:00 97.8 72 20 117/56 (76) 94 97.8 01/02/18 03:43 70 18 97 Nasal Cannula 4.0 36 01/02/18 03:28 70 18 94 Nasal Cannula 4.0 36 01/02/18 00:00 97.5 58 20 149/64 (92) 97 97.5 01/01/18 23:59 72 18 99 Nasal Cannula 4.0 36 01/01/18 23:45 77 18 Nasal Cannula 4.0 36 01/01/18 23:44 Nasal Cannula 4.0 32 01/01/18 23:44 95 Nasal Cannula 4.0 36 01/01/18 23:44 77 18 95 Nasal Cannula 4.0 36 01/01/18 22:56 70 139/74 01/01/18 22:56 70 139/74 01/01/18 21:00 Nasal Cannula 5.0 Nasal Cannula 5.0 01/01/18 20:00 98.3 70 20 139/74 (95) 97 98.3 01/01/18 16:00 99.9 97 22 110/67 (81) 100 99.9 01/01/18 12:00 99.1 65 19 119/71 (87) 100 99.1 I&O Intake and Output 01/01/18 01/02/18 19:00 07:00 Intake Total 1040.0 ml 1105.0 ml Output Total 600 ml 1400 ml Balance 440.0 ml -295.0 ml Free Water 200 ml 200 ml IV Total 410.0 ml 185.0 ml Tube Feeding 430 ml 720 ml Output Urine Total 600 ml 1400 ml Wound: clean Drains: none Cardiovascular: RSR Respiratory: clear Abdomen: soft, flat, non-tender, present bowel sounds Extremities: no cyanosis Laboratory Tests Test 01/02/18 05:25 White Blood Count 11.2 K/UL (4.8-10.8) H Red Blood Count 3.11 M/UL (4.70-6.10) L Hemoglobin 9.1 G/DL (14.2-18.0) L Hematocrit 28.2 % (42.0-52.0) L Mean Corpuscular Volume 91 FL (80-99) Mean Corpuscular Hemoglobin 29.3 PG (27.0-31.0) Mean Corpuscular Hemoglobin Concent 32.3 G/DL (32.0-36.0) Red Cell Distribution Width 14.1 % (11.6-14.8) Platelet Count 306 K/UL (150-450) Mean Platelet Volume 6.9 FL (6.5-10.1) Neutrophils (%) (Auto) % (45.0-75.0) Lymphocytes (%) (Auto) % (20.0-45.0) Monocytes (%) (Auto) % (1.0-10.0) Eosinophils (%) (Auto) % (0.0-3.0) Basophils (%) (Auto) % (0.0-2.0) Neutrophils % (Manual) Pending Lymphocytes % (Manual) Pending Platelet Estimate Pending Platelet Morphology Pending Sodium Level 140 MMOL/L (136-145) Potassium Level 3.1 MMOL/L (3.5-5.1) L Chloride Level 106 MMOL/L (98-107) Carbon Dioxide Level 29 MMOL/L (21-32) Anion Gap 5 mmol/L (5-15) Blood Urea Nitrogen 20 mg/dL (7-18) H Creatinine 1.0 MG/DL (0.55-1.30) Estimat Glomerular Filtration Rate > 60 mL/min (>60) Glucose Level 102 MG/DL (74-106) Calcium Level 8.3 MG/DL (8.5-10.1) L Plan Problems: (1) Hematoma of bladder wall (2) Hematuria Assessment & Plan: CT findings: Hematoma within the urinary bladder. Nature of this is not known. Consider cystoscopy for further evaluation. Underlying mass or other bladder pathology not excluded. Rodriguez catheter in good position. labs improved overall improved large bladder tumor removed -path low grade tumor; favor non invasive as per urology thank you Marlon Doherty Jan 02, 2018 09:25
[2018-01-02] MEDS ORDERED: Lidocaine 1% Plain 30 ml INJ SCH (09:30)
[2018-01-02] MEDS: Docusate 100mg/10ml Liq NG SCH (09:32)
[2018-01-02] MEDS: Losartan 50mg tab ORAL SCH (09:33)
[2018-01-02] MEDS: Carvedilol 25mg Tab ORAL SCH ×2 (09:33→21:16)
--- NOTE | 2018-01-02 11:58 | Pre-Procedure Note/Attestation ---
Pre-Procedure Note/Attestation Complete Prior to Procedure Planned Procedure: left Procedure Narrative: thoracentesis Indications for Procedure Pre-Operative Diagnosis: L pleural effusion Attestation I attest that I discussed the nature of the procedure; its benefits; risks and complications; and alternatives (and the risks and benefits of such alternatives ), prior to the procedure, with the patient (or the patient's legal accounting representative). I attest that, if there was a reasonable possibility of needing a blood transfusion, the patient (or the patient's legal accounting representative) was given the [facility] standardized written summary, pursuant to the Jean-Pierre Nalini Blood Safety Act ([place] Health and Safety Code # 1645, as amended). I attest that I re-evaluated the patient just prior to the surgery and that there has been no change in the patient's H&P, except as documented below: Discussed with sister, [place], by phone Gustavo Leon MD Jan 02, 2018 11:57
--- NOTE | 2018-01-02 11:59 | Brief Operative Note ---
Immediate Post Operative Note Operative Note Pre-op Diagnosis: L pleural effusion Procedure: thoracentesis Post-op Diagnosis: same as pre-op Surgeon: Bhavik LEON Anesthesia: local Specimen: yes - clear yellow fluid Complications: none Condition: stable Fluids: none Implant(s) used?: No Gustavo Leon MD Jan 02, 2018 11:59
[2018-01-02 12:00] VITALS: BP 129/70
--- NOTE | 2018-01-02 12:30 | Consultation ---
DATE OF CONSULTATION: 01/02/2018 PULMONARY CONSULTATION CONSULTING PHYSICIAN: Daniel Stone M.D. REFERRING PHYSICIAN: 1. Thania Spence, nurse practitioner. 2. Kingston Washington M.D. REASON FOR CONSULTATION: Lung collapse. HISTORY OF PRESENT ILLNESS: The patient is a 67-year-old male with history of anemia, failure to thrive, prior nasopharyngeal carcinoma, homelessness, hypertension, chronic headache, lethargy, admitted with hematuria, noted to have a bladder tumor, now status post TURBT. Pathology pending. Over the course of the past few days, the patient has had increased leukocytosis and chest x-ray yesterday showed collapse of the left lung with a combination of likely mucus plug and pleural effusion. The patient is on 4 liters of oxygen. He has cough, which is mobilizing poorly. He himself denies shortness of breath, but he is a limited historian. He denies any fevers, chills, headaches, chest pain, nausea, vomiting, diarrhea, constipation, or other complaints. He is tolerating p.o. Actually his T-max is 99.9. His vitals are stable. He is on 4 liters of oxygen. His white count peaked at 14.2 on 12/31/2017, is 11.2 now and his pathology from his TURBT is still pending. He also pulled out his G-tube during this hospitalization and is now status post G-tube procedure. PAST MEDICAL HISTORY: 1. Nasopharyngeal carcinoma. 2. Homelessness. 3. Failure to thrive. 4. Hypertension. 5. Encephalopathy. 6. Bladder tumor, status post TURBT (pathology pending). 7. Dysphagia, status post PEG. 8. Anemia. 9. Coagulopathy. 10. Paraproteinemia. ALLERGIES: No known drug allergies. MEDICATIONS: Prior to admission, medications reviewed. Current medications reviewed. SOCIAL HISTORY: Unknown tobacco, alcohol, or drug use. FAMILY HISTORY: Noncontributory. REVIEW OF SYSTEMS: Negative other than the history of present illness. PHYSICAL EXAMINATION: VITAL SIGNS: Temperature 97.5, pulse 58, blood pressure 149/60, respiratory rate 20, and saturating 97% on 4 liters. GENERAL: He is a confused male, in no acute distress. Awake, alert, and oriented x2. HEENT: Normocephalic and atraumatic. Oropharynx is clear. NECK: Supple without lymphadenopathy or JVD. CHEST: Scattered rhonchi on the right. Decreased breath sounds on the left. HEART: Regular rate and rhythm. ABDOMEN: Soft, nontender, and nondistended. EXTREMITIES: No cyanosis, clubbing, or edema. ANCILLARY DATA: White count 11.2, hemoglobin 9.1, and platelet count 306. INR 1.1. Sodium 140, potassium , chloride 106, bicarbonate 29, BUN 20, creatinine 1, calcium 8.3, and glucose 102. IMAGING: Lung cuts on CT of the abdomen and pelvis from 12/24/2017 showed some small pleural effusions and some faint infiltrates. Chest x-ray from 12/27/2017 showed NG tube in the stomach. Small left-sided pleural effusion and collapse or atelectasis at the left base. Chest x-ray from 01/01/2018 reviewed by myself shows near-complete opacification of the left hemithorax likely a residual of fluid and collapse. There is some infiltrate at the right base as well. ASSESSMENT: The patient is a 67-year-old male with a history of prior nasopharyngeal carcinoma, hypertension, encephalopathy, admitted with hematuria, noted to have a bladder mass, now status post TURBT with pathology pending with progressive opacification of left hemithorax likely secondary to a combination of pneumonia with mucus plugging, atelectasis, and pleural effusion. PROBLEM LIST: 1. Left hemithorax opacifications likely a combination of pneumonia with mucus plugging, atelectasis, and pleural effusion. 2. Healthcare associated pneumonia. 3. Dysphagia, status post PEG. 4. Bladder tumor, status post TURBT with pathology pending. 5. Encephalopathy. 6. Failure to thrive and severe malnutrition. 7. Hypertension, hyperlipidemia. TREATMENT PLAN: 1. Optimize pulmonary hygiene/mobilize as tolerated. 2. Every 4 hours DuoNeb. 3. Every 4 hours Mucomyst nebulized treatments. 4. Every [address] 5. Frequent suctioning. 6. Thoracentesis evaluation. 7. CT scan of the chest. 8. Continue Zosyn (today is day #2). 9. Monitor volumes. 10. Cautious G-tube feeds. 11. DVT prophylaxis, SCDs. 12. Follow up pathology from TURBT. 13. The patient is a Full Code. 14. Continue to discuss goals of care. Daniel Stone M.D. DR: ELOISA JOB#: [id number] CC:
--- NOTE | 2018-01-02 12:40 | Urology Progress Note ---
Assessment/Plan Assessment/Plan 1. Gross hematuria hx, resolving. 2. Urinary retention. 3. BPH history. 4. Proteinuria. 5. Mild pyuria. 6. Rule out neurogenic bladder. 7. Bladder tumor, low grade urothelial ca. 8, POD # 6, TURBT. keep hinkle indwelling for now nursing staff to hand irrigate hinkle PRN cont with abx proscar, flomax monitor h/h, renal fxn Subjective Allergies: Coded Allergies: No Known Allergies (Unverified , 07/17/17) Subjective all noted, nursing staff reported some hinkle leakage, no flank pain Objective Last 24 Hour Vital Signs Date Time Temp Pulse Resp B/P (MAP) Pulse Ox O2 Delivery O2 Flow Rate FiO2 01/02/18 12:11 76 18 98 Nasal Cannula 4.0 36 01/02/18 12:01 74 18 96 Nasal Cannula 4.0 36 01/02/18 09:33 74 160/70 01/02/18 09:33 160/70 01/02/18 09:00 Nasal Cannula 5.0 Nasal Cannula 5.0 01/02/18 08:25 74 18 98 Nasal Cannula 4.0 36 01/02/18 08:15 Nasal Cannula 4.0 36 01/02/18 08:15 96 Nasal Cannula 4.0 36 01/02/18 08:15 72 18 96 Nasal Cannula 4.0 36 01/02/18 08:00 98.2 77 20 160/70 (100) 94 98.2 01/02/18 04:00 97.8 72 20 117/56 (76) 94 97.8 01/02/18 03:43 70 18 97 Nasal Cannula 4.0 36 01/02/18 03:28 70 18 94 Nasal Cannula 4.0 36 01/02/18 00:00 97.5 58 20 149/64 (92) 97 97.5 01/01/18 23:59 72 18 99 Nasal Cannula 4.0 36 01/01/18 23:45 77 18 Nasal Cannula 4.0 36 01/01/18 23:44 Nasal Cannula 4.0 32 01/01/18 23:44 95 Nasal Cannula 4.0 36 01/01/18 23:44 77 18 95 Nasal Cannula 4.0 36 01/01/18 22:56 70 139/74 01/01/18 22:56 70 139/74 01/01/18 21:00 Nasal Cannula 5.0 Nasal Cannula 5.0 01/01/18 20:00 98.3 70 20 139/74 (95) 97 98.3 01/01/18 16:00 99.9 97 22 110/67 (81) 100 99.9 Intake and Output 01/01/18 01/02/18 19:00 07:00 Intake Total 1040.0 ml 1105.0 ml Output Total 600 ml 1400 ml Balance 440.0 ml -295.0 ml Free Water 200 ml 200 ml IV Total 410.0 ml 185.0 ml Tube Feeding 430 ml 720 ml Output Urine Total 600 ml 1400 ml Microbiology Date/Time Source Procedure Growth Status 12/23/17 19:40 Nasal Nares MRSA Culture - Final Staphylococcus Aureus - Mrsa Complete 12/31/17 20:00 Indwelling Cath Urine Culture - Preliminary NO GROWTH Resulted 12/23/17 19:40 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 Complete Current Medications Medications (Trade) Dose Ordered Sig/Mehran Route PRN Reason Start Time Stop Time Status Last Admin Dose Admin Acetaminophen (Tylenol) 650 mg Q6H PRN ORAL Mild Pain/Temp > 100.5 12/23/17 21:14 01/22/18 21:13 Acetylcysteine (Mucomyst) 200 mg Q4HRT [facility] 01/01/18 23:00 01/31/18 22:59 01/02/18 12:03 Albuterol/ Ipratropium (Albuterol/ Ipratropium) 3 ml Q4HRT [facility] 01/01/18 23:00 01/06/18 22:59 01/02/18 12:02 Amlodipine Besylate (Norvasc) 10 mg QHS ORAL 12/23/17 21:00 01/22/18 20:59 01/01/18 22:56 Carvedilol (Coreg) 25 mg EVERY 12 HOURS ORAL 12/26/17 21:00 01/22/18 20:59 01/02/18 09:33 Docusate Sodium (Colace) 250 mg DAILY NG 01/01/18 09:00 01/31/18 08:59 01/02/18 09:32 Finasteride (Proscar) 5 mg DAILY ORAL 12/24/17 09:00 01/23/18 08:59 01/02/18 09:33 Gabapentin (Neurontin) 100 mg BEDTIME PRN ORAL Moderate Pain (Pain Scale 4-6) 12/23/17 21:45 01/22/18 21:44 Haloperidol Lactate (Haldol) 5 mg Q6H PRN IM Agitation 12/27/17 12:15 01/26/18 12:14 12/27/17 12:35 Hydralazine HCl (Apresoline) 50 mg Q8H PRN ORAL For High Blood Pressure 12/25/17 12:00 01/24/18 11:59 12/29/17 16:22 Hydrochlorothiazide (Hydrodiuril) 25 mg DAILY ORAL 12/27/17 09:00 01/26/18 08:59 01/02/18 09:33 Lidocaine HCl (Xylocaine 1% 30ml) 30 ml ONCE INJ 01/02/18 09:30 01/02/18 18:00 Lorazepam (Ativan 2mg/ml 1ml) 1 mg Q4H PRN IM For Anxiety 12/27/17 12:15 01/03/18 12:14 12/27/17 15:16 Losartan Potassium (Cozaar) 100 mg DAILY ORAL 12/26/17 09:00 01/23/18 08:59 01/02/18 09:33 Piperacillin Sod/ Tazobactam Sod 3.375 gm/Dextrose 110 ml @ 27.5 mls/hr EVERY 8 HOURS IVPB 01/01/18 14:00 01/06/18 13:59 01/02/18 06:26 Quetiapine Fumarate (SEROquel) 12.5 mg EVERY 4 HOURS PRN ORAL Agitation 12/24/17 23:30 01/23/18 23:29 Quetiapine Fumarate (SEROquel) 25 mg TID ORAL 12/27/17 13:15 01/26/18 13:14 01/02/18 09:33 Sodium Chloride 1,000 ml @ 75 mls/hr [id number] IV 12/23/17 22:00 01/22/18 21:59 01/01/18 22:58 Tamsulosin HCl (Flomax) 0.4 mg BEDTIME ORAL 12/24/17 21:00 01/23/18 20:59 01/01/18 22:56 Laboratory Tests 01/02/18 05:25: White Blood Count 11.2H, Red Blood Count 3.11L, Hemoglobin 9.1L, Hematocrit 28.2L, Mean Corpuscular Volume 91, Mean Corpuscular Hemoglobin 29.3, Mean Corpuscular Hemoglobin Concent 32.3, Red Cell Distribution Width 14.1, Platelet Count 306, Mean Platelet Volume 6.9, Neutrophils (%) (Auto) , Lymphocytes (%) ( Auto) , Monocytes (%) (Auto) , Eosinophils (%) (Auto) , Basophils (%) (Auto) , Differential Total Cells Counted 100, Neutrophils % (Manual) 84H, Lymphocytes % (Manual) 4L, Monocytes % (Manual) 5, Eosinophils % (Manual) 0, Basophils % ( Manual) 0, Band Neutrophils 7, Platelet Estimate Adequate, Platelet Morphology Normal, Hypochromasia 1+, Sodium Level 140, Potassium Level 3.1L, Chloride Level 106, Carbon Dioxide Level 29, Anion Gap 5, Blood Urea Nitrogen 20H, Creatinine 1.0, Estimat Glomerular Filtration Rate > 60, Glucose Level 102, Calcium Level 8.3L 01/02/18 11:32: Body Fluid Source [Pending], Body Fluid Volume [Pending], Body Fluid Appearance [Pending], Body Fluid RBC [Pending], Body Fluid Total Nucleated Cells [Pending] , Body Fluid Polynuclear WBCs (%) [Pending], Body Fluid Mononuclear WBCs (%) [ Pending], Body Fluid Mesothelial Cells (%) [Pending], Body Fluid Glucose [ Pending], Body Fluid Total Protein [Pending], Body Fluid Lactate Dehydrogenase [ Pending] Height (Feet): 5 Height (Inches): 10.00 Weight (Pounds): 185 Objective exam stable, hinkle indwelling, urine clearing CT noted path noted, low grade urothelial ca (d/w pathologist) LIVIER ALVAREZ Jan 02, 2018 12:40
--- NOTE | 2018-01-02 12:54 | Diagnostic Imaging Report ---
Indication: Status post thoracentesis Technique: One view of the chest Comparison: 01/01/2018 Findings: Interim marked decrease in previously demonstrated left-sided pleural effusion, postthoracentesis, with markedly improved aeration of the left lung. There is also seen within the distal left mainstem bronchus which was not evident previously. No gross pneumothorax is evident. There is slightly increased hazy opacity of the right lung base, probably reflecting large pleural effusion described on recent CT scan. The upper lung mattson are clear. The heart is mildly enlarged Impression: Decreased left pleural effusion, postthoracentesis. No radiographic evidence, patient Improved aeration of the left lung Slightly increased right pleural effusion
--- NOTE | 2018-01-02 12:56 | General Progress Note ---
Assessment/Plan Status: stable Assessment/Plan #. Anemia due to hematuria. PSA level of 2.[address] Irrigation as needed. Urology Service evaluation. --> Continue to closely monitor --> Anemia w/u has been reviewed, will trend daily. --> Hgb goal >8 --> appreciate urology recommendations --> imaging has been reviewed --> 12/27: S/P cystoscopy and bladder biopsy. #. Bladder tumor s/p TURBT --> final pathology report is pending #. Coagulopathy, likely due to decreased p.o. intake. --> INR of 1.2 --> hepatitis panel is pending #. Paraproteinemia. --> spep and upep are prelim negative for monoclonal band #. Nasopharyngeal carcinoma, currently in remission. #. Failure to thrive history, likely secondary to decreased p.o. intake. #. Hypertension. Systolic blood pressure goal is less than 140. The time the note was entered does not necessarily correspond to the time the patient was seen. Subjective Date patient seen: Jan 02, 2018 ROS Limited/Unobtainable: Yes Hematologic/Lymphatic: Reports: anemia Allergies: Coded Allergies: No Known Allergies (Unverified , 07/17/17) All Systems: reviewed and negative except above Subjective Pt awake and alert. No acute events. H/H stable. Objective Last 24 Hour Vital Signs Date Time Temp Pulse Resp B/P (MAP) Pulse Ox O2 Delivery O2 Flow Rate FiO2 01/02/18 12:11 76 18 98 Nasal Cannula 4.0 36 01/02/18 12:01 74 18 96 Nasal Cannula 4.0 36 01/02/18 09:33 74 160/70 01/02/18 09:33 160/70 01/02/18 09:00 Nasal Cannula 5.0 Nasal Cannula 5.0 01/02/18 08:25 74 18 98 Nasal Cannula 4.0 36 01/02/18 08:15 Nasal Cannula 4.0 36 01/02/18 08:15 96 Nasal Cannula 4.0 36 01/02/18 08:15 72 18 96 Nasal Cannula 4.0 36 01/02/18 08:00 98.2 77 20 160/70 (100) 94 98.2 01/02/18 04:00 97.8 72 20 117/56 (76) 94 97.8 01/02/18 03:43 70 18 97 Nasal Cannula 4.0 36 01/02/18 03:28 70 18 94 Nasal Cannula 4.0 36 01/02/18 00:00 97.5 58 20 149/64 (92) 97 97.5 01/01/18 23:59 72 18 99 Nasal Cannula 4.0 36 01/01/18 23:45 77 18 Nasal Cannula 4.0 36 01/01/18 23:44 Nasal Cannula 4.0 32 01/01/18 23:44 95 Nasal Cannula 4.0 36 01/01/18 23:44 77 18 95 Nasal Cannula 4.0 36 01/01/18 22:56 70 139/74 01/01/18 22:56 70 139/74 01/01/18 21:00 Nasal Cannula 5.0 Nasal Cannula 5.0 01/01/18 20:00 98.3 70 20 139/74 (95) 97 98.3 01/01/18 16:00 99.9 97 22 110/67 (81) 100 99.9 Intake and Output 01/01/18 01/02/18 19:00 07:00 Intake Total 1040.0 ml 1105.0 ml Output Total 600 ml 1400 ml Balance 440.0 ml -295.0 ml Free Water 200 ml 200 ml IV Total 410.0 ml 185.0 ml Tube Feeding 430 ml 720 ml Output Urine Total 600 ml 1400 ml Laboratory Tests 01/02/18 05:25: White Blood Count 11.2H, Red Blood Count 3.11L, Hemoglobin 9.1L, Hematocrit 28.2L, Mean Corpuscular Volume 91, Mean Corpuscular Hemoglobin 29.3, Mean Corpuscular Hemoglobin Concent 32.3, Red Cell Distribution Width 14.1, Platelet Count 306, Mean Platelet Volume 6.9, Neutrophils (%) (Auto) , Lymphocytes (%) ( Auto) , Monocytes (%) (Auto) , Eosinophils (%) (Auto) , Basophils (%) (Auto) , Differential Total Cells Counted 100, Neutrophils % (Manual) 84H, Lymphocytes % (Manual) 4L, Monocytes % (Manual) 5, Eosinophils % (Manual) 0, Basophils % ( Manual) 0, Band Neutrophils 7, Platelet Estimate Adequate, Platelet Morphology Normal, Hypochromasia 1+, Sodium Level 140, Potassium Level 3.1L, Chloride Level 106, Carbon Dioxide Level 29, Anion Gap 5, Blood Urea Nitrogen 20H, Creatinine 1.0, Estimat Glomerular Filtration Rate > 60, Glucose Level 102, Calcium Level 8.3L 01/02/18 11:32: Body Fluid Source [Pending], Body Fluid Volume [Pending], Body Fluid Appearance [Pending], Body Fluid RBC [Pending], Body Fluid Total Nucleated Cells [Pending] , Body Fluid Polynuclear WBCs (%) [Pending], Body Fluid Mononuclear WBCs (%) [ Pending], Body Fluid Mesothelial Cells (%) [Pending], Body Fluid Glucose [ Pending], Body Fluid Total Protein [Pending], Body Fluid Lactate Dehydrogenase [ Pending] Height (Feet): 5 Height (Inches): 10.00 Weight (Pounds): 185 General Appearance: no apparent distress, alert EENT: PERRL/EOMI Neck: normal alignment Cardiovascular: normal peripheral pulses Respiratory/Chest: no respiratory distress Abdomen: soft Shane Oropeza MD Jan 02, 2018 12:56
--- NOTE | 2018-01-02 13:57 | General Progress Note ---
Assessment/Plan Assessment/Plan dementia with bd encephalopathy -seroquel standing -Seroquel prn -the pt lacks capacity to make decisions -the pt unable to give consent for surgery Subjective Date patient seen: Jan 02, 2018 Neurologic/Psychiatric: Reports: anxiety, depressed, emotional problems Allergies: Coded Allergies: No Known Allergies (Unverified , 07/17/17) Subjective the pt is confuse the same episodes of agitation Objective Last 24 Hour Vital Signs Date Time Temp Pulse Resp B/P (MAP) Pulse Ox O2 Delivery O2 Flow Rate FiO2 01/02/18 12:11 76 18 98 Nasal Cannula 4.0 36 01/02/18 12:01 74 18 96 Nasal Cannula 4.0 36 01/02/18 12:00 98.0 66 20 129/70 (89) 94 98.0 01/02/18 09:33 74 160/70 01/02/18 09:33 160/70 01/02/18 09:00 Nasal Cannula 5.0 Nasal Cannula 5.0 01/02/18 08:25 74 18 98 Nasal Cannula 4.0 36 01/02/18 08:15 Nasal Cannula 4.0 36 01/02/18 08:15 96 Nasal Cannula 4.0 36 01/02/18 08:15 72 18 96 Nasal Cannula 4.0 36 01/02/18 08:00 98.2 77 20 160/70 (100) 94 98.2 01/02/18 04:00 97.8 72 20 117/56 (76) 94 97.8 01/02/18 03:43 70 18 97 Nasal Cannula 4.0 36 01/02/18 03:28 70 18 94 Nasal Cannula 4.0 36 01/02/18 00:00 97.5 58 20 149/64 (92) 97 97.5 01/01/18 23:59 72 18 99 Nasal Cannula 4.0 36 01/01/18 23:45 77 18 Nasal Cannula 4.0 36 01/01/18 23:44 Nasal Cannula 4.0 32 01/01/18 23:44 95 Nasal Cannula 4.0 36 01/01/18 23:44 77 18 95 Nasal Cannula 4.0 36 01/01/18 22:56 70 139/74 01/01/18 22:56 70 139/74 01/01/18 21:00 Nasal Cannula 5.0 Nasal Cannula 5.0 01/01/18 20:00 98.3 70 20 139/74 (95) 97 98.3 01/01/18 16:00 99.9 97 22 110/67 (81) 100 99.9 Intake and Output 01/01/18 01/02/18 19:00 07:00 Intake Total 1040.0 ml 1105.0 ml Output Total 600 ml 1400 ml Balance 440.0 ml -295.0 ml Free Water 200 ml 200 ml IV Total 410.0 ml 185.0 ml Tube Feeding 430 ml 720 ml Output Urine Total 600 ml 1400 ml Laboratory Tests 01/02/18 05:25: White Blood Count 11.2H, Red Blood Count 3.11L, Hemoglobin 9.1L, Hematocrit 28.2L, Mean Corpuscular Volume 91, Mean Corpuscular Hemoglobin 29.3, Mean Corpuscular Hemoglobin Concent 32.3, Red Cell Distribution Width 14.1, Platelet Count 306, Mean Platelet Volume 6.9, Neutrophils (%) (Auto) , Lymphocytes (%) ( Auto) , Monocytes (%) (Auto) , Eosinophils (%) (Auto) , Basophils (%) (Auto) , Differential Total Cells Counted 100, Neutrophils % (Manual) 84H, Lymphocytes % (Manual) 4L, Monocytes % (Manual) 5, Eosinophils % (Manual) 0, Basophils % ( Manual) 0, Band Neutrophils 7, Platelet Estimate Adequate, Platelet Morphology Normal, Hypochromasia 1+, Sodium Level 140, Potassium Level 3.1L, Chloride Level 106, Carbon Dioxide Level 29, Anion Gap 5, Blood Urea Nitrogen 20H, Creatinine 1.0, Estimat Glomerular Filtration Rate > 60, Glucose Level 102, Calcium Level 8.3L 01/02/18 11:32: Body Fluid Source [Pending], Body Fluid Volume [Pending], Body Fluid Appearance [Pending], Body Fluid RBC [Pending], Body Fluid Total Nucleated Cells [Pending] , Body Fluid Polynuclear WBCs (%) [Pending], Body Fluid Mononuclear WBCs (%) [ Pending], Body Fluid Mesothelial Cells (%) [Pending], Body Fluid Glucose [ Pending], Body Fluid Total Protein [Pending], Body Fluid Lactate Dehydrogenase [ Pending] Height (Feet): 5 Height (Inches): 10.00 Weight (Pounds): 185 Edd Horne MD Jan 02, 2018 13:57
--- NOTE | 2018-01-02 14:28 | General Progress Note ---
Assessment/Plan Problem List: (1) Resides in [facility] facility ICD Codes: Z78.9 - Other specified health status SNOMED: 839639859 (2) Hypertensive urgency ICD Codes: I16.0 - Hypertensive urgency SNOMED: 441751382 (3) Psychosis ICD Codes: F29 - Unspecified psychosis not due to a substance or known physiological condition SNOMED: 54509899 (4) Hematuria ICD Codes: R31.9 - Hematuria, unspecified SNOMED: 60757604 Qualifiers: Qualified Codes: R31.9 - Hematuria, unspecified (5) Hematoma of bladder wall ICD Codes: S37.22XA - Contusion of bladder, initial encounter SNOMED: 993652478 (6) 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, unspecified SNOMED: 70997788, 061065001 (7) Dysphagia ICD Codes: R13.10 - Dysphagia, unspecified SNOMED: 46364174, 049261892 (8) Bladder tumor ICD Codes: D49.4 - Neoplasm of unspecified behavior of bladder SNOMED: 270564488 (9) Sepsis ICD Codes: A41.9 - Sepsis, unspecified organism SNOMED: 35395480 (10) PNA (pneumonia) Assessment & Plan: with endobronchial occlusion and atelectasis ICD Codes: J18.9 - Pneumonia, unspecified organism SNOMED: 799334596 (11) Encounter for PEG (percutaneous endoscopic gastrostomy) ICD Codes: Z43.1 - Encounter for attention to gastrostomy SNOMED: 953928812, 276176620 (12) Severe malnutrition ICD Codes: E43 - Unspecified severe protein-calorie malnutrition SNOMED: 32644465 (13) Pleural effusion Assessment & Plan: s/p left thoracentesis with 600cc out ICD Codes: J90 - Pleural effusion, not elsewhere classified SNOMED: 69294820 Status: stable, progressing Assessment/Plan - Urology consulted, appreciate rec's - Cardiology consulted, appreciate rec's - Oncology consulted, appreciate rec's - Psychiatry consulted, appreciate rec's - GI consulted, appreciate rec's - Pulmonology consulted, appreciate rec's - s/p left thoracentesis with 600cc out. F/u repeat CXR - CXR showing infiltrate with increased atelectasis and endobronchial occlusion - Empiric abx with IV vancomycin and zosyn (D2) - F/u blood cx, urine cx, serial CXR - O2 prn to maintain O2sat > 92% - s/p Gtube, tolerating feeds. Monitor for residuals - s/p cystoscopy and TURBT with extensive fulgration. large bladder tumor removed on 12/27 - keep hinkle in 3-5 days - f/u pathology - Continue to monitor for clots - Started on flomax, proscar - Check PSA -- 2.55 - F/u CT urogram -- showing bladder hematoma vs. mass - Continue home BP meds -- increased per cards - Venous duplex negative - Hydralazine prn - Pain control and supportive care DVT Prophylaxis: SCD. NO HSQ GIVEN HEMATOMA/HEMATURIA Code Status: Full Hospital Classification Declaration: Based on this initial evaluation, and depending on the patient's clinical course, I anticipate that this patient will require hospitalization for 2-3 days for gross hematuria and close respiratory/ hemodynamic monitoring. Disposition: Once the patient is stable to leave the hospital, I anticipate the patient will likely be discharged to the following environment: [facility] I spent 31 minutes on this patient's case, and 19 minutes were dedicated to counseling and/or care coordination. Discussed with patient/family, nursing staff, SW/CM, and all consultants involved regarding clinical status, treatment course, and disposition planning. Time of note may not reflect time of encounter. Subjective Date patient seen: Jan 02, 2018 Allergies: Coded Allergies: No Known Allergies (Unverified , 07/17/17) Subjective - s/p left thoracentesis with 600cc out - AF, HDS - tolerating tube feeds Objective Last 24 Hour Vital Signs Date Time Temp Pulse Resp B/P (MAP) Pulse Ox O2 Delivery O2 Flow Rate FiO2 01/02/18 12:11 76 18 98 Nasal Cannula 4.0 36 01/02/18 12:01 74 18 96 Nasal Cannula 4.0 36 01/02/18 12:00 98.0 66 20 129/70 (89) 94 98.0 01/02/18 09:33 74 160/70 01/02/18 09:33 160/70 01/02/18 09:00 Nasal Cannula 5.0 Nasal Cannula 5.0 01/02/18 08:25 74 18 98 Nasal Cannula 4.0 36 01/02/18 08:15 Nasal Cannula 4.0 36 01/02/18 08:15 96 Nasal Cannula 4.0 36 01/02/18 08:15 72 18 96 Nasal Cannula 4.0 36 01/02/18 08:00 98.2 77 20 160/70 (100) 94 98.2 01/02/18 04:00 97.8 72 20 117/56 (76) 94 97.8 01/02/18 03:43 70 18 97 Nasal Cannula 4.0 36 01/02/18 03:28 70 18 94 Nasal Cannula 4.0 36 01/02/18 00:00 97.5 58 20 149/64 (92) 97 97.5 01/01/18 23:59 72 18 99 Nasal Cannula 4.0 36 01/01/18 23:45 77 18 Nasal Cannula 4.0 36 01/01/18 23:44 Nasal Cannula 4.0 32 01/01/18 23:44 95 Nasal Cannula 4.0 36 01/01/18 23:44 77 18 95 Nasal Cannula 4.0 36 01/01/18 22:56 70 139/74 01/01/18 22:56 70 139/74 01/01/18 21:00 Nasal Cannula 5.0 Nasal Cannula 5.0 01/01/18 20:00 98.3 70 20 139/74 (95) 97 98.3 01/01/18 16:00 99.9 97 22 110/67 (81) 100 99.9 Intake and Output 01/01/18 01/02/18 19:00 07:00 Intake Total 1040.0 ml 1105.0 ml Output Total 600 ml 1400 ml Balance 440.0 ml -295.0 ml Free Water 200 ml 200 ml IV Total 410.0 ml 185.0 ml Tube Feeding 430 ml 720 ml Output Urine Total 600 ml 1400 ml Laboratory Tests 01/02/18 05:25: White Blood Count 11.2H, Red Blood Count 3.11L, Hemoglobin 9.1L, Hematocrit 28.2L, Mean Corpuscular Volume 91, Mean Corpuscular Hemoglobin 29.3, Mean Corpuscular Hemoglobin Concent 32.3, Red Cell Distribution Width 14.1, Platelet Count 306, Mean Platelet Volume 6.9, Neutrophils (%) (Auto) , Lymphocytes (%) ( Auto) , Monocytes (%) (Auto) , Eosinophils (%) (Auto) , Basophils (%) (Auto) , Differential Total Cells Counted 100, Neutrophils % (Manual) 84H, Lymphocytes % (Manual) 4L, Monocytes % (Manual) 5, Eosinophils % (Manual) 0, Basophils % ( Manual) 0, Band Neutrophils 7, Platelet Estimate Adequate, Platelet Morphology Normal, Hypochromasia 1+, Sodium Level 140, Potassium Level 3.1L, Chloride Level 106, Carbon Dioxide Level 29, Anion Gap 5, Blood Urea Nitrogen 20H, Creatinine 1.0, Estimat Glomerular Filtration Rate > 60, Glucose Level 102, Calcium Level 8.3L 01/02/18 11:32: Body Fluid Source Pleural, Body Fluid Volume 30, Body Fluid Appearance Yellow/ sl. turbid, Body Fluid RBC 298, Body Fluid Total Nucleated Cells 505, Body Fluid Polynuclear WBCs (%) 58, Body Fluid Mononuclear WBCs (%) 34, Body Fluid Mesothelial Cells (%) 8, Body Fluid Glucose [Pending], Body Fluid Total Protein [Pending], Body Fluid Lactate Dehydrogenase [Pending] Height (Feet): 5 Height (Inches): 10.00 Weight (Pounds): 185 General Appearance: no apparent distress, alert EENT: PERRL/EOMI, normal ENT inspection Neck: non-tender, normal alignment, supple Cardiovascular: normal peripheral pulses, normal rate, regular rhythm Respiratory/Chest: chest wall non-tender, lungs clear, normal breath sounds Abdomen: normal bowel sounds, non tender, soft, other - +PEG Extremities: normal range of motion, non-tender 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
--- NOTE | 2018-01-02 14:30 | GI Progress Note ---
Assessment/Plan Problems: (1) Encounter for PEG (percutaneous endoscopic gastrostomy) ICD Codes: Z43.1 - Encounter for attention to gastrostomy SNOMED: 585982856, 788445149 (2) Severe malnutrition ICD Codes: E43 - Unspecified severe protein-calorie malnutrition SNOMED: 12678482 (3) Dehydration ICD Codes: E86.0 - Dehydration SNOMED: 66277698 (4) Bladder tumor ICD Codes: D49.4 - Neoplasm of unspecified behavior of bladder SNOMED: 694998974 (5) Dysphagia ICD Codes: R13.10 - Dysphagia, unspecified SNOMED: 86609139, [id number] Status: stable Status Narrative Discussed with Dr. Montes. Assessment/Plan SUMMARY OF FINDINGS: 1. Status post successful PEG placement. 2. Gastritis, status post biopsy. RECOMMENDATIONS: okay for DC per GI standpoint Abdominal binder. Elevate the head of bed at all times. G-tube flush. G-tube care. Start tube feeding later today per RD fu labs The patient was seen and examined at bedside and all new and available data was reviewed in the patients chart. I agree with the above findings, impression and plan. (Patient seen earlier today. Signature stamp does not reflect patient encounter time.). - Tylor Montes MD Subjective Subjective limited Objective Last 24 Hour Vital Signs Date Time Temp Pulse Resp B/P (MAP) Pulse Ox O2 Delivery O2 Flow Rate FiO2 01/02/18 12:11 76 18 98 Nasal Cannula 4.0 36 01/02/18 12:01 74 18 96 Nasal Cannula 4.0 36 01/02/18 12:00 98.0 66 20 129/70 (89) 94 98.0 01/02/18 09:33 74 160/70 01/02/18 09:33 160/70 01/02/18 09:00 Nasal Cannula 5.0 Nasal Cannula 5.0 01/02/18 08:25 74 18 98 Nasal Cannula 4.0 36 01/02/18 08:15 Nasal Cannula 4.0 36 01/02/18 08:15 96 Nasal Cannula 4.0 36 01/02/18 08:15 72 18 96 Nasal Cannula 4.0 36 01/02/18 08:00 98.2 77 20 160/70 (100) 94 98.2 01/02/18 04:00 97.8 72 20 117/56 (76) 94 97.8 01/02/18 03:43 70 18 97 Nasal Cannula 4.0 36 01/02/18 03:28 70 18 94 Nasal Cannula 4.0 36 01/02/18 00:00 97.5 58 20 149/64 (92) 97 97.5 01/01/18 23:59 72 18 99 Nasal Cannula 4.0 36 01/01/18 23:45 77 18 Nasal Cannula 4.0 36 01/01/18 23:44 Nasal Cannula 4.0 32 01/01/18 23:44 95 Nasal Cannula 4.0 36 01/01/18 23:44 77 18 95 Nasal Cannula 4.0 36 01/01/18 22:56 70 139/74 01/01/18 22:56 70 139/74 01/01/18 21:00 Nasal Cannula 5.0 Nasal Cannula 5.0 01/01/18 20:00 98.3 70 20 139/74 (95) 97 98.3 01/01/18 16:00 99.9 97 22 110/67 (81) 100 99.9 Intake and Output 01/01/18 01/02/18 19:00 07:00 Intake Total 1040.0 ml 1105.0 ml Output Total 600 ml 1400 ml Balance 440.0 ml -295.0 ml Free Water 200 ml 200 ml IV Total 410.0 ml 185.0 ml Tube Feeding 430 ml 720 ml Output Urine Total 600 ml 1400 ml Laboratory Tests Test 01/02/18 05:25 01/02/18 11:32 White Blood Count 11.2 K/UL (4.8-10.8) H Red Blood Count 3.11 M/UL (4.70-6.10) L Hemoglobin 9.1 G/DL (14.2-18.0) L Hematocrit 28.2 % (42.0-52.0) L Mean Corpuscular Volume 91 FL (80-99) Mean Corpuscular Hemoglobin 29.3 PG (27.0-31.0) Mean Corpuscular Hemoglobin Concent 32.3 G/DL (32.0-36.0) Red Cell Distribution Width 14.1 % (11.6-14.8) Platelet Count 306 K/UL (150-450) Mean Platelet Volume 6.9 FL (6.5-10.1) Neutrophils (%) (Auto) % (45.0-75.0) Lymphocytes (%) (Auto) % (20.0-45.0) Monocytes (%) (Auto) % (1.0-10.0) Eosinophils (%) (Auto) % (0.0-3.0) Basophils (%) (Auto) % (0.0-2.0) Differential Total Cells Counted 100 Neutrophils % (Manual) 84 % (45-75) H Lymphocytes % (Manual) 4 % (20-45) L Monocytes % (Manual) 5 % (1-10) Eosinophils % (Manual) 0 % (0-3) Basophils % (Manual) 0 % (0-2) Band Neutrophils 7 % (0-8) Platelet Estimate Adequate Platelet Morphology Normal Hypochromasia 1+ Sodium Level 140 MMOL/L (136-145) Potassium Level 3.1 MMOL/L (3.5-5.1) L Chloride Level 106 MMOL/L (98-107) Carbon Dioxide Level 29 MMOL/L (21-32) Anion Gap 5 mmol/L (5-15) Blood Urea Nitrogen 20 mg/dL (7-18) H Creatinine 1.0 MG/DL (0.55-1.30) Estimat Glomerular Filtration Rate > 60 mL/min (>60) Glucose Level 102 MG/DL (74-106) Calcium Level 8.3 MG/DL (8.5-10.1) L Body Fluid Source Pleural Body Fluid Volume 30 mL Body Fluid Appearance Yellow/ sl. turbid Body Fluid RBC 298 /CUMM Body Fluid Total Nucleated Cells 505 /CUMM Body Fluid Polynuclear WBCs (%) 58 % Body Fluid Mononuclear WBCs (%) 34 % Body Fluid Mesothelial Cells (%) 8 % Body Fluid Glucose Pending Body Fluid Total Protein Pending Body Fluid Lactate Dehydrogenase Pending Height (Feet): 5 Height (Inches): 10.00 Weight (Pounds): 185 General Appearance: WD/WN, no apparent distress, alert Cardiovascular: normal rate Respiratory/Chest: normal breath sounds, no respiratory distress Abdominal Exam: normal bowel sounds, non tender, soft, GT site - c/d/i Extremities: normal range of motion, non-tender Lisha Roland OUTREACH NURSE Jan 02, 2018 14:30
--- NOTE | 2018-01-02 14:46 | Diagnostic Imaging Report ---
Indications: Pleural effusion Technique: Ultrasound used to localize optimal puncture site. Sterile prepping and draping left chest. Local anesthesia with 1% lidocaine. Under real-time ultrasound guidance, puncture pleural space using thoracentesis needle. Stylet removed. Catheter placed to vacuum bottle suction. Total 600 milliliters of fluid aspirated. Patient tolerated procedure well, without immediate complication. Findings: Followup sonography demonstrates near-complete resolution of pleural fluid. Impression: Successful ultrasound-guided thoracentesis, yielding 600 milliliters of fluid
[2018-01-02] MEDS: Vancomycin 1250mg/D5W 250ml IVPB SCH (15:54)
[2018-01-02 16:00] VITALS: BP 139/64
--- NOTE | 2018-01-02 17:15 | Diagnostic Imaging Report ---
Clinical Indication: Shortness of breath, abnormal recent chest radiograph Technique: Spiral acquisitions obtained through the chest. No IV contrast utilized, . Multiplanar reconstructions generated. Total dose length product 379.97 mGycm. CTDIvol(s) 10.52 mGy. Dose reduction achieved using automated exposure control Comparison: 01/01/2018 chest radiograph Findings: There is complete occlusion of the left mainstem bronchus as well as the proximal upper and lower lobe bronchi by what is presumably debris. There is complete atelectasis of the left lower lobe, and atelectasis of much and perhaps most of the left upper lobe. There is a moderate to large left pleural effusion. There is also moderate to large right pleural effusion, which results in compressive atelectasis of a significant portion of the posterior right lower lobe. The right upper lobe is clear. Reticular interstitial opacities are seen in the right middle lobe. There is diffuse anasarca, with a diffuse edema of the subcutaneous and mediastinal fat. There is also a pericardial effusion which measures approximately 13 mm thick. The heart is enlarged. The esophagus is unremarkable. No definite mediastinal or hilar mass or adenopathy, although the mediastinal soft tissue structures are not well demonstrated due to the edema of the fat. There are a few prominent prevascular space lymph nodes which are not definitely frankly enlarged. No definite axillary or chest wall mass or adenopathy. The bones are unremarkable. The included upper abdominal anatomy is grossly unremarkable. Some contrast from a prior swallowing study is seen in the colon Impression: Evidence of endobronchial obstruction of the left mainstem and proximal lobar bronchi by debris. Resultant complete atelectasis of the left lower lobe, and atelectasis of most of the left upper lobe this finding was not reported on the [facility] preliminary report Moderate to large bilateral pleural effusions Anasarca, with common in addition to the pleural effusions, diffuse edema of the mediastinal and subcutaneous fat, pericardial effusion Nonspecific reticular interstitial opacities in the right middle lobe, acuity indeterminate Compressive atelectasis of portions of the right lower lobe Cardiomegaly Other findings are in agreement with the [facility] preliminary report The CT scanner at [facility] is accredited by the [employer] and the scans are performed using protocols designed to limit radiation exposure to as low as reasonably achievable to attain images of sufficient resolution adequate for diagnostic evaluation.
[2018-01-02 20:00] VITALS: BP 135/64
[2018-01-02] MEDS: Tamsulosin 0.4mg cap ORAL SCH (21:16)
[2018-01-03] VITALS: BP 124/73
[2018-01-03] MEDS: Albuterol/Ipratropium 3ml neb HHN SCH ×6 (03:28→23:29)
[2018-01-03] MEDS: Acetylcysteine 20% Soln 4ml HHN SCH ×6 (03:28→23:30)
[2018-01-03] MEDS: Vancomycin 1250mg/D5W 250ml IVPB SCH ×2 (03:36→17:58)
[2018-01-03 04:00] VITALS: BP 135/83
[2018-01-03] MEDS: Piperacillin/Tazobactam 3.375 GM in D5W 110 ML IVPB SCH ×3 (05:35→21:18)
[2018-01-03 06:42] LABS: HEMOGLOBIN 8.6 G/DL (14.2-18.0); MEAN CORPUSCULAR VOLUME 91 FL (80-99); PLATELET COUNT 304 K/UL (150-450); RED BLOOD COUNT 2.98 M/UL (4.70-6.10); RED CELL DISTRIBUTION WIDTH 14.4 % (11.6-14.8); WHITE BLOOD COUNT 8.8 K/UL (4.8-10.8)
[2018-01-03 06:51] LABS: ANION GAP 5 mmol/L (5-15); BLOOD UREA NITROGEN 19 mg/dL (7-18); CALCIUM 8.4 MG/DL (8.5-10.1); CARBON DIOXIDE 30 MMOL/L (21-32); CHLORIDE 105 MMOL/L (98-107); POTASSIUM 3.6 MMOL/L (3.5-5.1); SODIUM 140 MMOL/L (136-145)
[2018-01-03 08:00] VITALS: BP 141/64
--- NOTE | 2018-01-03 08:06 | Pulmonology Progress Note ---
Assessment/Plan Problems: (1) PEG (percutaneous endoscopic gastrostomy) status (2) Pleural effusion (3) Collapse, lung (4) PNA (pneumonia) (5) Bladder tumor (6) Severe malnutrition Assessment/Plan ASSESSMENT: The patient is a 67-year-old male with a history of prior nasopharyngeal carcinoma, hypertension, encephalopathy, admitted with hematuria, noted to have a bladder mass, now status post TURBT with pathology pending with progressive opacification of left hemithorax likely secondary to a combination of pneumonia with mucus plugging, atelectasis, and pleural effusion. 01/02/18 - 600 cc L THORACENTESIS ---> MARKED IMPROVEMENT IN AERATION OF L LUNG PROBLEM LIST: 1. Left hemithorax opacifications likely a combination of pneumonia with mucus plugging, atelectasis, and pleural effusion - IMPROVED 2. Healthcare associated pneumonia. 3. Dysphagia, status post PEG. 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 Encephalopathy. 6. Failure to thrive and severe malnutrition. 7. Hypertension, hyperlipidemia. TREATMENT PLAN: 1. Optimize pulmonary hygiene/mobilize as tolerated. 2. Every 4 hours DuoNeb. 3. Every 4 hours Mucomyst nebulized treatments. 4. Every [address] 5. Frequent suctioning. 6. F/U pleural fluid studies 7. Can hold off on BRONCHOSCOPY as lung re-expanded 8. Continue Zosyn (today is day #2). 9. Will need a repeat CT chest in 4-6 weeks as an outpatient to further evaluate parenchymal changes and ensure no pulmonary mets once acute issues resolved 10. Cautious G-tube feeds. 11. DVT prophylaxis, SCDs. 12. Follow up recs 13. The patient is a Full Code. 14. Continue to discuss goals of care. Subjective Allergies: Coded Allergies: No Known Allergies (Unverified , 07/17/17) Subjective S/P 600 cc thora, L lung better aerated CT reviewed, at that time JAKCIE and LLL both collapsed from presumed EB debris and large effusion Also smaller R effusion and inf/nod @ R base States he feels better, no cough, no SOB, no F/C, [place] TF's Path reviewed as well Objective Last 24 Hour Vital Signs Date Time Temp Pulse Resp B/P (MAP) Pulse Ox O2 Delivery O2 Flow Rate FiO2 01/03/18 07:45 77 18 100 Nasal Cannula 2.0 28 01/03/18 07:41 96 Nasal Cannula 2.0 28 01/03/18 07:41 Nasal Cannula 2.0 28 01/03/18 07:38 77 18 96 Nasal Cannula 2.0 28 01/03/18 04:00 98.6 75 18 135/83 (100) 97 98.6 01/03/18 03:37 78 16 99 Nasal Cannula 2.0 28 01/03/18 03:28 80 18 97 Nasal Cannula 4.0 36 01/03/18 00:00 98.8 79 20 124/73 (90) 98 98.8 01/02/18 23:23 80 16 99 Nasal Cannula 4.0 36 01/02/18 23:03 80 18 98 Nasal Cannula 4.0 36 01/02/18 21:16 77 139/64 01/02/18 21:16 77 139/64 01/02/18 21:00 Nasal Cannula 2.0 Nasal Cannula 2.0 01/02/18 20:19 77 16 99 Nasal Cannula 4.0 36 01/02/18 20:16 74 18 98 Nasal Cannula 4.0 36 01/02/18 20:15 Nasal Cannula 4.0 36 01/02/18 20:15 98 Nasal Cannula 4.0 36 01/02/18 20:00 97.9 72 20 135/64 (87) 97 97.9 01/02/18 16:00 97.7 70 20 139/64 (89) 94 97.7 01/02/18 15:43 75 16 99 Nasal Cannula 4.0 36 01/02/18 15:37 73 18 96 Nasal Cannula 4.0 36 01/02/18 12:11 76 18 98 Nasal Cannula 4.0 36 01/02/18 12:01 74 18 96 Nasal Cannula 4.0 36 01/02/18 12:00 98.0 66 20 129/70 (89) 94 98.0 01/02/18 09:33 74 160/70 01/02/18 09:33 160/70 01/02/18 09:00 Nasal Cannula 5.0 Nasal Cannula 5.0 01/02/18 08:25 74 18 98 Nasal Cannula 4.0 36 01/02/18 08:15 Nasal Cannula 4.0 36 01/02/18 08:15 96 Nasal Cannula 4.0 36 01/02/18 08:15 72 18 96 Nasal Cannula 4.0 36 01/02/18 08:00 98.2 77 20 160/70 (100) 94 98.2 Intake and Output 01/02/18 01/03/18 19:00 07:00 Intake Total 75 ml 1110.000 ml Output Total 850 ml Balance 75 ml 260.000 ml IV Total 75 ml 1110.000 ml Output Urine Total 850 ml # Voids 6 # Bowel Movements 2 1 General Appearance: no acute distress, cachetic HEENT: normocephalic, atraumatic, anicteric, mucous membranes moist Respiratory/Chest: chest wall non-tender, lungs clear - but decreased @ L base , no respiratory distress, no accessory muscle use Cardiovascular: normal peripheral pulses, normal rate, regular rhythm Abdomen: normal bowel sounds, soft, non tender, no organomegaly, non distended , no mass, other - GT CDI Extremities: no cyanosis, no clubbing, no edema Microbiology Date/Time Source Procedure Growth Status 01/01/18 13:15 Blood Blood Culture - Preliminary NO GROWTH AFTER 24 HOURS Resulted 01/01/18 13:00 Blood Blood Culture - Preliminary NO GROWTH AFTER 24 HOURS Resulted 12/31/17 20:00 Indwelling Cath Urine Culture - Preliminary NO GROWTH AFTER 24 HOURS Resulted Laboratory Tests 01/02/18 11:32: Body Fluid Source Pleural, Body Fluid Volume 30, Body Fluid Appearance Yellow/ sl. turbid, Body Fluid RBC 298, Body Fluid Total Nucleated Cells 505, Body Fluid Polynuclear WBCs (%) 58, Body Fluid Mononuclear WBCs (%) 34, Body Fluid Mesothelial Cells (%) 8, Body Fluid Glucose [Pending], Body Fluid Total Protein [Pending], Body Fluid Lactate Dehydrogenase [Pending] 01/03/18 06:00: White Blood Count 8.8, Red Blood Count 2.98L, Hemoglobin 8.6L, Hematocrit 27.0L , Mean Corpuscular Volume 91, Mean Corpuscular Hemoglobin 28.8, Mean Corpuscular Hemoglobin Concent 31.8L, Red Cell Distribution Width 14.4, Platelet Count 304, Mean Platelet Volume 7.5, Neutrophils (%) (Auto) , Lymphocytes (%) (Auto) , Monocytes (%) (Auto) , Eosinophils (%) (Auto) , Basophils (%) (Auto) , Neutrophils % (Manual) [Pending], Lymphocytes % (Manual) [Pending], Platelet Estimate [Pending], Platelet Morphology [Pending], Sodium Level 140, Potassium Level 3.6, Chloride Level 105, Carbon Dioxide Level 30, Anion Gap 5, Blood Urea Nitrogen 19H, Creatinine 1.0, Estimat Glomerular Filtration Rate > 60, Glucose Level 113H, Calcium Level 8.4L Current Medications Medications (Trade) Dose Ordered Sig/Mehran Route PRN Reason Start Time Stop Time Status Last Admin Dose Admin Acetaminophen (Tylenol) 650 mg Q6H PRN ORAL Mild Pain/Temp > 100.5 12/23/17 21:14 01/22/18 21:13 Acetylcysteine (Mucomyst) 200 mg Q4HRT N 01/01/18 23:00 01/31/18 22:59 01/03/18 07:38 Albuterol/ Ipratropium (Albuterol/ Ipratropium) 3 ml Q4HRT [facility] 01/01/18 23:00 01/06/18 22:59 01/03/18 07:38 Amlodipine Besylate (Norvasc) 10 mg QHS ORAL 12/23/17 21:00 01/22/18 20:59 01/02/18 21:16 Carvedilol (Coreg) 25 mg EVERY 12 HOURS ORAL 12/26/17 21:00 01/22/18 20:59 01/02/18 21:16 Docusate Sodium (Colace) 250 mg DAILY NG 01/01/18 09:00 01/31/18 08:59 01/02/18 09:32 Finasteride (Proscar) 5 mg DAILY ORAL 12/24/17 09:00 01/23/18 08:59 01/02/18 09:33 Gabapentin (Neurontin) 100 mg BEDTIME PRN ORAL Moderate Pain (Pain Scale 4-6) 12/23/17 21:45 01/22/18 21:44 Haloperidol Lactate (Haldol) 5 mg Q6H PRN IM Agitation 12/27/17 12:15 01/26/18 12:14 12/27/17 12:35 Hydralazine HCl (Apresoline) 50 mg Q8H PRN ORAL For High Blood Pressure 12/25/17 12:00 01/24/18 11:59 12/29/17 16:22 Hydrochlorothiazide (Hydrodiuril) 25 mg DAILY ORAL 12/27/17 09:00 01/26/18 08:59 01/02/18 09:33 Lorazepam (Ativan 2mg/ml 1ml) 1 mg Q4H PRN IM For Anxiety 12/27/17 12:15 01/03/18 12:14 12/27/17 15:16 Losartan Potassium (Cozaar) 100 mg DAILY ORAL 12/26/17 09:00 01/23/18 08:59 01/02/18 09:33 Piperacillin Sod/ Tazobactam Sod 3.375 gm/Dextrose 110 ml @ 27.5 mls/hr EVERY 8 HOURS IVPB 01/01/18 14:00 01/06/18 13:59 01/03/18 05:35 Quetiapine Fumarate (SEROquel) 12.5 mg EVERY 4 HOURS PRN ORAL Agitation 12/24/17 23:30 01/23/18 23:29 Quetiapine Fumarate (SEROquel) 25 mg TID ORAL 12/27/17 13:15 01/26/18 13:14 01/02/18 17:45 Sodium Chloride 1,000 ml @ 75 mls/hr [id number] IV 12/23/17 22:00 01/22/18 21:59 01/02/18 21:17 Tamsulosin HCl (Flomax) 0.4 mg BEDTIME ORAL 12/24/17 21:00 01/23/18 20:59 01/02/18 21:16 Vancomycin HCl (Vanco rx to dose) 1 ea DAILY PRN MISC Per rx protocol 01/02/18 14:30 02/01/18 14:29 Vancomycin HCl/ Dextrose 250 ml @ 166.667 mls/hr Q12H IVPB 01/02/18 16:00 01/07/18 15:59 01/03/18 03:36 Daniel Stone MD Jan 03, 2018 08:06
--- NOTE | 2018-01-03 08:38 | Urology Progress Note ---
Assessment/Plan Assessment/Plan 1. Gross hematuria hx, resolving. 2. Urinary retention. 3. BPH history. 4. Proteinuria. 5. Mild pyuria. 6. Rule out neurogenic bladder. 7. Bladder tumor, low grade urothelial ca. 8, POD # 7, TURBT. keep hinkle indwelling for now I personally hand irrigated hinkle, position is satisfactory nursing staff to hand irrigate hinkle PRN cont with abx proscar, flomax monitor h/h, renal fxn plan for voiding trial soon d/w primary service Subjective Allergies: Coded Allergies: No Known Allergies (Unverified , 07/17/17) Subjective all noted, nursing staff reported some hinkle leakage, no flank pain Objective Last 24 Hour Vital Signs Date Time Temp Pulse Resp B/P (MAP) Pulse Ox O2 Delivery O2 Flow Rate FiO2 01/03/18 08:00 98.6 70 18 141/64 (89) 97 98.6 01/03/18 07:45 77 18 100 Nasal Cannula 2.0 28 01/03/18 07:41 96 Nasal Cannula 2.0 28 01/03/18 07:41 Nasal Cannula 2.0 28 01/03/18 07:38 77 18 96 Nasal Cannula 2.0 28 01/03/18 04:00 98.6 75 18 135/83 (100) 97 98.6 01/03/18 03:37 78 16 99 Nasal Cannula 2.0 28 01/03/18 03:28 80 18 97 Nasal Cannula 4.0 36 01/03/18 00:00 98.8 79 20 124/73 (90) 98 98.8 01/02/18 23:23 80 16 99 Nasal Cannula 4.0 36 01/02/18 23:03 80 18 98 Nasal Cannula 4.0 36 01/02/18 21:16 77 139/64 01/02/18 21:16 77 139/64 01/02/18 21:00 Nasal Cannula 2.0 Nasal Cannula 2.0 01/02/18 20:19 77 16 99 Nasal Cannula 4.0 36 01/02/18 20:16 74 18 98 Nasal Cannula 4.0 36 01/02/18 20:15 Nasal Cannula 4.0 36 01/02/18 20:15 98 Nasal Cannula 4.0 36 01/02/18 20:00 97.9 72 20 135/64 (87) 97 97.9 01/02/18 16:00 97.7 70 20 139/64 (89) 94 97.7 01/02/18 15:43 75 16 99 Nasal Cannula 4.0 36 01/02/18 15:37 73 18 96 Nasal Cannula 4.0 36 01/02/18 12:11 76 18 98 Nasal Cannula 4.0 36 01/02/18 12:01 74 18 96 Nasal Cannula 4.0 36 01/02/18 12:00 98.0 66 20 129/70 (89) 94 98.0 01/02/18 09:33 74 160/70 01/02/18 09:33 160/70 01/02/18 09:00 Nasal Cannula 5.0 Nasal Cannula 5.0 Intake and Output 01/02/18 01/03/18 19:00 07:00 Intake Total 75 ml 1110.000 ml Output Total 850 ml Balance 75 ml 260.000 ml IV Total 75 ml 1110.000 ml Output Urine Total 850 ml # Voids 6 # Bowel Movements 2 1 Microbiology Date/Time Source Procedure Growth Status 01/01/18 13:15 Blood Blood Culture - Preliminary NO GROWTH AFTER 24 HOURS Resulted 12/23/17 19:40 Nasal Nares MRSA Culture - Final Staphylococcus Aureus - Mrsa Complete 12/31/17 20:00 Indwelling Cath Urine Culture - Preliminary NO GROWTH AFTER 24 HOURS Resulted 12/23/17 19:40 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 Complete Current Medications Medications (Trade) Dose Ordered Sig/Mehran Route PRN Reason Start Time Stop Time Status Last Admin Dose Admin Acetaminophen (Tylenol) 650 mg Q6H PRN ORAL Mild Pain/Temp > 100.5 12/23/17 21:14 01/22/18 21:13 Acetylcysteine (Mucomyst) 200 mg Q4HRT N 01/01/18 23:00 01/31/18 22:59 01/03/18 07:38 Albuterol/ Ipratropium (Albuterol/ Ipratropium) 3 ml Q4HRT N 01/01/18 23:00 01/06/18 22:59 01/03/18 07:38 Amlodipine Besylate (Norvasc) 10 mg QHS ORAL 12/23/17 21:00 01/22/18 20:59 01/02/18 21:16 Carvedilol (Coreg) 25 mg EVERY 12 HOURS ORAL 12/26/17 21:00 01/22/18 20:59 01/02/18 21:16 Docusate Sodium (Colace) 250 mg DAILY NG 01/01/18 09:00 01/31/18 08:59 01/02/18 09:32 Finasteride (Proscar) 5 mg DAILY ORAL 12/24/17 09:00 01/23/18 08:59 01/02/18 09:33 Gabapentin (Neurontin) 100 mg BEDTIME PRN ORAL Moderate Pain (Pain Scale 4-6) 12/23/17 21:45 01/22/18 21:44 Haloperidol Lactate (Haldol) 5 mg Q6H PRN IM Agitation 12/27/17 12:15 01/26/18 12:14 12/27/17 12:35 Hydralazine HCl (Apresoline) 50 mg Q8H PRN ORAL For High Blood Pressure 12/25/17 12:00 01/24/18 11:59 12/29/17 16:22 Hydrochlorothiazide (Hydrodiuril) 25 mg DAILY ORAL 12/27/17 09:00 01/26/18 08:59 01/02/18 09:33 Lorazepam (Ativan 2mg/ml 1ml) 1 mg Q4H PRN IM For Anxiety 12/27/17 12:15 01/03/18 12:14 12/27/17 15:16 Losartan Potassium (Cozaar) 100 mg DAILY ORAL 12/26/17 09:00 01/23/18 08:59 01/02/18 09:33 Piperacillin Sod/ Tazobactam Sod 3.375 gm/Dextrose 110 ml @ 27.5 mls/hr EVERY 8 HOURS IVPB 01/01/18 14:00 01/06/18 13:59 01/03/18 05:35 Quetiapine Fumarate (SEROquel) 12.5 mg EVERY 4 HOURS PRN ORAL Agitation 12/24/17 23:30 01/23/18 23:29 Quetiapine Fumarate (SEROquel) 25 mg TID ORAL 12/27/17 13:15 01/26/18 13:14 01/02/18 17:45 Sodium Chloride 1,000 ml @ 75 mls/hr [id number] IV 12/23/17 22:00 01/22/18 21:59 01/02/18 21:17 Tamsulosin HCl (Flomax) 0.4 mg BEDTIME ORAL 12/24/17 21:00 01/23/18 20:59 01/02/18 21:16 Vancomycin HCl (Vanco rx to dose) 1 ea DAILY PRN MISC Per rx protocol 01/02/18 14:30 02/01/18 14:29 Vancomycin HCl/ Dextrose 250 ml @ 166.667 mls/hr Q12H IVPB 01/02/18 16:00 01/07/18 15:59 01/03/18 03:36 Laboratory Tests 01/02/18 11:32: Body Fluid Source Pleural, Body Fluid Volume 30, Body Fluid Appearance Yellow/ sl. turbid, Body Fluid RBC 298, Body Fluid Total Nucleated Cells 505, Body Fluid Polynuclear WBCs (%) 58, Body Fluid Mononuclear WBCs (%) 34, Body Fluid Mesothelial Cells (%) 8, Body Fluid Glucose [Pending], Body Fluid Total Protein [Pending], Body Fluid Lactate Dehydrogenase [Pending] 01/03/18 06:00: White Blood Count 8.8, Red Blood Count 2.98L, Hemoglobin 8.6L, Hematocrit 27.0L , Mean Corpuscular Volume 91, Mean Corpuscular Hemoglobin 28.8, Mean Corpuscular Hemoglobin Concent 31.8L, Red Cell Distribution Width 14.4, Platelet Count 304, Mean Platelet Volume 7.5, Neutrophils (%) (Auto) , Lymphocytes (%) (Auto) , Monocytes (%) (Auto) , Eosinophils (%) (Auto) , Basophils (%) (Auto) , Neutrophils % (Manual) [Pending], Lymphocytes % (Manual) [Pending], Platelet Estimate [Pending], Platelet Morphology [Pending], Sodium Level 140, Potassium Level 3.6, Chloride Level 105, Carbon Dioxide Level 30, Anion Gap 5, Blood Urea Nitrogen 19H, Creatinine 1.0, Estimat Glomerular Filtration Rate > 60, Glucose Level 113H, Calcium Level 8.4L Height (Feet): 5 Height (Inches): 10.00 Weight (Pounds): 185 Objective exam stable, hinkle indwelling, urine clearing CT noted path noted, low grade urothelial ca (d/w pathologist) LIVIER ALVAREZ 27, 2018 08:38
[2018-01-03] MEDS: Losartan 50mg tab ORAL SCH (09:39)
[2018-01-03] MEDS: Docusate 100mg/10ml Liq NG SCH (09:39)
[2018-01-03] MEDS: Carvedilol 25mg Tab ORAL SCH ×2 (09:39→21:15)
--- NOTE | 2018-01-03 11:38 | General Surgery Progress Note ---
General Surgery-Progress Note Subjective Symptoms: improved Additional Comments doing well. stable Objective Last 24 Hour Vital Signs Date Time Temp Pulse Resp B/P (MAP) Pulse Ox O2 Delivery O2 Flow Rate FiO2 01/03/18 11:14 74 18 100 Nasal Cannula 2.0 28 01/03/18 11:07 74 18 98 Nasal Cannula 2.0 28 01/03/18 09:39 70 141/64 01/03/18 09:39 141/64 01/03/18 09:00 Nasal Cannula 2.0 Nasal Cannula 2.0 01/03/18 08:00 98.6 70 18 141/64 (89) 97 98.6 01/03/18 07:45 77 18 100 Nasal Cannula 2.0 01/03/18 07:41 96 Nasal Cannula 2.0 01/03/18 07:41 Nasal Cannula 2.0 28 01/03/18 07:38 77 18 96 Nasal Cannula 2.0 28 01/03/18 04:00 98.6 75 18 135/83 (100) 97 98.6 01/03/18 03:37 78 16 99 Nasal Cannula 2.0 28 01/03/18 03:28 80 18 97 Nasal Cannula 4.0 36 01/03/18 00:00 98.8 79 20 124/73 (90) 98 98.8 01/02/18 23:23 80 16 99 Nasal Cannula 4.0 36 01/02/18 23:03 80 18 98 Nasal Cannula 4.0 36 01/02/18 21:16 77 139/64 01/02/18 21:16 77 139/64 01/02/18 21:00 Nasal Cannula 2.0 Nasal Cannula 2.0 01/02/18 20:19 77 16 99 Nasal Cannula 4.0 36 01/02/18 20:16 74 18 98 Nasal Cannula 4.0 36 01/02/18 20:15 Nasal Cannula 4.0 36 01/02/18 20:15 98 Nasal Cannula 4.0 36 01/02/18 20:00 97.9 72 20 135/64 (87) 97 97.9 01/02/18 16:00 97.7 70 20 139/64 (89) 94 97.7 01/02/18 15:43 75 16 99 Nasal Cannula 4.0 36 01/02/18 15:37 73 18 96 Nasal Cannula 4.0 36 01/02/18 12:11 76 18 98 Nasal Cannula 4.0 36 01/02/18 12:01 74 18 96 Nasal Cannula 4.0 36 01/02/18 12:00 98.0 66 20 129/70 (89) 94 98.0 I&O Intake and Output 01/02/18 01/03/18 19:00 07:00 Intake Total 75 ml 1110.000 ml Output Total 850 ml Balance 75 ml 260.000 ml IV Total 75 ml 1110.000 ml Output Urine Total 850 ml # Voids 6 # Bowel Movements 2 1 Wound: clean Drains: none Cardiovascular: RSR Respiratory: clear Abdomen: soft, flat, non-tender, present bowel sounds Laboratory Tests Test 01/03/18 06:00 White Blood Count 8.8 K/UL (4.8-10.8) Red Blood Count 2.98 M/UL (4.70-6.10) L Hemoglobin 8.6 G/DL (14.2-18.0) L Hematocrit 27.0 % (42.0-52.0) L Mean Corpuscular Volume 91 FL (80-99) Mean Corpuscular Hemoglobin 28.8 PG (27.0-31.0) Mean Corpuscular Hemoglobin Concent 31.8 G/DL (32.0-36.0) L Red Cell Distribution Width 14.4 % (11.6-14.8) Platelet Count 304 K/UL (150-450) Mean Platelet Volume 7.5 FL (6.5-10.1) Neutrophils (%) (Auto) % (45.0-75.0) Lymphocytes (%) (Auto) % (20.0-45.0) Monocytes (%) (Auto) % (1.0-10.0) Eosinophils (%) (Auto) % (0.0-3.0) Basophils (%) (Auto) % (0.0-2.0) Differential Total Cells Counted 100 Neutrophils % (Manual) 84 % (45-75) H Lymphocytes % (Manual) 5 % (20-45) L Monocytes % (Manual) 8 % (1-10) Eosinophils % (Manual) 1 % (0-3) Basophils % (Manual) 0 % (0-2) Band Neutrophils 2 % (0-8) Platelet Estimate Adequate Platelet Morphology Normal Hypochromasia 1+ Sodium Level 140 MMOL/L (136-145) Potassium Level 3.6 MMOL/L (3.5-5.1) Chloride Level 105 MMOL/L (98-107) Carbon Dioxide Level 30 MMOL/L (21-32) Anion Gap 5 mmol/L (5-15) Blood Urea Nitrogen 19 mg/dL (7-18) H Creatinine 1.0 MG/DL (0.55-1.30) Estimat Glomerular Filtration Rate > 60 mL/min (>60) Glucose Level 113 MG/DL (74-106) H Calcium Level 8.4 MG/DL (8.5-10.1) L Plan Problems: (1) Hematoma of bladder wall (2) Hematuria Assessment & Plan: CT findings: Hematoma within the urinary bladder. Nature of this is not known. Consider cystoscopy for further evaluation. Underlying mass or other bladder pathology not excluded. Rodriguez catheter in good position. labs improved overall improved large bladder tumor removed -path low grade tumor; favor non invasive as per urology thank you Marlon Doherty Jan 03, 2018 11:37
[2018-01-03 12:00] VITALS: BP 117/69
--- NOTE | 2018-01-03 13:20 | General Progress Note ---
Assessment/Plan Assessment/Plan dementia with bd encephalopathy -seroquel standing -Seroquel prn -the pt lacks capacity to make decisions -the pt unable to give consent for surgery Subjective Date patient seen: Jan 03, 2018 Neurologic/Psychiatric: Reports: anxiety, depressed, emotional problems Allergies: Coded Allergies: No Known Allergies (Unverified , 07/17/17) Subjective the pt is confuse the same episodes of agitation Objective Last 24 Hour Vital Signs Date Time Temp Pulse Resp B/P (MAP) Pulse Ox O2 Delivery O2 Flow Rate FiO2 01/03/18 12:00 98.7 73 18 117/69 (85) 97 98.7 01/03/18 11:14 74 18 100 Nasal Cannula 2.0 28 01/03/18 11:07 74 18 98 Nasal Cannula 2.0 28 01/03/18 09:39 70 141/64 01/03/18 09:39 141/64 01/03/18 09:00 Nasal Cannula 2.0 Nasal Cannula 2.0 01/03/18 08:00 98.6 70 18 141/64 (89) 97 98.6 01/03/18 07:45 77 18 100 Nasal Cannula 2.0 28 01/03/18 07:41 96 Nasal Cannula 2.0 28 01/03/18 07:41 Nasal Cannula 2.0 28 01/03/18 07:38 77 18 96 Nasal Cannula 2.0 28 01/03/18 04:00 98.6 75 18 135/83 (100) 97 98.6 01/03/18 03:37 78 16 99 Nasal Cannula 2.0 28 01/03/18 03:28 80 18 97 Nasal Cannula 4.0 36 01/03/18 00:00 98.8 79 20 124/73 (90) 98 98.8 01/02/18 23:23 80 16 99 Nasal Cannula 4.0 36 01/02/18 23:03 80 18 98 Nasal Cannula 4.0 36 01/02/18 21:16 77 139/64 01/02/18 21:16 77 139/64 01/02/18 21:00 Nasal Cannula 2.0 Nasal Cannula 2.0 01/02/18 20:19 77 16 99 Nasal Cannula 4.0 36 01/02/18 20:16 74 18 98 Nasal Cannula 4.0 36 01/02/18 20:15 Nasal Cannula 4.0 36 01/02/18 20:15 98 Nasal Cannula 4.0 36 01/02/18 20:00 97.9 72 20 135/64 (87) 97 97.9 01/02/18 16:00 97.7 70 20 139/64 (89) 94 97.7 01/02/18 15:43 75 16 99 Nasal Cannula 4.0 36 01/02/18 15:37 73 18 96 Nasal Cannula 4.0 36 Intake and Output 01/02/18 01/03/18 19:00 07:00 Intake Total 75 ml 1110.000 ml Output Total 850 ml Balance 75 ml 260.000 ml IV Total 75 ml 1110.000 ml Output Urine Total 850 ml # Voids 6 # Bowel Movements 2 1 Laboratory Tests 01/03/18 06:00: White Blood Count 8.8, Red Blood Count 2.98L, Hemoglobin 8.6L, Hematocrit 27.0L , Mean Corpuscular Volume 91, Mean Corpuscular Hemoglobin 28.8, Mean Corpuscular Hemoglobin Concent 31.8L, Red Cell Distribution Width 14.4, Platelet Count 304, Mean Platelet Volume 7.5, Neutrophils (%) (Auto) , Lymphocytes (%) (Auto) , Monocytes (%) (Auto) , Eosinophils (%) (Auto) , Basophils (%) (Auto) , Differential Total Cells Counted 100, Neutrophils % ( Manual) 84H, Lymphocytes % (Manual) 5L, Monocytes % (Manual) 8, Eosinophils % ( Manual) 1, Basophils % (Manual) 0, Band Neutrophils 2, Platelet Estimate Adequate, Platelet Morphology Normal, Hypochromasia 1+, Sodium Level 140, Potassium Level 3.6, Chloride Level 105, Carbon Dioxide Level 30, Anion Gap 5, Blood Urea Nitrogen 19H, Creatinine 1.0, Estimat Glomerular Filtration Rate > 60 , Glucose Level 113H, Calcium Level 8.4L Height (Feet): 5 Height (Inches): 10.00 Weight (Pounds): 185 Edd Horne MD Jan 03, 2018 13:20
--- NOTE | 2018-01-03 13:21 | General Progress Note ---
Assessment/Plan Status: stable Assessment/Plan #. Anemia due to hematuria. PSA level of 2.[address] Irrigation as needed. Urology Service evaluation. --> Continue to closely monitor --> Anemia w/u has been reviewed, will trend daily. --> Hgb goal >8 --> appreciate urology recommendations --> imaging has been reviewed --> 12/27: S/P cystoscopy and bladder biopsy. #. Bladder tumor s/p TURBT --> final pathology report is pending #. Coagulopathy, likely due to decreased p.o. intake. --> INR of 1.2 --> hepatitis panel is pending #. Paraproteinemia. --> spep and upep are prelim negative for monoclonal band #. Nasopharyngeal carcinoma, currently in remission. #. Failure to thrive history, likely secondary to decreased p.o. intake. #. Hypertension. Systolic blood pressure goal is less than 140. The time the note was entered does not necessarily correspond to the time the patient was seen. Subjective Date patient seen: Jan 03, 2018 ROS Limited/Unobtainable: Yes Hematologic/Lymphatic: Reports: anemia Allergies: Coded Allergies: No Known Allergies (Unverified , 07/17/17) All Systems: reviewed and negative except above Subjective Pt awake and alert. No acute events. S/P 600 cc L THORACENTESIS ---> MARKED IMPROVEMENT IN AERATION OF L LUNG. Pt received breathing treatment from RT. Refusing CPT. Objective Last 24 Hour Vital Signs Date Time Temp Pulse Resp B/P (MAP) Pulse Ox O2 Delivery O2 Flow Rate FiO2 01/03/18 12:00 98.7 73 18 117/69 (85) 97 98.7 01/03/18 11:14 74 18 100 Nasal Cannula 2.0 28 01/03/18 11:07 74 18 98 Nasal Cannula 2.0 28 01/03/18 09:39 70 141/64 01/03/18 09:39 141/64 01/03/18 09:00 Nasal Cannula 2.0 Nasal Cannula 2.0 01/03/18 08:00 98.6 70 18 141/64 (89) 97 98.6 01/03/18 07:45 77 18 100 Nasal Cannula 2.0 01/03/18 07:41 96 Nasal Cannula 2.0 01/03/18 07:41 Nasal Cannula 2.0 28 01/03/18 07:38 77 18 96 Nasal Cannula 2.0 28 01/03/18 04:00 98.6 75 18 135/83 (100) 97 98.6 01/03/18 03:37 78 16 99 Nasal Cannula 2.0 28 01/03/18 03:28 80 18 97 Nasal Cannula 4.0 36 01/03/18 00:00 98.8 79 20 124/73 (90) 98 98.8 01/02/18 23:23 80 16 99 Nasal Cannula 4.0 36 01/02/18 23:03 80 18 98 Nasal Cannula 4.0 36 01/02/18 21:16 77 139/64 01/02/18 21:16 77 139/64 01/02/18 21:00 Nasal Cannula 2.0 Nasal Cannula 2.0 01/02/18 20:19 77 16 99 Nasal Cannula 4.0 36 01/02/18 20:16 74 18 98 Nasal Cannula 4.0 36 01/02/18 20:15 Nasal Cannula 4.0 36 01/02/18 20:15 98 Nasal Cannula 4.0 36 01/02/18 20:00 97.9 72 20 135/64 (87) 97 97.9 01/02/18 16:00 97.7 70 20 139/64 (89) 94 97.7 01/02/18 15:43 75 16 99 Nasal Cannula 4.0 36 01/02/18 15:37 73 18 96 Nasal Cannula 4.0 36 Intake and Output 01/02/18 01/03/18 19:00 07:00 Intake Total 75 ml 1110.000 ml Output Total 850 ml Balance 75 ml 260.000 ml IV Total 75 ml 1110.000 ml Output Urine Total 850 ml # Voids 6 # Bowel Movements 2 1 Laboratory Tests 01/03/18 06:00: White Blood Count 8.8, Red Blood Count 2.98L, Hemoglobin 8.6L, Hematocrit 27.0L , Mean Corpuscular Volume 91, Mean Corpuscular Hemoglobin 28.8, Mean Corpuscular Hemoglobin Concent 31.8L, Red Cell Distribution Width 14.4, Platelet Count 304, Mean Platelet Volume 7.5, Neutrophils (%) (Auto) , Lymphocytes (%) (Auto) , Monocytes (%) (Auto) , Eosinophils (%) (Auto) , Basophils (%) (Auto) , Differential Total Cells Counted 100, Neutrophils % ( Manual) 84H, Lymphocytes % (Manual) 5L, Monocytes % (Manual) 8, Eosinophils % ( Manual) 1, Basophils % (Manual) 0, Band Neutrophils 2, Platelet Estimate Adequate, Platelet Morphology Normal, Hypochromasia 1+, Sodium Level 140, Potassium Level 3.6, Chloride Level 105, Carbon Dioxide Level 30, Anion Gap 5, Blood Urea Nitrogen 19H, Creatinine 1.0, Estimat Glomerular Filtration Rate > 60 , Glucose Level 113H, Calcium Level 8.4L Height (Feet): 5 Height (Inches): 10.00 Weight (Pounds): 185 General Appearance: no apparent distress, alert EENT: PERRL/EOMI Neck: normal alignment Cardiovascular: normal peripheral pulses Respiratory/Chest: no respiratory distress Abdomen: normal bowel sounds, no mass Shane Oropeza MD Jan 03, 2018 13:21
--- NOTE | 2018-01-03 15:36 | GI Progress Note ---
Assessment/Plan Problems: (1) Encounter for PEG (percutaneous endoscopic gastrostomy) ICD Codes: Z43.1 - Encounter for attention to gastrostomy SNOMED: 406015847, 651602503 (2) Severe malnutrition ICD Codes: E43 - Unspecified severe protein-calorie malnutrition SNOMED: 68453381 (3) Dehydration ICD Codes: E86.0 - Dehydration SNOMED: 35407035 (4) Bladder tumor ICD Codes: D49.4 - Neoplasm of unspecified behavior of bladder SNOMED: 877291847 (5) Dysphagia ICD Codes: R13.10 - Dysphagia, unspecified SNOMED: 63644497, 999923901 Status: stable, progressing Status Narrative Discussed with Dr. Montes. Assessment/Plan 1. Status post successful PEG placement. 2. Gastritis, status post biopsy. RECOMMENDATIONS: okay for DC per GI standpoint Abdominal binder. Elevate the head of bed at all times. G-tube flush. G-tube care. GTFs per fu labs The patient was seen and examined at bedside and all new and available data was reviewed in the patients chart. I agree with the above findings, impression and plan. (Patient seen earlier today. Signature stamp does not reflect patient encounter time.). - Tylor Montes MD Subjective Subjective c/o of hunger no abdominal pain Objective Last 24 Hour Vital Signs Date Time Temp Pulse Resp B/P (MAP) Pulse Ox O2 Delivery O2 Flow Rate FiO2 01/03/18 12:00 98.7 73 18 117/69 (85) 97 98.7 01/03/18 11:14 74 18 100 Nasal Cannula 2.0 01/03/18 11:07 74 18 98 Nasal Cannula 2.0 01/03/18 09:39 70 141/64 01/03/18 09:39 141/64 01/03/18 09:00 Nasal Cannula 2.0 Nasal Cannula 2.0 01/03/18 08:00 98.6 70 18 141/64 (89) 97 98.6 01/03/18 07:45 77 18 100 Nasal Cannula 2.0 01/03/18 07:41 96 Nasal Cannula 2.0 01/03/18 07:41 Nasal Cannula 2.0 01/03/18 07:38 77 18 96 Nasal Cannula 2.0 01/03/18 04:00 98.6 75 18 135/83 (100) 97 98.6 01/03/18 03:37 78 16 99 Nasal Cannula 2.0 28 01/03/18 03:28 80 18 97 Nasal Cannula 4.0 36 01/03/18 00:00 98.8 79 20 124/73 (90) 98 98.8 01/02/18 23:23 80 16 99 Nasal Cannula 4.0 36 01/02/18 23:03 80 18 98 Nasal Cannula 4.0 36 01/02/18 21:16 77 139/64 01/02/18 21:16 77 139/64 01/02/18 21:00 Nasal Cannula 2.0 Nasal Cannula 2.0 01/02/18 20:19 77 16 99 Nasal Cannula 4.0 36 01/02/18 20:16 74 18 98 Nasal Cannula 4.0 36 01/02/18 20:15 Nasal Cannula 4.0 36 01/02/18 20:15 98 Nasal Cannula 4.0 36 01/02/18 20:00 97.9 72 20 135/64 (87) 97 97.9 01/02/18 16:00 97.7 70 20 139/64 (89) 94 97.7 01/02/18 15:43 75 16 99 Nasal Cannula 4.0 36 01/02/18 15:37 73 18 96 Nasal Cannula 4.0 36 Intake and Output 01/02/18 01/03/18 19:00 07:00 Intake Total 75 ml 1110.000 ml Output Total 850 ml Balance 75 ml 260.000 ml IV Total 75 ml 1110.000 ml Output Urine Total 850 ml # Voids 6 # Bowel Movements 2 1 Laboratory Tests Test 01/03/18 06:00 White Blood Count 8.8 K/UL (4.8-10.8) Red Blood Count 2.98 M/UL (4.70-6.10) L Hemoglobin 8.6 G/DL (14.2-18.0) L Hematocrit 27.0 % (42.0-52.0) L Mean Corpuscular Volume 91 FL (80-99) Mean Corpuscular Hemoglobin 28.8 PG (27.0-31.0) Mean Corpuscular Hemoglobin Concent 31.8 G/DL (32.0-36.0) L Red Cell Distribution Width 14.4 % (11.6-14.8) Platelet Count 304 K/UL (150-450) Mean Platelet Volume 7.5 FL (6.5-10.1) Neutrophils (%) (Auto) % (45.0-75.0) Lymphocytes (%) (Auto) % (20.0-45.0) Monocytes (%) (Auto) % (1.0-10.0) Eosinophils (%) (Auto) % (0.0-3.0) Basophils (%) (Auto) % (0.0-2.0) Differential Total Cells Counted 100 Neutrophils % (Manual) 84 % (45-75) H Lymphocytes % (Manual) 5 % (20-45) L Monocytes % (Manual) 8 % (1-10) Eosinophils % (Manual) 1 % (0-3) Basophils % (Manual) 0 % (0-2) Band Neutrophils 2 % (0-8) Platelet Estimate Adequate Platelet Morphology Normal Hypochromasia 1+ Sodium Level 140 MMOL/L (136-145) Potassium Level 3.6 MMOL/L (3.5-5.1) Chloride Level 105 MMOL/L (98-107) Carbon Dioxide Level 30 MMOL/L (21-32) Anion Gap 5 mmol/L (5-15) Blood Urea Nitrogen 19 mg/dL (7-18) H Creatinine 1.0 MG/DL (0.55-1.30) Estimat Glomerular Filtration Rate > 60 mL/min (>60) Glucose Level 113 MG/DL (74-106) H Calcium Level 8.4 MG/DL (8.5-10.1) L Height (Feet): 5 Height (Inches): 10.00 Weight (Pounds): 185 General Appearance: WD/WN, no apparent distress, alert, thin Cardiovascular: normal rate Respiratory/Chest: normal breath sounds, no respiratory distress Abdominal Exam: normal bowel sounds, non tender, soft, GT site - c/d/i Extremities: normal range of motion, non-tender Lisha Roland NP Jan 03, 2018 15:36
[2018-01-03 16:00] VITALS: BP 127/69
[2018-01-03 20:00] VITALS: BP 114/57
[2018-01-03] MEDS: Tamsulosin 0.4mg cap ORAL SCH (21:16)
--- NOTE | 2018-01-03 22:24 | General Progress Note ---
Assessment/Plan Assessment/Plan Assessment/Plan - Urology consulted, appreciate rec's - Cardiology consulted, appreciate rec's - Oncology consulted, appreciate rec's - Psychiatry consulted, appreciate rec's - GI consulted, appreciate rec's - Pulmonology consulted, appreciate rec's - s/p left thoracentesis with 600cc out. F/u repeat CXR - CXR showing infiltrate with increased atelectasis and endobronchial occlusion - Empiric abx with IV vancomycin and zosyn (D3) - F/u blood cx, urine cx, serial CXR - O2 prn to maintain O2sat > 92% - s/p Gtube, tolerating feeds. Monitor for residuals - s/p cystoscopy and TURBT with extensive fulgration. large bladder tumor removed on 12/27 - keep hinkle in 3-5 days - f/u pathology - Continue to monitor for clots - Started on flomax, proscar - Check PSA -- 2.55 - F/u CT urogram -- showing bladder hematoma vs. mass - Continue home BP meds -- increased per cards - Venous duplex negative - Hydralazine prn - Pain control and supportive care DVT Prophylaxis: SCD. NO HSQ GIVEN HEMATOMA/HEMATURIA Code Status: Full Hospital Classification Declaration: Based on this initial evaluation, and depending on the patient's clinical course, I anticipate that this patient will require hospitalization for 2-3 days for gross hematuria and close respiratory/ hemodynamic monitoring. Disposition: Once the patient is stable to leave the hospital, I anticipate the patient will likely be discharged to the following environment: [facility] I spent 45 minutes on this patient's case, and 25 minutes were dedicated to counseling and/or care coordination. Discussed with patient/family, nursing staff, SW/CM, and all consultants involved regarding clinical status, treatment course, and disposition planning. Time of note may not reflect time of encounter. Subjective Date patient seen: Jan 03, 2018 Time patient seen: 11:11 ROS Limited/Unobtainable: Yes Constitutional: Reports: no symptoms Endocrine: Reports: increased hunger Allergies: Coded Allergies: No Known Allergies (Unverified , 07/17/17) All Systems: reviewed and negative except above Subjective Notes hunger Denies pain Objective Last 24 Hour Vital Signs Date Time Temp Pulse Resp B/P (MAP) Pulse Ox O2 Delivery O2 Flow Rate FiO2 01/03/18 21:16 72 114/57 01/03/18 21:15 72 114/57 01/03/18 20:00 98.9 72 20 114/57 (76) 92 98.9 01/03/18 19:55 70 18 99 Room Air 21 01/03/18 19:40 73 18 96 Room Air 21.0 01/03/18 19:40 96 Room Air 01/03/18 19:40 Room Air 01/03/18 16:31 78 18 100 Nasal Cannula 2.0 01/03/18 16:24 76 18 96 Nasal Cannula 2.0 01/03/18 16:00 98.4 70 20 127/69 (88) 96 98.4 01/03/18 12:00 98.7 73 18 117/69 (85) 97 98.7 01/03/18 11:14 74 18 100 Nasal Cannula 2.0 01/03/18 11:07 74 18 98 Nasal Cannula 2.0 01/03/18 09:39 70 141/64 01/03/18 09:39 141/64 01/03/18 09:00 Nasal Cannula 2.0 Nasal Cannula 2.0 01/03/18 08:00 98.6 70 18 141/64 (89) 97 98.6 01/03/18 07:45 77 18 100 Nasal Cannula 2.0 01/03/18 07:41 96 Nasal Cannula 2.0 01/03/18 07:41 Nasal Cannula 2.0 01/03/18 07:38 77 18 96 Nasal Cannula 2.0 01/03/18 04:00 98.6 75 18 135/83 (100) 97 98.6 01/03/18 03:37 78 16 99 Nasal Cannula 2.0 01/03/18 03:28 80 18 97 Nasal Cannula 4.0 36 01/03/18 00:00 98.8 79 20 124/73 (90) 98 98.8 01/02/18 23:23 80 16 99 Nasal Cannula 4.0 36 01/02/18 23:03 80 18 98 Nasal Cannula 4.0 36 Intake and Output 01/02/18 01/03/18 19:00 07:00 Intake Total 75 ml 1110.000 ml Output Total 850 ml Balance 75 ml 260.000 ml IV Total 75 ml 1110.000 ml Output Urine Total 850 ml # Voids 6 # Bowel Movements 2 1 Laboratory Tests 01/03/18 06:00: White Blood Count 8.8, Red Blood Count 2.98L, Hemoglobin 8.6L, Hematocrit 27.0L , Mean Corpuscular Volume 91, Mean Corpuscular Hemoglobin 28.8, Mean Corpuscular Hemoglobin Concent 31.8L, Red Cell Distribution Width 14.4, Platelet Count 304, Mean Platelet Volume 7.5, Neutrophils (%) (Auto) , Lymphocytes (%) (Auto) , Monocytes (%) (Auto) , Eosinophils (%) (Auto) , Basophils (%) (Auto) , Differential Total Cells Counted 100, Neutrophils % ( Manual) 84H, Lymphocytes % (Manual) 5L, Monocytes % (Manual) 8, Eosinophils % ( Manual) 1, Basophils % (Manual) 0, Band Neutrophils 2, Platelet Estimate Adequate, Platelet Morphology Normal, Hypochromasia 1+, Sodium Level 140, Potassium Level 3.6, Chloride Level 105, Carbon Dioxide Level 30, Anion Gap 5, Blood Urea Nitrogen 19H, Creatinine 1.0, Estimat Glomerular Filtration Rate > 60 , Glucose Level 113H, Calcium Level 8.4L Height (Feet): 5 Height (Inches): 10.00 Weight (Pounds): 185 General Appearance: cachetic, thin EENT: PERRL/EOMI Neck: non-tender Cardiovascular: normal rate, regular rhythm Respiratory/Chest: lungs clear Abdomen: normal bowel sounds, non tender Pelvis: normal external exam Extremities: normal range of motion Neurologic: responsive Skin: normal pigmentation Rajinder Fan M.D. Jan 03, 2018 22:24
[2018-01-04] VITALS: BP 147/69
[2018-01-04] MEDS: Acetylcysteine 20% Soln 4ml HHN SCH ×6 (03:20→23:00)
[2018-01-04] MEDS: Albuterol/Ipratropium 3ml neb HHN SCH ×6 (03:20→23:00)
[2018-01-04 04:00] VITALS: BP 144/66
[2018-01-04] MEDS: Piperacillin/Tazobactam 3.375 GM in D5W 110 ML IVPB SCH ×3 (06:10→21:24)
[2018-01-04 08:00] VITALS: BP 147/65
[2018-01-04] MEDS: Docusate 100mg/10ml Liq NG SCH (09:29)
[2018-01-04] MEDS: Losartan 50mg tab ORAL SCH (09:30)
[2018-01-04] MEDS: Carvedilol 25mg Tab ORAL SCH ×2 (09:30→21:23)
--- NOTE | 2018-01-04 09:45 | Urology Progress Note ---
Assessment/Plan Assessment/Plan 1. Gross hematuria hx, resolving. 2. Urinary retention. 3. BPH history. 4. Proteinuria. 5. Mild pyuria. 6. Rule out neurogenic bladder. 7. Bladder tumor, low grade urothelial ca. 8, POD # 8, TURBT. keep hinkle indwelling for now I personally hand irrigated hinkle, position is satisfactory nursing staff to hand irrigate hinkle PRN cont with abx proscar, flomax monitor h/h, renal fxn plan for voiding trial soon d/w primary service Subjective Allergies: Coded Allergies: No Known Allergies (Unverified , 07/17/17) Subjective all noted, nursing staff reported some hinkle leakage, no flank pain Objective Last 24 Hour Vital Signs Date Time Temp Pulse Resp B/P (MAP) Pulse Ox O2 Delivery O2 Flow Rate FiO2 01/04/18 09:30 71 147/65 01/04/18 09:30 147/65 01/04/18 08:00 98.5 71 17 147/65 (92) 95 98.5 01/04/18 07:25 74 18 97 Room Air 01/04/18 07:12 72 16 94 Room Air 01/04/18 07:12 Room Air 01/04/18 07:12 94 Room Air 01/04/18 04:00 98.5 71 18 144/66 (92) 95 98.5 01/04/18 03:35 71 18 99 Nasal Cannula 2.0 01/04/18 03:20 71 18 95 Room Air 01/04/18 00:00 98.4 70 18 147/69 (95) 100 98.4 01/03/18 23:44 69 18 99 Nasal Cannula 2.0 01/03/18 23:32 Nasal Cannula 2.0 01/03/18 23:29 69 18 97 Nasal Cannula 2.0 01/03/18 21:16 72 114/57 01/03/18 21:15 72 114/57 01/03/18 21:00 Nasal Cannula 2.0 Nasal Cannula 2.0 01/03/18 20:00 98.9 72 20 114/57 (76) 92 98.9 01/03/18 19:55 70 18 99 Room Air 01/03/18 19:40 73 18 96 Room Air 01/03/18 19:40 96 Room Air 01/03/18 19:40 Room Air 01/03/18 16:31 78 18 100 Nasal Cannula 2.0 28 01/03/18 16:24 76 18 96 Nasal Cannula 2.0 28 01/03/18 16:00 98.4 70 20 127/69 (88) 96 98.4 01/03/18 12:00 98.7 73 18 117/69 (85) 97 98.7 01/03/18 11:14 74 18 100 Nasal Cannula 2.0 28 01/03/18 11:07 74 18 98 Nasal Cannula 2.0 28 Intake and Output 01/03/18 01/04/18 19:00 07:00 Intake Total 240 ml 1605.0 ml Output Total 300 ml 650 ml Balance -60 ml 955.0 ml Free Water 100 ml 200 ml IV Total 75 ml 560.0 ml Tube Feeding 65 ml 845 ml Output Urine Total 300 ml 650 ml # Bowel Movements 1 Microbiology Date/Time Source Procedure Growth Status 01/01/18 13:15 Blood Blood Culture - Preliminary NO GROWTH AFTER 48 HOURS Resulted 12/23/17 19:40 Nasal Nares MRSA Culture - Final Staphylococcus Aureus - Mrsa Complete 12/31/17 20:00 Indwelling Cath Urine Culture - Final NO GROWTH AFTER 48 HOURS Complete 12/23/17 19:40 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 Complete Current Medications Medications (Trade) Dose Ordered Sig/Mehran Route PRN Reason Start Time Stop Time Status Last Admin Dose Admin Acetaminophen (Tylenol) 650 mg Q6H PRN ORAL Mild Pain/Temp > 100.5 12/23/17 21:14 01/22/18 21:13 Acetylcysteine (Mucomyst) 200 mg Q4HRT [facility] 01/01/18 23:00 01/31/18 22:59 01/04/18 07:11 Albuterol/ Ipratropium (Albuterol/ Ipratropium) 3 ml Q4HRT N 01/01/18 23:00 01/06/18 22:59 01/04/18 07:11 Amlodipine Besylate (Norvasc) 10 mg QHS ORAL 12/23/17 21:00 01/22/18 20:59 01/03/18 21:16 Carvedilol (Coreg) 25 mg EVERY 12 HOURS ORAL 12/26/17 21:00 01/22/18 20:59 01/04/18 09:30 Docusate Sodium (Colace) 250 mg DAILY NG 01/01/18 09:00 01/31/18 08:59 01/04/18 09:29 Finasteride (Proscar) 5 mg DAILY ORAL 12/24/17 09:00 01/23/18 08:59 01/04/18 09:30 Gabapentin (Neurontin) 100 mg BEDTIME PRN ORAL Moderate Pain (Pain Scale 4-6) 12/23/17 21:45 01/22/18 21:44 Haloperidol Lactate (Haldol) 5 mg Q6H PRN IM Agitation 12/27/17 12:15 01/26/18 12:14 12/27/17 12:35 Hydralazine HCl (Apresoline) 50 mg Q8H PRN ORAL For High Blood Pressure 12/25/17 12:00 01/24/18 11:59 12/29/17 16:22 Hydrochlorothiazide (Hydrodiuril) 25 mg DAILY ORAL 12/27/17 09:00 01/26/18 08:59 01/04/18 09:30 Losartan Potassium (Cozaar) 100 mg DAILY ORAL 12/26/17 09:00 01/23/18 08:59 01/04/18 09:30 Piperacillin Sod/ Tazobactam Sod 3.375 gm/Dextrose 110 ml @ 27.5 mls/hr EVERY 8 HOURS IVPB 01/01/18 14:00 01/06/18 13:59 01/04/18 06:10 Quetiapine Fumarate (SEROquel) 12.5 mg EVERY 4 HOURS PRN ORAL Agitation 12/24/17 23:30 01/23/18 23:29 Quetiapine Fumarate (SEROquel) 25 mg TID ORAL 12/27/17 13:15 01/26/18 13:14 01/04/18 09:30 Sodium Chloride 1,000 ml @ 75 mls/hr [id number] IV 12/23/17 22:00 01/22/18 21:59 01/04/18 00:33 Tamsulosin HCl (Flomax) 0.4 mg BEDTIME ORAL 12/24/17 21:00 01/23/18 20:59 01/03/18 21:16 Vancomycin HCl (Vanco rx to dose) 1 ea DAILY PRN MISC Per rx protocol 01/02/18 14:30 02/01/18 14:29 Laboratory Tests 01/04/18 03:00: Vancomycin Level Trough 28.7H Height (Feet): 5 Height (Inches): 10.00 Weight (Pounds): 185 Objective exam stable, hinkle indwelling, urine clearing CT noted path noted, low grade urothelial ca (d/w pathologist) LIVIER ALVAREZ Jan 04, 2018 09:45
--- NOTE | 2018-01-04 10:08 | Pulmonology Progress Note ---
Assessment/Plan Problems: (1) PEG (percutaneous endoscopic gastrostomy) status (2) Pleural effusion (3) Collapse, lung (4) PNA (pneumonia) (5) Bladder tumor (6) Severe malnutrition Assessment/Plan ASSESSMENT: The patient is a 67-year-old male with a history of prior nasopharyngeal carcinoma, hypertension, encephalopathy, admitted with hematuria, noted to have a bladder mass, now status post TURBT with pathology pending with progressive opacification of left hemithorax likely secondary to a combination of pneumonia with mucus plugging, atelectasis, and pleural effusion. 01/02/18 - 600 cc L THORACENTESIS ---> MARKED IMPROVEMENT IN AERATION OF L LUNG PROBLEM LIST: 1. Left hemithorax opacifications likely a combination of pneumonia with mucus plugging, atelectasis, and pleural effusion - IMPROVED 2. Healthcare associated pneumonia. 3. Dysphagia, status post PEG. 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 Encephalopathy. 6. Failure to thrive and severe malnutrition. 7. Hypertension, hyperlipidemia. TREATMENT PLAN: 1. Optimize pulmonary hygiene/mobilize as tolerated. 2. Every 4 hours DuoNeb. 3. Every 4 hours Mucomyst nebulized treatments. 4. Every 4 hours chest PT and frequent suctioning 5. F/U CXR 6. F/U pleural fluid Cx and cystology 7. Can hold off on BRONCHOSCOPY as lung re-expanded 8. Continue Zosyn (today is day #3). 9. Will need a repeat CT chest in 4-6 weeks as an outpatient to further evaluate parenchymal changes and ensure no pulmonary mets once acute issues resolved 10. Cautious G-tube feeds. 11. DVT prophylaxis, SCDs. 12. Follow up recs 13. The patient is a Full Code. 14. Continue to discuss goals of care. Subjective Allergies: Coded Allergies: No Known Allergies (Unverified , 07/17/17) Subjective LINH States he feels better, no cough, no SOB, no F/C, [place] TF's Objective Last 24 Hour Vital Signs Date Time Temp Pulse Resp B/P (MAP) Pulse Ox O2 Delivery O2 Flow Rate FiO2 01/04/18 09:30 71 147/65 01/04/18 09:30 147/65 01/04/18 08:00 98.5 71 17 147/65 (92) 95 98.5 01/04/18 07:25 74 18 97 Room Air 01/04/18 07:12 72 16 94 Room Air 01/04/18 07:12 Room Air 01/04/18 07:12 94 Room Air 01/04/18 04:00 98.5 71 18 144/66 (92) 95 98.5 01/04/18 03:35 71 18 99 Nasal Cannula 2.0 01/04/18 03:20 71 18 95 Room Air 01/04/18 00:00 98.4 70 18 147/69 (95) 100 98.4 01/03/18 23:44 69 18 99 Nasal Cannula 2.0 01/03/18 23:32 Nasal Cannula 2.0 01/03/18 23:29 69 18 97 Nasal Cannula 2.0 01/03/18 21:16 72 114/57 01/03/18 21:15 72 114/57 01/03/18 21:00 Nasal Cannula 2.0 Nasal Cannula 2.0 01/03/18 20:00 98.9 72 20 114/57 (76) 92 98.9 01/03/18 19:55 70 18 99 Room Air 01/03/18 19:40 73 18 96 Room Air 01/03/18 19:40 96 Room Air 01/03/18 19:40 Room Air 01/03/18 16:31 78 18 100 Nasal Cannula 2.0 01/03/18 16:24 76 18 96 Nasal Cannula 2.0 01/03/18 16:00 98.4 70 20 127/69 (88) 96 98.4 01/03/18 12:00 98.7 73 18 117/69 (85) 97 98.7 01/03/18 11:14 74 18 100 Nasal Cannula 2.0 01/03/18 11:07 74 18 98 Nasal Cannula 2.0 28 Intake and Output 01/03/18 01/04/18 19:00 07:00 Intake Total 240 ml 1605.0 ml Output Total 300 ml 650 ml Balance -60 ml 955.0 ml Free Water 100 ml 200 ml IV Total 75 ml 560.0 ml Tube Feeding 65 ml 845 ml Output Urine Total 300 ml 650 ml # Bowel Movements 1 General Appearance: no acute distress, cachetic HEENT: normocephalic, atraumatic, anicteric, mucous membranes moist Respiratory/Chest: chest wall non-tender, lungs clear, normal breath sounds, no respiratory distress Cardiovascular: normal peripheral pulses, normal rate, regular rhythm Abdomen: normal bowel sounds, soft, non tender, no organomegaly, non distended Extremities: no cyanosis, no clubbing, no edema Microbiology Date/Time Source Procedure Growth Status 01/01/18 13:15 Blood Blood Culture - Preliminary NO GROWTH AFTER 48 HOURS Resulted 01/01/18 13:00 Blood Blood Culture - Preliminary NO GROWTH AFTER 48 HOURS Resulted Laboratory Tests 01/04/18 03:00: Vancomycin Level Trough 28.7H Current Medications Medications (Trade) Dose Ordered Sig/Mehran Route PRN Reason Start Time Stop Time Status Last Admin Dose Admin Acetaminophen (Tylenol) 650 mg Q6H PRN ORAL Mild Pain/Temp > 100.5 12/23/17 21:14 01/22/18 21:13 Acetylcysteine (Mucomyst) 200 mg Q4HRT N 01/01/18 23:00 01/31/18 22:59 01/04/18 07:11 Albuterol/ Ipratropium (Albuterol/ Ipratropium) 3 ml Q4HRT N 01/01/18 23:00 01/06/18 22:59 01/04/18 07:11 Amlodipine Besylate (Norvasc) 10 mg QHS ORAL 12/23/17 21:00 01/22/18 20:59 01/03/18 21:16 Carvedilol (Coreg) 25 mg EVERY 12 HOURS ORAL 12/26/17 21:00 01/22/18 20:59 01/04/18 09:30 Docusate Sodium (Colace) 250 mg DAILY NG 01/01/18 09:00 01/31/18 08:59 01/04/18 09:29 Finasteride (Proscar) 5 mg DAILY ORAL 12/24/17 09:00 01/23/18 08:59 01/04/18 09:30 Gabapentin (Neurontin) 100 mg BEDTIME PRN ORAL Moderate Pain (Pain Scale 4-6) 12/23/17 21:45 01/22/18 21:44 Haloperidol Lactate (Haldol) 5 mg Q6H PRN IM Agitation 12/27/17 12:15 01/26/18 12:14 12/27/17 12:35 Hydralazine HCl (Apresoline) 50 mg Q8H PRN ORAL For High Blood Pressure 12/25/17 12:00 01/24/18 11:59 12/29/17 16:22 Hydrochlorothiazide (Hydrodiuril) 25 mg DAILY ORAL 12/27/17 09:00 01/26/18 08:59 01/04/18 09:30 Losartan Potassium (Cozaar) 100 mg DAILY ORAL 12/26/17 09:00 01/23/18 08:59 01/04/18 09:30 Piperacillin Sod/ Tazobactam Sod 3.375 gm/Dextrose 110 ml @ 27.5 mls/hr EVERY 8 HOURS IVPB 01/01/18 14:00 01/06/18 13:59 01/04/18 06:10 Quetiapine Fumarate (SEROquel) 12.5 mg EVERY 4 HOURS PRN ORAL Agitation 12/24/17 23:30 01/23/18 23:29 Quetiapine Fumarate (SEROquel) 25 mg TID ORAL 12/27/17 13:15 01/26/18 13:14 01/04/18 09:30 Sodium Chloride 1,000 ml @ 75 mls/hr [id number] IV 12/23/17 22:00 01/22/18 21:59 01/04/18 00:33 Tamsulosin HCl (Flomax) 0.4 mg BEDTIME ORAL 12/24/17 21:00 01/23/18 20:59 01/03/18 21:16 Vancomycin HCl (Vanco rx to dose) 1 ea DAILY PRN MISC Per rx protocol 01/02/18 14:30 02/01/18 14:29 Daniel Stone MD Jan 04, 2018 10:08
--- NOTE | 2018-01-04 11:32 | General Progress Note ---
Assessment/Plan Status: stable Assessment/Plan #. Anemia due to hematuria. PSA level of 2.[address] Irrigation as needed. Urology Service evaluation. --> Continue to closely monitor --> Anemia w/u has been reviewed, will trend daily. --> Hgb goal >8 --> appreciate urology recommendations --> imaging has been reviewed --> 12/27: S/P cystoscopy and bladder biopsy. #. Bladder tumor s/p TURBT --> final pathology report is pending #. Coagulopathy, likely due to decreased p.o. intake. --> INR of 1.2 --> hepatitis panel is pending #. Paraproteinemia. --> spep and upep are prelim negative for monoclonal band #. Nasopharyngeal carcinoma, currently in remission. #. Failure to thrive history, likely secondary to decreased p.o. intake. #. Hypertension. Systolic blood pressure goal is less than 140. The time the note was entered does not necessarily correspond to the time the patient was seen. Subjective Date patient seen: Jan 04, 2018 ROS Limited/Unobtainable: Yes Hematologic/Lymphatic: Reports: anemia Allergies: Coded Allergies: No Known Allergies (Unverified , 07/17/17) All Systems: reviewed and negative except above Subjective Pt awake and alert. No acute events. Denies pain/discomfort. Objective Last 24 Hour Vital Signs Date Time Temp Pulse Resp B/P (MAP) Pulse Ox O2 Delivery O2 Flow Rate FiO2 01/04/18 10:40 Room Air 01/04/18 10:40 Room Air 01/04/18 09:30 71 147/65 01/04/18 09:30 147/65 01/04/18 09:00 Nasal Cannula 2.0 Nasal Cannula 2.0 01/04/18 08:00 98.5 71 17 147/65 (92) 95 98.5 01/04/18 07:25 74 18 97 Room Air 01/04/18 07:12 72 16 94 Room Air 01/04/18 07:12 Room Air 01/04/18 07:12 94 Room Air 01/04/18 04:00 98.5 71 18 144/66 (92) 95 98.5 01/04/18 03:35 71 18 99 Nasal Cannula 2.0 01/04/18 03:20 71 18 95 Room Air 01/04/18 00:00 98.4 70 18 147/69 (95) 100 98.4 01/03/18 23:44 69 18 99 Nasal Cannula 2.0 01/03/18 23:32 Nasal Cannula 2.0 01/03/18 23:29 69 18 97 Nasal Cannula 2.0 01/03/18 21:16 72 114/57 01/03/18 21:15 72 114/57 01/03/18 21:00 Nasal Cannula 2.0 Nasal Cannula 2.0 01/03/18 20:00 98.9 72 20 114/57 (76) 92 98.9 01/03/18 19:55 70 18 99 Room Air 01/03/18 19:40 73 18 96 Room Air 01/03/18 19:40 96 Room Air 01/03/18 19:40 Room Air 01/03/18 16:31 78 18 100 Nasal Cannula 2.0 01/03/18 16:24 76 18 96 Nasal Cannula 2.0 01/03/18 16:00 98.4 70 20 127/69 (88) 96 98.4 01/03/18 12:00 98.7 73 18 117/69 (85) 97 98.7 Intake and Output 01/03/18 01/04/18 19:00 07:00 Intake Total 240 ml 1605.0 ml Output Total 300 ml 650 ml Balance -60 ml 955.0 ml Free Water 100 ml 200 ml IV Total 75 ml 560.0 ml Tube Feeding 65 ml 845 ml Output Urine Total 300 ml 650 ml # Bowel Movements 1 Laboratory Tests 01/04/18 03:00: Vancomycin Level Trough 28.7H Height (Feet): 5 Height (Inches): 10.00 Weight (Pounds): 185 General Appearance: no apparent distress, alert EENT: PERRL/EOMI Neck: normal alignment Cardiovascular: normal peripheral pulses Respiratory/Chest: normal breath sounds, no respiratory distress Abdomen: tender Shane Oropeza MD Jan 04, 2018 11:32
[2018-01-04 12:00] VITALS: BP 144/68
--- NOTE | 2018-01-04 14:44 | General Surgery Progress Note ---
General Surgery-Progress Note Subjective Symptoms: improved, passing flatus, BM Additional Comments doing well. catheter in place with clean urine Objective Last 24 Hour Vital Signs Date Time Temp Pulse Resp B/P (MAP) Pulse Ox O2 Delivery O2 Flow Rate FiO2 01/04/18 14:27 71 14 93 Room Air 01/04/18 12:00 98.6 70 18 144/68 (93) 92 98.6 01/04/18 10:40 Room Air 01/04/18 10:40 Room Air 01/04/18 09:30 71 147/65 01/04/18 09:30 147/65 01/04/18 09:00 Nasal Cannula 2.0 Nasal Cannula 2.0 01/04/18 08:00 98.5 71 17 147/65 (92) 95 98.5 01/04/18 07:25 74 18 97 Room Air 01/04/18 07:12 72 16 94 Room Air 01/04/18 07:12 Room Air 01/04/18 07:12 94 Room Air 01/04/18 04:00 98.5 71 18 144/66 (92) 95 98.5 01/04/18 03:35 71 18 99 Nasal Cannula 2.0 01/04/18 03:20 71 18 95 Room Air 01/04/18 00:00 98.4 70 18 147/69 (95) 100 98.4 01/03/18 23:44 69 18 99 Nasal Cannula 2.0 01/03/18 23:32 Nasal Cannula 2.0 01/03/18 23:29 69 18 97 Nasal Cannula 2.0 01/03/18 21:16 72 114/57 01/03/18 21:15 72 114/57 01/03/18 21:00 Nasal Cannula 2.0 Nasal Cannula 2.0 01/03/18 20:00 98.9 72 20 114/57 (76) 92 98.9 01/03/18 19:55 70 18 99 Room Air 01/03/18 19:40 73 18 96 Room Air 01/03/18 19:40 96 Room Air 01/03/18 19:40 Room Air 01/03/18 16:31 78 18 100 Nasal Cannula 2.0 01/03/18 16:24 76 18 96 Nasal Cannula 2.0 01/03/18 16:00 98.4 70 20 127/69 (88) 96 98.4 I&O Intake and Output 01/03/18 01/04/18 19:00 07:00 Intake Total 240 ml 1605.0 ml Output Total 300 ml 650 ml Balance -60 ml 955.0 ml Free Water 100 ml 200 ml IV Total 75 ml 560.0 ml Tube Feeding 65 ml 845 ml Output Urine Total 300 ml 650 ml # Bowel Movements 1 Wound: clean Drains: none Cardiovascular: RSR Respiratory: clear Abdomen: soft, flat, non-tender, present bowel sounds Extremities: no edema, no tenderness Laboratory Tests Test 01/04/18 03:00 Vancomycin Level Trough 28.7 ug/mL (5.0-12.0) H Plan Problems: (1) Hematoma of bladder wall (2) Hematuria Assessment & Plan: CT findings: Hematoma within the urinary bladder. Nature of this is not known. Consider cystoscopy for further evaluation. Underlying mass or other bladder pathology not excluded. Rodriguez catheter in good position. labs improved overall improved large bladder tumor removed -path low grade tumor; favor non invasive cath in place cont drainage urine possible voiding trial soon as per urology thank you Marlon Doherty Jan 04, 2018 14:44
[2018-01-04] MEDS ORDERED: NS Irrig 1000ml ONE (15:31)
[2018-01-04] MEDS ORDERED: Vancomycin 1gm/D5W 275ml IVPB SCH ×2 (15:45)
[2018-01-04 16:00] VITALS: BP 129/66
[2018-01-04] MEDS: Vancomycin 1gm/D5W 275ml IVPB SCH ×2 (17:53)
[2018-01-04 20:00] VITALS: BP 144/70
[2018-01-04] MEDS: Tamsulosin 0.4mg cap ORAL SCH (21:23)
--- NOTE | 2018-01-04 22:40 | General Progress Note ---
Assessment/Plan Status: stable Assessment/Plan Assessment/Plan - Urology consulted, appreciate rec's - Cardiology consulted, appreciate rec's - Oncology consulted, appreciate rec's - Psychiatry consulted, appreciate rec's - GI consulted, appreciate rec's - Pulmonology consulted, appreciate rec's - s/p left thoracentesis with 600cc out. F/u repeat CXR - CXR showing infiltrate with increased atelectasis and endobronchial occlusion - Empiric abx with IV vancomycin and zosyn (D3) - F/u blood cx, urine cx, serial CXR - O2 prn to maintain O2sat > 92% - s/p Gtube, tolerating feeds. Monitor for residuals - s/p cystoscopy and TURBT with extensive fulgration. large bladder tumor removed on 12/27 - keep hinkle in 3-5 days - f/u pathology - Continue to monitor for clots - Started on flomax, proscar - Check PSA -- 2.55 - F/u CT urogram -- showing bladder hematoma vs. mass - Continue home BP meds -- increased per cards - Venous duplex negative - Hydralazine prn - Pain control and supportive care DVT Prophylaxis: SCD. NO HSQ GIVEN HEMATOMA/HEMATURIA Code Status: Full Hospital Classification Declaration: Based on this initial evaluation, and depending on the patient's clinical course, I anticipate that this patient will require hospitalization for 2-3 days for gross hematuria and close respiratory/ hemodynamic monitoring. Disposition: Once the patient is stable to leave the hospital, I anticipate the patient will likely be discharged to the following environment: [facility] I spent 45 minutes on this patient's case, and 25 minutes were dedicated to counseling and/or care coordination. Discussed with patient/family, nursing staff, SW/CM, and all consultants involved regarding clinical status, treatment course, and disposition planning. Time of note may not reflect time of encounter. Subjective Date patient seen: Jan 04, 2018 Time patient seen: 09:31 ROS Limited/Unobtainable: Yes Constitutional: Reports: no symptoms HEENT: Reports: no symptoms Cardiovascular: Reports: no symptoms Respiratory: Reports: no symptoms Gastrointestinal/Abdominal: Reports: no symptoms Genitourinary: Reports: no symptoms Neurologic/Psychiatric: Reports: no symptoms Endocrine: Reports: no symptoms Hematologic/Lymphatic: Reports: no symptoms Allergies: Coded Allergies: No Known Allergies (Unverified , 2/7/18) All Systems: reviewed and negative except above Subjective No acute events overnight Resting in bed Denies pain Objective Last 24 Hour Vital Signs Date Time Temp Pulse Resp B/P (MAP) Pulse Ox O2 Delivery O2 Flow Rate FiO2 01/04/18 21:24 72 144/70 01/04/18 21:23 72 144/70 01/04/18 20:32 Room Air 01/04/18 20:32 95 Room Air 01/04/18 20:29 Room Air 01/04/18 20:29 Room Air 01/04/18 20:00 98.3 72 17 144/70 (94) 95 98.3 01/04/18 16:00 98.8 71 18 129/66 (87) 95 98.8 01/04/18 14:30 71 16 95 Nasal Cannula 2.0 01/04/18 14:27 71 14 93 Room Air 01/04/18 12:00 98.6 70 18 144/68 (93) 92 98.6 01/04/18 10:40 Room Air 01/04/18 10:40 Room Air 01/04/18 09:30 71 147/65 01/04/18 09:30 147/65 01/04/18 09:00 Nasal Cannula 2.0 Nasal Cannula 2.0 01/04/18 08:00 98.5 71 17 147/65 (92) 95 98.5 01/04/18 07:25 74 18 97 Room Air 01/04/18 07:12 72 16 94 Room Air 01/04/18 07:12 Room Air 01/04/18 07:12 94 Room Air 01/04/18 04:00 98.5 71 18 144/66 (92) 95 98.5 01/04/18 03:35 71 18 99 Nasal Cannula 2.0 01/04/18 03:20 71 18 95 Room Air 01/04/18 00:00 98.4 70 18 147/69 (95) 100 98.4 01/03/18 23:44 69 18 99 Nasal Cannula 2.0 28 01/03/18 23:32 Nasal Cannula 2.0 01/03/18 23:29 69 18 97 Nasal Cannula 2.0 28 Intake and Output 01/03/18 01/04/18 19:00 07:00 Intake Total 240 ml 1605.0 ml Output Total 300 ml 650 ml Balance -60 ml 955.0 ml Free Water 100 ml 200 ml IV Total 75 ml 560.0 ml Tube Feeding 65 ml 845 ml Output Urine Total 300 ml 650 ml # Bowel Movements 1 Laboratory Tests 01/04/18 03:00: Vancomycin Level Trough 28.7H Height (Feet): 5 Height (Inches): 10.00 Weight (Pounds): 185 General Appearance: WD/WN, lethargic, thin EENT: PERRL/EOMI, TMs normal, pharynx normal Neck: non-tender Cardiovascular: normal peripheral pulses, normal rate, regular rhythm Respiratory/Chest: chest wall non-tender, lungs clear Abdomen: normal bowel sounds, non tender, soft Pelvis: normal external exam Extremities: normal range of motion Edema: no edema noted Arm (L), no edema noted Arm (R), no edema noted Leg (L), no edema noted Leg (R), no edema noted Pedal (L), no edema noted Pedal (R), no edema noted Generalized Neurologic: disoriented Skin: normal pigmentation Lymphatic: normal anterior cervical (L), normal anterior cervical (R), normal posterior cervical (L), normal posterior cervical (R) Rajinder Fan M.D. Jan 04, 2018 22:40
[2018-01-05] VITALS: BP 144/69
[2018-01-05] MEDS: Albuterol/Ipratropium 3ml neb HHN SCH ×4 (03:41→20:08)
[2018-01-05] MEDS: Acetylcysteine 20% Soln 4ml HHN SCH ×5 (03:41→20:08)
[2018-01-05] MEDS: Vancomycin 1gm/D5W 275ml IVPB SCH ×2 (03:50)
[2018-01-05 04:00] VITALS: BP 144/79
[2018-01-05] MEDS: Piperacillin/Tazobactam 3.375 GM in D5W 110 ML IVPB SCH ×3 (05:56→22:57)
[2018-01-05 08:00] VITALS: BP 149/70
--- NOTE | 2018-01-05 08:44 | General Progress Note ---
Assessment/Plan Status: unchanged Assessment/Plan Assessment/Plan - Urology consulted, appreciate rec's - Cardiology consulted, appreciate rec's - Oncology consulted, appreciate rec's - Psychiatry consulted, appreciate rec's - GI consulted, appreciate rec's - Pulmonology consulted, appreciate rec's - s/p left thoracentesis with 600cc out. Repeat CXR with improvement - CXR showing infiltrate with increased atelectasis and endobronchial occlusion - Empiric abx with IV vancomycin and zosyn (D5) - F/u blood cx, urine cx, serial CXR - O2 prn to maintain O2sat > 92% - s/p Gtube, tolerating feeds. Monitor for residuals - s/p cystoscopy and TURBT with extensive fulgration. large bladder tumor removed on 12/27 - keep hinkle in 3-5 days- voiding trial - f/u pathology - Continue to monitor for clots - Started on flomax, proscar - Check PSA -- 2.55 - F/u CT urogram -- showing bladder hematoma vs. mass - Continue home BP meds -- increased per cards - Venous duplex negative - Hydralazine prn - Pain control and supportive care DVT Prophylaxis: SCD. NO HSQ GIVEN HEMATOMA/HEMATURIA Code Status: Full Hospital Classification Declaration: Based on this initial evaluation, and depending on the patient's clinical course, I anticipate that this patient will require hospitalization for 2-3 days for gross hematuria and close respiratory/ hemodynamic monitoring. Disposition: Once the patient is stable to leave the hospital, I anticipate the patient will likely be discharged to the following environment: [facility] I spent 45 minutes on this patient's case, and 25 minutes were dedicated to counseling and/or care coordination. Discussed with patient/family, nursing staff, SW/CM, and all consultants involved regarding clinical status, treatment course, and disposition planning. Time of note may not reflect time of encounter. Subjective Date patient seen: Jan 05, 2018 Time patient seen: 08:44 ROS Limited/Unobtainable: Yes Allergies: Coded Allergies: No Known Allergies (Unverified , 07/17/17) All Systems: reviewed and negative except above Subjective No acute events overnight Resting in bed Denies pain Objective Last 24 Hour Vital Signs Date Time Temp Pulse Resp B/P (MAP) Pulse Ox O2 Delivery O2 Flow Rate FiO2 01/05/18 08:06 75 20 95 Nasal Cannula 3.0 32 01/05/18 07:55 Nasal Cannula 3.0 32 01/05/18 07:55 96 Nasal Cannula 3.0 32 01/05/18 07:55 70 20 96 Nasal Cannula 3.0 32 01/05/18 04:00 98.2 73 22 144/79 (100) 97 98.2 01/05/18 03:51 69 18 99 Nasal Cannula 3.0 32 01/05/18 03:41 67 16 97 Nasal Cannula 3.0 32 01/05/18 00:00 98.4 69 22 144/69 (94) 92 98.4 01/04/18 23:00 Room Air 21 01/04/18 23:00 Room Air 21 01/04/18 21:24 72 144/70 01/04/18 21:23 72 144/70 01/04/18 21:00 Nasal Cannula 2.0 Nasal Cannula 2.0 01/04/18 20:32 Room Air 21 01/04/18 20:32 95 Room Air 21 01/04/18 20:29 Room Air 21 01/04/18 20:29 Room Air 21 01/04/18 20:00 98.3 72 17 144/70 (94) 95 98.3 01/04/18 16:00 98.8 71 18 129/66 (87) 95 98.8 01/04/18 14:30 71 16 95 Nasal Cannula 2.0 28 01/04/18 14:27 71 14 93 Room Air 01/04/18 12:00 98.6 70 18 144/68 (93) 92 98.6 01/04/18 10:40 Room Air 01/04/18 10:40 Room Air 21 01/04/18 09:30 71 147/65 01/04/18 09:30 147/65 01/04/18 09:00 Nasal Cannula 2.0 Nasal Cannula 2.0 Intake and Output 01/04/18 01/05/18 19:00 07:00 Intake Total 332.5 ml 1450.000 ml Output Total 400 ml 1400 ml Balance -67.5 ml 50.000 ml Free Water 100 ml 200 ml IV Total 102.5 ml 535.000 ml Tube Feeding 130 ml 715 ml Output Urine Total 400 ml 1400 ml # Bowel Movements 2 Height (Feet): 5 Height (Inches): 10.00 Weight (Pounds): 185 General Appearance: no apparent distress, thin EENT: PERRL/EOMI, TMs normal Neck: non-tender, supple Cardiovascular: normal peripheral pulses, normal rate, regular rhythm Respiratory/Chest: chest wall non-tender, normal breath sounds Abdomen: normal bowel sounds, non tender, soft Pelvis: normal external exam Extremities: normal range of motion, non-tender Edema: no edema noted Arm (L), no edema noted Arm (R) Edema: trace edema Neurologic: disoriented Skin: normal pigmentation, warm/dry Lymphatic: normal anterior cervical (L), normal anterior cervical (R) Rajinder Fan M.D. Jan 05, 2018 08:44
--- NOTE | 2018-01-05 09:29 | Urology Progress Note ---
Assessment/Plan Assessment/Plan 1. Gross hematuria hx, resolving. 2. Urinary retention. 3. BPH history. 4. Proteinuria. 5. Mild pyuria. 6. Rule out neurogenic bladder. 7. Bladder tumor, low grade urothelial ca. 8, POD # 9, TURBT. keep hinkle indwelling for now I personally hand irrigated hinkle, position is satisfactory nursing staff to hand irrigate hinkle PRN cont with abx proscar, flomax monitor h/h, renal fxn plan for voiding trial tomorrow d/w primary service Subjective Allergies: Coded Allergies: No Known Allergies (Unverified , 07/17/17) Subjective all noted, no flank pain Objective Last 24 Hour Vital Signs Date Time Temp Pulse Resp B/P (MAP) Pulse Ox O2 Delivery O2 Flow Rate FiO2 01/05/18 08:06 75 20 95 Nasal Cannula 3.0 32 01/05/18 08:00 97.7 63 20 149/70 (96) 100 97.7 01/05/18 07:55 Nasal Cannula 3.0 32 01/05/18 07:55 96 Nasal Cannula 3.0 32 01/05/18 07:55 70 20 96 Nasal Cannula 3.0 32 01/05/18 04:00 98.2 73 22 144/79 (100) 97 98.2 01/05/18 03:51 69 18 99 Nasal Cannula 3.0 32 01/05/18 03:41 67 16 97 Nasal Cannula 3.0 32 01/05/18 00:00 98.4 69 22 144/69 (94) 92 98.4 01/04/18 23:00 Room Air 21 01/04/18 23:00 Room Air 21 01/04/18 21:24 72 144/70 01/04/18 21:23 72 144/70 01/04/18 21:00 Nasal Cannula 2.0 Nasal Cannula 2.0 01/04/18 20:32 Room Air 21 01/04/18 20:32 95 Room Air 21 01/04/18 20:29 Room Air 21 01/04/18 20:29 Room Air 21 01/04/18 20:00 98.3 72 17 144/70 (94) 95 98.3 01/04/18 16:00 98.8 71 18 129/66 (87) 95 98.8 01/04/18 14:30 71 16 95 Nasal Cannula 2.0 28 /28/18 14:27 71 14 93 Room Air 01/04/18 12:00 98.6 70 18 144/68 (93) 92 98.6 01/04/18 10:40 Room Air 21 01/04/18 10:40 Room Air 21 01/04/18 09:30 71 147/65 01/04/18 09:30 147/65 Intake and Output 01/04/18 01/05/18 19:00 07:00 Intake Total 332.5 ml 1450.000 ml Output Total 400 ml 1400 ml Balance -67.5 ml 50.000 ml Free Water 100 ml 200 ml IV Total 102.5 ml 535.000 ml Tube Feeding 130 ml 715 ml Output Urine Total 400 ml 1400 ml # Bowel Movements 2 Microbiology Date/Time Source Procedure Growth Status 01/01/18 13:15 Blood Blood Culture - Preliminary NO GROWTH AFTER 72 HOURS Resulted 12/23/17 19:40 Nasal Nares MRSA Culture - Final Staphylococcus Aureus - Mrsa Complete 12/31/17 20:00 Indwelling Cath Urine Culture - Final NO GROWTH AFTER 48 HOURS Complete 12/23/17 19:40 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 Complete Current Medications Medications (Trade) Dose Ordered Sig/Mehran Route PRN Reason Start Time Stop Time Status Last Admin Dose Admin Acetaminophen (Tylenol) 650 mg Q6H PRN ORAL Mild Pain/Temp > 100.5 12/23/17 21:14 01/22/18 21:13 Acetylcysteine (Mucomyst) 200 mg Q4HRT N 01/01/18 23:00 01/31/18 22:59 01/05/18 07:56 Albuterol/ Ipratropium (Albuterol/ Ipratropium) 3 ml Q4HRT N 01/01/18 23:00 01/06/18 22:59 01/05/18 07:55 Amlodipine Besylate (Norvasc) 10 mg QHS ORAL 12/23/17 21:00 01/22/18 20:59 01/04/18 21:24 Carvedilol (Coreg) 25 mg EVERY 12 HOURS ORAL 12/26/17 21:00 01/22/18 20:59 01/04/18 21:23 Docusate Sodium (Colace) 250 mg DAILY NG 01/01/18 09:00 01/31/18 08:59 01/04/18 09:29 Finasteride (Proscar) 5 mg DAILY ORAL 12/24/17 09:00 01/23/18 08:59 01/04/18 09:30 Gabapentin (Neurontin) 100 mg BEDTIME PRN ORAL Moderate Pain (Pain Scale 4-6) 12/23/17 21:45 01/22/18 21:44 Haloperidol Lactate (Haldol) 5 mg Q6H PRN IM Agitation 12/27/17 12:15 01/26/18 12:14 12/27/17 12:35 Hydralazine HCl (Apresoline) 50 mg Q8H PRN ORAL For High Blood Pressure 12/25/17 12:00 01/24/18 11:59 12/29/17 16:22 Hydrochlorothiazide (Hydrodiuril) 25 mg DAILY ORAL 12/27/17 09:00 01/26/18 08:59 01/04/18 09:30 Losartan Potassium (Cozaar) 100 mg DAILY ORAL 12/26/17 09:00 01/23/18 08:59 01/04/18 09:30 Piperacillin Sod/ Tazobactam Sod 3.375 gm/Dextrose 110 ml @ 27.5 mls/hr EVERY 8 HOURS IVPB 01/01/18 14:00 01/06/18 13:59 01/05/18 05:56 Quetiapine Fumarate (SEROquel) 12.5 mg EVERY 4 HOURS PRN ORAL Agitation 12/24/17 23:30 01/23/18 23:29 Quetiapine Fumarate (SEROquel) 25 mg TID ORAL 12/27/17 13:15 01/26/18 13:14 01/04/18 17:53 Sodium Chloride 1,000 ml @ 75 mls/hr [id number] IV 12/23/17 22:00 01/22/18 21:59 01/05/18 03:51 Tamsulosin HCl (Flomax) 0.4 mg BEDTIME ORAL 12/24/17 21:00 01/23/18 20:59 01/04/18 21:23 Vancomycin HCl (Vanco rx to dose) 1 ea DAILY PRN MISC Per rx protocol 01/02/18 14:30 02/01/18 14:29 Vancomycin HCl 1 gm/Dextrose 275 ml @ 183.708 mls/hr Q12H IVPB 01/04/18 16:00 01/09/18 15:59 01/05/18 03:50 Height (Feet): 5 Height (Inches): 10.00 Weight (Pounds): 185 Objective exam stable, hinkle indwelling, urine clearing CT noted path noted, low grade urothelial ca (d/w pathologist) LIVIER ALVAREZ Jan 05, 2018 09:29
[2018-01-05] MEDS: Carvedilol 25mg Tab ORAL SCH ×2 (10:20→21:05)
[2018-01-05] MEDS: Losartan 50mg tab ORAL SCH (10:20)
[2018-01-05] MEDS: Docusate 100mg/10ml Liq NG SCH (10:22)
[2018-01-05 12:00] VITALS: BP 169/73
--- NOTE | 2018-01-05 12:47 | General Surgery Progress Note ---
General Surgery-Progress Note Subjective Additional Comments resting comfortable. no acute events. doing well. urine clear Objective Last 24 Hour Vital Signs Date Time Temp Pulse Resp B/P (MAP) Pulse Ox O2 Delivery O2 Flow Rate FiO2 01/05/18 10:34 75 20 94 Nasal Cannula 3.0 32 01/05/18 10:26 72 20 93 Nasal Cannula 3.0 32 01/05/18 10:20 75 149/70 01/05/18 10:20 149/70 01/05/18 08:06 75 20 95 Nasal Cannula 3.0 32 01/05/18 08:00 97.7 63 20 149/70 (96) 100 97.7 01/05/18 07:55 Nasal Cannula 3.0 32 01/05/18 07:55 96 Nasal Cannula 3.0 32 01/05/18 07:55 70 20 96 Nasal Cannula 3.0 32 01/05/18 04:00 98.2 73 22 144/79 (100) 97 98.2 01/05/18 03:51 69 18 99 Nasal Cannula 3.0 32 01/05/18 03:41 67 16 97 Nasal Cannula 3.0 32 01/05/18 00:00 98.4 69 22 144/69 (94) 92 98.4 01/04/18 23:00 Room Air 21 01/04/18 23:00 Room Air 21 01/04/18 21:24 72 144/70 01/04/18 21:23 72 144/70 01/04/18 21:00 Nasal Cannula 2.0 Nasal Cannula 2.0 01/04/18 20:32 Room Air 21 01/04/18 20:32 95 Room Air 21 01/04/18 20:29 Room Air 21 01/04/18 20:29 Room Air 21 01/04/18 20:00 98.3 72 17 144/70 (94) 95 98.3 01/04/18 16:00 98.8 71 18 129/66 (87) 95 98.8 01/04/18 14:30 71 16 95 Nasal Cannula 2.0 28 01/04/18 14:27 71 14 93 Room Air I&O Intake and Output 01/04/18 01/05/18 19:00 07:00 Intake Total 332.5 ml 1450.000 ml Output Total 400 ml 1400 ml Balance -67.5 ml 50.000 ml Free Water 100 ml 200 ml IV Total 102.5 ml 535.000 ml Tube Feeding 130 ml 715 ml Output Urine Total 400 ml 1400 ml # Bowel Movements 2 Wound: clean Drains: none Cardiovascular: RSR Respiratory: clear Abdomen: soft, flat, non-tender, present bowel sounds Extremities: no cyanosis Plan Problems: (1) Hematoma of bladder wall (2) Hematuria Assessment & Plan: CT findings: Hematoma within the urinary bladder. Nature of this is not known. Consider cystoscopy for further evaluation. Underlying mass or other bladder pathology not excluded. Rodriguez catheter in good position. labs improved overall improved large bladder tumor removed -path low grade tumor; favor non invasive cath in place cont drainage urine possible voiding trial soon as per urology thank you Marlon Doherty Jan 05, 2018 12:47
[2018-01-05] MEDS: HydrALAZINE 50mg tab ORAL PRN (13:29)
--- NOTE | 2018-01-05 13:51 | Pulmonology Progress Note ---
Assessment/Plan Problems: (1) PEG (percutaneous endoscopic gastrostomy) status (2) Pleural effusion (3) Collapse, lung (4) PNA (pneumonia) (5) Bladder tumor (6) Severe malnutrition Assessment/Plan ASSESSMENT: The patient is a 67-year-old male with a history of prior nasopharyngeal carcinoma, hypertension, encephalopathy, admitted with hematuria, noted to have a bladder mass, now status post TURBT with pathology pending with progressive opacification of left hemithorax likely secondary to a combination of pneumonia with mucus plugging, atelectasis, and pleural effusion. 01/02/18 - 600 cc L THORACENTESIS ---> MARKED IMPROVEMENT IN AERATION OF L LUNG PROBLEM LIST: 1. Left hemithorax opacifications likely a combination of pneumonia with mucus plugging, atelectasis, and pleural effusion - IMPROVED 2. Healthcare associated pneumonia. 3. Dysphagia, status post PEG. 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 Encephalopathy. 6. Failure to thrive and severe malnutrition. 7. Hypertension, hyperlipidemia. TREATMENT PLAN: 1. Optimize pulmonary hygiene/mobilize as tolerated. 2. Decrease DUOnebs, NAC and CTP to q6 3. F/U CXR 4. F/U pleural fluid Cx and cystology 5. Continue Zosyn (today is day # 4). 5. Will need a repeat CT chest in 4-6 weeks as an outpatient to further evaluate parenchymal changes and ensure no pulmonary mets once acute issues resolved 6. Cautious G-tube feeds. 7. DVT prophylaxis, SCDs. 8. Follow up recs 9. The patient is a Full Code. 10. Continue to discuss goals of care. Subjective Allergies: Coded Allergies: No Known Allergies (Unverified , 07/17/17) Subjective LINH, no cough, no SOB, no F/C, [place] TF's Objective Last 24 Hour Vital Signs Date Time Temp Pulse Resp B/P (MAP) Pulse Ox O2 Delivery O2 Flow Rate FiO2 01/05/18 13:29 169/73 01/05/18 12:00 97.7 65 20 169/73 (105) 100 97.7 01/05/18 10:34 75 20 94 Nasal Cannula 3.0 32 01/05/18 10:26 72 20 93 Nasal Cannula 3.0 32 01/05/18 10:20 75 149/70 01/05/18 10:20 149/70 7/29/18 09:00 Nasal Cannula 3.0 Nasal Cannula 3.0 01/05/18 08:06 75 20 95 Nasal Cannula 3.0 32 01/05/18 08:00 97.7 63 20 149/70 (96) 100 97.7 01/05/18 07:55 Nasal Cannula 3.0 32 01/05/18 07:55 96 Nasal Cannula 3.0 32 01/05/18 07:55 70 20 96 Nasal Cannula 3.0 32 01/05/18 04:00 98.2 73 22 144/79 (100) 97 98.2 01/05/18 03:51 69 18 99 Nasal Cannula 3.0 32 01/05/18 03:41 67 16 97 Nasal Cannula 3.0 32 01/05/18 00:00 98.4 69 22 144/69 (94) 92 98.4 01/04/18 23:00 Room Air 21 01/04/18 23:00 Room Air 21 01/04/18 21:24 72 144/70 01/04/18 21:23 72 144/70 01/04/18 21:00 Nasal Cannula 2.0 Nasal Cannula 2.0 01/04/18 20:32 Room Air 21 01/04/18 20:32 95 Room Air 21 01/04/18 20:29 Room Air 21 01/04/18 20:29 Room Air 21 01/04/18 20:00 98.3 72 17 144/70 (94) 95 98.3 01/04/18 16:00 98.8 71 18 129/66 (87) 95 98.8 01/04/18 14:30 71 16 95 Nasal Cannula 2.0 01/04/18 14:27 71 14 93 Room Air Intake and Output 01/04/18 01/05/18 19:00 07:00 Intake Total 332.5 ml 1450.000 ml Output Total 400 ml 1400 ml Balance -67.5 ml 50.000 ml Free Water 100 ml 200 ml IV Total 102.5 ml 535.000 ml Tube Feeding 130 ml 715 ml Output Urine Total 400 ml 1400 ml # Bowel Movements 2 General Appearance: WD/WN, no acute distress HEENT: normocephalic, atraumatic, anicteric, mucous membranes moist Respiratory/Chest: chest wall non-tender, lungs clear, normal breath sounds, no respiratory distress Cardiovascular: normal peripheral pulses, normal rate, regular rhythm Abdomen: normal bowel sounds, soft, non tender, no organomegaly, non distended , other - GT Extremities: no cyanosis, no clubbing, no edema Current Medications Medications (Trade) Dose Ordered Sig/Mehran Route PRN Reason Start Time Stop Time Status Last Admin Dose Admin Acetaminophen (Tylenol) 650 mg Q6H PRN ORAL Mild Pain/Temp > 100.5 12/23/17 21:14 01/22/18 21:13 Acetylcysteine (Mucomyst) 200 mg Q4HRT N 01/01/18 23:00 01/31/18 22:59 01/05/18 10:26 Albuterol/ Ipratropium (Albuterol/ Ipratropium) 3 ml Q4HRT N 01/01/18 23:00 01/06/18 22:59 01/05/18 10:26 Amlodipine Besylate (Norvasc) 10 mg QHS ORAL 12/23/17 21:00 01/22/18 20:59 01/04/18 21:24 Carvedilol (Coreg) 25 mg EVERY 12 HOURS ORAL 12/26/17 21:00 01/22/18 20:59 01/05/18 10:20 Docusate Sodium (Colace) 250 mg DAILY NG 01/01/18 09:00 01/31/18 08:59 01/05/18 10:22 Finasteride (Proscar) 5 mg DAILY ORAL 12/24/17 09:00 01/23/18 08:59 01/05/18 10:22 Gabapentin (Neurontin) 100 mg BEDTIME PRN ORAL Moderate Pain (Pain Scale 4-6) 12/23/17 21:45 01/22/18 21:44 Haloperidol Lactate (Haldol) 5 mg Q6H PRN IM Agitation 12/27/17 12:15 01/26/18 12:14 12/27/17 12:35 Hydralazine HCl (Apresoline) 50 mg Q8H PRN ORAL For High Blood Pressure 12/25/17 12:00 01/24/18 11:59 01/05/18 13:29 Hydrochlorothiazide (Hydrodiuril) 25 mg DAILY ORAL 12/27/17 09:00 01/26/18 08:59 01/05/18 10:20 Losartan Potassium (Cozaar) 100 mg DAILY ORAL 12/26/17 09:00 01/23/18 08:59 01/05/18 10:20 Piperacillin Sod/ Tazobactam Sod 3.375 gm/Dextrose 110 ml @ 27.5 mls/hr EVERY 8 HOURS IVPB 01/01/18 14:00 01/07/18 13:59 01/05/18 13:03 Quetiapine Fumarate (SEROquel) 12.5 mg EVERY 4 HOURS PRN ORAL Agitation 12/24/17 23:30 01/23/18 23:29 Quetiapine Fumarate (SEROquel) 25 mg TID ORAL 12/27/17 13:15 01/26/18 13:14 01/05/18 13:01 Sodium Chloride 1,000 ml @ 75 mls/hr [id number] IV 12/23/17 22:00 01/22/18 21:59 01/05/18 03:51 Tamsulosin HCl (Flomax) 0.4 mg BEDTIME ORAL 12/24/17 21:00 01/23/18 20:59 01/04/18 21:23 Vancomycin HCl (Vanco rx to dose) 1 ea DAILY PRN MISC Per rx protocol 01/02/18 14:30 02/01/18 14:29 Vancomycin HCl 1 gm/Dextrose 275 ml @ 183.708 mls/hr Q12H IVPB 01/04/18 16:00 01/09/18 15:59 01/05/18 03:50 Daniel Stone MD Jan 05, 2018 13:51
[2018-01-05 16:00] VITALS: BP 159/74
--- NOTE | 2018-01-05 17:20 | General Progress Note ---
Assessment/Plan Status: unchanged Assessment/Plan #. Anemia due to hematuria. PSA level of 2.[address] Irrigation as needed. Urology Service evaluation. --> Continue to closely monitor --> Anemia w/u has been reviewed, will trend daily. --> Hgb goal >8 --> imaging has been reviewed --> 12/27: S/P cystoscopy and bladder biopsy. non-invasive low grade urothelial ca #. 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 Coagulopathy, likely due to decreased p.o. intake. --> INR of 1.2 --> hepatitis panel is pending #. Paraproteinemia. --> spep and upep are prelim negative for monoclonal band #. Nasopharyngeal carcinoma, currently in remission. #. Failure to thrive history, likely secondary to decreased p.o. intake. #. Hypertension. Systolic blood pressure goal is less than 140. The time the note was entered does not necessarily correspond to the time the patient was seen. Subjective Date patient seen: Jan 05, 2018 ROS Limited/Unobtainable: Yes Hematologic/Lymphatic: Reports: anemia Allergies: Coded Allergies: No Known Allergies (Unverified , 07/17/17) All Systems: reviewed and negative except above Subjective Pt awake and alert. No acute events. Pt noncompliant with breathing tx and CPT. Objective Last 24 Hour Vital Signs Date Time Temp Pulse Resp B/P (MAP) Pulse Ox O2 Delivery O2 Flow Rate FiO2 01/05/18 14:52 Nasal Cannula 01/05/18 14:52 Nasal Cannula 01/05/18 13:29 169/73 01/05/18 12:00 97.7 65 20 169/73 (105) 100 97.7 01/05/18 10:34 75 20 94 Nasal Cannula 3.0 32 01/05/18 10:26 72 20 93 Nasal Cannula 3.0 32 01/05/18 10:20 75 149/70 01/05/18 10:20 149/70 01/05/18 09:00 Nasal Cannula 3.0 Nasal Cannula 3.0 01/05/18 08:06 75 20 95 Nasal Cannula 3.0 32 01/05/18 08:00 97.7 63 20 149/70 (96) 100 97.7 01/05/18 07:55 Nasal Cannula 3.0 32 01/05/18 07:55 96 Nasal Cannula 3.0 32 01/05/18 07:55 70 20 96 Nasal Cannula 3.0 32 01/05/18 04:00 98.2 73 22 144/79 (100) 97 98.2 01/05/18 03:51 69 18 99 Nasal Cannula 3.0 32 01/05/18 03:41 67 16 97 Nasal Cannula 3.0 32 01/05/18 00:00 98.4 69 22 144/69 (94) 92 98.4 01/04/18 23:00 Room Air 21 01/04/18 23:00 Room Air 21 01/04/18 21:24 72 144/70 01/04/18 21:23 72 144/70 01/04/18 21:00 Nasal Cannula 2.0 Nasal Cannula 2.0 01/04/18 20:32 Room Air 21 01/04/18 20:32 95 Room Air 21 01/04/18 20:29 Room Air 21 01/04/18 20:29 Room Air 21 01/04/18 20:00 98.3 72 17 144/70 (94) 95 98.3 Intake and Output 01/04/18 01/05/18 19:00 07:00 Intake Total 332.5 ml 1450.000 ml Output Total 400 ml 1400 ml Balance -67.5 ml 50.000 ml Free Water 100 ml 200 ml IV Total 102.5 ml 535.000 ml Tube Feeding 130 ml 715 ml Output Urine Total 400 ml 1400 ml # Bowel Movements 2 Laboratory Tests 01/05/18 15:25: Vancomycin Level Trough 29.5H Height (Feet): 5 Height (Inches): 10.00 Weight (Pounds): 185 General Appearance: no apparent distress, lethargic EENT: PERRL/EOMI Neck: normal alignment Cardiovascular: irregularly irregular Respiratory/Chest: no respiratory distress Abdomen: tender Shane Oropeza MD Jan 05, 2018 17:20
[2018-01-05 20:00] VITALS: BP 148/70
[2018-01-05] MEDS: Tamsulosin 0.4mg cap ORAL SCH (21:05)
[2018-01-06] VITALS: BP 146/71
[2018-01-06] MEDS: Acetylcysteine 20% Soln 4ml HHN SCH ×4 (01:21→19:49)
[2018-01-06] MEDS: Albuterol/Ipratropium 3ml neb HHN SCH ×4 (01:21→19:49)
[2018-01-06 04:00] VITALS: BP 138/66
[2018-01-06] MEDS: Piperacillin/Tazobactam 3.375 GM in D5W 110 ML IVPB SCH ×3 (05:06→22:21)
[2018-01-06 08:00] VITALS: BP 148/65
[2018-01-06] MEDS: Carvedilol 25mg Tab ORAL SCH ×2 (08:51→22:20)
[2018-01-06] MEDS: Losartan 50mg tab ORAL SCH (08:51)
[2018-01-06] MEDS: Docusate 100mg/10ml Liq NG SCH (09:00)
[2018-01-06 09:44] LABS: BASOPHILS % (AUTO) 0.5 % (0.0-2.0); EOSINOPHILS % (AUTO) 1.4 % (0.0-3.0); HEMATOCRIT 29.1 % (42.0-52.0); HEMOGLOBIN 9.3 G/DL (14.2-18.0); MEAN CORPUSCULAR VOLUME 91 FL (80-99); MONOCYTES % (AUTO) 5.6 % (1.0-10.0); NEUTROPHILS % (AUTO) 83.5 % (45.0-75.0); PLATELET COUNT 378 K/UL (150-450); RED CELL DISTRIBUTION WIDTH 14.5 % (11.6-14.8); WHITE BLOOD COUNT 8.1 K/UL (4.8-10.8)
[2018-01-06 10:00] LABS: ANION GAP 6 mmol/L (5-15); BLOOD UREA NITROGEN 17 mg/dL (7-18); CALCIUM 8.5 MG/DL (8.5-10.1); CARBON DIOXIDE 30 MMOL/L (21-32); CHLORIDE 103 MMOL/L (98-107); SODIUM 139 MMOL/L (136-145)
[2018-01-06 10:05] LABS: ALANINE AMINOTRANSFERASE 12 U/L (12-78); ALBUMIN 1.6 G/DL (3.4-5.0); ALBUMIN/GLOBULIN RATIO 0.3 (1.0-2.7); ALKALINE PHOSPHATASE 61 U/L (46-116); ASPARTATE AMINO TRANSFERASE 22 U/L (15-37); BILIRUBIN,TOTAL 0.5 MG/DL (0.2-1.0)
--- NOTE | 2018-01-06 10:09 | Urology Progress Note ---
Assessment/Plan Assessment/Plan 1. Gross hematuria hx, resolving. 2. Urinary retention. 3. BPH history. 4. Proteinuria. 5. Mild pyuria. 6. Rule out neurogenic bladder. 7. Bladder tumor, low grade urothelial ca. 8, POD # 10, TURBT. hinkle removed cont with abx proscar, flomax monitor h/h, renal fxn monitor PVR d/w primary service Subjective Allergies: Coded Allergies: No Known Allergies (Unverified , 07/17/17) Subjective all noted, no flank pain, hinkle removed this morning Objective Last 24 Hour Vital Signs Date Time Temp Pulse Resp B/P (MAP) Pulse Ox O2 Delivery O2 Flow Rate FiO2 01/06/18 08:51 66 148/65 01/06/18 08:51 148/65 01/06/18 08:00 98.2 66 18 148/65 (92) 98 98.2 01/06/18 07:35 Nasal Cannula 2.0 28 01/06/18 07:35 98 Nasal Cannula 2.0 28 01/06/18 07:10 67 18 99 Nasal Cannula 2.0 28 01/06/18 07:05 71 18 97 Nasal Cannula 2.0 28 01/06/18 04:00 97.4 65 18 138/66 (90) 98 97.4 01/06/18 01:22 73 18 98 Nasal Cannula 3.0 32 01/06/18 01:14 70 20 96 Nasal Cannula 3.0 32 01/06/18 00:00 98.2 67 18 146/71 (96) 100 98.2 01/05/18 21:05 68 148/70 01/05/18 21:05 68 148/70 01/05/18 21:00 Nasal Cannula 3.0 Nasal Cannula 3.0 01/05/18 20:00 98.8 68 20 148/70 (96) 98 98.8 01/05/18 19:25 76 18 97 Nasal Cannula 3.0 32 01/05/18 19:17 66 22 97 Nasal Cannula 3.0 32 01/05/18 19:17 Nasal Cannula 3.0 32 01/05/18 19:17 97 Nasal Cannula 3.0 32 01/05/18 16:00 97.5 78 20 159/74 (102) 100 97.5 01/05/18 14:52 Nasal Cannula 01/05/18 14:52 Nasal Cannula 01/05/18 13:29 169/73 01/05/18 12:00 97.7 65 20 169/73 (105) 100 97.7 01/05/18 10:34 75 20 94 Nasal Cannula 3.0 32 01/05/18 10:26 72 20 93 Nasal Cannula 3.0 32 01/05/18 10:20 75 149/70 01/05/18 10:20 149/70 Intake and Output 01/05/18 01/06/18 19:00 07:00 Intake Total 450 ml 620.0 ml Output Total 500 ml 950 ml Balance -50 ml -330.0 ml Free Water 180 ml 60 ml IV Total 75 ml 560.0 ml Tube Feeding 195 ml 0 ml Output Urine Total 500 ml 950 ml # Bowel Movements 2 1 Microbiology Date/Time Source Procedure Growth Status 01/01/18 13:15 Blood Blood Culture - Preliminary NO GROWTH AFTER 4 DAYS Resulted 12/23/17 19:40 Nasal Nares MRSA Culture - Final Staphylococcus Aureus - Mrsa Complete 12/31/17 20:00 Indwelling Cath Urine Culture - Final NO GROWTH AFTER 48 HOURS Complete 12/23/17 19:40 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 Complete Current Medications Medications (Trade) Dose Ordered Sig/Mehran Route PRN Reason Start Time Stop Time Status Last Admin Dose Admin Acetaminophen (Tylenol) 650 mg Q6H PRN ORAL Mild Pain/Temp > 100.5 12/23/17 21:14 01/22/18 21:13 Acetylcysteine (Mucomyst) 200 mg Q6HRT N 01/05/18 19:00 01/31/18 22:59 01/06/18 07:31 Albuterol/ Ipratropium (Albuterol/ Ipratropium) 3 ml Q6HRT N 01/05/18 19:00 01/06/18 22:59 01/06/18 07:31 Amlodipine Besylate (Norvasc) 10 mg QHS ORAL 12/23/17 21:00 01/22/18 20:59 01/05/18 21:05 Carvedilol (Coreg) 25 mg EVERY 12 HOURS ORAL 12/26/17 21:00 01/22/18 20:59 01/06/18 08:51 Docusate Sodium (Colace) 250 mg DAILY NG 01/01/18 09:00 01/31/18 08:59 01/05/18 10:22 Finasteride (Proscar) 5 mg DAILY ORAL 12/24/17 09:00 01/23/18 08:59 01/06/18 08:51 Gabapentin (Neurontin) 100 mg BEDTIME PRN ORAL Moderate Pain (Pain Scale 4-6) 12/23/17 21:45 01/22/18 21:44 Haloperidol Lactate (Haldol) 5 mg Q6H PRN IM Agitation 12/27/17 12:15 01/26/18 12:14 12/27/17 12:35 Hydralazine HCl (Apresoline) 50 mg Q8H PRN ORAL For High Blood Pressure 12/25/17 12:00 01/24/18 11:59 01/05/18 13:29 Hydrochlorothiazide (Hydrodiuril) 25 mg DAILY ORAL 12/27/17 09:00 01/26/18 08:59 01/06/18 08:52 Losartan Potassium (Cozaar) 100 mg DAILY ORAL 12/26/17 09:00 01/23/18 08:59 01/06/18 08:51 Piperacillin Sod/ Tazobactam Sod 3.375 gm/Dextrose 110 ml @ 27.5 mls/hr EVERY 8 HOURS IVPB 01/01/18 14:00 01/07/18 13:59 01/06/18 05:06 Quetiapine Fumarate (SEROquel) 12.5 mg EVERY 4 HOURS PRN ORAL Agitation 12/24/17 23:30 01/23/18 23:29 Quetiapine Fumarate (SEROquel) 25 mg TID ORAL 12/27/17 13:15 01/26/18 13:14 01/06/18 08:52 Sodium Chloride 1,000 ml @ 75 mls/hr [id number] IV 12/23/17 22:00 01/22/18 21:59 01/06/18 05:05 Tamsulosin HCl (Flomax) 0.4 mg BEDTIME ORAL 12/24/17 21:00 01/23/18 20:59 01/05/18 21:05 Vancomycin HCl (Vanco rx to dose) 1 ea DAILY PRN MISC Per rx protocol 01/02/18 14:30 02/01/18 14:29 Laboratory Tests 01/05/18 15:25: Vancomycin Level Trough 29.5H 01/06/18 06:20: Random Vancomycin Level 20.5 01/06/18 09:25: White Blood Count 8.1, Red Blood Count 3.20L, Hemoglobin 9.3L, Hematocrit 29.1L , Mean Corpuscular Volume 91, Mean Corpuscular Hemoglobin 29.0, Mean Corpuscular Hemoglobin Concent 31.8L, Red Cell Distribution Width 14.5, Platelet Count 378, Mean Platelet Volume 6.9, Neutrophils (%) (Auto) 83.5H, Lymphocytes (%) (Auto) 9.0L, Monocytes (%) (Auto) 5.6, Eosinophils (%) (Auto) 1.4, Basophils (%) (Auto) 0.5, Sodium Level 139, Potassium Level 4.0, Chloride Level 103, Carbon Dioxide Level 30, Anion Gap 6, Blood Urea Nitrogen 17, Creatinine 1.0, Estimat Glomerular Filtration Rate > 60, Glucose Level 67L, Calcium Level 8.5, Total Bilirubin 0.5, Aspartate Amino Transf (AST/SGOT) 22, Alanine Aminotransferase (ALT/SGPT) 12, Alkaline Phosphatase 61, Total Protein 7.5, Albumin 1.6L, Globulin 5.9, Albumin/Globulin Ratio 0.3L Height (Feet): 5 Height (Inches): 10.00 Weight (Pounds): [address] noted path noted, low grade urothelial ca (d/w pathologist) LIVIER ALVAREZ Jan 06, 2018 10:09
[2018-01-06 12:00] VITALS: BP 147/73
[2018-01-06] MEDS: Vancomycin 1500mg IVPB SCH (12:52)
--- NOTE | 2018-01-06 14:15 | General Progress Note ---
Assessment/Plan Problem List: (1) Resides in long term facility ICD Codes: Z78.9 - Other specified health status SNOMED: 422928403 (2) Hypertensive urgency ICD Codes: I16.0 - Hypertensive urgency SNOMED: 537111085 (3) Psychosis ICD Codes: F29 - Unspecified psychosis not due to a substance or known physiological condition SNOMED: 77470916 (4) Hematuria ICD Codes: R31.9 - Hematuria, unspecified SNOMED: 45223816 Qualifiers: Qualified Codes: R31.9 - Hematuria, unspecified (5) Hematoma of bladder wall ICD Codes: S37.22XA - Contusion of bladder, initial encounter SNOMED: 009173818 (6) 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, unspecified SNOMED: 26511362, 944194833 (7) Dysphagia ICD Codes: R13.10 - Dysphagia, unspecified SNOMED: 29773062, 084599976 (8) Bladder tumor ICD Codes: D49.4 - Neoplasm of unspecified behavior of bladder SNOMED: 689592046 (9) Sepsis ICD Codes: A41.9 - Sepsis, unspecified organism SNOMED: 82530291 (10) PNA (pneumonia) Assessment & Plan: with endobronchial occlusion and atelectasis ICD Codes: J18.9 - Pneumonia, unspecified organism SNOMED: 270852346 (11) Encounter for PEG (percutaneous endoscopic gastrostomy) ICD Codes: Z43.1 - Encounter for attention to gastrostomy SNOMED: 959660382, 610123445 (12) Severe malnutrition ICD Codes: E43 - Unspecified severe protein-calorie malnutrition SNOMED: 55786283 (13) Pleural effusion Assessment & Plan: s/p left thoracentesis with 600cc out ICD Codes: J90 - Pleural effusion, not elsewhere classified SNOMED: 00035326 (14) Bladder cancer ICD Codes: C67.9 - Malignant neoplasm of bladder, unspecified SNOMED: 619305245 Assessment/Plan - Urology consulted, appreciate rec's - Cardiology consulted, appreciate rec's - Oncology consulted, appreciate rec's - Psychiatry consulted, appreciate rec's - GI consulted, appreciate rec's - Pulmonology consulted, appreciate rec's - increased residuals from PEG. Hold and change to osmolite. RD following. ctm gastric residuals - voiding trial today - s/p left thoracentesis with 600cc out. F/u repeat CXR - CXR showing infiltrate with increased atelectasis and endobronchial occlusion - Empiric abx with IV vancomycin and zosyn (D5) - F/u blood cx, urine cx, serial CXR - O2 prn to maintain O2sat > 92% - s/p Gtube, tolerating feeds. 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 large bladder tumor removed on 12/27. Per onc, no further interventions needed. Needs f/u with Onc in 1 month as outpatient - Started on flomax, proscar - Check PSA -- 2.55 - F/u CT urogram -- showing bladder hematoma vs. mass - Continue home BP meds -- increased per cards - Venous duplex negative - Hydralazine prn - Pain control and supportive care DC planning in AM with follow up with oncologist in 1 month if tolerating tube feeds. DVT Prophylaxis: SCD. NO HSQ GIVEN HEMATOMA/HEMATURIA Code Status: Full Hospital Classification Declaration: Based on this initial evaluation, and depending on the patient's clinical course, I anticipate that this patient will require hospitalization for 2-3 days for gross hematuria and close respiratory/ hemodynamic monitoring. Disposition: Once the patient is stable to leave the hospital, I anticipate the patient will likely be discharged to the following environment: [facility] I spent 31 minutes on this patient's case, and 19 minutes were dedicated to counseling and/or care coordination. Discussed with patient/family, nursing staff, SW/CM, and all consultants involved regarding clinical status, treatment course, and disposition planning. Time of note may not reflect time of encounter. Subjective Allergies: Coded Allergies: No Known Allergies (Unverified , 07/17/17) Subjective - weekend events noted - having increased gastric residuals - pathology showing non-invasive low-grade papillary urothelial CA - voiding trial today - AF, HDS Objective Last 24 Hour Vital Signs Date Time Temp Pulse Resp B/P (MAP) Pulse Ox O2 Delivery O2 Flow Rate FiO2 01/06/18 12:59 72 18 99 Nasal Cannula 2.0 28 01/06/18 12:50 70 18 97 Nasal Cannula 2.0 28 01/06/18 12:00 97.6 66 18 147/73 (97) 100 97.6 7/30/18 09:00 Nasal Cannula 3.0 Nasal Cannula 3.0 01/06/18 08:51 66 148/65 01/06/18 08:51 148/65 01/06/18 08:00 98.2 66 18 148/65 (92) 98 98.2 01/06/18 07:35 Nasal Cannula 2.0 28 01/06/18 07:35 98 Nasal Cannula 2.0 28 01/06/18 07:10 67 18 99 Nasal Cannula 2.0 28 01/06/18 07:05 71 18 97 Nasal Cannula 2.0 28 01/06/18 04:00 97.4 65 18 138/66 (90) 98 97.4 01/06/18 01:22 73 18 98 Nasal Cannula 3.0 32 01/06/18 01:14 70 20 96 Nasal Cannula 3.0 32 01/06/18 00:00 98.2 67 18 146/71 (96) 100 98.2 01/05/18 21:05 68 148/70 01/05/18 21:05 68 148/70 01/05/18 21:00 Nasal Cannula 3.0 Nasal Cannula 3.0 01/05/18 20:00 98.8 68 20 148/70 (96) 98 98.8 01/05/18 19:25 76 18 97 Nasal Cannula 3.0 32 01/05/18 19:17 66 22 97 Nasal Cannula 3.0 32 01/05/18 19:17 Nasal Cannula 3.0 32 01/05/18 19:17 97 Nasal Cannula 3.0 32 01/05/18 16:00 97.5 78 20 159/74 (102) 100 97.5 01/05/18 14:52 Nasal Cannula 01/05/18 14:52 Nasal Cannula Intake and Output 01/05/18 01/06/18 19:00 07:00 Intake Total 450 ml 620.0 ml Output Total 500 ml 950 ml Balance -50 ml -330.0 ml Free Water 180 ml 60 ml IV Total 75 ml 560.0 ml Tube Feeding 195 ml 0 ml Output Urine Total 500 ml 950 ml # Bowel Movements 2 1 Laboratory Tests 01/05/18 15:25: Vancomycin Level Trough 29.5H 01/06/18 06:20: Random Vancomycin Level 20.5, Hepatitis A IgM Antibody [Pending], Hepatitis B Surface Antigen [Pending], Hepatitis B Core IgM Antibody [Pending], Hepatitis C Antibody [Pending] 01/06/18 09:25: White Blood Count 8.1, Red Blood Count 3.20L, Hemoglobin 9.3L, Hematocrit 29.1L , Mean Corpuscular Volume 91, Mean Corpuscular Hemoglobin 29.0, Mean Corpuscular Hemoglobin Concent 31.8L, Red Cell Distribution Width 14.5, Platelet Count 378, Mean Platelet Volume 6.9, Neutrophils (%) (Auto) 83.5H, Lymphocytes (%) (Auto) 9.0L, Monocytes (%) (Auto) 5.6, Eosinophils (%) (Auto) 1.4, Basophils (%) (Auto) 0.5, Sodium Level 139, Potassium Level 4.0, Chloride Level 103, Carbon Dioxide Level 30, Anion Gap 6, Blood Urea Nitrogen 17, Creatinine 1.0, Estimat Glomerular Filtration Rate > 60, Glucose Level 67L, Calcium Level 8.5, Total Bilirubin 0.5, Aspartate Amino Transf (AST/SGOT) 22, Alanine Aminotransferase (ALT/SGPT) 12, Alkaline Phosphatase 61, Total Protein 7.5, Albumin 1.6L, Globulin 5.9, Albumin/Globulin Ratio 0.3L, HIV (1&2) Antibody Rapid [Pending] Height (Feet): 5 Height (Inches): 10.00 Weight (Pounds): 185 General Appearance: no apparent distress, alert EENT: PERRL/EOMI, normal ENT inspection Neck: non-tender, normal alignment, supple Cardiovascular: normal peripheral pulses, normal rate, regular rhythm Respiratory/Chest: chest wall non-tender, lungs clear, normal breath sounds Abdomen: normal bowel sounds, non tender, soft, other - +PEG Extremities: normal range of motion, non-tender 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
--- NOTE | 2018-01-06 14:20 | General Progress Note ---
Assessment/Plan Status: stable Assessment/Plan #. Anemia due to hematuria. PSA level of 2.[address] Irrigation as needed. Urology Service evaluation. --> Continue to closely monitor --> Anemia w/u has been reviewed, will trend daily. --> Hgb goal >8 --> imaging has been reviewed --> 12/27: S/P cystoscopy and bladder biopsy. non-invasive low grade urothelial ca #. 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 Coagulopathy, likely due to decreased p.o. intake. --> INR of 1.2 --> hepatitis panel is pending --> HIV negative #. Paraproteinemia. --> spep and upep are prelim negative for monoclonal band #. Nasopharyngeal carcinoma, currently in remission. #. Failure to thrive history, likely secondary to decreased p.o. intake. #. Hypertension. Systolic blood pressure goal is less than 140. The time the note was entered does not necessarily correspond to the time the patient was seen. Subjective Date patient seen: Jan 06, 2018 ROS Limited/Unobtainable: Yes Hematologic/Lymphatic: Reports: anemia Allergies: Coded Allergies: No Known Allergies (Unverified , 07/17/17) All Systems: reviewed and negative except above Subjective Pt awake and alert. No acute events. Rodriguez removed. Objective Last 24 Hour Vital Signs Date Time Temp Pulse Resp B/P (MAP) Pulse Ox O2 Delivery O2 Flow Rate FiO2 01/06/18 12:59 72 18 99 Nasal Cannula 2.0 28 01/06/18 12:50 70 18 97 Nasal Cannula 2.0 28 01/06/18 12:00 97.6 66 18 147/73 (97) 100 97.6 01/06/18 09:00 Nasal Cannula 3.0 Nasal Cannula 3.0 01/06/18 08:51 66 148/65 01/06/18 08:51 148/65 01/06/18 08:00 98.2 66 18 148/65 (92) 98 98.2 01/06/18 07:35 Nasal Cannula 2.0 28 01/06/18 07:35 98 Nasal Cannula 2.0 28 01/06/18 07:10 67 18 99 Nasal Cannula 2.0 28 01/06/18 07:05 71 18 97 Nasal Cannula 2.0 28 01/06/18 04:00 97.4 65 18 138/66 (90) 98 97.4 01/06/18 01:22 73 18 98 Nasal Cannula 3.0 32 01/06/18 01:14 70 20 96 Nasal Cannula 3.0 32 01/06/18 00:00 98.2 67 18 146/71 (96) 100 98.2 01/05/18 21:05 68 148/70 01/05/18 21:05 68 148/70 01/05/18 21:00 Nasal Cannula 3.0 Nasal Cannula 3.0 01/05/18 20:00 98.8 68 20 148/70 (96) 98 98.8 01/05/18 19:25 76 18 97 Nasal Cannula 3.0 32 01/05/18 19:17 66 22 97 Nasal Cannula 3.0 32 01/05/18 19:17 Nasal Cannula 3.0 32 01/05/18 19:17 97 Nasal Cannula 3.0 32 01/05/18 16:00 97.5 78 20 159/74 (102) 100 97.5 01/05/18 14:52 Nasal Cannula 01/05/18 14:52 Nasal Cannula Intake and Output 01/05/18 01/06/18 19:00 07:00 Intake Total 450 ml 620.0 ml Output Total 500 ml 950 ml Balance -50 ml -330.0 ml Free Water 180 ml 60 ml IV Total 75 ml 560.0 ml Tube Feeding 195 ml 0 ml Output Urine Total 500 ml 950 ml # Bowel Movements 2 1 Laboratory Tests 01/05/18 15:25: Vancomycin Level Trough 29.5H 01/06/18 06:20: Random Vancomycin Level 20.5, Hepatitis A IgM Antibody [Pending], Hepatitis B Surface Antigen [Pending], Hepatitis B Core IgM Antibody [Pending], Hepatitis C Antibody [Pending] 01/06/18 09:25: White Blood Count 8.1, Red Blood Count 3.20L, Hemoglobin 9.3L, Hematocrit 29.1L , Mean Corpuscular Volume 91, Mean Corpuscular Hemoglobin 29.0, Mean Corpuscular Hemoglobin Concent 31.8L, Red Cell Distribution Width 14.5, Platelet Count 378, Mean Platelet Volume 6.9, Neutrophils (%) (Auto) 83.5H, Lymphocytes (%) (Auto) 9.0L, Monocytes (%) (Auto) 5.6, Eosinophils (%) (Auto) 1.4, Basophils (%) (Auto) 0.5, Sodium Level 139, Potassium Level 4.0, Chloride Level 103, Carbon Dioxide Level 30, Anion Gap 6, Blood Urea Nitrogen 17, Creatinine 1.0, Estimat Glomerular Filtration Rate > 60, Glucose Level 67L, Calcium Level 8.5, Total Bilirubin 0.5, Aspartate Amino Transf (AST/SGOT) 22, Alanine Aminotransferase (ALT/SGPT) 12, Alkaline Phosphatase 61, Total Protein 7.5, Albumin 1.6L, Globulin 5.9, Albumin/Globulin Ratio 0.3L, HIV (1&2) Antibody Rapid Negative Height (Feet): 5 Height (Inches): 10.00 Weight (Pounds): 185 General Appearance: no apparent distress EENT: PERRL/EOMI Neck: normal alignment Cardiovascular: normal peripheral pulses Respiratory/Chest: no respiratory distress Abdomen: normal bowel sounds Shane Oropeza MD Jan 06, 2018 14:20
[2018-01-06 16:00] VITALS: BP 141/67
[2018-01-06] MEDS ORDERED: Tubing IV Secondary IV ONE (16:07)
--- NOTE | 2018-01-06 18:42 | Pulmonology Progress Note ---
Assessment/Plan Problems: (1) PEG (percutaneous endoscopic gastrostomy) status (2) Pleural effusion (3) Collapse, lung (4) PNA (pneumonia) (5) Bladder tumor (6) Severe malnutrition Assessment/Plan ASSESSMENT: The patient is a 67-year-old male with a history of prior nasopharyngeal carcinoma, hypertension, encephalopathy, admitted with hematuria, noted to have a bladder mass, now status post TURBT with pathology pending with progressive opacification of left hemithorax likely secondary to a combination of pneumonia with mucus plugging, atelectasis, and pleural effusion. 01/02/18 - 600 cc L THORACENTESIS ---> MARKED IMPROVEMENT IN AERATION OF L LUNG PROBLEM LIST: 1. Left hemithorax opacifications likely a combination of pneumonia with mucus plugging, atelectasis, and pleural effusion - IMPROVED 2. Healthcare associated pneumonia. 3. Dysphagia, status post PEG. 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 Encephalopathy. 6. Failure to thrive and severe malnutrition. 7. Hypertension, hyperlipidemia. TREATMENT PLAN: 1. Optimize pulmonary hygiene/mobilize as tolerated. 2. Decrease DUOnebs, NAC and CTP to q6 3. Monitor CXR 4. F/U pleural fluid Cx and cystology 5. Continue Zosyn/Vanco (today is day # 5). 5. Will need a repeat CT chest in 4-6 weeks as an outpatient to further evaluate parenchymal changes and ensure no pulmonary mets once acute issues resolved 6. Cautious G-tube feeds. 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 DVT prophylaxis, SCDs. 8. Follow up recs 9. The patient is a Full Code. 10. Continue to discuss goals of care. Subjective Allergies: Coded Allergies: No Known Allergies (Unverified , 07/17/17) Subjective LINH, no cough, no SOB, no F/C, [place] TF's Objective Last 24 Hour Vital Signs Date Time Temp Pulse Resp B/P (MAP) Pulse Ox O2 Delivery O2 Flow Rate FiO2 01/06/18 16:00 97.8 63 20 141/67 (91) 95 97.8 01/06/18 12:59 72 18 99 Nasal Cannula 2.0 28 01/06/18 12:50 70 18 97 Nasal Cannula 2.0 28 01/06/18 12:00 97.6 66 18 147/73 (97) 100 97.6 01/06/18 09:00 Nasal Cannula 3.0 Nasal Cannula 3.0 01/06/18 08:51 66 148/65 01/06/18 08:51 148/65 01/06/18 08:00 98.2 66 18 148/65 (92) 98 98.2 01/06/18 07:35 Nasal Cannula 2.0 28 01/06/18 07:35 98 Nasal Cannula 2.0 28 01/06/18 07:10 67 18 99 Nasal Cannula 2.0 28 01/06/18 07:05 71 18 97 Nasal Cannula 2.0 28 01/06/18 04:00 97.4 65 18 138/66 (90) 98 97.4 01/06/18 01:22 73 18 98 Nasal Cannula 3.0 32 01/06/18 01:14 70 20 96 Nasal Cannula 3.0 32 01/06/18 00:00 98.2 67 18 146/71 (96) 100 98.2 01/05/18 21:05 68 148/70 01/05/18 21:05 68 148/70 01/05/18 21:00 Nasal Cannula 3.0 Nasal Cannula 3.0 01/05/18 20:00 98.8 68 20 148/70 (96) 98 98.8 01/05/18 19:25 76 18 97 Nasal Cannula 3.0 32 01/05/18 19:17 66 22 97 Nasal Cannula 3.0 32 01/05/18 19:17 Nasal Cannula 3.0 32 01/05/18 19:17 97 Nasal Cannula 3.0 32 Intake and Output 01/05/18 01/06/18 19:00 07:00 Intake Total 450 ml 620.0 ml Output Total 500 ml 950 ml Balance -50 ml -330.0 ml Free Water 180 ml 60 ml IV Total 75 ml 560.0 ml Tube Feeding 195 ml 0 ml Output Urine Total 500 ml 950 ml # Bowel Movements 2 1 General Appearance: cachetic HEENT: normocephalic, atraumatic, anicteric, mucous membranes moist Respiratory/Chest: chest wall non-tender, lungs clear, normal breath sounds, no respiratory distress Cardiovascular: normal peripheral pulses, normal rate, regular rhythm Abdomen: normal bowel sounds, soft, non tender, no organomegaly, non distended , no mass, other - GT CDI Extremities: no cyanosis, no clubbing, no edema Laboratory Tests 7/30/18 06:20: Random Vancomycin Level 20.5, Hepatitis A IgM Antibody [Pending], Hepatitis B Surface Antigen [Pending], Hepatitis B Core IgM Antibody [Pending], Hepatitis C Antibody [Pending] 01/06/18 09:25: White Blood Count 8.1, Red Blood Count 3.20L, Hemoglobin 9.3L, Hematocrit 29.1L , Mean Corpuscular Volume 91, Mean Corpuscular Hemoglobin 29.0, Mean Corpuscular Hemoglobin Concent 31.8L, Red Cell Distribution Width 14.5, Platelet Count 378, Mean Platelet Volume 6.9, Neutrophils (%) (Auto) 83.5H, Lymphocytes (%) (Auto) 9.0L, Monocytes (%) (Auto) 5.6, Eosinophils (%) (Auto) 1.4, Basophils (%) (Auto) 0.5, Sodium Level 139, Potassium Level 4.0, Chloride Level 103, Carbon Dioxide Level 30, Anion Gap 6, Blood Urea Nitrogen 17, Creatinine 1.0, Estimat Glomerular Filtration Rate > 60, Glucose Level 67L, Calcium Level 8.5, Total Bilirubin 0.5, Aspartate Amino Transf (AST/SGOT) 22, Alanine Aminotransferase (ALT/SGPT) 12, Alkaline Phosphatase 61, Total Protein 7.5, Albumin 1.6L, Globulin 5.9, Albumin/Globulin Ratio 0.3L, HIV (1&2) Antibody Rapid Negative Current Medications Medications (Trade) Dose Ordered Sig/Mehran Route PRN Reason Start Time Stop Time Status Last Admin Dose Admin Acetaminophen (Tylenol) 650 mg Q6H PRN ORAL Mild Pain/Temp > 100.5 12/23/17 21:14 01/22/18 21:13 Acetylcysteine (Mucomyst) 200 mg Q6HRT [facility] 01/05/18 19:00 01/31/18 22:59 01/06/18 12:59 Albuterol/ Ipratropium (Albuterol/ Ipratropium) 3 ml Q6HRT N 01/05/18 19:00 01/06/18 22:59 01/06/18 12:58 Amlodipine Besylate (Norvasc) 10 mg QHS ORAL 12/23/17 21:00 01/22/18 20:59 01/05/18 21:05 Carvedilol (Coreg) 25 mg EVERY 12 HOURS ORAL 12/26/17 21:00 01/22/18 20:59 01/06/18 08:51 Docusate Sodium (Colace) 250 mg DAILY NG 01/01/18 09:00 01/31/18 08:59 01/05/18 10:22 Finasteride (Proscar) 5 mg DAILY ORAL 12/24/17 09:00 01/23/18 08:59 01/06/18 08:51 Gabapentin (Neurontin) 100 mg BEDTIME PRN ORAL Moderate Pain (Pain Scale 4-6) 12/23/17 21:45 01/22/18 21:44 Haloperidol Lactate (Haldol) 5 mg Q6H PRN IM Agitation 12/27/17 12:15 01/26/18 12:14 12/27/17 12:35 Hydralazine HCl (Apresoline) 50 mg Q8H PRN ORAL For High Blood Pressure 12/25/17 12:00 01/24/18 11:59 01/05/18 13:29 Hydrochlorothiazide (Hydrodiuril) 25 mg DAILY ORAL 12/27/17 09:00 01/26/18 08:59 01/06/18 08:52 Losartan Potassium (Cozaar) 100 mg DAILY ORAL 12/26/17 09:00 01/23/18 08:59 01/06/18 08:51 Piperacillin Sod/ Tazobactam Sod 3.375 gm/Dextrose 110 ml @ 27.5 mls/hr EVERY 8 HOURS IVPB 01/01/18 14:00 01/12/18 13:59 01/06/18 15:40 Quetiapine Fumarate (SEROquel) 12.5 mg EVERY 4 HOURS PRN ORAL Agitation 12/24/17 23:30 01/23/18 23:29 Quetiapine Fumarate (SEROquel) 25 mg TID ORAL 12/27/17 13:15 01/26/18 13:14 01/06/18 18:01 Sodium Chloride 1,000 ml @ 75 mls/hr [id number] IV 12/23/17 22:00 01/22/18 21:59 01/06/18 05:05 Tamsulosin HCl (Flomax) 0.4 mg BEDTIME ORAL 12/24/17 21:00 01/23/18 20:59 01/05/18 21:05 Vancomycin HCl (Vanco rx to dose) 1 ea DAILY PRN MISC Per rx protocol 01/02/18 14:30 02/01/18 14:29 Vancomycin HCl/ Dextrose 250 ml @ 125 mls/hr Q24H IVPB 01/06/18 12:00 01/11/18 11:59 01/06/18 12:52 Daniel Stone MD Jan 06, 2018 18:42
[2018-01-06 20:00] VITALS: BP 135/67
[2018-01-06] MEDS: Tamsulosin 0.4mg cap ORAL SCH (22:21)
[2018-01-07] VITALS: BP 129/58
[2018-01-07] MEDS: Acetylcysteine 20% Soln 4ml HHN SCH ×2 (01:00→07:00)
[2018-01-07 04:00] VITALS: BP 134/60
[2018-01-07] MEDS: Piperacillin/Tazobactam 3.375 GM in D5W 110 ML IVPB SCH ×3 (05:25→20:55)
[2018-01-07 08:00] VITALS: BP 141/64
[2018-01-07 08:03] LABS: ALANINE AMINOTRANSFERASE 13 U/L (12-78); ALBUMIN 1.6 G/DL (3.4-5.0); ALBUMIN/GLOBULIN RATIO 0.3 (1.0-2.7); ALKALINE PHOSPHATASE 61 U/L (46-116); ANION GAP 4 mmol/L (5-15); ASPARTATE AMINO TRANSFERASE 24 U/L (15-37); BILIRUBIN,TOTAL 0.4 MG/DL (0.2-1.0); BLOOD UREA NITROGEN 16 mg/dL (7-18); CALCIUM 8.7 MG/DL (8.5-10.1); CARBON DIOXIDE 32 MMOL/L (21-32); CHLORIDE 103 MMOL/L (98-107); CREATININE 1.1 MG/DL (0.55-1.30); SODIUM 139 MMOL/L (136-145)
--- NOTE | 2018-01-07 08:27 | Pulmonology Progress Note ---
Assessment/Plan Problems: (1) PEG (percutaneous endoscopic gastrostomy) status (2) Pleural effusion (3) Collapse, lung (4) PNA (pneumonia) (5) Bladder tumor (6) Severe malnutrition Assessment/Plan ASSESSMENT: The patient is a 67-year-old male with a history of prior nasopharyngeal carcinoma, hypertension, encephalopathy, admitted with hematuria, noted to have a bladder mass, now status post TURBT with pathology pending with progressive opacification of left hemithorax likely secondary to a combination of pneumonia with mucus plugging, atelectasis, and pleural effusion. 01/02/18 - 600 cc L THORACENTESIS ---> MARKED IMPROVEMENT IN AERATION OF L LUNG PROBLEM LIST: 1. Left hemithorax opacifications likely a combination of pneumonia with mucus plugging, atelectasis, and pleural effusion - IMPROVED 2. Healthcare associated pneumonia. 3. Dysphagia, status post PEG. 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 Encephalopathy. 6. Failure to thrive and severe malnutrition. 7. Hypertension, hyperlipidemia. TREATMENT PLAN: 1. Optimize pulmonary hygiene/mobilize as tolerated. 2. D/C NAC and CPT, continue PRN HHN's only 3. Monitor CXR 4. F/U pleural fluid Cx and cystology 5. Continue Zosyn/Vanco (D 11/14). 5. Will need a repeat CT chest in 4-6 weeks as an outpatient to further evaluate parenchymal changes and ensure no pulmonary mets once acute issues resolved 6. Cautious G-tube feeds. 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 DVT prophylaxis, SCDs. 8. Follow up recs 9. The patient is a Full Code. 10. Continue to discuss goals of care. Subjective Allergies: Coded Allergies: No Known Allergies (Unverified , 07/17/17) Subjective LINH, no cough, no SOB, no F/C, [place] TF's Objective Last 24 Hour Vital Signs Date Time Temp Pulse Resp B/P (MAP) Pulse Ox O2 Delivery O2 Flow Rate FiO2 01/07/18 07:54 Nasal Cannula 01/07/18 07:54 Nasal Cannula 01/07/18 04:00 97.5 60 19 134/60 (84) 100 97.5 01/07/18 01:09 Nasal Cannula 01/07/18 01:08 Nasal Cannula 01/07/18 00:00 97.1 63 19 129/58 (81) 99 97.1 01/06/18 23:49 73 18 Nasal Cannula 2.0 28 01/06/18 22:20 73 135/67 01/06/18 22:20 73 135/67 01/06/18 21:00 Nasal Cannula 3.0 Nasal Cannula 3.0 01/06/18 20:03 73 18 99 Nasal Cannula 2.0 28 01/06/18 20:00 98.1 62 18 135/67 (89) 98 98.1 01/06/18 19:53 67 20 94 Nasal Cannula 2.0 28 01/06/18 19:52 94 Nasal Cannula 2.0 28 01/06/18 19:52 Nasal Cannula 2.0 28 01/06/18 16:00 97.8 63 20 141/67 (91) 95 97.8 01/06/18 12:59 72 18 99 Nasal Cannula 2.0 28 01/06/18 12:50 70 18 97 Nasal Cannula 2.0 28 01/06/18 12:00 97.6 66 18 147/73 (97) 100 97.6 01/06/18 09:00 Nasal Cannula 3.0 Nasal Cannula 3.0 01/06/18 08:51 66 148/65 01/06/18 08:51 148/65 Intake and Output 01/06/18 01/07/18 19:00 07:00 Intake Total 110 ml 310 ml Balance 110 ml 310 ml Free Water 90 ml 60 ml Tube Feeding 20 ml 250 ml # Voids 4 # Bowel Movements 3 General Appearance: no acute distress, cachetic HEENT: normocephalic, atraumatic, anicteric, mucous membranes moist Respiratory/Chest: lungs clear - fairly Cardiovascular: normal peripheral pulses, normal rate, regular rhythm Abdomen: normal bowel sounds, soft, non tender, no organomegaly, non distended , other - GT Extremities: no cyanosis Skin: no rash Laboratory Tests 01/06/18 09:25: White Blood Count 8.1, Red Blood Count 3.20L, Hemoglobin 9.3L, Hematocrit 29.1L , Mean Corpuscular Volume 91, Mean Corpuscular Hemoglobin 29.0, Mean Corpuscular Hemoglobin Concent 31.8L, Red Cell Distribution Width 14.5, Platelet Count 378, Mean Platelet Volume 6.9, Neutrophils (%) (Auto) 83.5H, Lymphocytes (%) (Auto) 9.0L, Monocytes (%) (Auto) 5.6, Eosinophils (%) (Auto) 1.4, Basophils (%) (Auto) 0.5, Sodium Level 139, Potassium Level 4.0, Chloride Level 103, Carbon Dioxide Level 30, Anion Gap 6, Blood Urea Nitrogen 17, Creatinine 1.0, Estimat Glomerular Filtration Rate > 60, Glucose Level 67L, Calcium Level 8.5, Total Bilirubin 0.5, Aspartate Amino Transf (AST/SGOT) 22, Alanine Aminotransferase (ALT/SGPT) 12, Alkaline Phosphatase 61, Total Protein 7.5, Albumin 1.6L, Globulin 5.9, Albumin/Globulin Ratio 0.3L, HIV (1&2) Antibody Rapid Negative 01/07/18 06:55: White Blood Count [Pending], Red Blood Count [Pending], Hemoglobin [Pending], Hematocrit [Pending], Mean Corpuscular Volume [Pending], Mean Corpuscular Hemoglobin [Pending], Mean Corpuscular Hemoglobin Concent [Pending], Red Cell Distribution Width [Pending], Platelet Count [Pending], Mean Platelet Volume [ Pending], Neutrophils (%) (Auto) [Pending], Lymphocytes (%) (Auto) [Pending], Monocytes (%) (Auto) [Pending], Eosinophils (%) (Auto) [Pending], Basophils (%) (Auto) [Pending], Sodium Level 139, Potassium Level 4.0, Chloride Level 103, Carbon Dioxide Level 32, Anion Gap 4L, Blood Urea Nitrogen 16, Creatinine 1.1, Estimat Glomerular Filtration Rate > 60, Glucose Level 89, Calcium Level 8.7, Total Bilirubin 0.4, Aspartate Amino Transf (AST/SGOT) 24, Alanine Aminotransferase (ALT/SGPT) 13, Alkaline Phosphatase 61, Total Protein 7.6, Albumin 1.6L, Globulin 6.0, Albumin/Globulin Ratio 0.3L Current Medications Medications (Trade) Dose Ordered Sig/Mehran Route PRN Reason Start Time Stop Time Status Last Admin Dose Admin Acetaminophen (Tylenol) 650 mg Q6H PRN ORAL Mild Pain/Temp > 100.5 12/23/17 21:14 01/22/18 21:13 Acetylcysteine (Mucomyst) 200 mg Q6HRT HHN 01/05/18 19:00 01/31/18 22:59 01/06/18 19:49 Amlodipine Besylate (Norvasc) 10 mg QHS ORAL 12/23/17 21:00 01/22/18 20:59 01/06/18 22:20 Carvedilol (Coreg) 25 mg EVERY 12 HOURS ORAL 12/26/17 21:00 01/22/18 20:59 01/06/18 22:20 Docusate Sodium (Colace) 250 mg DAILY NG 01/01/18 09:00 01/31/18 08:59 01/05/18 10:22 Finasteride (Proscar) 5 mg DAILY ORAL 12/24/17 09:00 01/23/18 08:59 01/06/18 08:51 Gabapentin (Neurontin) 100 mg BEDTIME PRN ORAL Moderate Pain (Pain Scale 4-6) 12/23/17 21:45 01/22/18 21:44 Haloperidol Lactate (Haldol) 5 mg Q6H PRN IM Agitation 12/27/17 12:15 01/26/18 12:14 12/27/17 12:35 Hydralazine HCl (Apresoline) 50 mg Q8H PRN ORAL For High Blood Pressure 12/25/17 12:00 01/24/18 11:59 01/05/18 13:29 Hydrochlorothiazide (Hydrodiuril) 25 mg DAILY ORAL 12/27/17 09:00 01/26/18 08:59 01/06/18 08:52 Losartan Potassium (Cozaar) 100 mg DAILY ORAL 12/26/17 09:00 01/23/18 08:59 01/06/18 08:51 Piperacillin Sod/ Tazobactam Sod 3.375 gm/Dextrose 110 ml @ 27.5 mls/hr EVERY 8 HOURS IVPB 01/01/18 14:00 01/12/18 13:59 01/07/18 05:25 Quetiapine Fumarate (SEROquel) 12.5 mg EVERY 4 HOURS PRN ORAL Agitation 12/24/17 23:30 01/23/18 23:29 01/07/18 03:17 Quetiapine Fumarate (SEROquel) 25 mg TID ORAL 12/27/17 13:15 01/26/18 13:14 01/06/18 18:01 Sodium Chloride 1,000 ml @ 75 mls/hr [id number] IV 12/23/17 22:00 01/22/18 21:59 01/06/18 22:22 Tamsulosin HCl (Flomax) 0.4 mg BEDTIME ORAL 12/24/17 21:00 01/23/18 20:59 01/06/18 22:21 Vancomycin HCl (Vanco rx to dose) 1 ea DAILY PRN MISC Per rx protocol 01/02/18 14:30 02/01/18 14:29 Vancomycin HCl/ Dextrose 250 ml @ 125 mls/hr Q24H IVPB 01/06/18 12:00 01/11/18 11:59 01/06/18 12:52 Daniel Stone MD Jan 07, 2018 08:27
[2018-01-07 08:28] LABS: BASOPHILS % (AUTO) 0.7 % (0.0-2.0); EOSINOPHILS % (AUTO) 1.2 % (0.0-3.0); HEMATOCRIT 29.7 % (42.0-52.0); HEMOGLOBIN 9.5 G/DL (14.2-18.0); LYMPHOCYTES % (AUTO) 10.8 % (20.0-45.0); MEAN CORPUSCULAR VOLUME 91 FL (80-99); MONOCYTES % (AUTO) 5.8 % (1.0-10.0); NEUTROPHILS % (AUTO) 81.5 % (45.0-75.0); PLATELET COUNT 438 K/UL (150-450); RED BLOOD COUNT 3.27 M/UL (4.70-6.10); RED CELL DISTRIBUTION WIDTH 14.1 % (11.6-14.8); WHITE BLOOD COUNT 6.8 K/UL (4.8-10.8)
[2018-01-07] MEDS ORDERED: Albuterol/Ipratropium 3ml neb HHN PRN (08:30)
[2018-01-07] MEDS ORDERED: Sterile Water Irrig 1000ml IRRIG ONE (09:08)
[2018-01-07] MEDS: Losartan 50mg tab ORAL SCH (09:29)
[2018-01-07] MEDS: Carvedilol 25mg Tab ORAL SCH ×2 (09:29→20:48)
[2018-01-07] MEDS: Docusate 100mg/10ml Liq NG SCH (09:31)
[2018-01-07 12:00] VITALS: BP 152/69
[2018-01-07] MEDS: Vancomycin 1500mg IVPB SCH (12:42)
--- NOTE | 2018-01-07 13:08 | General Progress Note ---
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, unspecified SNOMED: 14020307, 368142677 (7) Dysphagia ICD Codes: R13.10 - Dysphagia, unspecified SNOMED: 33708463, 322899956 (8) Bladder tumor ICD Codes: D49.4 - Neoplasm of unspecified behavior of bladder SNOMED: 604016434 (9) Sepsis ICD Codes: A41.9 - Sepsis, unspecified organism SNOMED: 16662329 (10) PNA (pneumonia) Assessment & Plan: with endobronchial occlusion and atelectasis ICD Codes: J18.9 - Pneumonia, unspecified organism SNOMED: 193277085 (11) Encounter for PEG (percutaneous endoscopic gastrostomy) ICD Codes: Z43.1 - Encounter for attention to gastrostomy SNOMED: 402298980, 001276893 (12) Severe malnutrition ICD Codes: E43 - Unspecified severe protein-calorie malnutrition SNOMED: 67235812 (13) Pleural effusion Assessment & Plan: s/p left thoracentesis with 600cc out ICD Codes: J90 - Pleural effusion, not elsewhere classified SNOMED: 17070797 (14) Bladder cancer ICD Codes: C67.9 - Malignant neoplasm of bladder, unspecified SNOMED: 994654988 Status: stable, progressing Assessment/Plan - Urology consulted, appreciate rec's - Cardiology consulted, appreciate rec's - Oncology consulted, appreciate rec's - Psychiatry consulted, appreciate rec's - GI consulted, appreciate rec's - Pulmonology consulted, appreciate rec's - increased residuals from PEG. Changed to osmolite per RD. Continues to have residuals. F/u RD and GI rec's. Consider reglan or low dose erythromycin. - hinkle dc'ed 01/06 - s/p left thoracentesis with 600cc out. - CXR showing infiltrate with increased atelectasis and endobronchial occlusion - Empiric abx with IV vancomycin and zosyn (D6) -- dc abx tomorrow - F/u blood cx, urine cx, serial CXR - O2 prn to maintain O2sat > 92% - s/p Gtube, tolerating feeds. 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 large bladder tumor removed on 12/27. Per onc, no further interventions needed. Needs f/u with Onc in 1 month as outpatient - Started on flomax, proscar - Check PSA -- 2.55 - F/u CT urogram -- showing bladder hematoma vs. mass - Continue home BP meds -- increased per cards - Venous duplex negative - Hydralazine prn - Pain control and supportive care DC planning in AM with follow up with oncologist in 1 month if tolerating tube feeds. DVT Prophylaxis: SCD. NO HSQ GIVEN HEMATOMA/HEMATURIA Code Status: Full Hospital Classification Declaration: Based on this initial evaluation, and depending on the patient's clinical course, I anticipate that this patient will require hospitalization for 2-3 days for gross hematuria and close respiratory/ hemodynamic monitoring. Disposition: Once the patient is stable to leave the hospital, I anticipate the patient will likely be discharged to the following environment: [facility] I spent 31 minutes on this patient's case, and 19 minutes were dedicated to counseling and/or care coordination. Discussed with patient/family, nursing staff, SW/CM, and all consultants involved regarding clinical status, treatment course, and disposition planning. Time of note may not reflect time of encounter. Subjective Date patient seen: Jan 07, 2018 Allergies: Coded Allergies: No Known Allergies (Unverified , 07/17/17) Subjective - feeding changed to osmolite but continues to have residuals at 200cc - AF, HDS - attempted to call sister for update but no answer. left vm Objective Last 24 Hour Vital Signs Date Time Temp Pulse Resp B/P (MAP) Pulse Ox O2 Delivery O2 Flow Rate FiO2 01/07/18 12:00 97.4 56 19 152/69 (96) 100 97.4 01/07/18 09:29 61 141/64 01/07/18 09:29 141/64 01/07/18 09:00 Nasal Cannula 3.0 Nasal Cannula 3.0 01/07/18 08:00 97.3 61 19 141/64 (89) 100 97.3 01/07/18 07:54 Nasal Cannula 01/07/18 07:54 Nasal Cannula 01/07/18 07:30 Nasal Cannula 2.0 28 01/07/18 07:30 93 Nasal Cannula 2.0 28 01/07/18 04:00 97.5 60 19 134/60 (84) 100 97.5 01/07/18 01:09 Nasal Cannula 01/07/18 01:08 Nasal Cannula 01/07/18 00:00 97.1 63 19 129/58 (81) 99 97.1 01/06/18 23:49 73 18 Nasal Cannula 2.0 01/06/18 22:20 73 135/67 01/06/18 22:20 73 135/67 01/06/18 21:00 Nasal Cannula 3.0 Nasal Cannula 3.0 01/06/18 20:03 73 18 99 Nasal Cannula 2.0 28 01/06/18 20:00 98.1 62 18 135/67 (89) 98 98.1 01/06/18 19:53 67 20 94 Nasal Cannula 2.0 28 01/06/18 19:52 94 Nasal Cannula 2.0 01/06/18 19:52 Nasal Cannula 2.0 28 01/06/18 16:00 97.8 63 20 141/67 (91) 95 97.8 Intake and Output 01/06/18 01/07/18 19:00 07:00 Intake Total 110 ml 310 ml Balance 110 ml 310 ml Free Water 90 ml 60 ml Tube Feeding 20 ml 250 ml # Voids 4 # Bowel Movements 3 Laboratory Tests 01/07/18 06:55: White Blood Count 6.8, Red Blood Count 3.27L, Hemoglobin 9.5L, Hematocrit 29.7L , Mean Corpuscular Volume 91, Mean Corpuscular Hemoglobin 29.0, Mean Corpuscular Hemoglobin Concent 32.0, Red Cell Distribution Width 14.1, Platelet Count 438, Mean Platelet Volume 7.4, Neutrophils (%) (Auto) 81.5H, Lymphocytes ( %) (Auto) 10.8L, Monocytes (%) (Auto) 5.8, Eosinophils (%) (Auto) 1.2, Basophils (%) (Auto) 0.7, Sodium Level 139, Potassium Level 4.0, Chloride Level 103, Carbon Dioxide Level 32, Anion Gap 4L, Blood Urea Nitrogen 16, Creatinine 1.1, Estimat Glomerular Filtration Rate > 60, Glucose Level 89, Calcium Level 8.7, Total Bilirubin 0.4, Aspartate Amino Transf (AST/SGOT) 24, Alanine Aminotransferase (ALT/SGPT) 13, Alkaline Phosphatase 61, Total Protein 7.6, Albumin 1.6L, Globulin 6.0, Albumin/Globulin Ratio 0.3L Height (Feet): 5 Height (Inches): 10.00 Weight (Pounds): 185 General Appearance: no apparent distress, alert EENT: PERRL/EOMI, normal ENT inspection Neck: non-tender, normal alignment, supple Cardiovascular: normal peripheral pulses, normal rate, regular rhythm Respiratory/Chest: chest wall non-tender, lungs clear, normal breath sounds Abdomen: normal bowel sounds, non tender, soft 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
--- NOTE | 2018-01-07 14:13 | General Progress Note ---
Assessment/Plan Status: stable Assessment/Plan dementia with bd encephalopathy -seroquel standing -Seroquel prn -the pt lacks capacity to make decisions -the pt unable to give consent for surgery Subjective Date patient seen: Jan 07, 2018 Neurologic/Psychiatric: Reports: anxiety, depressed, emotional problems Allergies: Coded Allergies: No Known Allergies (Unverified , 07/17/17) Subjective the pt is confuse the same episodes of agitation Objective Last 24 Hour Vital Signs Date Time Temp Pulse Resp B/P (MAP) Pulse Ox O2 Delivery O2 Flow Rate FiO2 01/07/18 12:00 97.4 56 19 152/69 (96) 100 97.4 01/07/18 09:29 61 141/64 01/07/18 09:29 141/64 01/07/18 09:00 Nasal Cannula 3.0 Nasal Cannula 3.0 01/07/18 08:00 97.3 61 19 141/64 (89) 100 97.3 01/07/18 07:54 Nasal Cannula 01/07/18 07:54 Nasal Cannula 01/07/18 07:30 Nasal Cannula 2.0 28 01/07/18 07:30 93 Nasal Cannula 2.0 28 01/07/18 04:00 97.5 60 19 134/60 (84) 100 97.5 01/07/18 01:09 Nasal Cannula 01/07/18 01:08 Nasal Cannula 01/07/18 00:00 97.1 63 19 129/58 (81) 99 97.1 01/06/18 23:49 73 18 Nasal Cannula 2.0 01/06/18 22:20 73 135/67 01/06/18 22:20 73 135/67 01/06/18 21:00 Nasal Cannula 3.0 Nasal Cannula 3.0 01/06/18 20:03 73 18 99 Nasal Cannula 2.0 28 01/06/18 20:00 98.1 62 18 135/67 (89) 98 98.1 01/06/18 19:53 67 20 94 Nasal Cannula 2.0 28 01/06/18 19:52 94 Nasal Cannula 2.0 28 01/06/18 19:52 Nasal Cannula 2.0 28 01/06/18 16:00 97.8 63 20 141/67 (91) 95 97.8 Intake and Output 01/06/18 01/07/18 19:00 07:00 Intake Total 110 ml 310 ml Balance 110 ml 310 ml Free Water 90 ml 60 ml Tube Feeding 20 ml 250 ml # Voids 4 # Bowel Movements 3 Laboratory Tests 01/07/18 06:55: White Blood Count 6.8, Red Blood Count 3.27L, Hemoglobin 9.5L, Hematocrit 29.7L , Mean Corpuscular Volume 91, Mean Corpuscular Hemoglobin 29.0, Mean Corpuscular Hemoglobin Concent 32.0, Red Cell Distribution Width 14.1, Platelet Count 438, Mean Platelet Volume 7.4, Neutrophils (%) (Auto) 81.5H, Lymphocytes ( %) (Auto) 10.8L, Monocytes (%) (Auto) 5.8, Eosinophils (%) (Auto) 1.2, Basophils (%) (Auto) 0.7, Sodium Level 139, Potassium Level 4.0, Chloride Level 103, Carbon Dioxide Level 32, Anion Gap 4L, Blood Urea Nitrogen 16, Creatinine 1.1, Estimat Glomerular Filtration Rate > 60, Glucose Level 89, Calcium Level 8.7, Total Bilirubin 0.4, Aspartate Amino Transf (AST/SGOT) 24, Alanine Aminotransferase (ALT/SGPT) 13, Alkaline Phosphatase 61, Total Protein 7.6, Albumin 1.6L, Globulin 6.0, Albumin/Globulin Ratio 0.3L Height (Feet): 5 Height (Inches): 10.00 Weight (Pounds): 185 General Appearance: no apparent distress, alert Neurologic: oriented x 3, responsive, depressed affect Edd Horne MD Jan 07, 2018 14:13
[2018-01-07] MEDS: Metoclopramide 10mg/2ml Inj IVP PRN ×2 (14:36→23:43)
--- NOTE | 2018-01-07 14:58 | General Progress Note ---
Assessment/Plan Status: stable Assessment/Plan #. Anemia due to hematuria. PSA level of 2.[address] Irrigation as needed. Urology Service evaluation. --> Continue to closely monitor --> Anemia w/u has been reviewed, will trend daily. --> Hgb goal >8 --> imaging has been reviewed --> 12/27: S/P cystoscopy and bladder biopsy. non-invasive low grade urothelial ca #. 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 Coagulopathy, likely due to decreased p.o. intake. --> INR of 1.2 --> hepatitis panel is pending --> HIV negative #. Paraproteinemia. --> spep and upep are prelim negative for monoclonal band #. Nasopharyngeal carcinoma, currently in remission. #. Failure to thrive history, likely secondary to decreased p.o. intake. #. Hypertension. Systolic blood pressure goal is less than 140. The time the note was entered does not necessarily correspond to the time the patient was seen. Subjective Date patient seen: Jan 07, 2018 ROS Limited/Unobtainable: Yes Hematologic/Lymphatic: Reports: anemia Allergies: Coded Allergies: No Known Allergies (Unverified , 07/17/17) All Systems: reviewed and negative except above Subjective Pt awake, confused and agitated. No acute events. DC planning. Objective Last 24 Hour Vital Signs Date Time Temp Pulse Resp B/P (MAP) Pulse Ox O2 Delivery O2 Flow Rate FiO2 01/07/18 12:00 97.4 56 19 152/69 (96) 100 97.4 01/07/18 09:29 61 141/64 01/07/18 09:29 141/64 01/07/18 09:00 Nasal Cannula 3.0 Nasal Cannula 3.0 01/07/18 08:00 97.3 61 19 141/64 (89) 100 97.3 01/07/18 07:54 Nasal Cannula 01/07/18 07:54 Nasal Cannula 01/07/18 07:30 Nasal Cannula 2.0 28 01/07/18 07:30 93 Nasal Cannula 2.0 01/07/18 04:00 97.5 60 19 134/60 (84) 100 97.5 01/07/18 01:09 Nasal Cannula 01/07/18 01:08 Nasal Cannula 01/07/18 00:00 97.1 63 19 129/58 (81) 99 97.1 01/06/18 23:49 73 18 Nasal Cannula 2.0 28 01/06/18 22:20 73 135/67 01/06/18 22:20 73 135/67 01/06/18 21:00 Nasal Cannula 3.0 Nasal Cannula 3.0 01/06/18 20:03 73 18 99 Nasal Cannula 2.0 28 01/06/18 20:00 98.1 62 18 135/67 (89) 98 98.1 01/06/18 19:53 67 20 94 Nasal Cannula 2.0 28 01/06/18 19:52 94 Nasal Cannula 2.0 28 01/06/18 19:52 Nasal Cannula 2.0 28 01/06/18 16:00 97.8 63 20 141/67 (91) 95 97.8 Intake and Output 01/06/18 01/07/18 19:00 07:00 Intake Total 110 ml 310 ml Balance 110 ml 310 ml Free Water 90 ml 60 ml Tube Feeding 20 ml 250 ml # Voids 4 # Bowel Movements 3 Laboratory Tests 01/07/18 06:55: White Blood Count 6.8, Red Blood Count 3.27L, Hemoglobin 9.5L, Hematocrit 29.7L , Mean Corpuscular Volume 91, Mean Corpuscular Hemoglobin 29.0, Mean Corpuscular Hemoglobin Concent 32.0, Red Cell Distribution Width 14.1, Platelet Count 438, Mean Platelet Volume 7.4, Neutrophils (%) (Auto) 81.5H, Lymphocytes ( %) (Auto) 10.8L, Monocytes (%) (Auto) 5.8, Eosinophils (%) (Auto) 1.2, Basophils (%) (Auto) 0.7, Sodium Level 139, Potassium Level 4.0, Chloride Level 103, Carbon Dioxide Level 32, Anion Gap 4L, Blood Urea Nitrogen 16, Creatinine 1.1, Estimat Glomerular Filtration Rate > 60, Glucose Level 89, Calcium Level 8.7, Total Bilirubin 0.4, Aspartate Amino Transf (AST/SGOT) 24, Alanine Aminotransferase (ALT/SGPT) 13, Alkaline Phosphatase 61, Total Protein 7.6, Albumin 1.6L, Globulin 6.0, Albumin/Globulin Ratio 0.3L Height (Feet): 5 Height (Inches): 10.00 Weight (Pounds): 185 General Appearance: no apparent distress, agitated EENT: PERRL/EOMI Neck: normal alignment Cardiovascular: bradycardia Respiratory/Chest: no respiratory distress Abdomen: soft Shane Oropeza MD Jan 07, 2018 14:58
--- NOTE | 2018-01-07 15:13 | Urology Progress Note ---
Assessment/Plan Assessment/Plan 1. Gross hematuria hx, resolving. 2. Urinary retention. 3. BPH history. 4. Proteinuria. 5. Mild pyuria. 6. Rule out neurogenic bladder. 7. Bladder tumor, low grade urothelial ca. 8, POD # 11, TURBT. hinkle out cont with abx proscar, flomax monitor h/h, renal fxn monitor PVR d/w primary service Subjective Allergies: Coded Allergies: No Known Allergies (Unverified , 07/17/17) Subjective all noted, no flank pain, hinkle removed yest, voiding, PVR 55 cc per report Objective Last 24 Hour Vital Signs Date Time Temp Pulse Resp B/P (MAP) Pulse Ox O2 Delivery O2 Flow Rate FiO2 01/07/18 12:00 97.4 56 19 152/69 (96) 100 97.4 01/07/18 09:29 61 141/64 01/07/18 09:29 141/64 01/07/18 09:00 Nasal Cannula 3.0 Nasal Cannula 3.0 01/07/18 08:00 97.3 61 19 141/64 (89) 100 97.3 01/07/18 07:54 Nasal Cannula 01/07/18 07:54 Nasal Cannula 01/07/18 07:30 Nasal Cannula 2.0 28 01/07/18 07:30 93 Nasal Cannula 2.0 28 01/07/18 04:00 97.5 60 19 134/60 (84) 100 97.5 01/07/18 01:09 Nasal Cannula 01/07/18 01:08 Nasal Cannula 01/07/18 00:00 97.1 63 19 129/58 (81) 99 97.1 01/06/18 23:49 73 18 Nasal Cannula 2.0 28 01/06/18 22:20 73 135/67 01/06/18 22:20 73 135/67 01/06/18 21:00 Nasal Cannula 3.0 Nasal Cannula 3.0 01/06/18 20:03 73 18 99 Nasal Cannula 2.0 28 01/06/18 20:00 98.1 62 18 135/67 (89) 98 98.1 01/06/18 19:53 67 20 94 Nasal Cannula 2.0 28 01/06/18 19:52 94 Nasal Cannula 2.0 28 01/06/18 19:52 Nasal Cannula 2.0 28 01/06/18 16:00 97.8 63 20 141/67 (91) 95 97.8 Intake and Output 01/06/18 01/07/18 19:00 07:00 Intake Total 110 ml 310 ml Balance 110 ml 310 ml Free Water 90 ml 60 ml Tube Feeding 20 ml 250 ml # Voids 4 # Bowel Movements 3 Microbiology Date/Time Source Procedure Growth Status 01/01/18 13:15 Blood Blood Culture - Final NO GROWTH AFTER 5 DAYS Complete 12/23/17 19:40 Nasal Nares MRSA Culture - Final Staphylococcus Aureus - Mrsa Complete 12/31/17 20:00 Indwelling Cath Urine Culture - Final NO GROWTH AFTER 48 HOURS Complete 12/23/17 19:40 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 Complete Current Medications Medications (Trade) Dose Ordered Sig/Mehran Route PRN Reason Start Time Stop Time Status Last Admin Dose Admin Acetaminophen (Tylenol) 650 mg Q6H PRN ORAL Mild Pain/Temp > 100.5 12/23/17 21:14 01/22/18 21:13 Albuterol/ Ipratropium (Albuterol/ Ipratropium) 3 ml Q4H PRN HHN Shortness of Breath 01/07/18 08:30 01/12/18 08:29 Amlodipine Besylate (Norvasc) 10 mg QHS ORAL 12/23/17 21:00 01/22/18 20:59 01/06/18 22:20 Carvedilol (Coreg) 25 mg EVERY 12 HOURS ORAL 12/26/17 21:00 01/22/18 20:59 01/07/18 09:29 Docusate Sodium (Colace) 250 mg DAILY NG 01/01/18 09:00 01/31/18 08:59 01/07/18 09:31 Finasteride (Proscar) 5 mg DAILY ORAL 12/24/17 09:00 01/23/18 08:59 01/07/18 09:29 Gabapentin (Neurontin) 100 mg BEDTIME PRN ORAL Moderate Pain (Pain Scale 4-6) 12/23/17 21:45 01/22/18 21:44 Haloperidol Lactate (Haldol) 5 mg Q6H PRN IM Agitation 12/27/17 12:15 01/26/18 12:14 12/27/17 12:35 Hydralazine HCl (Apresoline) 50 mg Q8H PRN ORAL For High Blood Pressure 12/25/17 12:00 01/24/18 11:59 01/05/18 13:29 Hydrochlorothiazide (Hydrodiuril) 25 mg DAILY ORAL 12/27/17 09:00 01/26/18 08:59 01/07/18 09:29 Losartan Potassium (Cozaar) 100 mg DAILY ORAL 12/26/17 09:00 01/23/18 08:59 01/07/18 09:29 Metoclopramide HCl (Reglan) 10 mg Q8H PRN IVP Nausea & Vomiting 01/07/18 13:00 02/06/18 12:59 01/07/18 14:36 Piperacillin Sod/ Tazobactam Sod 3.375 gm/Dextrose 110 ml @ 27.5 mls/hr EVERY 8 HOURS IVPB 01/01/18 14:00 01/12/18 13:59 01/07/18 14:36 Quetiapine Fumarate (SEROquel) 12.5 mg EVERY 4 HOURS PRN ORAL Agitation 12/24/17 23:30 01/23/18 23:29 01/07/18 03:17 Sodium Chloride 1,000 ml @ 75 mls/hr [id number] IV 12/23/17 22:00 01/22/18 21:59 01/07/18 09:34 Tamsulosin HCl (Flomax) 0.4 mg BEDTIME ORAL 12/24/17 21:00 01/23/18 20:59 01/06/18 22:21 Laboratory Tests 01/07/18 06:55: White Blood Count 6.8, Red Blood Count 3.27L, Hemoglobin 9.5L, Hematocrit 29.7L , Mean Corpuscular Volume 91, Mean Corpuscular Hemoglobin 29.0, Mean Corpuscular Hemoglobin Concent 32.0, Red Cell Distribution Width 14.1, Platelet Count 438, Mean Platelet Volume 7.4, Neutrophils (%) (Auto) 81.5H, Lymphocytes ( %) (Auto) 10.8L, Monocytes (%) (Auto) 5.8, Eosinophils (%) (Auto) 1.2, Basophils (%) (Auto) 0.7, Sodium Level 139, Potassium Level 4.0, Chloride Level 103, Carbon Dioxide Level 32, Anion Gap 4L, Blood Urea Nitrogen 16, Creatinine 1.1, Estimat Glomerular Filtration Rate > 60, Glucose Level 89, Calcium Level 8.7, Total Bilirubin 0.4, Aspartate Amino Transf (AST/SGOT) 24, Alanine Aminotransferase (ALT/SGPT) 13, Alkaline Phosphatase 61, Total Protein 7.6, Albumin 1.6L, Globulin 6.0, Albumin/Globulin Ratio 0.3L Height (Feet): 5 Height (Inches): 10.00 Weight (Pounds): [address] noted path noted, low grade urothelial ca (d/w pathologist) LIVIER ALVAREZ Jan 07, 2018 15:13
--- NOTE | 2018-01-07 15:38 | GI Progress Note ---
Assessment/Plan Problems: (1) Encounter for PEG (percutaneous endoscopic gastrostomy) ICD Codes: Z43.1 - Encounter for attention to gastrostomy SNOMED: 641403460, [id number] (2) Severe malnutrition ICD Codes: E43 - Unspecified severe protein-calorie malnutrition SNOMED: 87139918 (3) Dehydration ICD Codes: E86.0 - Dehydration SNOMED: 02977771 (4) Bladder tumor ICD Codes: D49.4 - Neoplasm of unspecified behavior of bladder SNOMED: 595722126 (5) Dysphagia ICD Codes: R13.10 - Dysphagia, unspecified SNOMED: 27907158, 679653824 Status: stable Status Narrative Discussed with Dr. Montes. Assessment/Plan 1. Status post successful PEG placement. 2. Gastritis, status post biopsy. still has high residuals RECOMMENDATIONS: dc seroquel start reglan 10mg q8, ok to dc once residuals are down. Abdominal binder. Elevate the head of bed at all times. G-tube flush. G-tube care. GTFs per RD fu labs The patient was seen and examined at bedside and all new and available data was reviewed in the patients chart. I agree with the above findings, impression and plan. (Patient seen earlier today. Signature stamp does not reflect patient encounter time.). - Tylor Montes MD Subjective Subjective c/o of hunger no abdominal pain Objective Last 24 Hour Vital Signs Date Time Temp Pulse Resp B/P (MAP) Pulse Ox O2 Delivery O2 Flow Rate FiO2 01/07/18 12:00 97.4 56 19 152/69 (96) 100 97.4 01/07/18 09:29 61 141/64 01/07/18 09:29 141/64 01/07/18 09:00 Nasal Cannula 3.0 Nasal Cannula 3.0 01/07/18 08:00 97.3 61 19 141/64 (89) 100 97.3 01/07/18 07:54 Nasal Cannula 01/07/18 07:54 Nasal Cannula 01/07/18 07:30 Nasal Cannula 2.0 28 01/07/18 07:30 93 Nasal Cannula 2.0 28 01/07/18 04:00 97.5 60 19 134/60 (84) 100 97.5 01/07/18 01:09 Nasal Cannula 01/07/18 01:08 Nasal Cannula 01/07/18 00:00 97.1 63 19 129/58 (81) 99 97.1 01/06/18 23:49 73 18 Nasal Cannula 2.0 28 01/06/18 22:20 73 135/67 01/06/18 22:20 73 135/67 01/06/18 21:00 Nasal Cannula 3.0 Nasal Cannula 3.0 01/06/18 20:03 73 18 99 Nasal Cannula 2.0 28 01/06/18 20:00 98.1 62 18 135/67 (89) 98 98.1 01/06/18 19:53 67 20 94 Nasal Cannula 2.0 28 01/06/18 19:52 94 Nasal Cannula 2.0 28 01/06/18 19:52 Nasal Cannula 2.0 28 01/06/18 16:00 97.8 63 20 141/67 (91) 95 97.8 Intake and Output 01/06/18 01/07/18 19:00 07:00 Intake Total 110 ml 310 ml Balance 110 ml 310 ml Free Water 90 ml 60 ml Tube Feeding 20 ml 250 ml # Voids 4 # Bowel Movements 3 Laboratory Tests Test 01/07/18 06:55 White Blood Count 6.8 K/UL (4.8-10.8) Red Blood Count 3.27 M/UL (4.70-6.10) L Hemoglobin 9.5 G/DL (14.2-18.0) L Hematocrit 29.7 % (42.0-52.0) L Mean Corpuscular Volume 91 FL (80-99) Mean Corpuscular Hemoglobin 29.0 PG (27.0-31.0) Mean Corpuscular Hemoglobin Concent 32.0 G/DL (32.0-36.0) Red Cell Distribution Width 14.1 % (11.6-14.8) Platelet Count 438 K/UL (150-450) Mean Platelet Volume 7.4 FL (6.5-10.1) Neutrophils (%) (Auto) 81.5 % (45.0-75.0) H Lymphocytes (%) (Auto) 10.8 % (20.0-45.0) L Monocytes (%) (Auto) 5.8 % (1.0-10.0) Eosinophils (%) (Auto) 1.2 % (0.0-3.0) Basophils (%) (Auto) 0.7 % (0.0-2.0) Sodium Level 139 MMOL/L (136-145) Potassium Level 4.0 MMOL/L (3.5-5.1) Chloride Level 103 MMOL/L (98-107) Carbon Dioxide Level 32 MMOL/L (21-32) Anion Gap 4 mmol/L (5-15) L Blood Urea Nitrogen 16 mg/dL (7-18) Creatinine 1.1 MG/DL (0.55-1.30) Estimat Glomerular Filtration Rate > 60 mL/min (>60) Glucose Level 89 MG/DL (74-106) Calcium Level 8.7 MG/DL (8.5-10.1) Total Bilirubin 0.4 MG/DL (0.2-1.0) Aspartate Amino Transf (AST/SGOT) 24 U/L (15-37) Alanine Aminotransferase (ALT/SGPT) 13 U/L (12-78) Alkaline Phosphatase 61 U/L (46-116) Total Protein 7.6 G/DL (6.4-8.2) Albumin 1.6 G/DL (3.4-5.0) L Globulin 6.0 g/dL Albumin/Globulin Ratio 0.3 (1.0-2.7) L Height (Feet): 5 Height (Inches): 10.00 Weight (Pounds): 185 General Appearance: WD/WN, no apparent distress, alert Cardiovascular: normal rate Respiratory/Chest: normal breath sounds, no respiratory distress Abdominal Exam: normal bowel sounds, non tender, soft Extremities: non-tender Lisha Roland [employer] Jan 07, 2018 15:37
[2018-01-07 16:00] VITALS: BP 141/77
[2018-01-07 20:00] VITALS: BP 166/85
[2018-01-07] MEDS: Tamsulosin 0.4mg cap ORAL SCH (20:48)
[2018-01-08] VITALS: BP 140/72
[2018-01-08 04:00] VITALS: BP 136/72
[2018-01-08] MEDS: Piperacillin/Tazobactam 3.375 GM in D5W 110 ML IVPB SCH (06:25)
[2018-01-08 07:28] LABS: BASOPHILS % (AUTO) 0.6 % (0.0-2.0); EOSINOPHILS % (AUTO) 0.6 % (0.0-3.0); HEMATOCRIT 29.2 % (42.0-52.0); HEMOGLOBIN 9.4 G/DL (14.2-18.0); LYMPHOCYTES % (AUTO) 12.8 % (20.0-45.0); MEAN CORPUSCULAR VOLUME 91 FL (80-99); MONOCYTES % (AUTO) 3.4 % (1.0-10.0); NEUTROPHILS % (AUTO) 82.7 % (45.0-75.0); PLATELET COUNT 494 K/UL (150-450); RED BLOOD COUNT 3.22 M/UL (4.70-6.10); RED CELL DISTRIBUTION WIDTH 14.3 % (11.6-14.8); WHITE BLOOD COUNT 7.7 K/UL (4.8-10.8)
[2018-01-08 07:31] LABS: ALANINE AMINOTRANSFERASE 11 U/L (12-78); ALBUMIN/GLOBULIN RATIO 0.3 (1.0-2.7); ALKALINE PHOSPHATASE 68 U/L (46-116); ANION GAP 9 mmol/L (5-15); ASPARTATE AMINO TRANSFERASE 26 U/L (15-37); BILIRUBIN,TOTAL 0.5 MG/DL (0.2-1.0); BLOOD UREA NITROGEN 14 mg/dL (7-18); CARBON DIOXIDE 27 MMOL/L (21-32); CHLORIDE 101 MMOL/L (98-107); POTASSIUM 3.2 MMOL/L (3.5-5.1); SODIUM 137 MMOL/L (136-145)
[2018-01-08 08:00] VITALS: BP 155/75
--- NOTE | 2018-01-08 09:15 | Pulmonology Progress Note ---
Assessment/Plan Problems: (1) PEG (percutaneous endoscopic gastrostomy) status (2) Pleural effusion (3) Collapse, lung (4) PNA (pneumonia) (5) Bladder tumor (6) Severe malnutrition Assessment/Plan ASSESSMENT: The patient is a 67-year-old male with a history of prior nasopharyngeal carcinoma, hypertension, encephalopathy, admitted with hematuria, noted to have a bladder mass, now status post TURBT with pathology pending with progressive opacification of left hemithorax likely secondary to a combination of pneumonia with mucus plugging, atelectasis, and pleural effusion. 01/02/18 - 600 cc L THORACENTESIS ---> MARKED IMPROVEMENT IN AERATION OF L LUNG PROBLEM LIST: 1. Left hemithorax opacifications likely a combination of pneumonia with mucus plugging, atelectasis, and pleural effusion - IMPROVED 2. Healthcare associated pneumonia. 3. Dysphagia, status post PEG. 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 Encephalopathy. 6. Failure to thrive and severe malnutrition. 7. Hypertension, hyperlipidemia. TREATMENT PLAN: 1. Optimize pulmonary hygiene/mobilize as tolerated. 2. PRN HHN's only 3. Monitor CXR 4. F/U pleural fluid Cx and cystology 5. Observe off Abx after today, S/P 7 days of Zosyn 5. Will need a repeat CT chest in 4-6 weeks as an outpatient to further evaluate parenchymal changes and ensure no pulmonary mets once acute issues resolved 6. Cautious G-tube feeds. Continue PAPER COLORER therapy if able 7. DVT prophylaxis, SCDs. 8. Follow up recs 9. The patient is a Full Code. 10. Continue to discuss goals of care. Subjective Allergies: Coded Allergies: No Known Allergies (Unverified , 07/17/17) Subjective D/C held 2/2 high residuals AFVSS, O2 needs stable No cough, no SOB, no wheezing, no F/C Objective Last 24 Hour Vital Signs Date Time Temp Pulse Resp B/P (MAP) Pulse Ox O2 Delivery O2 Flow Rate FiO2 01/08/18 04:00 97.6 67 18 136/72 (93) 97 97.6 01/08/18 00:00 97.8 63 18 140/72 (94) 100 97.8 01/07/18 21:00 Nasal Cannula 3.0 Nasal Cannula 3.0 01/07/18 20:49 79 166/85 7/31/18 20:48 79 166/85 01/07/18 20:45 68 16 Nasal Cannula 2.0 01/07/18 20:45 Nasal Cannula 2.0 01/07/18 20:45 94 Nasal Cannula 2.0 28 01/07/18 20:00 98.2 79 18 166/85 (112) 94 98.2 01/07/18 16:00 96.8 53 20 141/77 (98) 96.8 01/07/18 12:00 97.4 56 19 152/69 (96) 100 97.4 01/07/18 09:29 61 141/64 01/07/18 09:29 141/64 Intake and Output 01/07/18 01/08/18 19:00 07:00 Intake Total 210 ml 1220.0 ml Balance 210 ml 1220.0 ml Free Water 180 ml IV Total 860.0 ml Tube Feeding 210 ml 180 ml # Voids 3 # Bowel Movements 2 General Appearance: no acute distress, cachetic HEENT: normocephalic, atraumatic, anicteric, mucous membranes moist Respiratory/Chest: chest wall non-tender, lungs clear, normal breath sounds, no respiratory distress, no accessory muscle use Cardiovascular: normal peripheral pulses, normal rate, regular rhythm Abdomen: normal bowel sounds, soft, non tender, no organomegaly, non distended , no mass, other - GT intact Extremities: no cyanosis, no clubbing, no edema Laboratory Tests 01/08/18 06:50: White Blood Count 7.7, Red Blood Count 3.22L, Hemoglobin 9.4L, Hematocrit 29.2L , Mean Corpuscular Volume 91, Mean Corpuscular Hemoglobin 29.4, Mean Corpuscular Hemoglobin Concent 32.4, Red Cell Distribution Width 14.3, Platelet Count 494H, Mean Platelet Volume 7.1, Neutrophils (%) (Auto) 82.7H, Lymphocytes (%) (Auto) 12.8L, Monocytes (%) (Auto) 3.4, Eosinophils (%) (Auto) 0.6, Basophils (%) (Auto) 0.6, Sodium Level 137, Potassium Level 3.2L, Chloride Level 101, Carbon Dioxide Level 27, Anion Gap 9, Blood Urea Nitrogen 14, Creatinine 1.0, Estimat Glomerular Filtration Rate > 60, Glucose Level 68L, Calcium Level 9.0, Total Bilirubin 0.5, Aspartate Amino Transf (AST/SGOT) 26, Alanine Aminotransferase (ALT/SGPT) 11L, Alkaline Phosphatase 68, Total Protein 8.7H, Albumin 2.0L, Globulin 6.7, Albumin/Globulin Ratio 0.3L Current Medications Medications (Trade) Dose Ordered Sig/Mehran Route PRN Reason Start Time Stop Time Status Last Admin Dose Admin Acetaminophen (Tylenol) 650 mg Q6H PRN ORAL Mild Pain/Temp > 100.5 12/23/17 21:14 01/22/18 21:13 Albuterol/ Ipratropium (Albuterol/ Ipratropium) 3 ml Q4H PRN HHN Shortness of Breath 01/07/18 08:30 01/12/18 08:29 Amlodipine Besylate (Norvasc) 10 mg QHS ORAL 12/23/17 21:00 01/22/18 20:59 01/07/18 20:49 Carvedilol (Coreg) 25 mg EVERY 12 HOURS ORAL 12/26/17 21:00 01/22/18 20:59 01/07/18 20:48 Docusate Sodium (Colace) 250 mg DAILY NG 01/01/18 09:00 01/31/18 08:59 01/07/18 09:31 Finasteride (Proscar) 5 mg DAILY ORAL 12/24/17 09:00 01/23/18 08:59 01/07/18 09:29 Gabapentin (Neurontin) 100 mg BEDTIME PRN ORAL Moderate Pain (Pain Scale 4-6) 12/23/17 21:45 01/22/18 21:44 Haloperidol Lactate (Haldol) 5 mg Q6H PRN IM Agitation 12/27/17 12:15 01/26/18 12:14 12/27/17 12:35 Hydralazine HCl (Apresoline) 50 mg Q8H PRN ORAL For High Blood Pressure 12/25/17 12:00 01/24/18 11:59 01/05/18 13:29 Hydrochlorothiazide (Hydrodiuril) 25 mg DAILY ORAL 12/27/17 09:00 01/26/18 08:59 01/07/18 09:29 Losartan Potassium (Cozaar) 100 mg DAILY ORAL 12/26/17 09:00 01/23/18 08:59 01/07/18 09:29 Metoclopramide HCl (Reglan) 10 mg Q8H PRN IVP Nausea & Vomiting 01/07/18 13:00 02/06/18 12:59 01/07/18 23:43 Piperacillin Sod/ Tazobactam Sod 3.375 gm/Dextrose 110 ml @ 27.5 mls/hr EVERY 8 HOURS IVPB 01/01/18 14:00 01/12/18 13:59 01/08/18 06:25 Quetiapine Fumarate (SEROquel) 12.5 mg EVERY 4 HOURS PRN ORAL Agitation 12/24/17 23:30 01/23/18 23:29 01/07/18 03:17 Sodium Chloride 1,000 ml @ 75 mls/hr [id number] IV 12/23/17 22:00 01/22/18 21:59 01/07/18 20:50 Tamsulosin HCl (Flomax) 0.4 mg BEDTIME ORAL 12/24/17 21:00 01/23/18 20:59 01/07/18 20:48 Daniel Stone MD Jan 08, 2018 09:15
[2018-01-08] MEDS: Docusate 100mg/10ml Liq NG SCH (09:39)
[2018-01-08] MEDS: Carvedilol 25mg Tab ORAL SCH (09:39)
[2018-01-08] MEDS: Losartan 50mg tab ORAL SCH (09:39)
--- NOTE | 2018-01-08 10:28 | Urology Progress Note ---
Assessment/Plan Assessment/Plan 1. Gross hematuria hx, resolving. 2. Urinary retention. 3. BPH history. 4. Proteinuria. 5. Mild pyuria. 6. Rule out neurogenic bladder. 7. Bladder tumor, low grade urothelial ca. 8, POD # 12, TURBT. hinkle out cont with abx proscar, flomax monitor h/h, renal fxn monitor PVR d/w primary service Subjective Allergies: Coded Allergies: No Known Allergies (Unverified , 07/17/17) Subjective all noted, voiding Objective Last 24 Hour Vital Signs Date Time Temp Pulse Resp B/P (MAP) Pulse Ox O2 Delivery O2 Flow Rate FiO2 01/08/18 09:39 60 155/75 01/08/18 09:39 155/75 01/08/18 08:00 96.6 60 19 155/75 (101) 95 96.6 01/08/18 04:00 97.6 67 18 136/72 (93) 97 97.6 01/08/18 00:00 97.8 63 18 140/72 (94) 100 97.8 01/07/18 21:00 Nasal Cannula 3.0 Nasal Cannula 3.0 01/07/18 20:49 79 166/85 01/07/18 20:48 79 166/85 01/07/18 20:45 68 16 Nasal Cannula 2.0 28 01/07/18 20:45 Nasal Cannula 2.0 28 01/07/18 20:45 94 Nasal Cannula 2.0 28 01/07/18 20:00 98.2 79 18 166/85 (112) 94 98.2 01/07/18 16:00 96.8 53 20 141/77 (98) 96.8 01/07/18 12:00 97.4 56 19 152/69 (96) 100 97.4 Intake and Output 01/07/18 01/08/18 19:00 07:00 Intake Total 210 ml 1220.0 ml Balance 210 ml 1220.0 ml Free Water 180 ml IV Total 860.0 ml Tube Feeding 210 ml 180 ml # Voids 3 # Bowel Movements 2 Microbiology Date/Time Source Procedure Growth Status 01/01/18 13:15 Blood Blood Culture - Final NO GROWTH AFTER 5 DAYS Complete 12/23/17 19:40 Nasal Nares MRSA Culture - Final Staphylococcus Aureus - Mrsa Complete 12/31/17 20:00 Indwelling Cath Urine Culture - Final NO GROWTH AFTER 48 HOURS Complete 12/23/17 19:40 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 Complete Current Medications Medications (Trade) Dose Ordered Sig/Mehran Route PRN Reason Start Time Stop Time Status Last Admin Dose Admin Acetaminophen (Tylenol) 650 mg Q6H PRN ORAL Mild Pain/Temp > 100.5 12/23/17 21:14 01/22/18 21:13 Albuterol/ Ipratropium (Albuterol/ Ipratropium) 3 ml Q4H PRN HHN Shortness of Breath 01/07/18 08:30 01/12/18 08:29 Amlodipine Besylate (Norvasc) 10 mg QHS ORAL 12/23/17 21:00 01/22/18 20:59 01/07/18 20:49 Carvedilol (Coreg) 25 mg EVERY 12 HOURS ORAL 12/26/17 21:00 01/22/18 20:59 01/08/18 09:39 Docusate Sodium (Colace) 250 mg DAILY NG 01/01/18 09:00 01/31/18 08:59 01/08/18 09:39 Finasteride (Proscar) 5 mg DAILY ORAL 12/24/17 09:00 01/23/18 08:59 01/08/18 09:39 Gabapentin (Neurontin) 100 mg BEDTIME PRN ORAL Moderate Pain (Pain Scale 4-6) 12/23/17 21:45 01/22/18 21:44 Haloperidol Lactate (Haldol) 5 mg Q6H PRN IM Agitation 12/27/17 12:15 01/26/18 12:14 12/27/17 12:35 Hydralazine HCl (Apresoline) 50 mg Q8H PRN ORAL For High Blood Pressure 12/25/17 12:00 01/24/18 11:59 01/05/18 13:29 Hydrochlorothiazide (Hydrodiuril) 25 mg DAILY ORAL 12/27/17 09:00 01/26/18 08:59 01/08/18 09:39 Losartan Potassium (Cozaar) 100 mg DAILY ORAL 12/26/17 09:00 01/23/18 08:59 01/08/18 09:39 Metoclopramide HCl (Reglan) 10 mg Q8H PRN IVP Nausea & Vomiting 01/07/18 13:00 02/06/18 12:59 01/07/18 23:43 Quetiapine Fumarate (SEROquel) 12.5 mg EVERY 4 HOURS PRN ORAL Agitation 12/24/17 23:30 01/23/18 23:29 01/07/18 03:17 Sodium Chloride 1,000 ml @ 75 mls/hr [id number] IV 12/23/17 22:00 01/22/18 21:59 01/07/18 20:50 Tamsulosin HCl (Flomax) 0.4 mg BEDTIME ORAL 12/24/17 21:00 01/23/18 20:59 01/07/18 20:48 Laboratory Tests 01/08/18 06:50: White Blood Count 7.7, Red Blood Count 3.22L, Hemoglobin 9.4L, Hematocrit 29.2L , Mean Corpuscular Volume 91, Mean Corpuscular Hemoglobin 29.4, Mean Corpuscular Hemoglobin Concent 32.4, Red Cell Distribution Width 14.3, Platelet Count 494H, Mean Platelet Volume 7.1, Neutrophils (%) (Auto) 82.7H, Lymphocytes (%) (Auto) 12.8L, Monocytes (%) (Auto) 3.4, Eosinophils (%) (Auto) 0.6, Basophils (%) (Auto) 0.6, Sodium Level 137, Potassium Level 3.2L, Chloride Level 101, Carbon Dioxide Level 27, Anion Gap 9, Blood Urea Nitrogen 14, Creatinine 1.0, Estimat Glomerular Filtration Rate > 60, Glucose Level 68L, Calcium Level 9.0, Total Bilirubin 0.5, Aspartate Amino Transf (AST/SGOT) 26, Alanine Aminotransferase (ALT/SGPT) 11L, Alkaline Phosphatase 68, Total Protein 8.7H, Albumin 2.0L, Globulin 6.7, Albumin/Globulin Ratio 0.3L Height (Feet): 5 Height (Inches): 10.00 Weight (Pounds): [address] noted path noted, low grade urothelial ca (d/w pathologist) LIVIER ALVAREZ Jan 08, 2018 10:27
--- NOTE | 2018-01-08 10:29 | GI Progress Note ---
Assessment/Plan Problems: (1) Encounter for PEG (percutaneous endoscopic gastrostomy) ICD Codes: Z43.1 - Encounter for attention to gastrostomy SNOMED: 129642676, 040415488 (2) Severe malnutrition ICD Codes: E43 - Unspecified severe protein-calorie malnutrition SNOMED: 31461532 (3) Dehydration ICD Codes: E86.0 - Dehydration SNOMED: 56777501 (4) Bladder tumor ICD Codes: D49.4 - Neoplasm of unspecified behavior of bladder SNOMED: 845814819 (5) Dysphagia ICD Codes: R13.10 - Dysphagia, unspecified SNOMED: 15893486, 325756030 Status: stable Status Narrative Discussed with Dr. Montes. Assessment/Plan 1. Status post successful PEG placement. 2. Gastritis, status post biopsy. still has high residuals > 300cc RECOMMENDATIONS: dc seroquel start reglan 10mg q8, ok to dc once residuals are down. Abdominal binder. Elevate the head of bed at all times. G-tube flush. G-tube care. GTFs per RD fu labs The patient was seen and examined at bedside and all new and available data was reviewed in the patients chart. I agree with the above findings, impression and plan. (Patient seen earlier today. Signature stamp does not reflect patient encounter time.). - Tylor Montes MD Subjective Subjective c/o of hunger no abdominal pain Objective Last 24 Hour Vital Signs Date Time Temp Pulse Resp B/P (MAP) Pulse Ox O2 Delivery O2 Flow Rate FiO2 01/08/18 09:39 60 155/75 01/08/18 09:39 155/75 01/08/18 08:00 96.6 60 19 155/75 (101) 95 96.6 01/08/18 04:00 97.6 67 18 136/72 (93) 97 97.6 01/08/18 00:00 97.8 63 18 140/72 (94) 100 97.8 01/07/18 21:00 Nasal Cannula 3.0 Nasal Cannula 3.0 01/07/18 20:49 79 166/85 01/07/18 20:48 79 166/85 01/07/18 20:45 68 16 Nasal Cannula 2.0 28 01/07/18 20:45 Nasal Cannula 2.0 28 01/07/18 20:45 94 Nasal Cannula 2.0 28 01/07/18 20:00 98.2 79 18 166/85 (112) 94 98.2 01/07/18 16:00 96.8 53 20 141/77 (98) 96.8 01/07/18 12:00 97.4 56 19 152/69 (96) 100 97.4 Intake and Output 01/07/18 01/08/18 19:00 07:00 Intake Total 210 ml 1220.0 ml Balance 210 ml 1220.0 ml Free Water 180 ml IV Total 860.0 ml Tube Feeding 210 ml 180 ml # Voids 3 # Bowel Movements 2 Laboratory Tests Test 01/08/18 06:50 White Blood Count 7.7 K/UL (4.8-10.8) Red Blood Count 3.22 M/UL (4.70-6.10) L Hemoglobin 9.4 G/DL (14.2-18.0) L Hematocrit 29.2 % (42.0-52.0) L Mean Corpuscular Volume 91 FL (80-99) Mean Corpuscular Hemoglobin 29.4 PG (27.0-31.0) Mean Corpuscular Hemoglobin Concent 32.4 G/DL (32.0-36.0) Red Cell Distribution Width 14.3 % (11.6-14.8) Platelet Count 494 K/UL (150-450) H Mean Platelet Volume 7.1 FL (6.5-10.1) Neutrophils (%) (Auto) 82.7 % (45.0-75.0) H Lymphocytes (%) (Auto) 12.8 % (20.0-45.0) L Monocytes (%) (Auto) 3.4 % (1.0-10.0) Eosinophils (%) (Auto) 0.6 % (0.0-3.0) Basophils (%) (Auto) 0.6 % (0.0-2.0) Sodium Level 137 MMOL/L (136-145) Potassium Level 3.2 MMOL/L (3.5-5.1) L Chloride Level 101 MMOL/L (98-107) Carbon Dioxide Level 27 MMOL/L (21-32) Anion Gap 9 mmol/L (5-15) Blood Urea Nitrogen 14 mg/dL (7-18) Creatinine 1.0 MG/DL (0.55-1.30) Estimat Glomerular Filtration Rate > 60 mL/min (>60) Glucose Level 68 MG/DL (74-106) L Calcium Level 9.0 MG/DL (8.5-10.1) Total Bilirubin 0.5 MG/DL (0.2-1.0) Aspartate Amino Transf (AST/SGOT) 26 U/L (15-37) Alanine Aminotransferase (ALT/SGPT) 11 U/L (12-78) L Alkaline Phosphatase 68 U/L (46-116) Total Protein 8.7 G/DL (6.4-8.2) H Albumin 2.0 G/DL (3.4-5.0) L Globulin 6.7 g/dL Albumin/Globulin Ratio 0.3 (1.0-2.7) L Height (Feet): 5 Height (Inches): 10.00 Weight (Pounds): 185 General Appearance: WD/WN, no apparent distress, alert Cardiovascular: normal rate Respiratory/Chest: normal breath sounds, no respiratory distress Abdominal Exam: normal bowel sounds, non tender, soft Extremities: non-tender Lisha Roland [employer] Jan 08, 2018 10:29
[2018-01-08 12:13] VITALS: BP 144/106
[2018-01-08] MEDS: Haloperidol 5mg/ml Inj IM PRN (12:24)
--- NOTE | 2018-01-08 13:04 | Discharge Summary ---
Discharge Summary Hospital Course Date of Admission Dec 23, 2017 at 12:05 Date of Discharge Jan 08, 2018 Admitting Diagnosis HEMATURIA HPI Sascha Ley is a 67 year old male who was admitted on Dec 23, 2017 at 12:05 for Hematuria 67 y/o male with a PMH of early dementia/psychosis and HTN presented from [facility] for hematuria x 1 day. At the facility, patient started having hematuria with large blood clots and was sent to [facility] [place] for further evaluation. Patient was given IVF in ER and caude catheter was inserted as hinkle catheter was difficult to place. Patient was further admitted for hematuria and dysuria. At this time, patient admits to dysuria. States that this has never happened to him before. Denies cp, sob, n/v, abdominal pain, f/c. Consultations - Urology - Cardiology - Oncology - Psychiatry - GI - Pulmonology Procedures s/p thoracentesis s/p cystoscopy with TURBT Hospital Course Patient was admitted for hematuria. Heparin and aspirin was dc'ed and urology was consulted. PSA was noted to be 2.55. CT urogram was done, showing bladder hematoma vs. mass. Psychiatry was consulted and patient was deemed incompetent to make his own decisions. Family consented for procedure and patient underwent a cystoscopy with TURBT of large bladder tumor, extensive fulgration, and hinkle placement. Patient had multiple hinkle irrigations and urine became clear again. Patient was started on finasteride and flomax and hinkle was dc'ed successfully. Biopsy revealed non-invasive low grade papillary urothelial CA. Oncology was consulted. Per oncology, no interventions needed as it is non-invasive. Patient was recommended to follow up with oncologist within 1 month as outpatient with oncology. Patient was noted to have hypertensive urgency and cardiology was consulted. Blood pressure medications were optimized for better blood pressure control. Patient was also noted to be increasingly SOB. Troponin was negative and venous duplex was negative for DVT. Patient was noted to have increased atelectasis and endobronchial occlusion on CXR. Empiric IV vancomycin and zosyn was started and pulmonology was consulted. CT chest was done, which showed e/o endobronchial obstruction of the left mainstem and proximal lobar bronchi by debris. Resultant complete atelectasis of the LLL and atelectasis of most of the JACKIE. Moderate to large bilateral pleural effusions. Nonspecific reticular interstitial opacities in the RML. Compressive atelectasis of portions of the right lower lobe. Patient underwent a left thoracentesis with 600cc out. Repeat CXR showed decreased left pleural effusion, postthoracentesis. Improved aeration of the left lung. Slightly increased right pleural effusion. Patient was continued on vancomycin and zosyn for a total of 7 days. Patient was also noted to fail swallow eval and video swallow study. Family consented for Gtube placement and patient underwent a successful Gtube placement. Patient was tolerating feeds well but after several days started having residuals. Patient's diet was switched to Osmolite and reglan was started prn for gastric residuals > 100cc. Patient was further discharged to SNF for further monitoring of gastric residuals with RD consult. Patient was therefore cleared for discharge per urology, cardiology, oncology, psychiatry, GI, and pulmonology. Patient was advised to have a repeat CT chest in 4-6 weeks and a follow up with oncologist, Dr. Oropeza, within 1 month as outpatient. Discharge Medications New Medications: Metoclopramide Hcl* (Reglan*) 5 Mg Tablet 5 MG ORAL EVERY 6 HOURS PRN for 30 Days, #30 TAB Finasteride (Finasteride) 5 Mg Tablet 5 MG ORAL DAILY for 30 Days, #30 TAB Hydrochlorothiazide (Hydrochlorothiazide) 50 Mg Tablet 25 MG ORAL DAILY for 30 Days, #30 TAB Tamsulosin HCl (Flomax) 0.4 Mg Cap.er.24h 0.4 MG ORAL BEDTIME for 30 Days, #30 CAP Continued Medications: Amlodipine Besylate (Norvasc) 10 Mg Tablet 10 MG ORAL QHS for 90 Days, #90 TAB Aspirin (Aspirin EC) 81 Mg Tablet. 81 MG ORAL DAILY, TAB Bisacodyl (Dulcolax) 10 Mg Supp.rect 10 MG RC, SUPP Carvedilol (Coreg) 6.25 Mg Tablet 12.5 MG ORAL EVERY 12 HOURS for 90 Days, #180 TAB Docusate Sodium (Docusate Sodium) 100 Mg Tablet 250 MG ORAL DAILY, #30 TAB 0 Refills Ergocalciferol (Vitamin D2)* (Vitamin D*) 50,000 Unit Capsule 78188 UNIT ORAL ONCE A WEEK for 60 Days, #8 CAP take on Mondays Ferrous Sulfate (Ferrous Sulfate) 325 Mg Tablet. 325 MG ORAL DAILY, #30 TAB 0 Refills Gabapentin (Neurontin) 300 Mg Capsule 100 MG ORAL BEDTIME PRN for For Pain, #7 CAP 0 Refills Losartan Potassium (Losartan Potassium) 25 Mg Tablet 75 MG PO DAILY, TAB Na Phos,M-B/Na Phos,Di-Ba (Fleet Enema) 133 Ml Enema 133 ML RC DAILY PRN for Constipation, EA Discharge Condition Upon Discharge: improving, stable Discharge Disposition Patient was discharged to SNF/Subacute Facility(03) Discharge Diagnoses: (1) Acute encephalopathy (2) Hematuria (3) Psychosis (4) Hypertensive urgency (5) Failure to thrive (6) Folate deficiency (7) Hypertensive urgency (8) Nasopharyngeal cancer (9) Possibly homeless (10) Hematoma of bladder wall (11) Bladder tumor (12) Dehydration (13) Dysphagia (14) Severe malnutrition (15) Encounter for PEG (percutaneous endoscopic gastrostomy) (16) Sepsis (17) PNA (pneumonia) (18) Pleural effusion (19) Collapse, lung (20) Bladder cancer (21) PEG (percutaneous endoscopic gastrostomy) status (22) Resides in [facility] facility Thania Spence NP Jan 08, 2018 13:04
--- NOTE | 2018-01-08 14:29 | General Progress Note ---
Assessment/Plan Assessment/Plan dementia with bd encephalopathy -seroquel standing -Seroquel prn -the pt lacks capacity to make decisions -the pt unable to give consent for surgery Subjective Date patient seen: Jan 08, 2018 Neurologic/Psychiatric: Reports: anxiety, emotional problems Allergies: Coded Allergies: No Known Allergies (Unverified , 07/17/17) Subjective the pt is confuse the same episodes of agitation Objective Last 24 Hour Vital Signs Date Time Temp Pulse Resp B/P (MAP) Pulse Ox O2 Delivery O2 Flow Rate FiO2 01/08/18 12:13 96.3 58 19 144/106 (119) 94 96.3 01/08/18 09:39 60 155/75 01/08/18 09:39 155/75 01/08/18 09:00 Nasal Cannula 3.0 Nasal Cannula 3.0 01/08/18 08:00 96.6 60 19 155/75 (101) 95 96.6 01/08/18 04:00 97.6 67 18 136/72 (93) 97 97.6 01/08/18 00:00 97.8 63 18 140/72 (94) 100 97.8 01/07/18 21:00 Nasal Cannula 3.0 Nasal Cannula 3.0 01/07/18 20:49 79 166/85 01/07/18 20:48 79 166/85 01/07/18 20:45 68 16 Nasal Cannula 2.0 28 01/07/18 20:45 Nasal Cannula 2.0 28 01/07/18 20:45 94 Nasal Cannula 2.0 28 01/07/18 20:00 98.2 79 18 166/85 (112) 94 98.2 01/07/18 16:00 96.8 53 20 141/77 (98) 96.8 Intake and Output 01/07/18 01/08/18 19:00 07:00 Intake Total 210 ml 1220.0 ml Balance 210 ml 1220.0 ml Free Water 180 ml IV Total 860.0 ml Tube Feeding 210 ml 180 ml # Voids 3 # Bowel Movements 2 Laboratory Tests 01/08/18 06:50: White Blood Count 7.7, Red Blood Count 3.22L, Hemoglobin 9.4L, Hematocrit 29.2L , Mean Corpuscular Volume 91, Mean Corpuscular Hemoglobin 29.4, Mean Corpuscular Hemoglobin Concent 32.4, Red Cell Distribution Width 14.3, Platelet Count 494H, Mean Platelet Volume 7.1, Neutrophils (%) (Auto) 82.7H, Lymphocytes (%) (Auto) 12.8L, Monocytes (%) (Auto) 3.4, Eosinophils (%) (Auto) 0.6, Basophils (%) (Auto) 0.6, Sodium Level 137, Potassium Level 3.2L, Chloride Level 101, Carbon Dioxide Level 27, Anion Gap 9, Blood Urea Nitrogen 14, Creatinine 1.0, Estimat Glomerular Filtration Rate > 60, Glucose Level 68L, Calcium Level 9.0, Total Bilirubin 0.5, Aspartate Amino Transf (AST/SGOT) 26, Alanine Aminotransferase (ALT/SGPT) 11L, Alkaline Phosphatase 68, Total Protein 8.7H, Albumin 2.0L, Globulin 6.7, Albumin/Globulin Ratio 0.3L 01/08/18 10:50: Vancomycin Level Trough 26.9H Height (Feet): 5 Height (Inches): 10.00 Weight (Pounds): 185 Edd Horne MD Jan 08, 2018 14:29
--- NOTE | 2018-01-08 18:59 | General Progress Note ---
Assessment/Plan Status: stable Assessment/Plan #. Anemia due to hematuria. PSA level of 2.[address] Irrigation as needed. Urology Service evaluation. --> Continue to closely monitor --> Anemia w/u has been reviewed, will trend daily. --> Hgb goal >8 --> imaging has been reviewed --> 12/27: S/P cystoscopy and bladder biopsy. non-invasive low grade urothelial ca #. 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 Coagulopathy, likely due to decreased p.o. intake. --> INR of 1.2 --> hepatitis panel is pending --> HIV negative #. Paraproteinemia. --> spep and upep are prelim negative for monoclonal band #. Nasopharyngeal carcinoma, currently in remission. #. Failure to thrive history, likely secondary to decreased p.o. intake. #. Hypertension. Systolic blood pressure goal is less than 140. The time the note was entered does not necessarily correspond to the time the patient was seen. Subjective Date patient seen: Jan 08, 2018 Time patient seen: 07:00 ROS Limited/Unobtainable: Yes Hematologic/Lymphatic: Reports: anemia Allergies: Coded Allergies: No Known Allergies (Unverified , 07/17/17) All Systems: reviewed and negative except above Subjective Pt awake and alert. No acute events. DC planned for today. Objective Last 24 Hour Vital Signs Date Time Temp Pulse Resp B/P (MAP) Pulse Ox O2 Delivery O2 Flow Rate FiO2 01/08/18 12:13 96.3 58 19 144/106 (119) 94 96.3 01/08/18 09:39 60 155/75 01/08/18 09:39 155/75 01/08/18 09:00 Nasal Cannula 3.0 Nasal Cannula 3.0 01/08/18 08:00 96.6 60 19 155/75 (101) 95 96.6 01/08/18 04:00 97.6 67 18 136/72 (93) 97 97.6 01/08/18 00:00 97.8 63 18 140/72 (94) 100 97.8 01/07/18 21:00 Nasal Cannula 3.0 Nasal Cannula 3.0 01/07/18 20:49 79 166/85 01/07/18 20:48 79 166/85 01/07/18 20:45 68 16 Nasal Cannula 2.0 28 01/07/18 20:45 Nasal Cannula 2.0 28 01/07/18 20:45 94 Nasal Cannula 2.0 28 01/07/18 20:00 98.2 79 18 166/85 (112) 94 98.2 Intake and Output 01/07/18 01/08/18 19:00 07:00 Intake Total 210 ml 1220.0 ml Balance 210 ml 1220.0 ml Free Water 180 ml IV Total 860.0 ml Tube Feeding 210 ml 180 ml # Voids 3 # Bowel Movements 2 Laboratory Tests 01/08/18 06:50: White Blood Count 7.7, Red Blood Count 3.22L, Hemoglobin 9.4L, Hematocrit 29.2L , Mean Corpuscular Volume 91, Mean Corpuscular Hemoglobin 29.4, Mean Corpuscular Hemoglobin Concent 32.4, Red Cell Distribution Width 14.3, Platelet Count 494H, Mean Platelet Volume 7.1, Neutrophils (%) (Auto) 82.7H, Lymphocytes (%) (Auto) 12.8L, Monocytes (%) (Auto) 3.4, Eosinophils (%) (Auto) 0.6, Basophils (%) (Auto) 0.6, Sodium Level 137, Potassium Level 3.2L, Chloride Level 101, Carbon Dioxide Level 27, Anion Gap 9, Blood Urea Nitrogen 14, Creatinine 1.0, Estimat Glomerular Filtration Rate > 60, Glucose Level 68L, Calcium Level 9.0, Total Bilirubin 0.5, Aspartate Amino Transf (AST/SGOT) 26, Alanine Aminotransferase (ALT/SGPT) 11L, Alkaline Phosphatase 68, Total Protein 8.7H, Albumin 2.0L, Globulin 6.7, Albumin/Globulin Ratio 0.3L 01/08/18 10:50: Vancomycin Level Trough 26.9H Height (Feet): 5 Height (Inches): 10.00 Weight (Pounds): 185 General Appearance: no apparent distress, alert EENT: PERRL/EOMI Neck: normal alignment Cardiovascular: normal peripheral pulses, irregularly irregular Respiratory/Chest: no respiratory distress Abdomen: soft Shane Oropeza MD Jan 08, 2018 18:59
== END 2018-01-08 15:30 | DRG 668 ==
LOC: EDBD 09:22 → EMR 10:22 → 4E 12:05 → EDBEDREQ 12:29 → 4E 01-08 12:34
PROC: 0T5B8ZZ Destruction of Bladder, Via Natural or Artificial Opening Endoscopic (ICD-10-PCS; principal; 2017-12-27 07:00)
PROC: 0TBB8ZZ Excision of Bladder, Via Natural or Artificial Opening Endoscopic (ICD-10-PCS; principal; 2017-12-27 07:00)
PROC: 0W9B3ZZ Drainage of Left Pleural Cavity, Percutaneous Approach (ICD-10-PCS; 2018-01-01)
PROC: 0DH63UZ Insertion of Feeding Device into Stomach, Percutaneous Approach (ICD-10-PCS; 2018-01-05)
PROC: 0DB78ZX Excision of Stomach, Pylorus, Via Natural or Artificial Opening Endoscopic, Diagnostic (ICD-10-PCS; 2018-01-05)
DX: C67.2 Malignant neoplasm of lateral wall of bladder (principal); G93.40 Encephalopathy, unspecified; J18.9 Pneumonia, unspecified organism; A41.9 Sepsis, unspecified organism; E43 Unspecified severe protein-calorie malnutrition; F03.91 Unspecified dementia, unspecified severity, with behavioral disturbance; J90 Pleural effusion, not elsewhere classified; J98.11 Atelectasis; D68.9 Coagulation defect, unspecified; R31.9 Hematuria, unspecified; N40.1 Benign prostatic hyperplasia with lower urinary tract symptoms; R33.8 Other retention of urine; I16.0 Hypertensive urgency; G31.84 Mild cognitive impairment of uncertain or unknown etiology; F29 Unspecified psychosis not due to a substance or known physiological condition; Z85.22 Personal history of malignant neoplasm of nasal cavities, middle ear, and accessory sinuses; R13.10 Dysphagia, unspecified; Z68.26 Body mass index [BMI] 26.0-26.9, adult; Z59.0 Homelessness; E86.0 Dehydration; K29.70 Gastritis, unspecified, without bleeding
CPT/HCPCS: 36415; 71045; 71250; 74018; 74176; 74230; 76942; 80048; 80053; 80202; 81003; 82044; 84153; 84165; 85007; 85025; 85610; 85730; 86703; 86705; 86709; 86803; 86850; 86900; 86901; 87040; 87081; 87086; 87340; 88104; 89051; 93970; 94003; 94150; 94640; 94664; 94760; 99285; J2250; J2765; J7620; J8499